=== PATIENT | female | born 1990 | race Caucasian/White ===

== ENCOUNTER 2020-05-05 20:03 | Emergency (ER) | payer OTHER, SELFPAY ==
[2020-05-05 20:04] VITALS: BP 128/83; PULSE 73; RESP 18; TEMP 36.7; O2SAT 100
[2020-05-05 20:15] VITALS: BP 132/90; PULSE 93; RESP 15; O2SAT 96
--- NOTE | 2020-05-05 20:16 | ED.LOWEXIN ---
HPI - Extremity Injury (Lower) General Chief Complaint: Extremity Injury, Lower Stated Complaint: right calf pain, from express care Time Seen by Provider: 05/05/20 20:04 History of Present Illness HPI Narrative: Right calf pain for the past few days. Continous with intermittent paroxysms. Worse at night and when at rest. She has a h/o intermittent bilateral calf pain, but feels that this is different. Related Data Allergies Allergy/AdvReac Type Severity Reaction Status Date / Time No Known Allergies Allergy Unverified 02/04/19 09:09 Review of Systems Review of Systems: All systems reviewed & are unremarkable except as noted in HPI and below [facility] Social History Social History (Updated 05/06/20 @ 04:23 by Erik Bai MD) Smoking status: Never smoker Exam Const: General: healthy appearing, no acute distress and alert Orientation/consciousness: patient oriented x3 HENMT: Head: normal to inspection Neck: Neck: normal visual inspection and no lymphadenopathy Chest: Chest palpation & inspection: no tenderness Resp: Effort & Inspection: normal respiratory effort Auscultation: clear to auscultation bilaterally, no rales, no rhonchi and no wheezes Cardio: Jugular venous distension: no JVD Rate: regular rate Rhythm: regular rhythm Heart sounds: no murmurs GI: Inspection: non-distended GI Palp: Yes Soft to palpation and No Tenderness to palpation present (GI) Skin: General skin exam: normal color Neuro: General: patient oriented x3 and moves all extremities Speech: normal speech Extrem: General: no edema Other: No calf tenderness Psych: Appearance: well kempt Affect: normal affect Course Vital Signs Vital signs: Vital Signs Temperature 36.7 C 05/05/20 20:04 Pulse Rate 73 05/05/20 20:04 Respiratory Rate 18 05/05/20 20:04 Blood Pressure 128/83 05/05/20 20:04 Pulse Oximetry 100 05/05/20 20:04 Temperature 36.7 C 05/05/20 20:04 Pulse Rate 73 05/05/20 23:15 Respiratory Rate 16 05/05/20 23:15 Blood Pressure 106/87 05/05/20 23:15 Pulse Oximetry 98 05/05/20 23:15 Procedures Other Procedure Procedure 1: Other Procedure: Bedside Ultrasound I personally perform bedside ultrasound of the RLE Popliteal and femoral veins fully compressible. No DVT MDM - Extremity Injury (Lower) MDM Narrative Medical decision making narrative: Pain is not typical for DVT. Exam normal. D-dimer negative. No DVT on US. Lab Data Attestation: I reviewed the patient's lab results. Result diagrams: 05/05/20 20:37 05/05/20 20:37 Labs: Lab Results 05/05/20 05/05/20 05/05/20 Range/Units 20:37 20:37 20:37 WBC 8.4 (4.5-10.0) K/mm3 RBC 4.27 (4.2-5.4) M/mm3 Hgb 12.9 (12.0-15.0) g/dL Hct 39.2 (37.0-47.0) % MCV 91.8 (80-100) fl MCH 30.2 (26-34) pg MCHC 32.9 (32-36) g/dl RDW 13.0 (11.5-14.5) % Plt Count 398 H (150-375) k/mm3 MPV 10.1 (7.4-10.4) fl Immature Gran % (Auto) 0.2 (0-0.5) % Neut % (Auto) 48.0 (45.5-73.1) % Lymph % (Auto) 38.7 (18.3-44.2) % [place] % (Auto) 8.7 H (2.6-8.5) % Eos % (Auto) 3.9 (0-4.4) % Baso % (Auto) 0.5 (0.2-1.2) % Lymph # (Auto) 3.26 H (0.9-3.2) K/mm3 [place] # (Auto) 0.7 H (0.1-0.6) K/mm3 Eos # (Auto) 0.3 (0-0.3) K/mm3 Baso # (Auto) 0.0 (0.0-0.1) K/mm3 Abs Immat Gran (auto) 0.02 (0.00-0.031) K/mm3 Absolute Neuts (auto) 4.1 (1.3-6.7) K/mm3 Absolute Nucleated RBC 0.0 (0.0-0.012) K/mm3 Nucleated RBC % 0.0 (0.0-0.2) % D-Dimer 0.36 (<0.48) ug/mL Sodium 138 (137-145) mmol/L Potassium 4.5 (3.4-5.0) mmol/L Chloride 103 (98-107) mmol/L Carbon Dioxide 29 (22-30) mmol/L BUN 15 (7-17) mg/dL Creatinine 0.90 (0.7-1.0) mg/dL Estim Creat Clear Calc 71 ml/min Estimated GFR > 60 (59 - ) Glucose 95 (65-105) mg/dL Calcium 9.4 (8.4-10.2) mg/dL Magnesium 2.0 (1.6-2.
--- NOTE | 2020-05-05 20:19 | PC.NURSE ---
MARGARITA Nuñez at bedside for assessment.
[2020-05-05] MEDS: MAGNESIUM SULF 2 GM/WATER 50ML 2 GM/50 ML BAG IVPB (20:38)
[2020-05-05] MEDS: SODIUM CHLORIDE 0.9% IV 1,000 ML 999 ML IV CONT (20:38)
[2020-05-05 20:45] LABS: Basophils Percent Auto 0.5 % (0.2-1.2); Eosinophils Absolute Auto 0.3 K/mm3 (0-0.3); Eosinophils Percent Auto 3.9 % (0-4.4); Hematocrit 39.2 % (37.0-47.0); Hemoglobin 12.9 g/dL (12.0-15.0); Immature Granulocyte Absolute 0.02 K/mm3 (0.00-0.031); Immature Granulocyte Percent A 0.2 % (0-0.5); Lymphocytes Absolute Auto 3.26 K/mm3 (0.9-3.2); Lymphocytes Percent Auto 38.7 % (18.3-44.2); Mean Corpuscular HGB Conc 32.9 g/dl (32-36); Mean Corpuscular Hemoglobin 30.2 pg (26-34); Mean Corpuscular Volume 91.8 fl (80-100); Mean Platelet Volume 10.1 fl (7.4-10.4); Monocytes Absolute Auto 0.7 K/mm3 (0.1-0.6); Monocytes Percent Auto 8.7 % (2.6-8.5); Neutrophils Absolute Auto 4.1 K/mm3 (1.3-6.7); Platelet Count Result 398 k/mm3 (150-375); Red Blood Count 4.27 M/mm3 (4.2-5.4); White Blood Count 8.4 K/mm3 (4.5-10.0)
[2020-05-05 20:56] LABS: Blood Urea Nitrogen 15 mg/dL (7-17); Calcium 9.4 mg/dL (8.4-10.2); Carbon Dioxide 29 mmol/L (22-30); Chloride 103 mmol/L (98-107); Estimated CRCL calculation 71 ml/min; Estimated Glomerular Filt Rate > 60; Glucose 95 mg/dL (65-105); Potassium 4.5 mmol/L (3.4-5.0); Sodium 138 mmol/L (137-145)
[2020-05-05 20:58] LABS: D Dimer 0.36 ug/mL (<0.48)
[2020-05-05] MEDS: KETOROLAC 30 MG/ML VIAL (*BKC) IV PUSH (22:15)
[2020-05-05 22:17] VITALS: BP 118/76; PULSE 77; RESP 17; O2SAT 99
[2020-05-05 22:52] VITALS: BP 112/79; PULSE 72; RESP 17; O2SAT 100
--- NOTE | 2020-05-05 23:13 | PC.NURSE ---
RN report given to
[2020-05-05 23:15] VITALS: BP 106/87; PULSE 73; RESP 16; O2SAT 98
== END 2020-05-05 23:24 | disposition home or self-care (01) ==
PROVIDERS: Emergency Provider Emergency Medicine
DX: M79.661 Pain in right lower leg (principal); M79.662 Pain in left lower leg
CPT/HCPCS: 36415; 80048; 83735; 85025; 85380; 96365; 96366; 96375; 99284; J1885; J3475; J7030

== ENCOUNTER 2022-04-29 16:42 | Outpatient (RCR) | payer OTHER, SELFPAY ==
[2022-04-22 08:41] VITALS: BP 116/74; PULSE 109
--- NOTE | ~2022-04-29 | US_ITS ---
EXAMINATION: US OB limited w BPP DATE: 04/29/2022 18:42 CDT INDICATION: decelerations and office TECHNIQUE: Real-time transabdominal obstetric ultrasound. FINDINGS: No prior studies for comparison. There is a single living fetus in vertex presentation. The placenta is fundal/posterior without plac enta previa. cardiac activity and movement is noted with a heart rate of 129 beats per minute. Biophysical profile: breathin of 2 movement: 2 of 2 tone: 2 of 2 Amniotic flud pocket: 2 of 2 Total score: 8 of 8 Amniotic fluid index is normal measuring 13.3 cm. IMPRESSION: 1. Single living intrauterine in vertex presentation. 2: Total biophysical profile score of 8/8. Reviewed, dictated and finalized at location A.
[2022-04-29 18:06] VITALS: BP 116/76
--- NOTE | 2022-04-29 18:16 | PC.NURSE ---
1741- SPoke with Dr. Reeedr, orders to send for BPP and LAURIE. Call with results.
--- NOTE | 2022-04-29 18:55 | PC.NURSE ---
Called Dr. Pickard with ultrasound report. Informed of contractions seen on tracing. Pt denies feeling contractions. May D/C home.
== END 2022-05-31 14:55 | disposition home or self-care (01) ==
LOC: ANHOBOP 16:42
PROVIDERS: Visit Provider Obstetrics & Gynecology
DX: O24.419 Gestational diabetes mellitus in pregnancy, unspecified control (principal); Z3A.34 34 weeks gestation of pregnancy
CPT/HCPCS: 59025; 76815; 76819

== ENCOUNTER 2022-05-26 01:45 | Emergency (ER) | payer OTHER, SELFPAY ==
[2022-05-26 01:50] VITALS: BP 130/70; PULSE 96; RESP 16; TEMP 36.3; O2SAT 100
--- NOTE | 2022-05-26 02:18 | ED.SKABFB ---
HPI - Skin/Abscess/Foreign Bdy General Chief complaint: Skin/Abscess/Foreign Body Stated complaint: hives Time Seen by Provider: 05/26/22 02:03 History of Present Illness HPI narrative: 32-year-old female who is [address] Enamorado presents to the emergency room for evaluation of a rash to her bilateral thighs and feet. Patient states she was recently diagnosed with a pop rash, and has been taking topical steroid ointment with no relief. States earlier this evening she noticed the rash on her feet. Has been taking Benadryl every 4 hours with no relief of symptoms. Denies any shortness of breath difficulty breathing Related Data Home Medications Medication Instructions Recorded Confirmed aspirin 81 mg tablet,delayed 81 mg PO DAILY 01/23/22 01/23/22 release cholecalciferol (vitamin D3) 50 50 mcg PO DAILY 01/23/22 01/23/22 mcg (2,000 unit) capsule ferrous sulfate 27 mg iron tablet 27 mg PO DAILY 01/23/22 01/23/22 folic acid 20 mg capsule 20 mg PO DAILY 01/23/22 01/23/22 levothyroxine 75 mcg tablet 75 mcg PO DAILY 01/23/22 01/23/22 (Euthyrox) prenat.vits,trisha,[id number] 1 tablet PO DAILY 01/23/22 01/23/22 Acid Show Horse Driver (omeprazole) 1 tablet BYMOUTH 1XD 05/01/22 05/01/22 Humulin N NPH U-100 Insulin 6 units subcut DAILY 05/01/22 05/01/22 Allergies Allergy/AdvReac Type Severity Reaction Status Date / Time No Known Allergies Allergy Verified 05/26/22 02:17 Review of Systems Review of Systems: CONSTITUTIONAL: Denies fever, chills, or sweats. EYES: Denies visual changes, redness, or discharge. ENT: Denies rhinorrhea, congestion, sore throat, or otalgia. CARDIOVASCULAR: Denies chest pain, palpitations, or edema. RESPIRATORY: Denies cough or dyspnea. GASTROINTESTINAL: Denies abdominal pain, nausea, vomiting, or diarrhea. GENITOURINARY: Denies dysuria or hematuria. SKIN: Reports rash to bilateral lower extremities MUSCULOSKELETAL: Denies back pain, joint pain, or myalgia. NEUROLOGIC: Denies headache, numbness, dizziness, or weakness. PSYCHIATRIC: Denies anxiety or depression. 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 HEAD: Normocephalic, atraumatic. EYES: Conjunctivae normal, PERRLA and EOMI. CHEST: Clear to auscultation. No respiratory distress. No wheezes rales or rhonchi. No tenderness. HEART: Regular rate and rhythm. No murmur heard. Normal peripheral pulses. ABDOMEN: Soft, nontender, abdomen , active bowel sounds. BACK: No CVA tenderness; No cervical/thoracic/lumbar tenderness, step-offs, bony abnormality; FROM EXTREMITIES: Normal range of motion. No edema. No clubbing or cyanosis SKIN: Erythematous pruritic papular rash noted to bilateral medial thighs, and dorsal surfaces of bilateral feet NEURO: No focal deficits. Alert and oriented x3. MAEW. CN's II-XI intact bilaterally, normal gait PSYCH: Cooperative. Normal mood and affect. Course Vital Signs Vital signs: Vital Signs Temperature 36.3 C L 05/26/22 01:50 Pulse Rate 96 05/26/22 01:50 Respiratory Rate 16 05/26/22 01:50 Blood Pressure 130/70 05/26/22 01:50 Pulse Oximetry 100 05/26/22 01:50 Oxygen Delivery Room Air 05/26/22 01:50
[2022-05-26] MEDS: methylPREDNISolone SOD SUCC 125 MG VIAL IM (02:24)
== END 2022-05-26 02:38 | disposition home or self-care (01) ==
PROVIDERS: Emergency Provider Nurse Practitioner Family; PCP Nurse Practitioner
DX: O26.86 Pruritic urticarial papules and plaques of pregnancy (PUPPP) (principal); O99.283 Endocrine, nutritional and metabolic diseases complicating pregnancy, third trimester; E78.00 Pure hypercholesterolemia, unspecified; Z79.82 Long term (current) use of aspirin; Z79.4 Long term (current) use of insulin; Z87.891 Personal history of nicotine dependence; Z3A.39 39 weeks gestation of pregnancy
CPT/HCPCS: 96372; 99283; J2930

== ENCOUNTER 2022-05-27 16:58 | Inpatient (IN) | payer OTHER, SELFPAY ==
[2022-05-27] VITALS (15 sets, daily range): BP systolic 102–129; BP diastolic 54–97; PULSE 62–166; TEMP 37.2; O2SAT 84–100; BMI 33.5
--- NOTE | 2022-05-27 17:35 | LDADM ---
This patient, Tiffanie Lomas, was admitted to Labor/Delivery/Recovery 109 on 05/27/22 at 16:58. Plans for labor, pain management and were discussed with patient. Patient/family oriented to hospital policies and general routines including ID bracelet, bed and alarms, visiting hours, pain management, procedures, bathroom and other care routines, personal items, smoking policy, room service/diet and guest tray routines, security routines, and visiting hours. Patient/Family are encouraged to report perceived risks to care and to ask questions if they do not understand what they are told or what they should do. See OBIX for further documentation.
[2022-05-27 17:44] LABS: Basophils Percent Auto 0.3 % (0.2-1.2); Eosinophils Absolute Auto 0.3 K/mm3 (0-0.3); Eosinophils Percent Auto 2.6 % (0-4.4); Hematocrit 39.4 % (37.0-47.0); Immature Granulocyte Absolute 0.04 K/mm3 (0.00-0.031); Immature Granulocyte Percent A 0.4 % (0-0.5); Lymphocytes Absolute Auto 0.72 K/mm3 (0.9-3.2); Lymphocytes Percent Auto 7.2 % (18.3-44.2); Mean Corpuscular Hemoglobin 31.3 pg (26-34); Mean Corpuscular Volume 94.7 fl (80-100); Mean Platelet Volume 11.3 fl (7.4-10.4); Monocytes Absolute Auto 0.3 K/mm3 (0.1-0.6); Monocytes Percent Auto 3.3 % (2.6-8.5); Neutrophils Absolute Auto 8.6 K/mm3 (1.3-6.7); Neutrophils Percent Auto 86.2 % (45.5-73.1); Platelet Count Result 332 k/mm3 (150-375); Red Blood Count 4.16 M/mm3 (4.2-5.4); Red Cell Distribution Width 13.8 % (11.5-14.5)
[2022-05-27] MEDS: miSOPROStol 25 MCG TABLET VAGINAL (17:59)
--- NOTE | 2022-05-27 19:10 | WPDANESEPP ---
Anes - Eval Pre Procedure Procedure: labor epidural Date/Time: 05/27/22 19:10 Surgeon: rosie Preop Diagnosis: pain during labor Pre Op Diagnosis: Induction of Labor Patient Data Age: 32 Gender: F Height: 1.57 m Weight: 83 kg Last Vital Signs Pulse 99 05/27/22 17:16 BP 114/66 05/27/22 17:16 O2 Del Method Room Air 05/27/22 17:30 Allergies Allergy/AdvReac Type Severity Reaction Status Date / Time No Known Allergies Allergy Verified 05/26/22 02:17 Home Medications Medication Instructions Recorded Confirmed Type aspirin 81 mg tablet,delayed 81 mg PO DAILY 01/23/22 05/27/22 History release cholecalciferol (vitamin D3) 50 50 mcg PO DAILY 01/23/22 05/27/22 History mcg (2,000 unit) capsule ferrous sulfate 27 mg iron tablet 27 mg PO DAILY 01/23/22 05/27/22 History folic acid 20 mg capsule 20 mg PO DAILY 01/23/22 05/27/22 History levothyroxine 75 mcg tablet 75 mcg PO DAILY 01/23/22 05/27/22 History (Euthyrox) prenat.vits,trisha,[id number] 1 tablet PO DAILY 01/23/22 05/27/22 History Acid Patient Relations Specialist (omeprazole) 1 tablet BYMOUTH 1XD 05/01/22 05/27/22 History Humulin N NPH U-100 Insulin 6 units subcut DAILY 05/01/22 05/27/22 History prednisone 20 mg tablet 40 mg PO DAILY 5 days #10 tabs 05/26/22 05/27/22 Rx Laboratory Tests 05/27/22 05/27/22 17:32 17:32 WBC 10.0 K/mm3 K/mm3 (4.5-10.0) RBC 4.16 M/mm3 L M/mm3 (4.2-5.4) Hgb 13.0 g/dL g/dL (12.0-15.0) Hct 39.4 % % (37.0-47.0) MCV 94.7 fl fl (80-100) MCH 31.3 pg pg (26-34) MCHC 33.0 g/dl g/dl (32-36) RDW 13.8 % % (11.5-14.5) Plt Count 332 k/mm3 k/mm3 (150-375) MPV 11.3 fl H fl (7.4-10.4) Immature Gran % (Auto) 0.4 % % (0-0.5) Neut % (Auto) 86.2 % H % (45.5-73.1) Lymph % (Auto) 7.2 % L % (18.3-44.2) [place] % (Auto) 3.3 % % (2.6-8.5) Eos % (Auto) 2.6 % % (0-4.4) Baso % (Auto) 0.3 % % (0.2-1.2) Lymph # (Auto) 0.72 K/mm3 L K/mm3 (0.9-3.2) [place] # (Auto) 0.3 K/mm3 K/mm3 (0.1-0.6) Eos # (Auto) 0.3 K/mm3 K/mm3 (0-0.3) Baso # (Auto) 0.0 K/mm3 K/mm3 (0.0-0.1) Abs Immat Gran (auto) 0.04 K/mm3 H K/mm3 (0.00-0.031) Absolute Neuts (auto) 8.6 K/mm3 H K/mm3 (1.3-6.7) Absolute Nucleated RBC 0.0 K/mm3 K/mm3 (0.0-0.012) Nucleated RBC % 0.0 % % (0.0-0.2) RPR Pending Patient hx anesthesia problems: none Family hx anesthesia problems: none Results Review: All pre-operative results and documents have been reviewed as part of the pre-operative evaluation. [facility] Past Medical History Medical History (Updated 05/27/22 @ 19:12 by Ursula Gustafson CRNA) High cholesterol Surgical History Surgical History H/O laparoscopy Hx of tonsillectomy Family History Family History Mother Patient's mother is in good health Father Diabetes type 2, controlled Sibling Diabetes type 2, controlled Hypertension Social History Social History Smoking status: Never smoker Alcohol intake: former Substance use: never Additional occupation/education comments: [employer] Spiritual care concerns: No Exam Day of Procedure 05/27/22 19:10
[2022-05-27 20:01] LABS: Glucose Point of Care 123 mg/dl (65-105)
[2022-05-27] MEDS: INSULIN HUMAN NPH (*BKC) 100 UNITS/ML 6 UNITS SUB-Q (21:12)
[2022-05-27] MEDS: diphenhydrAMINE HCl INJ 50 MG/ML VIAL 25 MG IV PUSH (22:13)
[2022-05-27] MEDS: OXYTOCIN 30 UNITS/NS 500 ML 30 UNITS/500 ML BAG IV CONT (22:58)
[2022-05-27] MEDS: LACTATED RINGERS 1,000 ML 125 ML IV CONT ×2 (22:58→23:58)
[2022-05-28] VITALS (341 sets, daily range): BP systolic 81–196; BP diastolic 34–174; PULSE 41–210; RESP 13–20; TEMP 36.2–37; O2SAT 82–100
[2022-05-28 01:15] LABS: Glucose Point of Care 90 mg/dl (65-105)
[2022-05-28] MEDS: diphenhydrAMINE HCl INJ 50 MG/ML VIAL 25 MG IV PUSH ×4 (02:06→14:00)
[2022-05-28] MEDS: LACTATED RINGERS 1,000 ML 125 ML IV CONT ×3 (03:09→12:09)
[2022-05-28] MEDS: PHENYLEPHRINE 1,000 MCG/10 ML SYRINGE 100 MCG IV PUSH ×4 (04:22→08:00)
[2022-05-28] MEDS: ePHEDrine sulfate INJ 50 MG/ML AMPUL IV PUSH ×2 (04:59→08:09)
[2022-05-28 05:12] LABS: Glucose Point of Care 80 mg/dl (65-105)
[2022-05-28 06:20] LABS: Rapid Plasma Reagin Non-Reactive (NonReactive)
--- NOTE | 2022-05-28 07:08 | PM.IMHP ---
H&P: HPI History of Present Illness Date/Time: 05/28/22 07:08 Chief Complaint: induction of labor Narrative: Tiffanie is a 32yo at 39.5 IOL. complicated by GDMA2, NPH insulin at night only, well controlled. Received cytotec x1 and now on pitocin. Has epidural. 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 Spiritual care concerns: No Meds Home Medications and Allergies Home Medications Medication Instructions Recorded Confirmed Type aspirin 81 mg tablet,delayed 81 mg PO DAILY 01/23/22 05/27/22 History release cholecalciferol (vitamin D3) 50 50 mcg PO DAILY 01/23/22 05/27/22 History mcg (2,000 unit) capsule ferrous sulfate 27 mg iron tablet 27 mg PO DAILY 01/23/22 05/27/22 History folic acid 20 mg capsule 20 mg PO DAILY 01/23/22 05/27/22 History levothyroxine 75 mcg tablet 75 mcg PO DAILY 01/23/22 05/27/22 History (Euthyrox) prenat.vits,trisha,[id number] 1 tablet PO DAILY 01/23/22 05/27/22 History Acid Typist (omeprazole) 1 tablet BYMOUTH 1XD 05/01/22 05/27/22 History Humulin N NPH U-100 Insulin 6 units subcut DAILY 05/01/22 05/27/22 History prednisone 20 mg tablet 40 mg PO DAILY 5 days #10 tabs 05/26/22 05/27/22 Rx Allergy Relief(diphenhydramin) 25 mg PO Q4-6H PRN Itching 05/27/22 05/27/22 History Allergies Allergy/AdvReac Type Severity Reaction Status Date / Time No Known Allergies Allergy Verified 05/26/22 02:17 Vital Signs Vital Signs - 24 hr 05/27/22 17:16 05/27/22 19:48 05/27/22 20:55 Temperature Pulse Rate 99 88 85 Blood Pressure 114/66 121/74 115/84 Pulse Oximetry Oxygen Delivery 05/27/22 23:02 05/27/22 23:44 05/27/22 23:45 Temperature Pulse Rate 78 108 H Blood Pressure 117/70 119/97 H 123/96 H Pulse Oximetry 84 L Oxygen Delivery 05/27/22 23:46 05/27/22 23:48 05/27/22 23:50 Temperature Pulse Rate 125 H 114 H 166 H Blood Pressure 125/71 126/55 L 109/86 Pulse Oximetry 100 Oxygen Delivery 05/27/22 23:51 05/27/22 23:52 05/27/22 23:56 Temperature Pulse Rate 114 H 94 Blood Pressure 102/82 125/54 L Pulse Oximetry 100 88 L Oxygen Delivery 05/27/22 23:57 05/27/22 23:58 05/28/22 00:00 Temperature 98.3 F Pulse Rate 103 H 108 H 97 Blood Pressure 129/59 L 110/56 L 120/43 L Pulse Oximetry Oxygen Delivery 05/28/22 00:01 05/28/22 00:02 05/28/22 00:04 Temperature Pulse Rate 88 95 Blood Pressure 107/58 L 115/62 Pulse Oximetry 99 Oxygen Delivery 05/28/22 00:06 05/28/22 00:07 05/28/22 00:08 Temperature Pulse Rate 99 102 H Blood Pressure 122/63 106/43 L Pulse Oximetry 99 Oxygen Delivery 05/28/22 00:10 05/28/22 00:11 05/28/22 00:12 Temperature Pulse Rate 88 88 Blood Pressure 113/54 L 105/39 L Pulse Oximetry 99 Oxygen Delivery 05/28/22 00:14 05/28/22 00:16 05/28/22 00:18 Temperature Pulse Rate 97 89 87 Blood Pressure 112/72 111/75 110/61 Pulse Oximetry 100 Oxygen Delivery 05/28/22 00:20 05/28/22 00:21 05/28/22 00:22 Temperature Pulse Rate 89 89 Blood Pressure 113/48 L 108/60 Pulse Oximetry 100 Oxygen Delivery 05/28/22 00:25 05/28/22 00:26 05/28/22 00:28 Temperature
[2022-05-28 09:07] LABS: Glucose Point of Care 75 mg/dl (65-105)
[2022-05-28 12:57] LABS: Glucose Point of Care 78 mg/dl (65-105)
--- NOTE | 2022-05-28 17:05 | WPDHPUPDATE1 ---
History and Physical Update Update Date/Time: 05/28/22 17:05 History and Physical has been reviewed, including an updated exam of the patient. FHT now category 1, but with pitocin on was having recurrent lates, though moderate variability and accels. Unable to get contractions adequate with pitocin for much of the day. Finally adequate contractions resulted in prolonged 4 min deceleration. Pitocin was DCed and decision to proceed with CS was made. Cervix made minimal change all day. Still 4cm and very anterior. Pt consented for primary CS. Risks, benefits, and alternatives have been discussed and questions answered. Patient agrees to proceed with procedure.
[2022-05-28] MEDS: ceFAZolin 2 GM/D5W 50 ML 2 GM/50 ML BAG IVPB (17:08)
--- NOTE | 2022-05-28 18:30 | PM.OBPRVD ---
OB - Delivery Note Procedure Delivery date: 05/28/22 Procedure: Procedures Operation Date: 05/28/22 17:00 <No data on this case meets the specified criteria> Primary Section Events: Gestational Diabetes Intrapartal Events: Failed Induction of Labor and Decelerations Induction method: AROM, Per Misoprostol Protocol and Per Pitocin Protocol Delivery monitor: External FHT and Internal Uterine Route of delivery: Prior to decision for section, ACOG/SMFM labor guidelines were considered and discussed with the patient and staff. Decision made to proceed with the section.: Yes Specimen: Yes (placenta) Quantitative Blood Loss (ml): 555 Anesthesia type: Epidural Disposition: Floor Complications: none Narrative: The patient was taken to the OR and received spinal anesthesia. She was placed in dorsal supine position with left lateral tilt. SCDs and vazquez were placed. She was prepped and draped in the normal sterile fashion. A Pfannensteil skin incision was made and carried through to the underlying layer of fascia. The fascia was incised in the midline and then extended laterally using Malik scissors. The muscles were in the midline and the peritoneum was entered bluntly. The peritoneal incision was extended inferiorly and superiorly with care to avoid the bladder. The bladder blade was then inserted, the vesicouterine peritoneum was grasped, incised with Metzenbaum scissors, and a bladder flap created. The bladder blade was reinserted. A low transverse uterine incision was made with a scalpel and extended bluntly. AROM was performed and fluid was noted to be clear. The head was delivered, followed by the remainder of the baby. The baby's oropharynx was suctioned. The cord was clamped and cut and the infant was handed off. Cord blood was obtained and the placenta was then removed manually. The uterus was exteriorized. A moist lap sponge was used to curette the endometrium. The uterine incision was then closed with one layer of 0-Vicryl in a running, locking fashion. Good hemostasis was noted. The posterior cul de sac was irrigated with normal saline and cleared of all clot and debris. The uterus was returned to the abdomen. Both lateral gutters were then irrigated. The rectus muscles were inspected and found to be hemostatic. The fascia was reapproximated using 0-Vicryl in running fashion. The subcutaneous tissue was irrigated with normal saline and made hemostatic with Bovie electrocautery. The subcutaneous tissue was reapproximated with a layer of running 2-0 plain gut. The skin was then closed with absorbable johnny. Steri strips and a bandage were applied. The uterus was evacuated. The patient tolerated the procedure very well. All counts were correct. She was taken to the recovery room in good condition. [place] Baby Date of : 05/28/22 Time of : 17:30 Weeks of gestation at delivery: 39 gender: Male Weight (pounds): 7 Weight (ounces): 11 presentation: vertex Placenta delivery description: Manual Removal Cord Vessel Description: 3 Vessels, Nuchal Cord (x2) and Clamped/Cut score one minute: 2 score five minutes: 7
[2022-05-28] MEDS: OXYTOCIN 30 UNITS/NS 500 ML 30 UNITS/500 ML BAG 125 UNITS IV CONT (19:19)
[2022-05-28] MEDS: LORATADINE 10 MG TABLET PO (20:00)
[2022-05-28] MEDS: predniSONE 20 MG TABLET PO (20:42)
[2022-05-29] VITALS (7 sets, daily range): BP systolic 96–113; BP diastolic 50–70; PULSE 78–97; RESP 16–18; TEMP 36.1–36.8; O2SAT 96–100
[2022-05-29] MEDS: HYDROcodone/acetaminophen (*CRX) 5-325 MG TABLET 1 TAB PO ×4 (04:59→20:54)
[2022-05-29 06:16] LABS: Basophils Absolute Auto 0.1 K/mm3 (0.0-0.1); Basophils Percent Auto 0.3 % (0.2-1.2); Eosinophils Absolute Auto 0.5 K/mm3 (0-0.3); Eosinophils Percent Auto 3.2 % (0-4.4); Hematocrit 33.6 % (37.0-47.0); Hemoglobin 10.9 g/dL (12.0-15.0); Immature Granulocyte Absolute 0.07 K/mm3 (0.00-0.031); Immature Granulocyte Percent A 0.5 % (0-0.5); Lymphocytes Percent Auto 7.6 % (18.3-44.2); Mean Corpuscular HGB Conc 32.4 g/dl (32-36); Mean Corpuscular Hemoglobin 30.8 pg (26-34); Mean Corpuscular Volume 94.9 fl (80-100); Mean Platelet Volume 11.5 fl (7.4-10.4); Monocytes Absolute Auto 0.9 K/mm3 (0.1-0.6); Monocytes Percent Auto 6.3 % (2.6-8.5); Neutrophils Absolute Auto 11.9 K/mm3 (1.3-6.7); Neutrophils Percent Auto 82.1 % (45.5-73.1); Platelet Count Result 231 k/mm3 (150-375); Red Blood Count 3.54 M/mm3 (4.2-5.4); Red Cell Distribution Width 14.1 % (11.5-14.5); White Blood Count 14.5 K/mm3 (4.5-10.0)
--- NOTE | 2022-05-29 07:55 | PM.OBPNVD ---
OB - PN: Subj Subjective Date/time seen: 05/29/22 07:55 Patient comments: no complaints and incisional pain [place] baby status: doing well and nursing well [place] feeding status: exclusively breast feeding Narrative: POD 1 from primary CS. Doing well. Normal lochia. Eating, ambulating, vazquez still in OB - PN: Obj Data Labs CBC & Chem 7: 05/29/22 04:44 Labs: Laboratory Results - last 24 hr 05/28/22 05/28/22 05/29/22 09:01 12:51 04:44 WBC 14.5 H RBC 3.54 L Hgb 10.9 L Hct 33.6 L MCV 94.9 MCH 30.8 MCHC 32.4 RDW 14.1 Plt Count 231 MPV 11.5 H Immature Gran % (Auto) 0.5 Neut % (Auto) 82.1 H Lymph % (Auto) 7.6 L [place] % (Auto) 6.3 Eos % (Auto) 3.2 Baso % (Auto) 0.3 Lymph # (Auto) 1.10 [place] # (Auto) 0.9 H Eos # (Auto) 0.5 H Baso # (Auto) 0.1 Abs Immat Gran (auto) 0.07 H Absolute Neuts (auto) 11.9 H Absolute Nucleated RBC 0.0 Nucleated RBC % 0.0 POC Capillary Glucose 75 78 OB - PN A/P Plan day: 1 Plan: routine care Comments: Doing well. prednisone for severe PUPPS circumcision Friday, parents notified and consented Time Spent With Patient Time: Total time spent is greater than 50% in coordination of care (as documented) at patient's floor/unit and/or counseling patient: Exam Narrative: NAD abdomen soft, appropriately tender, incision bandaged Extremities nontender with 1+ edema
--- NOTE | 2022-05-29 08:00 | PC.NURSE ---
PT introductions made and plan of care discussed per post op c section, pain management, breast feeding, nipple shield, pumping, daily care activities. PT received such instruction and no barriers to learning identified at this time. PT received such instructions per one to one discussion, mom baby care guide and demonstrations this shift. PT verbalized understanding of such care.
--- NOTE | 2022-05-29 08:00 | WPDANLDNPN2 ---
Anes-Prog Note L&D-Neuraxial Date/Time: 05/29/22 08:00 Neuraxial medications: epidural PF morphine Opiod-related complaints: none Patient feedback: Patient satisfied with post-operative pain management.
--- NOTE | 2022-05-29 08:00 | WPDANLDPN2 ---
Anes-Prog Note L&D Date/Time: 05/29/22 08:00 Comfortable throughout: labor and section Neuraxial method: epidural Epidural/Spinal procedure site: clean & non-tender Neuro status: Neuro function grossly intact. Cardiovascular status: normal Respiratory status: normal Airway patency: baseline Mental status: baseline Post-Op hydration status: normal Vital Signs: Last Vital Signs Temp 97.8 F 05/28/22 20:20 Pulse 73 05/28/22 20:31 Resp 19 05/28/22 20:20 BP 100/50 L 05/28/22 20:31 Pulse Ox 100 05/28/22 20:35 O2 Del Method Room Air 05/28/22 20:20 Pain score (VAS): 10/29 I/O: Intake & Output 05/28/22 05/29/22 05/29/22 23:59 07:59 15:59 Output Total 135 Balance -135 Post-procedural complaints: none Patient feedback: Patient satisfied with anesthetic care.
[2022-05-29] MEDS: LANOLIN (LANSINOH) 7.5 GM CREAM 1 APPLIC TOPICAL (10:05)
[2022-05-29] MEDS: SIMETHICONE 80 MG TAB.CHEW PO ×3 (10:06→20:55)
[2022-05-29] MEDS: IBUPROFEN 600 MG TABLET PO ×3 (10:06→20:55)
[2022-05-29] MEDS: DOCUSATE SODIUM 100 MG CAPSULE PO ×2 (10:06→15:16)
[2022-05-29] MEDS: LEVOTHYROXINE SODIUM 75 MCG TABLET PO (10:07)
[2022-05-29] MEDS: MULTIVIT/MIN/PREN/FOL AC/IRON TABLET 1 TAB PO (10:08)
--- NOTE | 2022-05-29 13:34 | PC.NURSE ---
[id number] Primary RN previously reported blood sugar 48 mg/dl at 0745. Introductions were made, then consulted with patient to assess needs related to . Mother led the conversation with her experience feeding her infant so far and exploration discovers that mother has been using a nipple shield with each . Mother works well with her with encouragement and education. Encouraged understanding of the benefits of skin to skin (unwrapping and placing vertically on her chest), responsive feeding and how to watch for early feeding signs, frequency of feeding on demand about every 8-12 times in 24 hours (every 2-3 hours), milk production, duration of feeding, signs of adequate intake/output and how to record on the feeding sheet. Reviewed protecting her milk supply, milk production, use/care of nipple shield, and stimulating with removing the milk with pumping. Discussed her medical history and how that may effect her milk supply. Resources used to facilitate learning were used with the visual handouts/ tool/mom and baby guide. Mother voiced understanding of responsive feedings, stimulating with skin to skin, hand expressed colostrum, touch, talking to infant to encourage if it has been 2 -3 hours since the start of the last , to call if infant does not latch or there is discomfort with . Reported to the primary RN.
--- NOTE | 2022-05-29 13:40 | PC.NURSE ---
1233 -1317 Breast pump provided due to ineffective feedings and using a nipple shield. Instructions given on cleaning, care, usage, that there should be no pain, pumping schedule for milk production, collection, and storage of human milk. Mother is encouraged to record pumping schedule on the feeding sheet. Patient was assessed for correct placement, flange size, to pump for comfort and nipple stretching/stimulation for adequate milk production every 3 hours (8 times in 24 hours 1-2 times at night). Consulted with patient to assess needs related to . Reviewed working with , breast, nipples and how to protect the nipples with an optimal deep latch, good positioning, and good hand washing. Encouraged understanding the benefits of skin to skin, responding to feeding cues, frequencies of feeding 8-12 times in 24 hours (approximately 2-3 hours), duration of feedings, milk production, intake/output feeding sheet and signs of adequate intake encouraging swallowing at the breast. Reviewed positioning and alignment, supporting breast, off-centered (asymmetrical latch) and leading with the chin with big open wide gape. Attempted to latch without a nipple shield and infant was sleepy and reluctant. Reviewed use and care of the nipple shield with washing with warm, soapy water. Infant latched to the left breast in football position with mother sitting in a chair using the nipple shield. was latched with a nipple shield after demonstration of how to apply correctly. Education given to mother of how to visualize a big, open, wide gape and good rocking motions. was able to maintain latch without discomfort to mother. Nipple care reviewed with optimal latch and good positioning. Infant detached and an attempt was made to latch without a nipple shield and made no efforts. Latched again encouraging mother to wait for the big, wide, open gape for learning with the nipple shield. Mother has a plan to do a pump session after with a nipple shield. Resources used to facilitate learning were used from the visual handout/ tool/mom and baby guide. Mother voiced understanding of the education shared, calling for assistance if the does not latch or if there is discomfort with . Reported to the primary RN.
[2022-05-30] MEDS: IBUPROFEN 600 MG TABLET PO ×3 (07:19→23:09)
[2022-05-30] MEDS: HYDROcodone/acetaminophen (*CRX) 5-325 MG TABLET 1 TAB PO ×3 (07:20→23:10)
[2022-05-30] MEDS: LEVOTHYROXINE SODIUM 75 MCG TABLET PO (07:20)
--- NOTE | 2022-05-30 07:51 | PM.OBPNVD ---
OB - PN: Subj Subjective Date/time seen: 05/30/22 07:51 Patient comments: no complaints, pain well controlled, incisional pain, tolerating diet and flatus present OB - PN: Obj Data Labs CBC & Chem 7: 05/29/22 04:44 OB - PN A/P Plan day: 2 Plan: routine care Comments: POD#2 LTCS - no problems, Time Spent With Patient Time: Total time spent is greater than 50% in coordination of care (as documented) at patient's floor/unit and/or counseling patient: Exam Const: General: comfortable, no acute distress and alert Resp: Effort & Inspection: normal respiratory effort Auscultation: no crackles, no rales and no rhonchi Cardio: Rate: regular rate Heart sounds: no click, no murmurs and no rubs GI: Inspection: non-distended GI Palp: No Tenderness to palpation present (GI) Auscultation: normal bowel sounds Other: Incision - CDI Extrem: General: normal to inspection, no pedal edema and no calf tenderness
[2022-05-30 08:20] VITALS: BP 102/50; PULSE 95; RESP 16; TEMP 36.2; O2SAT 100
[2022-05-30] MEDS: MULTIVIT/MIN/PREN/FOL AC/IRON TABLET 1 TAB PO (09:36)
[2022-05-30] MEDS: LORATADINE 10 MG TABLET PO (09:36)
[2022-05-30] MEDS: predniSONE 20 MG TABLET PO (09:36)
[2022-05-30] MEDS: DOCUSATE SODIUM 100 MG CAPSULE PO ×2 (09:36→16:06)
[2022-05-30 19:30] VITALS: BP 122/75; PULSE 89; RESP 16; TEMP 36.6
[2022-05-31] MEDS: LEVOTHYROXINE SODIUM 75 MCG TABLET PO (06:44)
[2022-05-31 07:20] VITALS: BP 114/70; PULSE 93; RESP 18; TEMP 36.2; O2SAT 100
--- NOTE | 2022-05-31 07:58 | PM.OBPNVD ---
OB - PN: Subj Subjective Date/time seen: 05/31/22 07:58 Patient comments: pain well controlled and flatus present baby status: doing well feeding status: breast and bottle feeding Narrative: PUPPPS still very itchy. pumping because not latching well. OB - PN: Obj Data Labs CBC & Chem 7: 05/29/22 04:44 OB - PN A/P Plan day: 3 Plan: discharge home Comments: continue prednisone 20mg for puppps circ done today Time Spent With Patient Time: Total time spent is greater than 50% in coordination of care (as documented) at patient's floor/unit and/or counseling patient: Exam Narrative: NAD abdomen soft, appropriately tender, incision CDI Extremities nontender with 1+ edema
--- NOTE | 2022-05-31 08:07 | P.DS_ITS ---
DS: Admitting Diagnosis Discharge Date 05/31/22 Admitting Diagnosis Term IUP, GDM DS: Discharge Diagnosis Discharge Diagnosis (1) delivery delivered: Code(s): O82 - Encounter for delivery without indication Status: Acute DS: Summary Hospital Course Hospital Course: Tiffanie was admitted for IOL at 39.4weeks. Baby did not tolerate induction of labor enough to run pitocin adequately and she had an uncomplicated primary section. She had an uncomplicated post operative course and was discharged home on POD 3. Status at Discharge Functional status at discharge: independent ambulation Time Spent with Patient Time attestation: Total time spent providing and/or coordinating discharge services: Exam Narrative: NAD abdomen soft, appropriately tender, incision CDI DS: Data Data Completed and Pending Pending studies at discharge: Pending at discharge 05/28/22 18:43 Surgical [PTH] Routine Discharge Plan Discharge Attending physician on discharge: Leidy Pickard Discharging Clinician: Leidy Pickard Anticipated Discharge Date/Time: 05/31/22 14:00 Patient Disposition: Home, Self-Care Activity: may shower, may drive after 2 weeks and pelvic rest Diet: regular Patient Instructions: Antibiotic Form Stand Alone Forms: General Discharge Information Follow-up/Referrals: Leidy Pickard MD [Physician] - 1 Week Discharge Medications: New hydrocodone-acetaminophen 5-325 mg Tablet 1 tablet PO Q4-5H PRN (Reason: Moderate Pain (4-6)) Qty: 30 0RF docusate sodium 100 mg Capsule 100 mg PO BID Qty: 60 0RF ibuprofen 600 mg Tablet 600 mg PO Q6H PRN (Reason: Cramping) Qty: 60 0RF prednisone 20 mg Tablet 20 mg PO DAILY Qty: 30 0RF Continued cholecalciferol (vitamin D3) 50 mcg (2,000 unit) capsule 50 mcg PO DAILY ferrous sulfate 27 mg iron tablet 27 mg PO DAILY prenat.vits,trisha,psp-odii-cokvq Tablet 1 tablet PO DAILY levothyroxine [Euthyrox] 75 mcg tablet 75 mcg PO DAILY Acid Cross Country Coach (omeprazole) 1 tablet BYMOUTH 1XD Discontinued folic acid 20 mg capsule 20 mg PO DAILY aspirin 81 mg tablet,delayed release (DR/EC) 81 mg PO DAILY Humulin N NPH U-100 Insulin 6 units subcut DAILY Rx Instructions: Takes at HS Allergy Relief(diphenhydramin) 25 mg PO Q4-6H PRN (Reason: Itching) prednisone 20 mg tablet 40 mg PO DAILY 5 Days Qty: 10 0RF Date of admission: 05/27/22 16:58 Primary Care Provider: Torres,Rina Paez Admitting Provider: Leidy Pickard Attending physician on admission: Leidy Pickard Condition: Stable
[2022-05-31] MEDS: predniSONE 20 MG TABLET PO (10:09)
[2022-05-31] MEDS: MULTIVIT/MIN/PREN/FOL AC/IRON TABLET 1 TAB PO (10:09)
[2022-05-31] MEDS: LORATADINE 10 MG TABLET PO (10:10)
[2022-05-31] MEDS: DOCUSATE SODIUM 100 MG CAPSULE PO (10:10)
[2022-05-31] MEDS: HYDROcodone/acetaminophen (*CRX) 5-325 MG TABLET 1 TAB PO (10:10)
[2022-05-31] MEDS: IBUPROFEN 600 MG TABLET PO (10:10)
[2022-06-03 11:22] VITALS: BP 119/73; PULSE 82; RESP 20; TEMP 36.7; O2SAT 100
== END 2022-05-31 12:55 | disposition home or self-care (01) | DRG 788 ==
LOC: ANHLDR 05-28 12:55 → ANHOB2 05-28 22:08
PROVIDERS: Admitting Provider Obstetrics & Gynecology; PCP Nurse Practitioner; Visit Provider Obstetrics & Gynecology
PROC: 10D00Z1 Extraction of Products of Conception, Low, Open Approach (ICD-10-PCS; CPT 59514; principal; 2022-05-28 17:00)
DX: O24.424 Gestational diabetes mellitus in childbirth, insulin controlled (principal); O76 Abnormality in fetal heart rate and rhythm complicating labor and delivery; O69.81X0 Labor and delivery complicated by cord around neck, without compression, not applicable or unspecified; O62.0 Primary inadequate contractions; O26.86 Pruritic urticarial papules and plaques of pregnancy (PUPPP); E78.5 Hyperlipidemia, unspecified; Z3A.39 39 weeks gestation of pregnancy; Z37.0 Single live birth
CPT/HCPCS: 36415; 82948; 85025; 86592; 86850; 86900; 86901; 88307; 96372; 99283; A9270; J0131; J0456; J0690; J1200; J1815; J1885; J2175; J2274; J2370; J2405; J2590; J2795; J2930; J7120; J7512

== ENCOUNTER 2023-12-08 18:08 | Emergency (ER) | payer BC, SELFPAY ==
--- NOTE | ~2023-12-08 | US_ITS ---
EXAMINATION: US right upper quadrant DATE: 12/08/2023 19:39 INDICATION: pain TECHNIQUE: Multiple grayscale and Doppler ultrasound images of the right upper quadrant were obtained . COMPARISON: None available. FINDINGS: The visualized portions of the pancreas are normal. The liver is mildly enlarged, with norm al echogenicity and echotexture. No surface nodularity. Normal hepatopetal flow in the main portal ve in. Mild gallbladder wall thickening to 3 mm. No pericholecystic fluid. No stones or sludge. The comm on bile duct measures 5 mm. There was no sonographic Yoder sign. IMPRESSION: Mild hepatomegaly. Mild nonspecific gallbladder wall thickening. No stones or sludge identified. Negative sonographic Mu rphy sign. Reviewed, dictated and finalized at location K. NESS RELATIONSHIP MANAGER IMPRESSION: Mild hepatomegaly. Mild nonspecific gallbladder wall thickening. No stones or sludge identified. N egative sonographic Yoder sign.
[2023-12-08 18:18] VITALS: BP 128/75; PULSE 100; RESP 20; TEMP 36.4; O2SAT 100
--- NOTE | 2023-12-08 19:03 | ED.GENADULT ---
HPI - General Adult General Chief complaint: Abdominal Pain <Rachel Marin APRN - Last Filed: 12/08/23 19:06> Stated complaint: abd pain <Rachel Marin APRN - Last Filed: 12/08/23 19:06> Time Seen by Provider: 12/08/23 19:04 <Rachel Marin APRN - Last Filed: 12/08/23 19:06> Focused HPI: Tiffanie Lomas is a 33 y/o female who presents with reports of having upper abdominal pain that comes and goes and when it comes it feels severe /stabbing /twisting. She reports of feeling nauseated when the pain comes on. She reports the pain lasts for about 5 minutes when it comes on. Last BM today - loose Denies any fever/chills GENERAL: Well-appearing, well-nourished, and in no acute distress. HEAD: Normocephalic, atraumatic. CHEST: Clear to auscultation. ?No respiratory distress. HEART: Regular rate and rhythm.? NEURO: ?Alert and oriented x3. Patient screened in triage and initial orders placed.? ?Additional care and disposition to be based upon?diagnostic testing and treatment. <Rachel Marin PUBLIC HEALTH PROFESSOR - Last Filed: 12/08/23 19:06> History of Present Illness HPI narrative: 33-year-old female presenting to the emergency department for evaluation of epigastric burning. Patient states that the symptoms have been persistent today. Patient does describe some epigastric cramping as well. Patient reports symptoms do improve with drinking water. <Willam Blair MD - Last Filed: 12/09/23 07:10> Related Data Home medications: Home Medications Medication Instructions Recorded Confirmed cholecalciferol (vitamin D3) 50 50 mcg PO DAILY 01/23/22 05/27/22 mcg (2,000 unit) capsule ferrous sulfate 27 mg iron tablet 27 mg PO DAILY 01/23/22 05/27/22 levothyroxine 75 mcg tablet 75 mcg PO DAILY 01/23/22 05/27/22 (Euthyrox) prenat.vits,trisha,gsg-xzxs-pvunu 1 tablet PO DAILY 01/23/22 05/27/22 Acid Assistant Hall Director (omeprazole) 1 tablet BYMOUTH 1XD 05/01/22 05/27/22 <Rachel Marin - Last Filed: 12/08/23 19:06> Allergies/adverse reactions: Allergies Allergy/AdvReac Type Severity Reaction Status Date / Time No Known Allergies Allergy Verified 05/26/22 02:17 <Rachel Vences February - Last Filed: 12/08/23 19:06> Review of Systems Review of Systems: All systems reviewed & are unremarkable except as noted in HPI and below <Willam Blair MD - Last Filed: 12/09/23 07:10> PMFSH Past Medical History Medical History: Medical History High cholesterol <Rachel Vences February - Last Filed: 12/08/23 19:06> Surgical History Surgical History: Surgical History H/O laparoscopy Hx of tonsillectomy <Rachel Vences February - Last Filed: 12/08/23 19:06> Family History Family History: Family History Mother Patient's mother is in good health Father Diabetes type 2, controlled Sibling Diabetes type 2, controlled Hypertension <Rachel Vences February - Last Filed: 12/08/23 19:06> Social History Social History: Social History Smoking status: Never smoker Alcohol intake: former Substance use: never Living arrangements: with family Occupation/Education: occupation 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 HEAD: normocephalic, atraumatic. EYES: PERRLA/EOMI, conjunctivae clear. NOSE: Normal no drainage NECK: Supple. No adenopathy, no masses. RESPIRATORY: Airway patent, respirations nonlabored. Clear to auscultation bilaterally, no rales, rhonchi, wheezing. CARDIOVASCULAR: Regular rate and rhythm without murmurs rubs or gallops. ABDOMINAL: epigastric tenderness to palpation MUSCULOSKELET
[2023-12-08] MEDS: KETOROLAC 30 MG/ML VIAL (*BKC) IV PUSH (22:07)
[2023-12-08] MEDS: ONDANSETRON INJ 4 MG/2 ML VIAL IV PUSH (22:07)
[2023-12-08] MEDS: FAMOTIDINE 20 MG/2 ML VIAL IV PUSH (22:08)
[2023-12-08 22:27] LABS: Basophils Percent Auto 0.2 % (0.2-1.2); Eosinophils Absolute Auto 0.1 K/mm3 (0-0.3); Eosinophils Percent Auto 0.9 % (0-4.4); Hematocrit 43.7 % (37.0-47.0); Hemoglobin 14.2 g/dL (12.0-15.0); Immature Granulocyte Absolute 0.04 K/mm3 (0.00-0.031); Immature Granulocyte Percent A 0.3 % (0-0.5); Lymphocytes Absolute Auto 1.21 K/mm3 (0.9-3.2); Lymphocytes Percent Auto 8.8 % (18.3-44.2); Mean Corpuscular HGB Conc 32.5 g/dl (32-36); Mean Corpuscular Hemoglobin 30.2 pg (26-34); Monocytes Absolute Auto 0.7 K/mm3 (0.1-0.6); Monocytes Percent Auto 4.8 % (2.6-8.5); Neutrophils Absolute Auto 11.7 K/mm3 (1.3-6.7); Platelet Count Result 294 k/mm3 (150-375); Red Cell Distribution Width 13.2 % (11.5-14.5); White Blood Count 13.8 K/mm3 (4.5-10.0)
[2023-12-08 22:46] LABS: Alanine Aminotransferase 19 U/L (6-35); Albumin Level 4.6 g/dL (3.5-5.1); Alkaline Phosphatase 54 U/L (38-126); Anion Gap 8 mmol/L (8-16); Aspartate Amino Transferase 25 U/L (14-36); Bilirubin,Total 1.1 mg/dL (0.2-1.3); Blood Urea Nitrogen 13 mg/dL (7-17); Calcium 9.9 mg/dL (8.4-10.2); Carbon Dioxide 29 mmol/L (22-30); Chloride 100 mmol/L (98-107); Estimated CRCL calculation 104 ml/min; Estimated Glomerular Filt Rate > 60; Glucose 107 mg/dL (65-110); Lipase 81 U/L (23-300); Potassium 3.8 mmol/L (3.4-5.0); Sodium 137 mmol/L (137-145)
[2023-12-08 22:57] LABS: Appearance Urine Clear (Clear); Bilirubin Urine Negative (Negative); Blood Urine Negative (Negative); Color Urine Yellow (Yellow); Glucose Urine UA Negative (Negative); Ketones Urine Trace mg/dL (Negative); Leukocyte Esterase Ur Negative LEU/UL (Negative); Nitrate Urine Negative (Negative); Protein Urine Negative (Negative); Specific Grav Ur 1.023 (1.001-1.035); pH Urine 7.5 (5.0-9.0)
[2023-12-08 23:07] LABS: Add Urine Microscopic? NO
[2023-12-09] MEDS: BELLADONNA ALK/PHENOB ELIX 10 ML, MAG HYDROX/ALUMINUM HYD/SIMETH 30 ML, LIDOCAINE HCL 2... PO (00:12)
[2023-12-09 01:38] VITALS: BP 117/64; PULSE 74; RESP 14; TEMP 36.7; O2SAT 99
== END 2023-12-09 01:39 | disposition home or self-care (01) ==
PROVIDERS: Nurse Practitioner Family; Emergency Provider Emergency Medicine; PCP Nurse Practitioner
DX: K22.4 Dyskinesia of esophagus (principal); K21.9 Gastro-esophageal reflux disease without esophagitis; R10.13 Epigastric pain; E78.00 Pure hypercholesterolemia, unspecified; R16.0 Hepatomegaly, not elsewhere classified
CPT/HCPCS: 36415; 76705; 80053; 81003; 81025; 83605; 83690; 85025; 96374; 96375; 99284; A9270; J1885; J2405

== ENCOUNTER 2023-12-22 16:03 | Outpatient (CLI) | payer BC, SELFPAY ==
[2023-12-22 17:11] LABS: Hematocrit 42.6 % (37.0-47.0); Hemoglobin 13.4 g/dL (12.0-15.0); Mean Corpuscular HGB Conc 31.5 g/dl (32-36); Mean Corpuscular Hemoglobin 30.1 pg (26-34); Mean Corpuscular Volume 95.7 fl (80-100); Mean Platelet Volume 10.3 fl (7.4-10.4); Platelet Count Result 392 k/mm3 (150-375); Red Blood Count 4.45 M/mm3 (4.2-5.4); Red Cell Distribution Width 13.3 % (11.5-14.5); White Blood Count 11.8 K/mm3 (4.5-10.0)
[2023-12-22 17:21] LABS: Alanine Aminotransferase 16 U/L (6-35); Albumin Level 4.5 g/dL (3.5-5.1); Alkaline Phosphatase 57 U/L (38-126); Anion Gap 8 mmol/L (8-16); Aspartate Amino Transferase 23 U/L (14-36); Bilirubin,Total 0.6 mg/dL (0.2-1.3); Blood Urea Nitrogen 13 mg/dL (7-17); Calcium 9.1 mg/dL (8.4-10.2); Carbon Dioxide 27 mmol/L (22-30); Chloride 104 mmol/L (98-107); Estimated Glomerular Filt Rate > 60; Glucose 96 mg/dL (65-110); Lipase 133 U/L (23-300); Potassium 3.5 mmol/L (3.4-5.0); Sodium 139 mmol/L (137-145)
[2023-12-22 17:39] LABS: Erythrocyte Sedimentation Rate 19 mm/hr (0-20)
== END 2023-12-22 16:04 | disposition home or self-care (01) ==
LOC: ANHLAB 16:04
PROVIDERS: PCP Nurse Practitioner; Visit Provider Nurse Practitioner
DX: D72.829 Elevated white blood cell count, unspecified (principal); R10.13 Epigastric pain; K82.8 Other specified diseases of gallbladder
CPT/HCPCS: 36415; 80053; 83690; 85027; 85652; 86140

== ENCOUNTER 2024-01-06 07:42 | Outpatient (CLI) | payer BC, SELFPAY ==
--- NOTE | ~2024-01-06 | US_ITS ---
Limited Abdominal Sonogram: Real-time sonographic imaging of the right upper quadrant was performed. Clinical History: Epigastric pain Findings: The liver appears normal with no evidence of mass lesion or bile duct dilatation. Main por atif vein demonstrates normal direction of flow. The gallbladder is well distended, and appears normal with no evidence of gallstone or wall thickening. The common bile duct measures 2 mm. The visualize d pancreas, aorta, and IVC are unremarkable. Impression: No significant abnormality seen. Reviewed, dictated and finalized at location . Impression: No significant abnormality seen.
--- NOTE | ~2024-01-06 | NM_ITS ---
EXAMINATION: NM hepatobiliary wo pharm DATE: 01/06/2024 10:48 INDICATION: Epigastric pain and right back pain. COMPARISON: None. TECHNIQUE: 5.2 mCi Tc-99m mebrofenin (Choletec) was administered intravenously. Scintigraphic images of the abdomen were obtained for one hour. At the 1 hour time point, the patient drank 8 oz Ensure, and imaging was continued for 60 minutes. Gallbladder ejection fraction was calculated by the technol ogist. FINDINGS: There is normal clearance of radiotracer from the blood pool. There is homogeneous tracer u ptake by the liver. Activity progresses to the bowel and gallbladder. The gallbladder ejection fract ion (GBEF) is 69%. Note that with this technique, normal GBEF >= 33%. IMPRESSION: 1. Normal hepatobiliary scan Reviewed, dictated and finalized at location A.
== END 2024-01-06 07:43 | disposition home or self-care (01) ==
PROVIDERS: PCP Nurse Practitioner; Visit Provider Nurse Practitioner
DX: K82.8 Other specified diseases of gallbladder (principal); D72.829 Elevated white blood cell count, unspecified
CPT/HCPCS: 76705; 78226; A9537

== ENCOUNTER 2024-01-20 11:07 | Outpatient (CLI) | payer BC, SELFPAY ==
[2024-01-20 11:43] LABS: Hematocrit 41.7 % (37.0-47.0); Hemoglobin 13.3 g/dL (12.0-15.0); Mean Corpuscular HGB Conc 31.9 g/dl (32-36); Mean Corpuscular Hemoglobin 30.3 pg (26-34); Mean Platelet Volume 9.6 fl (7.4-10.4); Platelet Count Result 378 k/mm3 (150-375); Red Blood Count 4.39 M/mm3 (4.2-5.4); Red Cell Distribution Width 13.9 % (11.5-14.5); White Blood Count 12.3 K/mm3 (4.5-10.0)
== END 2024-01-20 11:08 | disposition home or self-care (01) ==
LOC: ANHLAB 11:08
PROVIDERS: PCP Nurse Practitioner; Visit Provider Nurse Practitioner
DX: K92.1 Melena (principal); R19.7 Diarrhea, unspecified
CPT/HCPCS: 36415; 85027

== ENCOUNTER 2024-01-22 06:35 | Outpatient (CLI) | payer BC, SELFPAY ==
[2024-01-29 17:43] LABS: Calprotectin, Stool 17 mcg/g
== END 2024-01-22 06:36 | disposition home or self-care (01) ==
LOC: ANHLAB 06:37
PROVIDERS: PCP Nurse Practitioner; Visit Provider Nurse Practitioner
DX: R19.7 Diarrhea, unspecified (principal); K92.1 Melena
CPT/HCPCS: 83993; 87045; 87269; 87427; 87449

== ENCOUNTER 2024-06-25 11:19 | Outpatient (CLI) | payer BC, SELFPAY ==
[2024-06-26 17:02] LABS: Progesterone 14.6 ng/mL
== END 2024-06-25 11:20 | disposition home or self-care (01) ==
PROVIDERS: PCP Nurse Practitioner; Visit Provider Obstetrics & Gynecology
DX: Z32.01 Encounter for pregnancy test, result positive (principal)
CPT/HCPCS: 36415; 84144; 84702

== ENCOUNTER 2024-06-27 08:33 | Outpatient (RCR) | payer BC, SELFPAY | END 2024-09-25 23:59 | disposition home or self-care (01) | LOC: ANHOBOP 08:33 | PROVIDERS: Advanced Practice Midwife; PCP Nurse Practitioner; Visit Provider Obstetrics & Gynecology | DX: Z32.00 Encounter for pregnancy test, result unknown (principal) | CPT/HCPCS: 36415; 84702 ==

== ENCOUNTER 2024-11-05 12:44 | Outpatient (CLI) | payer BC, SELFPAY ==
[2024-11-05 13:12] VITALS: BP 121/59; PULSE 99
[2024-11-05 13:16] VITALS: BP 118/66; PULSE 100
[2024-11-05 13:31] VITALS: BP 120/70; PULSE 98
[2024-11-05 13:50] LABS: OBXCEM ROM Plus Negative (Negative)
[2024-11-05 13:56] VITALS: BP 120/70; PULSE 87
--- OUTSIDE RECORDS SUMMARY | 2024-11-11 06:51 | XMS_ITS | Encounter Summary ---
Author Organization [facility] Address [address] [place] [address] Care Team Providers Care Marriage Counselor Minister Name Role Phone Simon Turner MD Primary Care Provider [phone] Encounter Details Date Type Department Care Team (Late st Contact Info) Description 09/28/2021 Lab Requisition [facility] [address] [place] [address] Debbie Huang MD Social History Tobacco Use Types Packs/Day Years Used Date Smoking Tobacco: Every Day Smokeless Tobacco: Never Sex and Gender Information Value Date Recorded Sex Assigned at Not on file Gender Identity Not on file Sexual Orientation Not on file documented as of this encounter Plan of Treatment Not on file documented as of this encounter Procedures Procedure Name Priority Date/Time Associated Diagnosis Comments HCG BETA BLOOD QUANTITATIVE STAT 09/28/2021 11:42 AM NECK SKEWER documented in this encounter Results * HCG BETA BLOOD QUANTITATIVE (09/28/2021 11:42 AM NECK SKEWER) Pathologist [facility] hCG Quantitative 3,781.48 mIU/mL 09/28/20 4:49 PM NECK SKEWER [facility] Blood BLOOD SPECIMEN / Unknown Venipuncture / Unknown 09/28/2021 11:42 AM NECK SKEWER 09/28/2021 3:40 PM NECK SKEWER Narrative [facility] - 09/28/2021 4:49 PM NECK SKEWER ? hCG Reference Range, mIU/mL: ? Males ? 0-2.0 ? Non Females ? 0-6.0 ? Perimenopausal Females ages 41-55* ?0-7.7 ? Postmenopausal Females age >55* ? 0-14 ? Females, Weeks after Last Menstrual Period ?0.2-1 week ? 5-50 ?1 - 2 weeks ?50-500 ?2 - 3 weeks ?100-5000 ?3 - 4 weeks ?500-10,000 ?4 - 5 weeks ?1000-50,000 ?5 - 6 weeks ?10,000-100,000 ?6 - 8 weeks ?15,000-200,000 ?2 - 3 months ? 10,000-100,000 ?Trophoblastic Disease ?>100,000 *In higher than expected hCG in females > age 40, a serum FSH >20 IU/L makes unlikely. Debbie Huang MD LAB - CHEMISTRY [facility] [address] [place] [address] documented in this encounter Visit Diagnoses Not on filedocumented in this encounter Care Teams Marriage Counselor Minister Relationship Specialty Start Date End Date Simon Turner MD [address] [place] [id number] PCP - General 05/30/22 documented as of this encounter
--- OUTSIDE RECORDS SUMMARY | 2024-11-11 06:51 | XMS_ITS | Encounter Summary ---
Author Organization [facility] Address [address] [place] [address] Care Team Providers Care Global Consumer Sector Vice President Name Role Phone Simon Tunrer MD Primary Care Provider [phone] Encounter Details Date Type Department Care Team (Late st Contact Info) Description 10/02/2018 Lab Requisition [facility] [address] [place] [address] Rajat Burch MD [address] [place] [address] Social History Tobacco Use Types Packs/Day Years [...] Diagnosis Comments HCG BETA BLOOD QUANTITATIVE STAT 10/02/2018 7:36 AM AGER TENDER documented in this encounter Results * HCG BETA BLOOD QUANTITATIVE (10/02/2018 7:36 AM AGER TENDER) hCG Quantitative 50 mIU/mL 10/02/20 18 10:20 AM AGER TENDER [facility] Blood BLOOD SPECIMEN / Unknown Venipuncture / Unknown 10/02/2018 7:36 AM AGER TENDER 10/02/2018 9:58 AM AGER TENDER Narrative [facility] - 10/02/2018 10:20 AM AGER TENDER ? hCG Reference Range, mIU/mL: ? Males [...] a serum FSH >20 IU/L makes unlikely. Rajat Burch MD LAB - CHEMISTRY [facility] [address] [place] [address] documented in this encounter Visit Diagnoses Not on filedocumented in this encounter Care Teams Global Consumer Sector Vice President Relationship Specialty Start Date End Date Simon Turner MD [address] [place] [address] PCP - General 05/30/22 documented as of this encounter
--- OUTSIDE RECORDS SUMMARY | 2024-11-11 06:51 | XMS_ITS | Encounter Summary ---
Author Organization [facility] Address [address] [facility] [place] [address] Care Team Providers Care Mechatronics Technician Name Role Phone Simon Turner MD Primary Care Provider [phone] Encounter Details Date Type Department Care Team (Late st Contact Info) Description 09/19/2021 Lab Requisition [facility] [address] [place] [address] Debbie Huang MD Social History Tobacco Use [...] Diagnosis Comments HCG BETA BLOOD QUANTITATIVE STAT 09/19/2021 9:36 AM WIRELESS DEVELOPMENT MANAGER documented in this encounter Results * HCG BETA BLOOD QUANTITATIVE (09/19/2021 9:36 AM WIRELESS DEVELOPMENT MANAGER) hCG Quantitative 71.07 mIU/mL 09/19/20 10:46 AM WIRELESS DEVELOPMENT MANAGER [facility] Blood BLOOD SPECIMEN / Unknown Venipuncture / Unknown 09/19/2021 9:36 AM WIRELESS DEVELOPMENT MANAGER 09/19/2021 9:43 AM WIRELESS DEVELOPMENT MANAGER Narrative [facility] - 09/19/2021 10:46 AM WIRELESS DEVELOPMENT MANAGER ? hCG Reference Range, mIU/mL: ? Males [...] Huang MD LAB - CHEMISTRY [facility] [address] [place] [address] documented in this encounter Visit Diagnoses Not on filedocumented in this encounter Care Teams Mechatronics Technician Relationship Specialty Start Date End Date Simon Turner MD [address] [place] [id number] PCP - General 05/30/22 documented as of this encounter
--- OUTSIDE RECORDS SUMMARY | 2024-11-11 06:51 | XMS_ITS | Referral Summary ---
Author Organization [facility] Address [address] [place] [address] Care Team Providers Care Fuse Maker Name Role Phone Simon Turner MD Primary Care Provider [phone] Source Comments [facility],non-owned Affiliates and Associated Physician Practices is amultiple site organization consisting of ambulatory clinics and hospital sitesin [place], [place], [place] and [place]. This disclosure is being madepursuant to the Care Everywhere program and may not contain all information available regarding this patient. Last updated 18.[facility] Allergies No known active allergies Medications * Be aware that medications may not be up to date on this document. Alwaysverify current medications with the patient. Medication Sig Dispensed Refills Start Date End Date Status benzonatate (TESSALON) 200 MG capsuleIndications:Acut e nasopharyngitis (common cold) Take 1 capsule by mouth 3 times daily as needed for Cough 30 capsule 10/30/2017 Active Social History Tobacco Use Types Packs/Day Years Used Date Smoking Tobacco: Every Day Smokeless Tobacco: Never Sex and Gender Information Value Date Recorded Sex Assigned at Not on file Gender Identity Not on file Sexual Orientation Not on file Last Filed Vital Signs Vital Sign Reading Time Taken Comments Blood Pressure 98/76 10/30/2017 2:32 PM PIT CRANE OPERATOR Pulse 85 10/30/2017 2:32 PM PIT CRANE OPERATOR Temperature 36.5 ??C (97.7 ??F) 10/30/2017 2:32 PM CS T Respiratory Rate 16 10/30/2017 2:32 PM PIT CRANE OPERATOR Oxygen Saturation 99% 10/30/2017 2:32 PM PIT CRANE OPERATOR Inhaled Oxygen Concentration - - Weight 59 kg (130 lb) 10/30/2017 2:32 PM PIT CRANE OPERATOR Height 157.5 cm (5' 2 ) 10/30/2017 2:32 PM PIT CRANE OPERATOR Body Mass Index 23.78 10/30/2017 2:32 PM PIT CRANE OPERATOR Plan of Treatment Not on file Care Teams Fuse Maker Relationship Specialty Start Date End Date Simon Turner MD [address] [place] [id number] PCP - General 05/30/22
--- OUTSIDE RECORDS SUMMARY | 2024-11-11 06:51 | XMS_ITS | Clinical Summary ---
Author Organization [facility] Address [address] [place] [address] Care Team Providers Care Cable Strander Name Role Phone Simon Turner MD Primary Care Provider [phone] Source Comments [facility],non-owned Affiliates and Associated Physician Practices is amultiple site organization consisting of ambulatory clinics and hospital sitesin [place], [place], [place] and [place]. This disclosure is being madepursuant to the Care Everywhere program and may not contain all informatio navailable regarding this patient. Last updated 18.[facility] Allergies No known active allergies Medications * [...] Comments Blood Pressure 98/76 10/30/2017 2:32 PM SCALE CLERK Pulse 85 10/30/2017 2:32 PM SCALE CLERK Temperature 36.5 ??C (97.7 ??F) 10/30/2017 2:32 PM CS T Respiratory Rate 16 10/30/2017 2:32 PM SCALE CLERK Oxygen Saturation 99% 10/30/2017 2:32 PM SCALE CLERK Inhaled Oxygen Concentration - - Weight 59 kg (130 lb) 10/30/2017 2:32 PM SCALE CLERK Height 157.5 cm (5' 2 ) 10/30/2017 2:32 PM SCALE CLERK Body Mass Index 23.78 10/30/2017 2:32 PM SCALE CLERK Plan of Treatment Health Maintenance Due Date Last Done Comments PAP SMEAR 1989 HIV SCREENING 2004 HEPATITIS C SCREENING 03/02/2007 DTAP/TDAP/TD VACCINES (1 - Tdap) 2008 HEPATITIS B VACCINE (1 of 3 - 19+ 3-dose series) 2008 PNEUMOCOCCAL VACCINE (1 of 2 - PCV) 2008 COVID-19 VACCINE (1 - 2023-2 5 season) 2024 INFLUENZA VACCINE (#1) 2024 07/31/2022 DEPRESSION SCREENING 10/20/2024 ZOSTER VACCINE (1 of 2) 2039 HIB VACCINE Aged Out No longer eligi ble based on patient's age to complete this topic HPV VACCINE Aged Out No longer eligi ble based on patient's age to complete this topic MENINGOCOCCAL (Group B) VACCINE Aged Out No longer eligible based on patient's age to complete this topic MENINGOCOCCAL VACCINE Aged Out No beata adolph eligible based on patient's age to complete this topic Care Teams Cable Strander Relationship Specialty Start Date End Date Simon Turner MD [address] [place] [id number] PCP - General 05/30/22
--- OUTSIDE RECORDS SUMMARY | 2024-11-11 06:51 | XMS_ITS | Patient Health Summary ---
Author Organization [facility] [employer] Address [address] [place] [address] Care Team Providers Care Intake Worker Name Role Phone Simon Turner MD Primary Care Provider [phone] Note from [facility],non-owned Affiliates and Associated Physician Practices is amultiple site organization consisting of ambulatory clinics and hospital sitesin [place], [place], [place] and [place]. This disclosure is being madepursuant to the Care Everywhere program and may not contain all information available regarding this patient. Last updated 18.[facility] Allergies No known active allergies Medications * Be aware that medications may not be up to date on this document. Alwaysverify current medications with the patient. * benzonatate (TESSALON) 200 MG capsule(Started 10/30/2017) Take 1 capsule by mouth 3 times daily as needed for Cough Social History Tobacco Use Types Packs/Day Years Used Date Smoking Tobacco: Every Day Smokeless Tobacco: Never Sex and Gender Information Value Date Recorded Sex Assigned at Not on file Gender Identity Not on file Sexual Orientation Not on file Last Filed Vital Signs Vital Sign Reading Time Taken Comments Blood Pressure 98/76 10/30/2017 2:32 PM MANAGER EQUITY Pulse 85 10/30/2017 2:32 PM MANAGER EQUITY Temperature 36.5 ??C (97.7 ??F) 10/30/2017 2:32 PM CS T Respiratory Rate 16 10/30/2017 2:32 PM MANAGER EQUITY Oxygen Saturation 99% 10/30/2017 2:32 PM MANAGER EQUITY Inhaled Oxygen Concentration - - Weight 59 kg (130 lb) 10/30/2017 2:32 PM MANAGER EQUITY Height 157.5 cm (5' 2 ) 10/30/2017 2:32 PM MANAGER EQUITY Body Mass Index 23.78 10/30/2017 2:32 PM MANAGER EQUITY Procedures * HCG BETA BLOOD QUANTITATIVE(Performed 09/28/2021) * HCG BETA BLOOD QUANTITATIVE(Performed 09/21/2021) * HCG BETA BLOOD QUANTITATIVE(Performed 09/19/2021) * HCG BETA BLOOD QUANTITATIVE(Performed 10/02/2018) Results * HCG BETA BLOOD QUANTITATIVE (09/28/2021 11:42 AM MANAGER EQUITY) Only the most recent of4 resultswithin the time period is included. [facility] hCG Quantitative 3,781.48 mIU/mL 09/28/20 4:49 PM MANAGER EQUITY [facility] Blood BLOOD SPECIMEN / Unknown Venipuncture / Unknown 09/28/2021 11:42 AM MANAGER EQUITY 09/28/2021 3:40 PM MANAGER EQUITY Narrative [facility] - 09/28/2021 4:49 PM MANAGER EQUITY ? hCG Reference Range, mIU/mL: ? Males [...] Huang MD LAB - CHEMISTRY OLIVA TURNER Performing Organization Address City/State/[facility] Co de Phone Number [facility] [address] [place] [address] Care Teams Intake Worker Relationship Specialty Start Date End Date Simon Turner MD [address] [place] [id number] PCP - General 05/30/22
--- OUTSIDE RECORDS SUMMARY | 2024-11-11 06:51 | XMS_ITS | Encounter Summary ---
Author Organization [facility] Address [address] [place] [address] Care Team Providers Care Employee Benefits Coordinator Name Role Phone Simon Turner MD Primary Care Provider [phone] Encounter Details Date Type Department Care Team (Late st Contact Info) Description 09/21/2021 Lab Requisition [facility] [address] [place] [address] Debbie Huang MD Social History Tobacco Use [...] Diagnosis Comments HCG BETA BLOOD QUANTITATIVE STAT 09/21/2021 2:58 PM SQL BI DEVELOPER documented in this encounter Results * HCG BETA BLOOD QUANTITATIVE (09/21/2021 2:58 PM SQL BI DEVELOPER) hCG Quantitative 217.87 mIU/mL 09/21/20 4:12 PM SQL BI DEVELOPER [facility] Blood BLOOD SPECIMEN / Unknown Venipuncture / Unknown 09/21/2021 2:58 PM SQL BI DEVELOPER 09/21/2021 3:36 PM SQL BI DEVELOPER Narrative [facility] - 09/21/2021 4:12 PM SQL BI DEVELOPER ? hCG Reference Range, mIU/mL: ? Males [...] Huang MD LAB - CHEMISTRY OLIVA TURNER [facility] [address] [place] [address] documented in this encounter Visit Diagnoses Not on filedocumented in this encounter Care Teams Employee Benefits Coordinator Relationship Specialty Start Date End Date Simon Turner MD [address] [place] [id number] PCP - General 05/30/22 documented as of this encounter
--- OUTSIDE RECORDS SUMMARY | 2024-11-11 06:51 | XMS_ITS | Clinical Summary ---
Author Organization [facility] Address [address] [place] [address]. [place], [place] [id number] [place] [address] Care Team Providers Care Desktop Operator Name Role Phone Rina aMcdonald NP Primary Care Provider [phone] Allergies No known active allergies Medications omeprazole (PRILOSEC) 20 MG capsule Take 1 capsule (20 mg total) by mouth daily. 12/09/2023 Active Active Problems Problem Noted Date Diagnosed Date In vitro fertilization 08/08/2022 Gestational diabetes mellitus ([facility] [address] [facility]) 08/08/20 22 Hypothyroidism 08/08/2022 Recurrent loss 08/08/2022 Headache 07/30/2022 Pruritic urticarial papules and plaques of ([facility] [address] [facility]) 06/07/2022 Immunizations Name Administration Dates Next Due Influenza (Generic) 07/25/2021 Influenza Adult (Generic) 07/25/2022,,07/23/2019, 017,08/20/2016 PFIZER COVID-19 (ORIGINAL FORMULATION, PURPLE CAP) mRNA, LNP-S, PF, 30 MCG/0.3 ML DOSE 02/09/2021,01/12/2021 Tdap (Generic) 03/15/2022 Family History Medical History Relation Comments No Known Problems Father No Known Problems Mother Relation Status Comments Father Alive Mother Alive Social History Tobacco Use Types Packs/Day Years Used Date Smoking Tobacco: Former Cigarettes 0.3 5 Passive Smoke Exposure: Never Smokeless Tobacco: Never Tobacco Cessation:Counseling Given: No Comments:The provider can provide you with more information about quitting. Alcohol Use Standard Drinks/Week Comments Yes 3 (1 standard drink = 0.6 oz pur e alcohol) PHQ-2 Answer Date Recorded Patient Health Questionnaire-2 Score 0 12/15/2023 Comments No Sex and Gender Information Value Date Recorded Sex Assigned at Not on file Legal Sex Female 3:48 PM CDT Gender Identity Not on file Sexual Orientation Not on file Last Filed Vital Signs Vital Sign Reading Time Taken Comments Blood Pressure 102/64 12/15/2023 10:50 AM GENERATOR REBUILDER Pulse 92 12/15/2023 10:50 AM GENERATOR REBUILDER Temperature 36.7 ??C (98.1 ??F) 12/15/2023 10:[address] Respiratory Rate 16 12/15/2023 10:50 AM GENERATOR REBUILDER Oxygen Saturation 98% 12/15/2023 10:50 AM GENERATOR REBUILDER Inhaled Oxygen Concentration - - Weight 71.2 kg (157 lb) 12/15/2023 10:50 AM GENERATOR REBUILDER Height 157.5 cm (5' 2 ) 08/08/2022 11:44 AM CDT Body Mass Index 28.72 08/08/2022 11:44 AM CDT Plan of Treatment Health Maintenance Due Date Last Done Comments Hepatitis B Vaccines (1 of 3 - 19+ 3-dose series) 2008 Cervical Cancer Screening Pap with HPV Testing (Age 30 to 64) Every 5 Years 2019 Annual Physical 07/02/2022 07/02/2021 COVID-19 Vaccine ( season) 2024 02/09/2021, 01/12/2021 Influenza Adult (#1) 2024 07/25/2022, 07/25/2021, 08/09/2020, Additional history exists PHQ-2 (Physician [place]) 12/15/2024 12/15/2023 Cervical Cancer Screening Pap Smear (Age 30 to 64) Every 3 Years 05/07/2026 05/07/2023 Cervical Cancer Screening with HPV 05/07/2026 DTaP, Tdap and Td Vaccines (2 - Td or Tdap) 03/15/2032 03/15/2022 Hepatitis C Completed 12/24/2022, 07/17/2021 HPV Vaccines Aged Out No longer eligi ble based on patient's age to complete this topic Meningococcal B Vaccine Aged Out No l onger eligible based on patient's age to complete this topic Meningococcal Vaccine Aged Out No beata adolph eligible based on patient's age to complete this topic Pneumococcal Vaccine: Pediatrics (0 to 5 Years) and At-Risk Patients (6 to 64 Years) Aged Out No longer eligible based on patient's age to complete this topic RSV Immunizations Under 20 Months Aged Out No longer eligible based on patient's age to complete this topic Procedures Procedure Name Priority Date/Time Associated Diagnosis Comments HEPATITIS C ANTIBODY Routine 12/24/2022 7:21 AM GENERATOR REBUILDER Need for hepatitis C screening test from Last 3 Months or Most Recently Relevant to Health Maintenance Results * HEPATITIS C ANTIBODY (12/24/2022 7:21 AM GENERATOR REBUILDER) HEPATITIS C AB NON-REACTI VE NON-REACT NEVAEH 12/24/2022 6:13 PM GENERATOR REBUILDER [facility] Comment: ANTIBODIES TO HCV NOT DETECTED. DOES NOT EXCLUDE THE POSSIBILITY OF EXPOSURE TO HCV. 12/24/2022 7:21 AM GENERATOR REBUILDER us Rina Macdonald NP LABORATORY Final Res ult [facility] [address] [place] [address], [id number] from Last 3 Months or Most Recently Relevant to Health Maintenance Insurance [facility] Care Teams Desktop Operator Relationship Specialty Start Date End Date Rina Macdonald NP [address] [place] [address] PCP - General NURSE PRACTITIONER 06/26/21
--- OUTSIDE RECORDS SUMMARY | 2024-11-11 06:51 | XMS_ITS | Encounter Summary ---
Author Organization [facility] Address [address] [place] [address]. [place] [address] [place] [address] Care Team Providers Care Usability Engineer Name Role Phone Rina Macdonald NP Primary Care Provider [phone] Encounter Details Date Type Department Care Team (Late st Contact Info) Description 12/24/2022 Blume Distillation Message Enc [facility] Family [facility] - [place] [address] [facility] [address] [place] [address] [id number] Rina Macdonald, EXECUTIVE HOUSEKEEPER [address] [place] [address] Question regarding CBC W/DIFF AUTOMATED Social History Tobacco Use Types Packs/Day Years Used Date Smoking Tobacco: Former Cigarettes 0.3 5 Passive Smoke Exposure: Never Smokeless Tobacco: Never Comments:The provider can pr ovide you with more information about quitting. Alcohol Use Standard Drinks/Week Comments Yes 3 (1 standard drink = 0.6 oz pur e alcohol) PHQ-2 Answer Date Recorded Patient Health Questionnaire-2 Score 0 12/11/2022 Comments No Sex and Gender Information Value Date Recorded Sex Assigned at Not on file Legal Sex Female 3:48 PM CDT Gender Identity Not on file Sexual Orientation Not on file COVID-19 Exposure Response Date Recorded In the last 10 days, have yo u been in contact with someone who was confirmed or suspected to have Coronavirus/COVID-19? No / Unsure 12/24/2022 7:01 AM CARRIER PACKER documented as of this encounter Plan of Treatment Not on file documented as of this encounter Visit Diagnoses Not on filedocumented in this encounter Additional Health Concerns Assessment Noted Time PHQ-9 Depression Total Score: 0 07/02/20 21 2:04 PM CDT documented as of this encounter Care Teams Usability Engineer Relationship Specialty Start Date End Date Rina Macdonald NP [address] [place] [address] PCP - General NURSE PRACTITIONER 06/26/21 documented as of this encounter
--- OUTSIDE RECORDS SUMMARY | 2024-11-11 06:51 | XMS_ITS | Data Portability ---
Author Organization [facility] [place] Address [address] [place] [address] [place] [address] Care Team Providers Care Colorist Dyer Name Role Phone JERSONIsauro DAVID Primary Care Provider [phone] Assessment No assessment recorded. Plan of Treatment Reminders Order Date Submit Date Provider Last Modified By Organization Details Last Modified Time Details Appointments OB ROUTINE 2024 09:30A Heidi OLMOS MD Not available Not available Not available Lab None recorded. Referral None recorded. Procedures None recorded. Surgeries None recorded. Imaging US, obstetric , 2nd or 3rd trimester 2023 024 [email or web address] [place], [address], [address], [place], [address], 10/14/2024 20:39:17 US, obstetric , follow-up 2024 025 [email or web address] [place] [facility] [address], [place], [address], 11/09/2024 20:36:37 Medication Orders None recorded. Patient TargetsNo targets recorded. Patient InstructionsNo instructions recorded. Reason for Referral None Reported. Results Created Date Observation Date Name Description Value Unit Range Abnormal Flag Note LastModifiedBy Organization Detail LastModifiedTime 08/16/2008/16/2024 CULTU RE: URINE result report SEE RESULT S BELOW Test: Cultu re: Urine Speci men Sourc e: Urine - Clean Catch Speci men Type: Urine Speci men Date: 08/16 1714 Resul t Date: 08/18 0609 Resul t Statu s: Final resul t Abnor mal: Rocio sneed Lab: [facility] [address] [facility] [address] Tel: CULTU RE ----- ----- ----- --- No growt h in 1 day (dete ction level of 10,00 0 colon ies / ml.) Not Available [facility] (Lab) [address] [facility], [place], [address], 08/18/2024 07:14:21 10/14/20 24 10/14/2024 GTT - GESTA FARSHAD L SCREE N, ACOG OB glucose, 1 hour screen 151 mg/dL 70-135 high Not Available [facility] (Lab) [address] [place], [address], 10/15/2024 03:53:47 11/01/19 25 11/01/2024 GTT - GESTA FARSHAD L, 3 HOUR, ACOG glucose, fasting acog 73 mg/dL 70-94 Not Available [facility] (Lab) [address] [place], [address], 11/02/2024 05:17:34 11/01/19 25 11/01/2024 GTT - GESTA FARSHAD L, 3 HOUR, ACOG glucose, 1 hour acog 124 mg/dL 70-179 Not Available [facility] (Lab) [address] [place], [address], 11/02/2024 05:17:34 11/01/19 25 11/01/2024 GTT - GESTA FARSHAD L, 3 HOUR, ACOG glucose, 2 hour acog 101 mg/dL 70-154 Not Available [facility] (Lab) [address] [place], [address], 11/02/2024 05:17:34 11/01/19 25 11/01/2024 GTT - GESTA FARSHAD L, 3 HOUR, ACOG glucose, 3 hour acog 105 mg/dL 70-139 Not Available [facility] (Lab) [address], [place], [address], 11/02/2024 05:17:34 08/16/20 24 08/16/2024 US, obste tric, nucha l trans lucen cy No observ ation record ed. [facility] [address], [place], [address], 08/16/2024 19:16:30 08/16/20 24 08/16/2024 US, obste tric, follo w-up No observ ation record ed. [email or web address] [address], [place], [address], 08/16/2024 16:30:33 10/14/20 24 10/14/2024 US, obste tric, 2nd or 3rd trime ster No observ ation record ed. [facility] [address], [place], [address], 10/14/2024 18:05:19 10/14/20 24 10/14/2024 US, obste tric, 2nd or 3rd trime ster No observ ation record ed. [address], [place], [address], 10/15/2024 17:30:44 11/09/19 25 11/09/2024 US, obste tric, follo w-up No observ ation record ed. [facility] [address], [place], [address], 11/09/2024 17:42:21 11/09/19 25 11/09/2024 US, obste tric, follo w-up No observ ation record ed. [email or web address] [address], [place], [address], 11/10/2024 09:26:20 Result Notes None recorded. Problems Name Problem SNOMED Code Status Onset Date Resolution Date Notes Provider Name and Address Organization Details Recorded Time Pregnanc y test negative [id number] Completed 201811/15/2021 Encounte r for pregnanc y test, result negative ;Recorde d Elsewher e: No Locat ion: Shawn beasley [facility] S ource: [employer] Worker christopher: N Estebanti ce ID: [id number] Velasquez lable Time: 01:00:00 PM Marium [facility] 2 17:40:15 Screenin g for malignan t neoplasm of cervix Completed 201211/15/2021 Screenin g for malignan t neoplasm s of the cervix;R ecorded Elsewher e: No Locat ion: Zhou gale [facility] N Estebanti ce ID: [id number] Velasquez lable Time: 10:30:00 AM Marium [facility] 2 17:40:12 Female infertil ity associat ed with anovulat ion [id number] Completed 201511/15/2021 Infertil ity, female, associat ed with anovulat ion;Jerry rded Elsewher e: No Locat ion: Shawn beasley [facility]: N Estebanti ce ID: [id number] Velasquez lable Time: 03:15:00 PM Mar[address]mone [place] [facility] 2 17:40:37 Bleeding [id number] Completed 201811/15/2021 Abnormal uterine and vaginal bleeding , unspecif ied;Jerry rded Elsewher e: No Locat ion: [facility] S ource: [employer] Work[employer] christopher: N Estebanti ce ID: [id number] Velasquez lable Time: 02:45:00 PM Marium [facility] 2 17:40:39 Endometr iosis of pelvic peritone um [id number] Completed 201411/15/2021 Endometr iosis of pelvic peritone um;Recor ded Elsewher e: No Locat ion: Shawn beasley [facility] S ource: E[facility] christopher: N Practi ce ID: [id number] Velasquez lable Time: 03:00:00 PM Marium thornton [facility] 2 17:40:43 Postoper ative follow-u p visit Completed 201411/15/2021 Follow-u p examinat ion, followin g unspecif ied surgery; Recorded Elsewher e: No [facility] christopher: N Practi ce ID: [id number] Velasquez lable Time: 03:00:00 PM Marium [place] [facility] 2 17:40:20 Finding of regulari ty of menstrua l cycle Completed 201411/15/2021 Irregula r menstrua tion, unspecif ied;Jerry rded Elsewher e: No Locat ion: [facility] S ource: [facility] christopher: N Estebanti ce ID: [id number] Velasquez lable Time: 08:30:00 AM Marium [place] [facility] 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 2 17:40:05 Imaging result equivoca l [id number] Completed 201811/15/2021 Dx imaging inconclu sive due to excess body fat of patient; Recorded Elsewher e: No Locat ion: [facility] S ource: [facility] christopher: N Practi ce ID: [id number] Velasquez lable Time: 05:00:00 PM Marium [place] [facility] 2 17:40:28 Irregula r periods [id number] Completed 201411/15/2021 Irregula r menstrua l cycle;Re corded Elsewher e: No Locat ion: [facility] S ource: [employer] christopher: N Estebanti ce ID: [id number] Velasquez lable Time: 03:30:00 PM Marium [facility] 2 17:40:22 Dysmenor marianela [id number] Completed 201311/15/2021 Dysmenor marianela;Rec orded Elsewher e: No Locat ion: [facility] S ource: [facility] Work[employer] christopher: N Estebanti ce ID: [id number] Velasquez lable Time: 02:00:00 PM [address]one [place] [facility] 2 17:40:45 Speciali zed medical examinat ion Completed 201211/15/2021 Gynecolo gical Examinat ion;Jerry rded Elsewher e: No Locat ion: [facility] S ource: [facility] Work[employer] christopher: N Estebanti ce ID: [id number] Velasquez lable Time: 10:30:00 AM Marium [place] [facility] 2 17:40:03 Pre-surg jo ann evaluati on Completed 201411/15/2021 Other specifie d pre-oper ative examinat ion;Jerry rded Elsewher e: No Locat ion: [facility] S ource: [facility] [employer] christopher: N Estebanti ce ID: [id number] Velasquez lable Time: 03:00:00 PM Marium [place] [facility] 2 17:40:[address] Concept Completed 201711/15/2021 Encntr for general adult medical exam w/o abnormal findings ;Recorde d Elsewher e: No Locat ion: [facility] S ource: [facility] [employer] christopher: N Estebanti ce ID: [id number] Velasquez lable Time: 09:30:00 AM 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 2 17:40:30 Female infertil ity of tubal origin 61498793 Completed 201411/15/2021 Infertil ity, female, of tubal origin;P ractice ID: [id number] [facility] 2 17:40:35 Pregnanc y 62400818 Completed 202107/01/2022 Denise Infante [facility], [facility] 4 15:19:45 In vitro fertiliz ation Completed No MFM needed. echo WASHU 02/15 WNL. antenata l testing at 36wks Arianna Nannette ricketts [facility] 2 12:06:05 Recurren t miscarri age 471809864 Completed 7 S[address] [facility] 2 12:06:05 Bleeding hemorrho ids 35678840 Completed referral to General surgery Arianna ricketts [facility] 2 12:06:05 Hypothyr oidism 11972321 Completed 75mcg. 02/15 TSH wnl. repeat 36w Arianna Nannette ricketts [facility] 2 12:06:04 Tachycar maksim 5096225 Completed 24 hour holter monitor and cardio consult pt cancelle d due to improvin g s/s Arianna ricketts [facility], [facility] 2 12:06:05 IVF - in-vitro fertiliz ation pregnanc y [id number] 2101 Active 2021 Leidy Pickard MD [address], [place], [address], [facility] 2 17:30:52 IVF - in-vitro fertiliz ation pregnanc y 1819398264 2101 Completed 2021 Leidy Pickard MD [address], [place], [address], [facility] 2 17:27:15 Gestatio nal diabetes mellitus 81912515 Completed diet teach 03/11, NPH 8u HS on 05/06 Arianna Brunson l null, [facility] 2 12:06:05 Gestatio nal diabetes mellitus 74611802 Active diet teach 03/11, NPH 8u HS on 05/06 Arianna Brunson l null, [facility] 2 12:06:05 Hypothyr oidism 09274673 Active 75mcg. 02/15 TSH wnl. repeat 36w Arianna Brunson l null, [facility] 2 12:06:04 Recurren t miscarri age 746619023 Active all first trimeste r MIKE OLMOS MD [address], [place], [address], [facility] 4 11:14:10 In vitro fertiliz ation Active No MFM needed. echo WASHU 02/15 WNL. antenata l testing at 36wks [facility] 2 12:06:05 Pruritic urticari al papules and plaques of pregnanc y 99986799 Completed 2021 Arianna thornton, [facility] 2 12:06:05 Pruritic urticari al papules and plaques of pregnanc y 63700700 Active 2021 Arianna Nannette ricketts [facility], [facility] 2 12:06:05 Pregnanc y 21769744 Active 2023 Denise Infante [facility], [facility] 4 15:19:45 Deliveri es by [id number] Active To Repeat MIKE OLMOS MD [address], [place], [address], [facility] 4 11:14:01 Recurren t miscarri age 442338969 Active all first trimeste r MIKE OLMOS MD [address], [place], [address], [facility] 4 11:14:10 Past pregnanc y history of gestatio nal diabetes mellitus 781173779 Active MIKE OLMOS MD [address], [place], [address], [facility] 4 11:17:38 Problem Notes None recorded. Procedures Surgical History Date Name Laterality Status Provider Name and Address Organization Details Recorded Time 3 Date of Last Pap Smear completed Denise Infante [facility] 07/30/2024 12:21:52 Laparoscopy completed Marium Ellington [facility] 11/15/2021 17:39:42 Imaging Results Imaging Date Name Status LastModified by Organization Details LastModified Time 08/16/2024 US, obstetric, nuchal translucency completed camille Carbajal [address], [place], [address], 08/16/2024 19:16:30 08/16/2024 US, obstetric, follow-up completed [email or web address] [address], [place], [address], 08/16/2024 16:30:33 10/14/2024 US, obstetric, 2nd or 3rd trimester completed [facility] [address], [place], [address], 10/14/2024 18:05:19 10/14/2024 US, obstetric, 2nd or 3rd trimester completed [email or web address] [facility], [place], [address], 10/15/2024 17:30:44 11/09/2024 US, obstetric, follow-up completed [facility] [address], [place], [address], 11/09/2024 17:42:21 11/09/2024 US, obstetric, follow-up completed [email or web address] [address] [facility], [place], [address], 11/10/2024 09:26:20 Procedure Notes None recorded. Medical Equipment None Reported. Allergies No known drug allergies Medications Name Sig Start Date Stop Date Status Note LastModified by Organization Details LastModified Time fed-ex standard overnight THURS-FR I OV PT HOME NO SIG 12/10 completed Not Available Not Available Not Available relion insulin syringe/u -100/0.3m l/ 31g x 5/16 31g x 5/16 0.3 ml misc 06/07 completed Not Available Not Available Not Available aspirin 81 mg capsule 12/10 completed Not Available Not Available Not Available prednison e 10 mg tablet Take 1 tablet every day by oral route as directed for 14 days. 05/07 completed Not Available Not Available Not Available doxycycli ne hyclate 100 mg capsule 05/07 completed Not Available Not Available Not Available clindamyc in HCl 300 mg capsule 12/10 completed Not Available Not Available Not Available azithromy eamon 250 mg tablet 12/10 completed Not Available Not Available Not Available ofloxacin 0.3 % eye drops INSTILL 2 DROPS INTO RIGHT EYE 4 TIMES DAILY FOR 7 DAYS 05/07 completed Not Available Not Available Not Available clomiphen e citrate 50 mg tablet take 1 Tablet by oral route every day for 5 days days 5-9 of cycle 09/27 completed Prescrib kvng Moore e: No Locat ion: Shawn beasley [facility] Heidi odify By: bill grijalva DateTime : 09/23/20 16 01:31:48 PM Not Available Not Available Not Available hydrocodo ne 5 mg-acetam inophen 325 mg tablet TAKE 1 TABLET BY MOUTH EVERY 4 TO 5 HOURS NEEDED FOR MODERATE PAIN (4-6) 05/07 completed Not Available Not Available Not Available sucralfat e 1 gram tablet TAKE 1 TABLET BY MOUTH 4 TIMES DAILY BEFORE MEAL(S) AND AT BEDTIME 07/30 completed Not Available Not Available Not Available prednison e 20 mg tablet TAKE 2 TABLETS BY MOUTH ONCE DAILY FOR 3 DAYS THEN 1 ONCE DAILY FOR 3 DAYS 07/30 completed Not Available Not Available Not Available Pregnyl 10,000 unit intramusc ular solution INJECT 10,000IU INTRAMUS CULARLY FOR 1 DOSE DIRECTED 12/10 completed Not Available Not Available Not Available clobetaso l 0.05 % topical cream APPLY CREAM TOPICALL Y TO AFFECTED AREA TWICE DAILY FOR FOUR WEEKS. STOP FOR 2 WEEKS BEFORE RESTARTI NG. DO NOT APPLY TO FACE 07/30 completed Not Available Not Available Not Available metronida zole 500 mg tablet TAKE 1 TABLET BY MOUTH EVERY 8 HOURS FOR 10 DAYS 07/30 completed Not Available Not Available Not Available acetamino phen 300 mg-codein e 30 mg tablet 12/10 completed Not Available Not Available Not Available omeprazol e 40 mg capsule,d elayed release TAKE 1 CAPSULE BY MOUTH ONCE DAILY 07/30 completed Not Available Not Available Not Available triamcino lone acetonide 0.1 % topical cream APPLY TWICE DAILY TO RASH NEEDED. AVOID FACE, GROIN, AND ARMPITS 05/07 completed Not Available Not Available Not Available levothyro xine 25 mcg tablet TAKE 1 TABLET BY MOUTH ONCE DAILY DIRECTED , REPEAT LAB IN 4-6 WEEKS, NEED APPOINTM ENT FOR ADDITION AL REFILLS 07/30 completed Not Available Not Available Not Available levothyro xine 75 mcg tablet TAKE 1 TABLET BY MOUTH ONCE DAILY DIRECTED 05/07 completed Not Available Not Available Not Available progester one 50 mg/mL intramusc ular oil 12/10 completed Not Available Not Available Not Available amoxicill in 875 mg tablet TAKE 1 TABLET BY MOUTH TWICE DAILY FOR 7 DAYS 09/14 completed Not Available Not Available Not Available dexametha sone 1 mg tablet 12/10 completed Not Available Not Available Not Available benzonata te 100 mg capsule TAKE 1 CAPSULE BY MOUTH THREE TIMES DAILY NEEDED FOR COUGH 07/30 completed Not Available Not Available Not Available oseltamiv ir 75 mg capsule TAKE 1 CAPSULE BY MOUTH TWICE DAILY FOR 5 DAYS 05/07 completed Not Available Not Available Not Available misoprost ol 200 mcg tablet 12/10 completed Not Available Not Available Not Available Humulin N NPH U-100 Insulin (isophane susp) 100 unit/mL subcutane ous INJECT 6 UNITS SUBCUTAN EOUSLY AT HOUR OF SLEEP 06/07 completed Not Available Not Available Not Available docusate sodium 100 mg capsule TAKE 1 CAPSULE BY MOUTH TWICE DAILY 06/07 completed Not Available Not Available Not Available omeprazol e 20 mg capsule,d elayed release TAKE 1 CAPSULE BY MOUTH ONCE DAILY 07/30 completed Not Available Not Available Not Available estradiol 2 mg tablet 12/10 completed Not Available Not Available Not Available ibuprofen 600 mg tablet TAKE 1 TABLET BY MOUTH EVERY 6 HOURS NEEDED FOR CRAMPING 05/07 completed Not Available Not Available Not Available letrozole 2.5 mg tablet 12/10 completed Not Available Not Available Not Available fluticaso ne propionat e 50 mcg/actua tion nasal spray,nella pension USE 2 SPRAY(S) IN EACH NOSTRIL ONCE DAILY 05/07 completed Not Available Not Available Not Available BD Luer-Alejo Syringe 3 mL 22 x 1 1/2 USE DIRECTED [H.C.G. MEDICATI ON] 12/10 completed Not Available Not Available Not Available leuprolid e 1 mg/0.2 mL subcutane ous kit 12/10 completed Not Available Not Available Not Available Loestrin Fe 1.5/30 (28-Day) 1.5 mg-30 mcg (21)/75 mg (7) tablet take 1 tablet by oral route every day 12/10 completed Prescrib ed Elsewher e: No Locat ion: Shawn beasley [facility] odify By: [email or web address] Encounte r DateTime : 07/05/20 02:45:00 PM Not Available Not Available Not Available progester one micronize d 100 mg capsule 12/10 completed Not Available Not Available Not Available amoxicill in 875 mg-potass ium clavulana te 125 mg tablet TAKE 1 TABLET BY MOUTH TWICE DAILY FOR 7 DAYS 07/30 completed Not Available Not Available Not Available Asprin Ec Low Dose 81 mg tablet,de layed release 06/07 completed Not Available Not Available Not Available Sprintec (28) 0.25 mg-35 mcg tablet TAKE 1 TABLET BY MOUTH ONCE A DAY DIRECTED , TAKE ACTIVE PILLS ONLY 07/30 completed Not Available Not Available Not Available Vitamin D3 25 mcg (1,000 unit) tablet 12/10 completed Prescrib ed Elsewher e: Yes Loca tion: Shawn beasley [facility] odify By: [email or web address] E ncounter DateTime : 04/27/20 09:30:00 AM Not Available Not Available Not Available Ovidrel 250 mcg/0.5 mL subcutane ous syringe 12/10 completed Not Available Not Available Not Available Alcohol Prep Pads USE DIRECTED 12/10 completed Not Available Not Available Not Available BD Regular Bevel [place] 25 gauge x 1 1/2 USE DIRECTED [H.C.G. MEDICATI ON] 12/10 completed Not Available Not Available Not Available Menopur 75 unit subcutane ous solution 12/10 completed Not Available Not Available Not Available Follistim AQ 900 unit/1.08 mL subcutane ous cartridge 12/10 completed Not Available Not Available Not Available Calcium-V itamin D 12/10 completed Not Available Not Available Not Available Progester one (Vaginal) 12/10 completed Not Available Not Available Not Available Vitamin D 06/07 completed Not Available Not Available Not Available Unisom (doxylami ne) active Not Available Not Available Not Available active Not Available Not Avai lable Not Available alendrona te 70 mg-cholec alciferol (vitamin D3) 5,600 unit tablet 12/10 completed Not Available Not Available Not Available Endometri n 100 mg vaginal insert 12/10 completed Not Available Not Available Not Available Calcium-F olic Acid-Maegan min D 12/10 completed Not Available Not Available Not Available Probiotic 06/07 completed Not Available Not Available Not Available OneTouch Verio test strips USE 1 STRIP TO CHECK GLUCOSE 4 TIMES DAILY FASTIN AND 1 HOUR AFTER BREAKFAS T, LUNCH AND DINNER 06/07 completed Not Available Not Available Not Available Classic 12/10 completed Not Available Not Available Not Available Adult Probiotic 12/10 completed Not Available Not Available Not Available Enskyce 0.15 mg-0.03 mg tablet 12/10 completed Not Available Not Available Not Available Procto-Me d HC 2.5 % topical cream perineal applicato r 06/07 completed Not Available Not Available Not Available Orlin-Seq uels (iron-vit c) 06/07 completed Not Available Not Available Not Available BD Veo Insulin Syringe Ultra-Fin e 0.3 mL 31 gauge x 15/64 USE DIRECTED WITH INSULIN 06/07 completed Not Available Not Available Not Available Adult Multivita min with Iron 12/10 completed Not Available Not Available Not Available OneTouch Delica Plus Lancet 33 gauge USE 1 TO CHECK GLUCOSE 4 TIMES DAILY FASTING AND 1 HOUR AFTER BREAKFAS T, LUNCH, AND DINNER 06/07 completed Not Available Not Available Not Available ID NOW COVID-19 Test Kit TEST DIRECTED TODAY 03/04 completed Not Available Not Available Not Available OneTouch Verio Reflect Meter USE TO TEST FOUR TIMES DAILY FASTING AND 1 HOUR AFTER BREAKFAS T, LUNCH, AND DINNER 06/07 completed Not Available Not Available Not Available Vitals Date Recorded Body height Body mass index (BMI) Body weight Systolic blood pressure Diastolic blood pressure Provider Name and Address Organization Details Last Updated DateTime 09/14/2024 157.48 cm 29.6 kg/m2 35137.96 394 g 113 mm[Hg] 76 mm[Hg] Kayla Singletary [place] - [facility] 4 10:49:08 Date Recorded Body height Body mass index (BMI) Body weight Systolic blood pressure Diastolic blood pressure Provider Name and Address Organization Details Last Updated DateTime 10/15/2024 157.48 cm 30.4 kg/m2 72748.33 342 g 112 mm[Hg] 73 mm[Hg] Kayla Gemini [facility] 4 14:02:39 Date Recorded Body height Body mass index (BMI) Body weight Systolic blood pressure Diastolic blood pressure Provider Name and Address Organization Details Last Updated DateTime 11/09/2024 157.48 cm 30.9 kg/m2 01746.11 053 g 101 mm[Hg] 69 mm[Hg] Kayla [facility] 5 12:19:59 Social History Question Answer Notes LastModified by Organizat ion Details LastModified Time Tobacco Smoking Status Never Smoker Denise thornton [facility] 05/07/2023 17:43:06 Do You Have An Advance Directive? No Information not available 11/15/2021 What Is Your Level Of Alcohol Consumption? None Information not available 11/15/2021 Are You Blind Or Do You Have Difficulty Seeing? No Information not available 11/15/2021 What Is Your Level Of Caffeine Consumption? Occasional Information not available 11/15/2021 How Much Tobacco Do You Chew? None Information not available 11/15/2021 In The 14 Days Before Symptom Onset, Have You Had Close Contact With A Laboratory-confir med COVID-19 While That Case Was Ill? No Information not available 11/15/2021 In The 14 Days Before Symptom Onset, Have You Had Close Contact With A Person Who Is Under Investigation For COVID-19 While That Person Was Ill? No Information not available 11/15/2021 Have You Been To An Area Known To Be High Risk For COVID-19? No Information not available 11/15/2021 Are You Deaf Or Do You Have Serious Difficulty Hearing? No Information not available 11/15/2021 What Type Of Diet Are You Following? REGULAR Information not available 11/15/2021 What Is The Highest Grade Or Level Of School You Have Completed Or The Highest Degree You Have Received? 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 Yes Information not available 11/15/2021 Do You Use Protection During Sex? No Information not available 11/15/2021 Do You Use Your Seat Belt Or Car Seat Routinely? Yes Information not available 11/15/2021 Do You Have Smoke And Carbon Monoxide Detectors In Your Home? Yes Information not available 11/15/2021 How Much Tobacco Do You Smoke? No Information not available 11/15/2021 Do You Feel Stressed (tense, Restless, Nervous, Or Anxious, Or Unable To Sleep At Night)? [id number] Information not available 11/15/2021 Do You Use Any Illicit Or Recreational Drugs? No Information not available 11/15/2021 Do You Use Sunscreen Routinely? No Information not available 11/15/2021 Have You Used IV Drugs? No Information not available 11/15/2021 Sex: Unknown Functional Status Question Answer Note LastModified by Organizat ion Details LastModified Time Are you able to walk? YESWOREST Information not available 11/15/2021 What is your exercise level? Occasional Information not available 11/15/2021 Mental Status None recorded. Family History Relationship Description Onset Age of this Age Resolved Age Notes LastModified by Organization Details LastModified Time Father Diabetes mellitus Not available 2021 17:47:49 Medical History Condition Response Endometriosis Y Thyroid Problems Y Gynecological History Statement/Question Response Abnormal Pap N Date of LMP 05/16/2024 N Was last menstrual period normal Y STIs/STDs N HPV Vaccine N Duration of Flow (days) 6 Current Control Method Age at First Child 32 Are cycles usually normal Y Frequency of Cycle (Q days) 44 Sexually Active? Y Menses Monthly Y Age of first menstrual cycle 8 Date of Last Pap Smear 05/07/2023 Sexual Problems? N LMP Definite N Obstetrics History GPAL:G 9 P 1 0 7 1 Type Value Full Term 1 Spontaneous 7 Living 1 Total 9 Past Encounters Encounter ID Performer Location Encounter Start Date Encounter Closed Date Diagnosis/Indication Diagnosis SNOMED-CT Code Diagnosis ICD10 Code Diagnosis Note [id number] [facility] [address],[place] [address] 11/15/2021 16:44:49 11/15/2021 17:58:30 screening 764223925 Z36.82 [id number] Florentin Enamorado MD [facility] [address],[place] [address] 11/15/2021 16:45:36 11/16/2021 09:30:30 Routine care 844913993 Z34.01 screening 2437 57140 Z36.89 [id number] [facility] [address],[place] [address] 12/10/2021 15:44:29 12/10/2021 16:32:12 [id number] Florentin Enamorado MD [facility] [address],[place] [address] 12/10/2021 15:45:00 12/11/2021 14:12:03 Routine care 847393448 Z34.01 screening 2437 55097 Z36.89 [id number] Florentin Enamorado MD [facility] [address],[place] [address] 01/07/2022 16:40:50 01/08/2022 13:36:15 Routine care 371933699 Z34.01 [id number] [facility] [address] [place] [address] 01/07/2022 16:41:09 01/07/2022 17:51:02 screening for malformation 995511882 Z36.3 [id number] Florentin Enamorado MD [facility] [address],[place] [address] 02/15/2022 09:29:17 02/15/2022 10:15:50 Routine care 889172155 Z34.01 [id number] Leidy Pickard MD [facility] [address],[place] [address] 03/04/2022 15:24:21 03/04/2022 18:04:08 Routine care 187504290 Z34.82 IVF - in-v itro fertilization 6049920493 2102 O09.819 Tachycardia 4833609 R00. 0 [id number] [facility] [address],[place] [address] 03/11/2022 13:56:02 03/11/2022 15:19:25 Gestational diabetes mellitus class A1 90064653 O24.410 [id number] Leidy Pickard MD [facility] [address],[place] [address] 03/20/2022 16:05:59 03/20/2022 18:28:40 Gestational diabetes mellitus 62148811 O24.410 IVF - in-v itro fertilization 8196163671 2102 O09.819 Hypothyroidism 34539649 E03.9 [id number] Leidy Pickard MD [facility] [address],[place] [address] 04/01/2022 16:34:05 04/01/2022 17:27:17 Gestational diabetes mellitus 77182158 O24.410 Hypothyroidism 79084144 E03.9 IVF - in-v itro fertilization 5411507008 2102 O09.819 [id number] Florentin Enamorado MD [facility] [address],[place] [address] 04/04/2022 15:52:05 04/05/2022 14:26:57 Gestational diabetes mellitus class A1 25256898 O24.410 [id number] Chantel Jose [facility] [address],[place] [address] 04/04/2022 15:52:22 04/04/2022 17:05:24 Gestational diabetes mellitus class A1 28905560 O24.410 O99.283 O09.813 Z3A.32 [id number] Leidy Pickard MD [facility] [address],[place] [address] 04/08/2022 16:58:44 04/09/2022 15:47:40 Gestational diabetes mellitus 71647790 O24.410 [id number] Leidy Pickard MD [facility] [address],[place] [address] 1 04/08/2022 16:59:04 04/09/2022 15:47:19 Gestational diabetes mellitus 41601591 O24.410 IVF - in-v itro fertilization 6873317162 2101 O09.819 [id number] Ruel Balbuena [facility] [address],[place] [address] 04/11/2022 16:18:02 04/11/2022 17:27:59 Gestational diabetes mellitus class A1 10482665 O24.410 [id number] Tammy Ingram [facility] [address],[place] [address] 04/15/2022 16:14:48 04/15/2022 17:53:26 Gestational diabetes mellitus class A1 35923560 O24.410 [id number] Leidy Pickard MD [facility] [address],[place] [address] 04/15/2022 16:16:49 04/16/2022 15:19:31 Gestational diabetes mellitus 37041108 O24.410 Hypothyroidism 39731134 E03.9 IVF - in-v itro fertilization 5729788341 2101 O09.819 [id number] [facility] [address],[place] [address] 04/18/2022 16:14:12 04/18/2022 17:01:14 Gestational diabetes mellitus class A1 70750905 O24.410 [id number] [facility] [address],[place] [address] 04/25/2022 16:19:53 04/25/2022 17:21:28 Gestational diabetes mellitus class A1 49828522 O24.410 [id number] Florentin Enamorado MD [facility] [address],[place] [address] 04/25/2022 16:20:53 04/25/2022 17:52:39 Routine care 118667400 Z34.01 [id number] [facility] [address],[place] [address] 04/29/2022 16:21:01 04/29/2022 17:18:38 Gestational diabetes mellitus class A1 59044375 O24.410 [id number] Leidy Pickard MD [facility] [address],[place] [address] 1 04/29/2022 16:21:40 04/30/2022 15:19:24 Gestational diabetes mellitus 73681135 O24.410 IVF - in-v itro fertilization 9106007371 2102 O09.819 Hypothyroidism 04992977 E03.9 [id number] [facility] [address],[place] [address] 05/02/2022 16:18:37 05/02/2022 17:29:08 Gestational diabetes mellitus class A1 29491099 O24.410 [id number] [facility] [address],[place] [address] 05/02/2022 16:21:30 05/02/2022 17:54:58 Gestational diabetes mellitus class A1 98537227 O24.410 O09.813 Z3A.36 [id number] [facility] [address],[place] [address] 05/06/2022 16:22:32 05/06/2022 17:15:45 Gestational diabetes mellitus class A1 31401163 O24.410 O09.813 Z3A.36 [id number] Leidy Pickard MD [facility] [address],[place] [address] 05/06/2022 16:51:26 05/06/2022 17:56:47 Gestational diabetes mellitus class A2 90938474 O24.414 Hypothyroidism 49905103 E03.9 In vitro fertilization 98821720 Z31.83 [id number] Tammy Ingram [facility] [address],[place] [address] 1 05/09/2022 16:23:24 05/09/2022 17:27:21 Gestational diabetes mellitus class A1 72026925 O24.410 [id number] Florentin Enamorado MD [facility] [address],[place] [address] 05/13/2022 16:48:59 05/13/2022 18:08:52 Routine care 561944090 Z34.01 [id number] [facility] [address],[place] [address] 1 05/16/2022 16:20:12 05/16/2022 17:09:09 Gestational diabetes mellitus class A1 94279770 O24.410 [id number] [facility] [address],[place] [address] 05/20/2022 16:22:34 05/20/2022 17:13:37 Gestational diabetes mellitus class A1 90026704 O24.410 O09.813 Z3A.36 [id number] Leidy Pickard MD [facility] [address],[place] [address] 05/20/2022 16:23:15 05/21/2022 14:44:44 Gestational diabetes mellitus 02784867 O24.410 In vitro fertilization 29116446 Z31.83 [id number] [facility] [address],[place] [address] 05/23/2022 16:23:59 05/23/2022 17:21:40 Gestational diabetes mellitus class A1 01854590 O24.410 [id number] MD Solomon Lawrence [address],[place] [address] 06/07/2022 14:52:01 06/07/2022 15:53:38 Postoperative visit 943078239 Z09 Pruritic u rticarial papules and plaques of 49637125 O26.86 [id number] Leidy Pickard MD [facility] [address],[place] [address] 06/26/2022 10:22:08 07/03/2022 15:17:55 care 404752916 Z39.2 Gestationa l diabetes mellitus 26068272 O24.410 Pruritic u rticarial papules and plaques of 38643798 O26.86 [id number] [facility] [address] [address] 05/07/2023 17:33:56 05/07/2023 17:56:26 Gynecologic examination 74753307 Z01.419 Take Calcium with Vitamin D 1200mg daily if not receiving in daily diet. It is strongly advised to have an annual flu shot and up can obtain at most pharmacies . If you have not had a TDap shot in the last 10 years you should obtain one as well. Discussed with patient & provided with informatio n regarding Gardisil vaccine to prevent the 4 strains for HPV that cause cervical cancer if under age 26. Encourage safe sexual practices, to use condoms and limit partners if not already in a monogamous relationsh ip. Do monthly self breast exams. Have mammogram yearly or every other year depending on family history. BRCA testing is now available for patients with strong genetic history of female cancer. If interested contact the office. Engage in daily exercise of low impact aerobic exercise 45-60 minutes 4-5 times weekly. Avoid tobacco and illicit drugs as well as using moderation with alcohol intake less than 1-2 8 oz beverages daily. This lifestyle behavior pattern will lead to less health conditions and longer life span. If BMI greater than 25 weight watchers or dietary consult advised. Patient received above instructio ns, and questions have been answered. If you have any questions please call or respond to this email. Patient was made aware of the patient portal and may obtain a paper copy of today's plan if desired. Pap/hpv sent STD Screen declined Genetic Screen discussed Colon Screen na Dexa Screen na Routine Labs PCP [id number] [facility] [address] [address] 07/08/2024 12:39:11 07/08/2024 13:06:28 Uterine size for dates discrepancy 725905006 O26.841 Z3A.01 [id number] [facility] [address],[place] [address] 07/20/2024 13:47:13 07/20/2024 14:41:51 [id number] Florentin Enamorado MD [facility] [address],[place] [address] 07/30/2024 11:59:37 07/30/2024 12:57:56 Amenorrhea 07750921 N91.2 this patient is a 34-year-ol d female who presents for amenorrhea . She is a positive test. Ultrasound revealed a 1st trimester gestation. Patient has no complaints . We talked about early care. Talked about genetic screening. We talked about her ultrasound results. We talked about the 12 week ultrasound that has genetic screening components . She was given recommenda tions on exercise, diet, over-the-c ounter medication s. We reviewed her obstetric history. We reviewed her medical history. We reviewed her social history. She will begin routine care at her next visit. History of gestationa l diabetes, delivery for distress, [id number] [facility] [address],[place] [address] 08/16/2024 14:30:29 08/16/2024 15:04:26 screening 547732023 Z36.82 Z3A.12 [id number] Florentin Enamorado MD [facility] [address],[place] [address] 08/16/2024 14:30:43 08/16/2024 16:07:29 Routine care 324191195 Z34.01 [id number] MIKE OLMOS MD [facility] [address],[place] [address] 09/14/2024 10:43:16 09/14/2024 11:29:27 Uterine scar from previous surgery affecting 43917639 O34.29 - desires repeat c section Past pregn regan history of gestational diabetes mellitus 382007552 Z86.32 - early 1 hour at 20 weeks Gestation period, 16 weeks 06550587 Z3A.16 [id number] [facility] [address],[place] [address] 10/14/2024 16:44:29 10/15/2024 02:16:24 screening for malformation 943571590 Z36.3 Z3A.20 [id number] MIKE OLMOS MD [facility] [address],[place] [address] 10/15/2024 13:48:46 10/15/2024 14:26:37 Impaired glucose tolerance in 473750651 O99.810 Uterine sc ar from previous surgery affecting 81453681 O34.29 - desires repeat c section Gestation period, 21 weeks 04353389 Z3A.21 [id number] [facility] [address],[place] [address] 11/09/2024 11:35:07 11/09/2024 12:24:12 screening 191085648 Z36.2 Z3A.24 [id number] MIKE OLMOS MD [facility] [address],[place] [address] 11/09/2024 11:35:25 11/09/2024 12:37:27 Uterine scar from previous surgery affecting 40124705 O34.29 - desires repeat c section Past pregn regan history of gestational diabetes mellitus 573871920 Z86.32 - failed early 1 hour at 20 weeks, passed 3h GTT at 22 weeks- repeat at 28 weeks Gestation period, 24 weeks 704473125 Z3A.24 Health Concerns Section Related Observation LastModified by Organization Detai ls LastModified Time None Recorded Concern Status LastModified by Organization Details LastModified Time None Recorded Advance Directives Directive N: Payers Encounter Date Sequence Insurance Name Policy Number Policy [place] Covered Member ID [place] Member ID Guarantor Name 09/14/2024 1 [place] [id number] Tiffanie Lomas [id number] 24 Tiffanie Lomas 10/14/2024 1 [place] [id number] Tiffanie Lomas [id number] 24 Tiffanie Lomas 10/15/2024 1 [place] [id number] Tiffanie Lomas [id number] 24 Tiffanie Lomas 11/09/2024 2 [place] [id number] Tiffanie Lomas [id number] 24 Tiffanie Lomas 11/09/2024 1 [place] [id number] Tiffanie Lomas [id number] 24 Tiffanie Lomas 11/09/2024 1 [place] [id number] Tfifanie Lomas [id number] 24 Tiffanie Lomas OBGyn Episode Ob Episode Information Episode Created Date Number of Fetuses Patient Bloodtype Patient rh Status Prepregnancy Weight lbs Domestic Partner Domestic Partner Phone Father Name Toll Ticket Clerk Status 11/15/19 22 1 A Positive CLOSED Fetus Data First Name Last Name Admitted to NICU Weight (g) Sex Living Outcome Pediatric Complications Fetus ID Race Codes Race Delivery Type Everet t 3486.98 85 M true Full Term [id number] Primary Problems Problem Notes dates provided by Lonny aleman 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 02/15 TSH wnl. repeat 36w In vitro fertilization 1505777 5 No MFM needed. echo WASHU 02/15 WNL. 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 1 7 SAb Tachycardia 6374457 24 hour holter monitor and cardio consult pt cancelled due to improving s/s Bleeding hemorrhoids 88527935 referral to General surgery Gestational diabetes mellitus 48057889 diet teach 03/11 , NPH 8u HS on 05/06 Pruritic urticarial papules and plaques of 06/07/2022 83551579 Kashif Calculation Initial Kashif Date Initial Exam Date Initial Exam Provider Initial Ultrasound Date Last Menstrual Period Date Ultra Sound Weeks Gestation 05/30/2022 11/15/2021 10/10/2021 6 Eighteen To Twenty Week Kashif Update Ultra Sound Date Fundal Height At Umbil Quickening Date Ultra Sound Latest Weeks Gestation Final Kashif Confirmed By Final Kashif Confirmed Date Final Kashif Date Ultra Sound Latest Days Gestation 0 [email or web address] 11/15/2021 05/30/20 22 0 Pre-dana Flowsheet Flowsheet Date 11/15/2021 Lam Score Blood Edema Fundus Height Fundus Units Glucose Ketones Leukocytes Nitrite Labor Signs Protein Cervic Dilation Cervic Effacement Cervic Station 12 Type Weight in lbs Pre/Post Dialysis Refused Weight 153.279583507235 BP Diastolic BP Location Tested BP Systolic BP Type 82 R arm 127 sitting Fetus Heart Rate Present A 152 Fetus Movement Comments This patient is a 29-year-ol d 8 para 0 070 at 12 weeks gestation who presents for initial care. Patient has recurrent loss. She had multiple embryo transfers that failed after recurrent spontaneous Ab. All losses were in the 1st trimester. She is unremarkable medical and surgical history. This is an embryo transfer . She has no complaints today. She is vaccinated. She is going to get a booster. She is got the flu vaccine. We talked about care in great detail. She will have a courtesy ultrasound at 16 weeks. Flowsheet Date 12/10/2021 Lam Score Blood Edema Fundus Height Fundus Units Glucose Ketones Leukocytes Nitrite Labor Signs Protein Cervic Dilation Cervic Effacement Cervic Station Type Weight in lbs Pre/Post Dialysis Refused BP Diastolic BP Location Tested BP Systolic BP Type Fetus Heart Rate Present Fetus Movement Comments Flowsheet Date 12/10/2021 Lam Score Blood Edema Fundus Height Fundus Units Glucose Ketones Leukocytes Nitrite Labor Signs Protein Cervic Dilation Cervic Effacement Cervic Station 15 Type Weight in lbs Pre/Post Dialysis Refused Weight 157.845062854867 BP Diastolic BP Location Tested BP Systolic BP Type 82 R arm 126 sitting Fetus Heart Rate Present A 145 Fetus Movement A No Comments Ultrasound today, it appears normal. , patient had some different concerns, back pain, she was given recommendations. Flowsheet Date 01/07/2022 Lam Score Blood Edema Fundus Height Fundus Units Glucose Ketones Leukocytes Nitrite Labor Signs Protein Cervic Dilation Cervic Effacement Cervic Station 19 Type Weight in lbs Pre/Post Dialysis Refused Weight 160.494831304373 BP Diastolic BP Location Tested BP Systolic BP Type 83 L arm 123 sitting Fetus Heart Rate Present A 143 Fetus Movement Comments patient reports some bright red vaginal bleeding per rectum. She also had some vaginal spotting of brown blood. We talked about internal hemorrhoids. She has a longstanding history of hemorrhoid issues. We will refer to general surgery for evaluation and management ideas. Flowsheet Date 01/07/2022 Lam Score Blood Edema Fundus Height Fundus Units Glucose Ketones Leukocytes Nitrite Labor Signs Protein Cervic Dilation Cervic Effacement Cervic Station Type Weight in lbs Pre/Post Dialysis Refused BP Diastolic BP Location Tested BP Systolic BP Type Fetus Heart Rate Present Fetus Movement Comments Flowsheet Date 02/15/2022 Lam Score Blood Edema Fundus Height Fundus Units Glucose Ketones Leukocytes Nitrite Labor Signs Protein Cervic Dilation Cervic Effacement Cervic Station 25 Type Weight in lbs Pre/Post Dialysis Refused Weight 165.475556856287 BP Diastolic BP Location Tested BP Systolic BP Type 82 R arm 117 sitting Fetus Heart Rate Present A 145 Fetus Movement Comments Patient was informed of epis odes of tachycardia on her smart watch. She is asymptomatic. We agreed to Holter monitor and cardiology consult. Flowsheet Date 03/04/2022 Lam Score Blood Edema Fundus Height Fundus Units Glucose Ketones Leukocytes Nitrite Labor Signs Protein Cervic Dilation Cervic Effacement Cervic Station neg none 30 3+ trace Type Weight in lbs Pre/Post Dialysis Refused Weight 174.98598019495 BP Diastolic BP Location Tested BP Systolic BP Type 78 123 Fetus Heart Rate Present A 145 Fetus Movement A Yes Comments Doing well. Saw surgeon, hem orrhoids much better with cream and milk of mag. Cancelled her cardiology appt because sx resolved and would have cost $900 after insurance. Precautions given. GCT today- 3+ sugar in urine, will likely need 3 hr. Will do tdap, discussed. Flowsheet Date 03/11/2022 Lam Score Blood Edema Fundus Height Fundus Units Glucose Ketones Leukocytes Nitrite Labor Signs Protein Cervic Dilation Cervic Effacement Cervic Station Type Weight in lbs Pre/Post Dialysis Refused BP Diastolic BP Location Tested BP Systolic BP Type Fetus Heart Rate Present Fetus Movement Comments Flowsheet Date 03/20/2022 Lam Score Blood Edema Fundus Height Fundus Units Glucose Ketones Leukocytes Nitrite Labor Signs Protein Cervic Dilation Cervic Effacement Cervic Station neg trace 32 none trace Type Weight in lbs Pre/Post Dialysis Refused Weight 175.346091192634 BP Diastolic BP Location Tested BP Systolic BP Type 76 119 Fetus Heart Rate Present A 150 Fetus Movement A Yes Comments Doing ok. Working hard at di et with GDM. Fastings perfect except one. 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 Eating a lot of honey nut cheerios (breakfast and dinner) and PBJ and mostly getting away with it. Discussed need for protein with meals. Will continue to monitor. Did Tdap. Has weekly testing scheduled. Flowsheet Date 04/01/2022 Lam Score Blood Edema Fundus Height Fundus Units Glucose Ketones Leukocytes Nitrite Labor Signs Protein Cervic Dilation Cervic Effacement Cervic Station neg trace 33 none trace Type Weight in lbs Pre/Post Dialysis Refused Weight 174.80289998648 BP Diastolic BP Location Tested BP Systolic BP Type 75 116 Fetus Heart Rate Present A 140 Fetus Movement A Yes Comments Doing great. Constipation, d iscussed OTCs. IN two weeks of sugars, only 2 fasting and 3 pp elevated. still eating cereal a lot. Ante testing to start next week. Growth US later this week. Repeat TSH 36w. Flowsheet Date 04/04/2022 Lam Score Blood Edema Fundus Height Fundus Units Glucose Ketones Leukocytes Nitrite Labor Signs Protein Cervic Dilation Cervic Effacement Cervic Station Type Weight in lbs Pre/Post Dialysis Refused BP Diastolic BP Location Tested BP Systolic BP Type Fetus Heart Rate Present Fetus Movement Comments Flowsheet Date 04/04/2022 Lam Score Blood Edema Fundus Height Fundus Units Glucose Ketones Leukocytes Nitrite Labor Signs Protein Cervic Dilation Cervic Effacement Cervic Station Type Weight in lbs Pre/Post Dialysis Refused BP Diastolic BP Location Tested BP Systolic BP Type Fetus Heart Rate Present Fetus Movement Comments Flowsheet Date 04/08/2022 Lam Score Blood Edema Fundus Height Fundus Units Glucose Ketones Leukocytes Nitrite Labor Signs Protein Cervic Dilation Cervic Effacement Cervic Station Type Weight in lbs Pre/Post Dialysis Refused BP Diastolic BP Location Tested BP Systolic BP Type Fetus Heart Rate Present Fetus Movement Comments Flowsheet Date 04/08/2022 Lam Score Blood Edema Fundus Height Fundus Units Glucose Ketones Leukocytes Nitrite Labor Signs Protein Cervic Dilation Cervic Effacement Cervic Station neg none trace Type Weight in lbs Pre/Post Dialysis Refused Weight 175.869922837378 BP Diastolic BP Location Tested BP Systolic BP Type 76 111 Fetus Heart Rate Present A 135 Fetus Movement A Yes Comments Doing well, sugars good. NST reactive. Flowsheet Date 04/11/2022 Lam Score Blood Edema Fundus Height Fundus Units Glucose Ketones Leukocytes Nitrite Labor Signs Protein Cervic Dilation Cervic Effacement Cervic Station Type Weight in lbs Pre/Post Dialysis Refused BP Diastolic BP Location Tested BP Systolic BP Type 78 122 Fetus Heart Rate Present Fetus Movement Comments Flowsheet Date 04/15/2022 Lam Score Blood Edema Fundus Height Fundus Units Glucose Ketones Leukocytes Nitrite Labor Signs Protein Cervic Dilation Cervic Effacement Cervic Station Type Weight in lbs Pre/Post Dialysis Refused Weight 179.636297853767 BP Diastolic BP Location Tested BP Systolic BP Type 78 123 Fetus Heart Rate Present Fetus Movement Comments Flowsheet Date 04/15/2022 Lam Score Blood Edema Fundus Height Fundus Units Glucose Ketones Leukocytes Nitrite Labor Signs Protein Cervic Dilation Cervic Effacement Cervic Station neg trace 34 none trace Type Weight in lbs Pre/Post Dialysis Refused Weight 179.117567352074 BP Diastolic BP Location Tested BP Systolic BP Type 78 123 Fetus Heart Rate Present A 130 Fetus Movement A Yes Comments Doing well. Half of fastings high, most of rest low 90s. 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 NST reacctive. Repeat TSH at 36w. Flowsheet Date 04/18/2022 Lam Score Blood Edema Fundus Height Fundus Units Glucose Ketones Leukocytes Nitrite Labor Signs Protein Cervic Dilation Cervic Effacement Cervic Station Type Weight in lbs Pre/Post Dialysis Refused BP Diastolic BP Location Tested BP Systolic BP Type Fetus Heart Rate Present Fetus Movement Comments Flowsheet Date 04/25/2022 Lam Score Blood Edema Fundus Height Fundus Units Glucose Ketones Leukocytes Nitrite Labor Signs Protein Cervic Dilation Cervic Effacement Cervic Station Type Weight in lbs Pre/Post Dialysis Refused BP Diastolic BP Location Tested BP Systolic BP Type Fetus Heart Rate Present Fetus Movement Comments Flowsheet Date 04/25/2022 Lam Score Blood Edema Fundus Height Fundus Units Glucose Ketones Leukocytes Nitrite Labor Signs Protein Cervic Dilation Cervic Effacement Cervic Station Type Weight in lbs Pre/Post Dialysis Refused Weight 185.617477269657 BP Diastolic BP Location Tested BP Systolic BP Type 76 R arm 119 sitting Fetus Heart Rate Present Fetus Movement Comments good glucose control, reacti ve NST, no cardiac symptoms, hemorrhoids are much improved, constipation is much improved with milk of magnesium Flowsheet Date 04/29/2022 Lam Score Blood Edema Fundus Height Fundus Units Glucose Ketones Leukocytes Nitrite Labor Signs Protein Cervic Dilation Cervic Effacement Cervic Station Type Weight in lbs Pre/Post Dialysis Refused BP Diastolic BP Location Tested BP Systolic BP Type Fetus Heart Rate Present Fetus Movement Comments Flowsheet Date 04/29/2022 Lam Score Blood Edema Fundus Height Fundus Units Glucose Ketones Leukocytes Nitrite Labor Signs Protein Cervic Dilation Cervic Effacement Cervic Station neg trace 36 trace trace Type Weight in lbs Pre/Post Dialysis Refused Weight 184.831829388379 BP Diastolic BP Location Tested BP Systolic BP Type 78 123 Fetus Heart Rate Present A 130 Fetus Movement A Yes Comments Doing well. Baby moving a to n. NST reactive with huge accels but then two spontaneous decels, one 2min long. Reactive again after. Sugars good- 1 fasting elevated. Repeat TSH next week. GBS next week. To L and D for extended monitoring and BPP. Flowsheet Date 05/02/2022 Lam Score Blood Edema Fundus Height Fundus Units Glucose Ketones Leukocytes Nitrite Labor Signs Protein Cervic Dilation Cervic Effacement Cervic Station Type Weight in lbs Pre/Post Dialysis Refused BP Diastolic BP Location Tested BP Systolic BP Type Fetus Heart Rate Present Fetus Movement Comments Flowsheet Date 05/02/2022 Lam Score Blood Edema Fundus Height Fundus Units Glucose Ketones Leukocytes Nitrite Labor Signs Protein Cervic Dilation Cervic Effacement Cervic Station Type Weight in lbs Pre/Post Dialysis Refused BP Diastolic BP Location Tested BP Systolic BP Type Fetus Heart Rate Present Fetus Movement Comments Flowsheet Date 05/06/2022 Lam Score Blood Edema Fundus Height Fundus Units Glucose Ketones Leukocytes Nitrite Labor Signs Protein Cervic Dilation Cervic Effacement Cervic Station Type Weight in lbs Pre/Post Dialysis Refused BP Diastolic BP Location Tested BP Systolic BP Type Fetus Heart Rate Present Fetus Movement Comments Flowsheet Date 05/06/2022 Lam Score Blood Edema Fundus Height Fundus Units Glucose Ketones Leukocytes Nitrite Labor Signs Protein Cervic Dilation Cervic Effacement Cervic Station neg trace 39 none trace 1cm 40% -3 Type Weight in lbs Pre/Post Dialysis Refused Weight 183.286734526044 BP Diastolic BP Location Tested BP Systolic BP Type 78 117 Fetus Heart Rate Present A 145 Fetus Movement A Yes Comments Doing well. NST reactive. Gr owth last week 71%, LAURIE 24. About half fastings elevated, increase NPH to 8 at night. GBS today. TSH today. FU weekly. Flowsheet Date 05/09/2022 Lam Score Blood Edema Fundus Height Fundus Units Glucose Ketones Leukocytes Nitrite Labor Signs Protein Cervic Dilation Cervic Effacement Cervic Station Type Weight in lbs Pre/Post Dialysis Refused BP Diastolic BP Location Tested BP Systolic BP Type Fetus Heart Rate Present Fetus Movement Comments Flowsheet Date 05/13/2022 Lam Score Blood Edema Fundus Height Fundus Units Glucose Ketones Leukocytes Nitrite Labor Signs Protein Cervic Dilation Cervic Effacement Cervic Station Type Weight in lbs Pre/Post Dialysis Refused BP Diastolic BP Location Tested BP Systolic BP Type Fetus Heart Rate Present Fetus Movement Comments Flowsheet Date 05/13/2022 Lam Score Blood Edema Fundus Height Fundus Units Glucose Ketones Leukocytes Nitrite Labor Signs Protein Cervic Dilation Cervic Effacement Cervic Station 36 Type Weight in lbs Pre/Post Dialysis Refused Weight 182.638086290014 BP Diastolic BP Location Tested BP Systolic BP Type 80 R arm 118 sitting Fetus Heart Rate Present A 145 Fetus Movement Comments no complaints, reasonable co ntrol of her blood sugars, reassuring testing Flowsheet Date 05/16/2022 Lam Score Blood Edema Fundus Height Fundus Units Glucose Ketones Leukocytes Nitrite Labor Signs Protein Cervic Dilation Cervic Effacement Cervic Station Type Weight in lbs Pre/Post Dialysis Refused BP Diastolic BP Location Tested BP Systolic BP Type Fetus Heart Rate Present Fetus Movement Comments Flowsheet Date 05/20/2022 Lam Score Blood Edema Fundus Height Fundus Units Glucose Ketones Leukocytes Nitrite Labor Signs Protein Cervic Dilation Cervic Effacement Cervic Station Type Weight in lbs Pre/Post Dialysis Refused BP Diastolic BP Location Tested BP Systolic BP Type Fetus Heart Rate Present Fetus Movement Comments Flowsheet Date 05/20/2022 Lam Score Blood Edema Fundus Height Fundus Units Glucose Ketones Leukocytes Nitrite Labor Signs Protein Cervic Dilation Cervic Effacement Cervic Station neg trace 38 none trace 1cm 50% -2 Type Weight in lbs Pre/Post Dialysis Refused Weight 183.222593092474 BP Diastolic BP Location Tested BP Systolic BP Type 76 114 Fetus Heart Rate Present A 140 Fetus Movement A Yes Comments Doing well. BS perfect. NST reactive. GBS neg. Cervix 1.5/50, discussed option of induction next week, pt would like. Will schedule. Discussed IOL process. Flowsheet Date 05/23/2022 Lam Score Blood Edema Fundus Height Fundus Units Glucose Ketones Leukocytes Nitrite Labor Signs Protein Cervic Dilation Cervic Effacement Cervic Station Type Weight in lbs Pre/Post Dialysis Refused BP Diastolic BP Location Tested BP Systolic BP Type Fetus Heart Rate Present Fetus Movement Comments Flowsheet Date 06/07/2022 Lam Score Blood Edema Fundus Height Fundus Units Glucose Ketones Leukocytes Nitrite Labor Signs Protein Cervic Dilation Cervic Effacement Cervic Station Type Weight in lbs Pre/Post Dialysis Refused Weight 154.744931840237 BP Diastolic BP Location Tested BP Systolic BP Type 75 114 Fetus Heart Rate Present Fetus Movement Comments Flowsheet Date 06/26/2022 Lam Score Blood Edema Fundus Height Fundus Units Glucose Ketones Leukocytes Nitrite Labor Signs Protein Cervic Dilation Cervic Effacement Cervic Station Type Weight in lbs Pre/Post Dialysis Refused Weight 157.333631219490 BP Diastolic BP Location Tested BP Systolic BP Type 82 126 Fetus Heart Rate Present Fetus Movement Comments Menstrual History Last Menstrual Date Menses Monthly On Bcp Conception Prior Menses Frequency Hcg Plus Date Menarche Onset Age Genetic Screening And Infection History Question Response Note Mental Retardation/Autism false Patient's Age Will Be 35 Years Or Older At Estim ated Date of Delivery false Thalassemia (Bruneian, Finnish, Mediterranean, Or Background): MCV < 80 false Neural Tube Defect (Meningomyelocele, Spina Bifi da, Or Anencephaly) false Congenital Heart Defect false Down Syndrome false Alpesh-Sachs (eg, Yarsanism, Cajun, Slovenian-Greenlandic) f alse Oma Disease false Sickle Cell Disease Or Trait () false Hemophilia Or Other Blood Disorders false Muscular Dystrophy false Cystic Fibrosis false Isaias's Chorea false Intellectual Disability/Autism false If Yes, Was Person Tested For Fragile X? false Other Inherited Genetic Or Chromosomal Disorder false Maternal Metabolic Disorder (eg, Type 1 Diabetes , PKU) false Patient Or Baby's Father Had A Child With Defects Not Listed Above false Recurrent Loss, Or A Stillbirth false Medications (including Suppl ements, Vitamins, Herbs, OTC Drugs), Illicit/Recreational Drugs, Alcohol false If Yes, Agent(s) And Strength/Dosage false Any Other Genetic History false Live With Someone With TB Or Exposed To TB false Patient Or Partner Has History Of Genital Herpes false Rash Or Viral Illness Since Last Menstrual Perio d false History Of STD, Gonorrhea, Chlamydia, HPV, Syphi lis false Other Infection History false History of HIV false History of Hepatitis false Prior GBS-infected child false Hemoglobinopathy Or Carrier false Other Structural Defect false Recent Travel History Outside of Country false Delivery Information Delivery Date Delivery Type Labor Anesthesia Weeks Gestation Incision Type Labor Labor Length Hrs Delivered By Post Complications Tubal Sterilization Discharge Date Comments 2 Induce d Regional-Sp inal 39.5 Low Transvers e false Leidy Pickard MD Failed induction / decelerat ions, GDM & IVF Discharge Information Feeding Method Contraceptive Method Maternal HG B and HCT Levels Breast Ob Episode Information Episode Created Date Number of Fetuses Patient Bloodtype Patient rh Status Prepregnancy Weight lbs Domestic Partner Domestic Partner Phone Father Name Toll Ticket Clerk Status 08/16/20 24 1 A Positive 161 Raymundo OPEN Fetus Data First Name Last Name Admitted to NICU Weight (g) Sex Living Outcome Pediatric Complications Fetus ID Race Codes Race Delivery Type [id number] Problems Problem Notes growth/presentation us at 32 wks Problem Name Start Date End Date Resolution Snomed Code Not e Deliveries by 04 To Repeat Recurrent miscarriage [id number] 1 all first trimester Past history of gestational diabetes mellitus [id number] Kashif Calculation Initial Kashif Date Initial Exam Date Initial Exam Provider Initial Ultrasound Date Last Menstrual Period Date Ultra Sound Weeks Gestation 08/16/2024 07/20/2024 05/16/2024 8 Eighteen To Twenty Week Kashif Update Ultra Sound Date Fundal Height At Umbil Quickening Date Ultra Sound Latest Weeks Gestation Final Kashif Confirmed By Final Kashif Confirmed Date Final Kashif Date Ultra Sound Latest Days Gestation 0 [email or web address] 08/16/2024 02/26/20 25 0 Pre- Flowsheet Flowsheet Date 08/16/2024 Lam Score Blood Edema Fundus Height Fundus Units Glucose Ketones Leukocytes Nitrite Labor Signs Protein Cervic Dilation Cervic Effacement Cervic Station Type Weight in lbs Pre/Post Dialysis Refused Weight 161.782418623467 BP Diastolic BP Location Tested BP Systolic BP Type 78 L arm 110 sitting Fetus Heart Rate Present Fetus Movement A No Comments this patient is a 34-year-ol d multiparous female at 12 weeks' gestation who presents for initial care. She has a history of term vaginal births. Her medical, surgical, obstetric history is unremarkable. She is vaccinated. She was given precautions recommendations for . We talked about vaccines in . Talked about care in detail. She is having genetic testing. She had a normal 12 week ultrasound. To begin routine care. Flowsheet Date 09/14/2024 Lam Score Blood Edema Fundus Height Fundus Units Glucose Ketones Leukocytes Nitrite Labor Signs Protein Cervic Dilation Cervic Effacement Cervic Station neg none none trace Type Weight in lbs Pre/Post Dialysis Refused 162.809704778414 BP Diastolic BP Location Tested BP Systolic BP Type 76 L arm 113 sitting Fetus Heart Rate Present A 145 Fetus Movement A No Comments Patient c/o of really bad he adaches. Discussed tylenol, caffeine, B2. No cramping or bleeding. Hx of GDM, will do early 1h GCT next visit. Discussed anatomy US for next visit as well. Hx of c section, desires repeat. RTC 4 weeks. Flowsheet Date 10/14/2024 Lam Score Blood Edema Fundus Height Fundus Units Glucose Ketones Leukocytes Nitrite Labor Signs Protein Cervic Dilation Cervic Effacement Cervic Station Type Weight in lbs Pre/Post Dialysis Refused BP Diastolic BP Location Tested BP Systolic BP Type Fetus Heart Rate Present Fetus Movement Comments Flowsheet Date 10/15/2024 Lam Score Blood Edema Fundus Height Fundus Units Glucose Ketones Leukocytes Nitrite Labor Signs Protein Cervic Dilation Cervic Effacement Cervic Station neg none Type Weight in lbs Pre/Post Dialysis Refused 166.154451704834 BP Diastolic BP Location Tested BP Systolic BP Type 73 L arm 112 sitting Fetus Heart Rate Present A Present Fetus Movement A Yes Comments Good movement. No cram ping or bleeding. Failed 1h GCT, will schedule 3h GTT k[place]. Anatomy incomplete, need RVOT. EFW 45%. Normal fluid and movement. Will repeat in 4 weeks. RTC 4 weeks. Flowsheet Date 11/09/2024 Lam Score Blood Edema Fundus Height Fundus Units Glucose Ketones Leukocytes Nitrite Labor Signs Protein Cervic Dilation Cervic Effacement Cervic Station Type Weight in lbs Pre/Post Dialysis Refused BP Diastolic BP Location Tested BP Systolic BP Type Fetus Heart Rate Present Fetus Movement Comments Flowsheet Date 11/09/2024 Lam Score Blood Edema Fundus Height Fundus Units Glucose Ketones Leukocytes Nitrite Labor Signs Protein Cervic Dilation Cervic Effacement Cervic Station neg none Type Weight in lbs Pre/Post Dialysis Refused 169.752270111626 BP Diastolic BP Location Tested BP Systolic BP Type 69 L arm 101 sitting Fetus Heart Rate Present A 149 Fetus Movement A Yes Comments Doing well, good movem ent. Had extra fluid after waking on Friday, had eval at hospital which was normal. No cramping or bleeding. Passed 3h GTT, will repeat at 28 weeks. Anatomy complete and normal, EFW 27%. Repeat at 32 weeks for breech presentation. RTC 4 weeks. Menstrual History Last Menstrual Date Menses Monthly On Bcp Conception Prior Menses Frequency Hcg Plus Date Menarche Onset Age 0705/16/2024 true Delivery Information Delivery Date Delivery Type Labor Anesthesia Weeks Gestation Incision Type Labor Labor Length Hrs Delivered By Post Complications Tubal Sterilization Discharge Date Comments Discharge Information Feeding Method Contraceptive Method Maternal HG B and HCT Levels
--- OUTSIDE RECORDS SUMMARY | 2024-11-11 06:52 | XMS_ITS | Referral Summary ---
Author Organization [facility] Address [address] [place] [address] Care Team Providers Care Carbon Brusher Assembler Name Role Phone Rina Macdonald MD Primary Care Provider [phone] Encounters Date Type Department Care Team Description 08/29/2024 2:00 PM RETURNER Office Visit [facility] at [address] [address] Donna Coreas, ASHISH Acute non-recurrent frontal sinusitis (Primary Dx) from Last 3 Months Allergies No known active allergies Medications PNV with [id number] 27 mg iron- 1 mg tablet Take 1 tablet by mouth daily Active Lacto.acidophilu s-Bif.animalis 32 billion cell capsule Take by mouth Active Active Problems Problem Noted Date Diagnosed Date Tachycardia 08/29/2024 Overview (08/29/2024): 24 hour holter monitor and cardio consult pt cancelled due to improving s/s Bleeding hemorrhoids 08/29/2024 Overview (08/29/2024): referral to General surgery Gestational diabetes mellitus 08/08/2022 Overview (08/29/2024): diet teach 03/11, NPH 8u HS on 05/06 Hypothyroidism 08/08/2022 Overview (08/29/2024): 75mcg. 02/15 TSH wnl. repeat 36w Recurrent loss 08/08/2022 Overview (08/29/2024): all fisrt trimester Headache 07/30/2022 Pruritic urticarial papules and plaques of pregn regan 06/07/2022 resulting from in-vitro fertilization 03/04/2022 Equivocal imaging test findings 07/01/2019 Overview (08/29/2024): Dx imaging inconclusive due to excess body fat of patient;Recorded Elsewhere: No Location: [facility] Source: EHR Chronic: N Practice ID: [id number] Billable Time: 05:00:00 PM Female infertility associated with anovulation 1 12/08/2015 Overview (08/29/2024): Infertility, female, associated with anovulation;Recorded Elsewhere: No Location: [facility] Source: EHR Chronic: N Practice ID: [id number] Billable Time: 03:15:00 PM Endometriosis of pelvic peritoneum 05/03/2015 Overview (08/29/2024): Endometriosis of pelvic peritoneum;Recorded Elsewhere: No Location: [facility] Source: EHR Chronic: N Practice ID: [id number] Billable Time: 03:00:00 PM Female infertility of tubal origin 04/26/2015 Overview (08/29/2024): Infertility, female, of tubal origin;Practice ID: [id number] Female pelvic peritoneal adhesions 04/26/2015 Overview (08/29/2024): Pelvic peritoneal adhesions, female (postoperative) (postinfection);Practice ID: [id number] Irregular periods 04/10/2015 Overview (08/29/2024): Irregular menstrual cycle;Recorded Elsewhere: No Location: [facility] Source: EHR Chronic: N Practice ID: [id number] Billable Time: 03:30:00 PM Comments Yes Social History Tobacco Use Types Packs/Day Years Used Date Smoking Tobacco: Never Smokeless Tobacco: Never Comments Yes Sex and Gender Information Value Date Recorded Sex Assigned at Not on file Legal Sex Female 10:06 AM CDT Gender Identity Not on file Sexual Orientation Not on file Last Filed Vital Signs Vital Sign Reading Time Taken Comments Blood Pressure 119/72 08/29/2024 2:06 PM RETURNER Pulse 112 08/29/2024 2:06 PM RETURNER Temperature 36.4 ??C (97.6 ??F) 08/29/2024 2:06 PM CS T Respiratory Rate 18 08/29/2024 2:06 PM RETURNER Oxygen Saturation 98% 08/29/2024 2:06 PM RETURNER Inhaled Oxygen Concentration - - Weight 72.6 kg (160 lb) 08/29/2024 2:06 PM RETURNER Height 157.5 cm (5' 2 ) 08/29/2024 2:06 PM RETURNER Body Mass Index 29.26 08/29/2024 2:06 PM RETURNER Plan of Treatment Not on file Insurance [facility] PL[facility] Care Teams Carbon Brusher Assembler Relationship Specialty Start Date End Date Rina Macdonald MD PCP - General Nurse Practitioner 02/18/22
--- OUTSIDE RECORDS SUMMARY | 2024-11-11 06:52 | XMS_ITS | Clinical Summary ---
Author Organization [facility] Address [address] [place] [address] Care Team Providers Care Pen Tender Name Role Phone Rina Macdonald MD Primary Care Provider [phone] Allergies No known active allergies Medications PNV with [id number]-[id number] 27 mg iron- 1 mg tablet Take [...] body fat of patient;Recorded Elsewhere: No Location: [facility] Source: EHR Chronic: N Practice ID: [id number] Billable Time: 05:00:00 PM Female infertility associated with anovulation 1 12/08/2015 Overview (08/29/2024): Infertility, female, associated with anovulation;Recorded Elsewhere: No Location: [facility] Source: EHR Chronic: N Practice ID: [id number] Billable Time: 03:15:00 PM Endometriosis of pelvic peritoneum 05/03/2015 Overview (08/29/2024): Endometriosis of pelvic peritoneum;Recorded Elsewhere: No Location: [facility] Source: EHR Chronic: N Practice ID: [id number] Billable Time: 03:00:00 PM Female infertility of tubal origin 04/26/2015 Overview (08/29/2024): Infertility, female, of tubal origin;Practice ID: [id number] Female pelvic peritoneal adhesions 04/26/2015 Overview (08/29/2024): Pelvic peritoneal adhesions, female (postoperative) (postinfection);Practice ID: [id number] Irregular periods 04/10/2015 Overview (08/29/2024): Irregular menstrual cycle;Recorded Elsewhere: No Location: [facility] Source: EHR Chronic: N Practice ID: [id number] Billable Time: 03:30:00 PM Comments Yes Encounters Date Type Department Care Team Description 08/29/2024 2:00 PM CLIENT TECHNOLOGIES SPECIALIST Office Visit [facility] at [address] [address] Donna Coreas NP Acute non-recurrent frontal sinusitis (Primary Dx) from Last 3 Months Medical History Medical History Date Comments Tachycardia Gestational diabetes Bleeding hemorrhoids Hypothyroidism Endometriosis Social History Tobacco Use Types Packs/Day Years Used Date Smoking Tobacco: Never Smokeless Tobacco: Never Comments Yes Sex and Gender Information Value Date Recorded Sex Assigned at Not on file Legal Sex Female 10:06 AM CDT Gender Identity Not on file Sexual Orientation Not on file Obstetrics History Para Term AB IAB SAB Ectopic Multiple Livin g Live Births 1 Date Outcome GA Total Labor Labor/2nd/3rd Weight Sex Type Anes PTL Valencia A1 A5 Name Clin Current Last Filed Vital Signs Vital Sign Reading Time Taken Comments Blood Pressure 119/72 08/29/2024 2:06 PM CLIENT TECHNOLOGIES SPECIALIST Pulse 112 08/29/2024 2:06 PM CLIENT TECHNOLOGIES SPECIALIST Temperature 36.4 ??C (97.6 ??F) 08/29/2024 2:06 PM CS T Respiratory Rate 18 08/29/2024 2:06 PM CLIENT TECHNOLOGIES SPECIALIST Oxygen Saturation 98% 08/29/2024 2:06 PM CLIENT TECHNOLOGIES SPECIALIST Inhaled Oxygen Concentration - - Weight 72.6 kg (160 lb) 08/29/2024 2:06 PM CLIENT TECHNOLOGIES SPECIALIST Height 157.5 cm (5' 2 ) 08/29/2024 2:06 PM CLIENT TECHNOLOGIES SPECIALIST Body Mass Index 29.26 08/29/2024 2:06 PM CLIENT TECHNOLOGIES SPECIALIST Plan of Treatment Health Maintenance Due Date Last Done Comments Cervical Cancer Screening 1989 Depression Screening 1989 Hepatitis C Screening 1989 Varicella Vaccines (1 of 2 - 13+ 2-dose series) 2002 Hepatitis B Screening 2007 Regular Well Visit/Exam 18-64 2007 Covid-19 Vaccine ( season) 2024 02/09/2021, 01/12/2021 Influenza Vaccine (#1) 2024 2, 07/25/2021, 08/09/2020, Additional history exists DTaP/Tdap/Td Vaccine (2 - Td or Tdap) 03/15/2032 03/15/2022 HPV Vaccines Aged Out No longer eligi ble based on patient's age to complete this topic Pneumococcal vaccine <65 Aged Out No longer eligible based on patient's age to complete this topic Insurance [facility] PLUS [facility] Care Teams Pen Tender Relationship Specialty Start Date End Date Rina Macdonald MD PCP - General Nurse Practitioner 02/18/22
== END 2024-11-05 13:55 | disposition home or self-care (01) ==
LOC: ANHOBOP 12:49 → ANHOBPP 12:52
PROVIDERS: PCP Nurse Practitioner; Visit Provider Obstetrics & Gynecology
DX: O42.90 Premature rupture of membranes, unspecified as to length of time between rupture and onset of labor, unspecified weeks of gestation (principal); Z3A.00 Weeks of gestation of pregnancy not specified
CPT/HCPCS: 59025; 84112; 99199

== ENCOUNTER 2024-11-21 12:36 | Observation (INO) | payer BC, SELFPAY ==
[2024-11-21] VITALS (10 sets, daily range): BP systolic 94–103; BP diastolic 52–60; PULSE 96–113; TEMP 36.9–37.8
--- OUTSIDE RECORDS SUMMARY | 2024-11-21 10:55 | XMS_ITS | Clinical Summary ---
Author Organization [facility] [employer] Address [address] [place] [place] [address] Care Team Providers Care Medical Planner Name Role Phone Simon Turner MD Primary Care Provider [phone] Source Comments [facility],non-owned Affiliates and Associated Physician Practices is amultiple site organization consisting of ambulatory clinics and hospital sitesin [place], [place], [place] and [place]. This disclosure is being madepursuant to the Care Everywhere program and may not contain all informatio navailable regarding this patient. Last updated 18.[facility] Allergies No known active allergies Medications * [...] Comments Blood Pressure 98/76 10/30/2017 2:32 PM TIMBER MANAGEMENT SPECIALIST Pulse 85 10/30/2017 2:32 PM TIMBER MANAGEMENT SPECIALIST Temperature 36.5 ??C (97.7 ??F) 10/30/2017 2:32 PM CS T Respiratory Rate 16 10/30/2017 2:32 PM TIMBER MANAGEMENT SPECIALIST Oxygen Saturation 99% 10/30/2017 2:32 PM TIMBER MANAGEMENT SPECIALIST Inhaled Oxygen Concentration - - Weight 59 kg (130 lb) 10/30/2017 2:32 PM TIMBER MANAGEMENT SPECIALIST Height 157.5 cm (5' 2 ) 10/30/2017 2:32 PM TIMBER MANAGEMENT SPECIALIST Body Mass Index 23.78 10/30/2017 2:32 PM TIMBER MANAGEMENT SPECIALIST Plan of Treatment Health Maintenance Due [...] age to complete this topic Care Teams Medical Planner Relationship Specialty Start Date End Date Simon Turner MD [address] [place] [id number] PCP - General 05/30/22
--- OUTSIDE RECORDS SUMMARY | 2024-11-21 10:55 | XMS_ITS | Clinical Summary ---
Author Organization [facility] Address [address] [place] [address] Care Team Providers Care Automotive Accessory Installer Name Role Phone Rina Macdonald MD Primary Care Provider [phone] Allergies No known active allergies Medications PNV with [id number]-[id number] 27 mg iron- 1 mg tablet Take [...] fat of patient;Recorded Elsewhere: No Location: [facility] Source: EHR Chronic: N Practice ID: [id number] Billable Time: 05:00:00 PM Female infertility associated with anovulation 1 12/08/2015 Overview (08/29/2024): Infertility, female, associated with anovulation;Recorded Elsewhere: No Location: [facility] Source: EHR Chronic: N Practice ID: [id number] Billable Time: 03:15:00 PM Endometriosis of pelvic peritoneum 05/03/2015 Overview (08/29/2024): Endometriosis of pelvic peritoneum;Recorded Elsewhere: No Location: [facility] Source: EHR Chronic: N Practice ID: [id number] Billable Time: 03:00:00 PM Female infertility of tubal origin 04/26/2015 Overview (08/29/2024): Infertility, female, of tubal origin;Practice ID: [id number] Female pelvic peritoneal adhesions 04/26/2015 Overview (08/29/2024): Pelvic peritoneal adhesions, female (postoperative) (postinfection);Practice ID: [id number] Irregular periods 04/10/2015 Overview (08/29/2024): Irregular menstrual cycle;Recorded Elsewhere: No Location: [facility] Source: EHR Chronic: N Practice ID: [id number] Billable Time: 03:30:00 PM Comments Yes Encounters Date Type Department Care Team Description 08/29/2024 2:00 PM ROVING SIZER Office Visit [facility] Con[facility]ient Care at [address] [address] Donna Coreas NP Acute non-recurrent [...] Comments Blood Pressure 119/72 08/29/2024 2:06 PM ROVING SIZER Pulse 112 08/29/2024 2:06 PM ROVING SIZER Temperature 36.4 ??C (97.6 ??F) 08/29/2024 2:06 PM CS T Respiratory Rate 18 08/29/2024 2:06 PM ROVING SIZER Oxygen Saturation 98% 08/29/2024 2:06 PM ROVING SIZER Inhaled Oxygen Concentration - - Weight 72.6 kg (160 lb) 08/29/2024 2:06 PM ROVING SIZER Height 157.5 cm (5' 2 ) 08/29/2024 2:06 PM ROVING SIZER Body Mass Index 29.26 08/29/2024 2:06 PM ROVING SIZER Plan of Treatment Health Maintenance Due Date [...] patient's age to complete this topic Insurance [facility] Care Teams Automotive Accessory Installer Relationship Specialty Start Date End Date Rina Macdonald MD PCP - General Nurse Practitioner 02/18/22
--- OUTSIDE RECORDS SUMMARY | 2024-11-21 10:55 | XMS_ITS | Referral Summary ---
Author Organization [facility] Address [address] [place] [address] Care Team Providers Care Hotel Operations Manager Name Role Phone Rina Macdonald MD Primary Care Provider [phone] Encounters Date Type Department Care Team Description 08/29/2024 2:[address] Office Visit [facility] at [address] [address] Donna Coreas, ASHISH Acute non-recurrent frontal sinusitis (Primary Dx) from Last 3 Months Allergies No known active allergies Medications PNV with [id number]-[id number]-[place] 27 mg iron- 1 mg tablet Take [...] body fat of patient;Recorded Elsewhere: No Location: [facility] Source: EHR Chronic: N Practice ID: [id number] Billable Time: 05:00:00 PM Female infertility associated with anovulation 1 12/08/2015 Overview (08/29/2024): Infertility, female, associated with anovulation;Recorded Elsewhere: No Location: [facility] Source: EHR Chronic: N Practice ID: [id number] Billable Time: 03:15:00 PM Endometriosis of pelvic peritoneum 05/03/2015 Overview (08/29/2024): Endometriosis of pelvic peritoneum;Recorded Elsewhere: No Location: [facility] Source: EHR Chronic: N Practice ID: [id number] Billable Time: 03:00:00 PM Female infertility of tubal origin 04/26/2015 Overview (08/29/2024): Infertility, female, of tubal origin;Practice ID: 0001 Female pelvic peritoneal adhesions 04/26/2015 Overview (08/29/2024): Pelvic peritoneal adhesions, female (postoperative) (postinfection);Practice ID: [id number] Irregular periods 04/10/2015 Overview (08/29/2024): Irregular menstrual cycle;Recorded Elsewhere: No Location: [facility] Source: EHR Chronic: N Practice ID: [...] Comments Blood Pressure 119/72 08/29/2024 2:[address] Pulse 112 08/29/2024 2:[address] Temperature 36.4 ??C (97.6 ??F) 08/29/2024 2:06 PM CS T Respiratory Rate 18 08/29/2024 2:[address] Oxygen Saturation 98% 08/29/2024 2:[address] Inhaled Oxygen Concentration - - Weight 72.6 kg (160 lb) 08/29/2024 2:[address] Height 157.5 cm (5' 2 ) 08/29/2024 2:[address] Body Mass Index 29.26 08/29/2024 2:[address] Plan of Treatment Not on file Insurance [facility] CHOICE PLUS [facility] H[facility]/PPO Address: [facility] [address] [place] [address] [facility] CHOICE PLUS [facility] H[facility]/PPO Address: [address] [address] [place] [address] [facility] Care Teams Hotel Operations Manager Relationship Specialty Start Date End Date Rina Macdonald MD PCP - General Nurse Practitioner 02/18/22
--- OUTSIDE RECORDS SUMMARY | 2024-11-21 10:56 | XMS_ITS | Referral Summary ---
Author Organization [facility] Address [address] [facility] [place] [address] Care Team Providers Care Machine Joiner Cementer Name Role Phone Simon Turner MD Primary Care Provider [phone] Source Comments [facility],non-owned Affiliates and Associated Physician Practices is amultiple site organization consisting of ambulatory clinics and hospital sitesin [place], [place], [place] and [place]. This disclosure is being madepursuant to the Care Everywhere program and may not contain all information available regarding this patient. Last updated 18.[facility] Allergies No known active allergies Medications * [...] Comments Blood Pressure 98/76 10/30/2017 2:32 PM SUPERVISOR PLATE PASTING Pulse 85 10/30/2017 2:32 PM SUPERVISOR PLATE PASTING Temperature 36.5 ??C (97.7 ??F) 10/30/2017 2:32 PM CS T Respiratory Rate 16 10/30/2017 2:32 PM SUPERVISOR PLATE PASTING Oxygen Saturation 99% 10/30/2017 2:32 PM SUPERVISOR PLATE PASTING Inhaled Oxygen Concentration - - Weight 59 kg (130 lb) 10/30/2017 2:32 PM SUPERVISOR PLATE PASTING Height 157.5 cm (5' 2 ) 10/30/2017 2:32 PM SUPERVISOR PLATE PASTING Body Mass Index 23.78 10/30/2017 2:32 PM SUPERVISOR PLATE PASTING Plan of Treatment Not on file Care Teams Machine Joiner Cementer Relationship Specialty Start Date End Date Simon Turner MD [address] [place] [address] PCP - General 05/30/22
--- OUTSIDE RECORDS SUMMARY | 2024-11-21 10:56 | XMS_ITS | Encounter Summary ---
Author Organization [facility] Address [address] [place] [address]. [place] [address] [place] [address] Care Team Providers Care Valving Machine Operator Name Role Phone Rina Macdonald NP Primary Care Provider [phone] Encounter Details Date Type Department Care Team (Late st Contact Info) Description 12/24/2022 THE E[employer]TY JOINT Message Enc [facility] Family Medicine - [place] [address] [facility] [address] [place] [phone] Rina Macdonald, GAMBLING DEALER [address] [place] [address] Question regarding CBC W/DIFF AUTOMATED Social History [...] Coronavirus/COVID-19? No / Unsure 12/24/2022 7:01 AM IRON ASSORTER documented as of this encounter Plan of Treatment Not on file documented as of this encounter Visit Diagnoses Not on filedocumented in this encounter Additional Health Concerns Assessment Noted Time PHQ-9 Depression Total Score: 0 07/02/20 21 2:04 PM CDT documented as of this encounter Care Teams Valving Machine Operator Relationship Specialty Start Date End Date Rina Macdonald NP [address] [place] [address] PCP - General NURSE PRACTITIONER 06/26/21 documented as of this encounter
--- OUTSIDE RECORDS SUMMARY | 2024-11-21 10:56 | XMS_ITS | Patient Health Summary ---
Author Organization [facility] Address [address] [facility] [place] [address] Care Team Providers Care Classification And Treatment Director Name Role Phone Simon Turner MD Primary Care Provider [phone] Note from [facility],non-owned Affiliates and Associated Physician Practices is amultiple site organization consisting of ambulatory clinics and hospital sitesin [place], [place], [place] and [place]. This disclosure is being madepursuant to the Care Everywhere program and may not contain all information available regarding this patient. Last updated 18.[facility] Allergies No known active allergies Medications * [...] Comments Blood Pressure 98/76 10/30/2017 2:32 PM VETERINARY SURGERY TECHNOLOGIST Pulse 85 10/30/2017 2:32 PM VETERINARY SURGERY TECHNOLOGIST Temperature 36.5 ??C (97.7 ??F) 10/30/2017 2:32 PM CS T Respiratory Rate 16 10/30/2017 2:32 PM VETERINARY SURGERY TECHNOLOGIST Oxygen Saturation 99% 10/30/2017 2:32 PM VETERINARY SURGERY TECHNOLOGIST Inhaled Oxygen Concentration - - Weight 59 kg (130 lb) 10/30/2017 2:32 PM VETERINARY SURGERY TECHNOLOGIST Height 157.5 cm (5' 2 ) 10/30/2017 2:32 PM VETERINARY SURGERY TECHNOLOGIST Body Mass Index 23.78 10/30/2017 2:32 PM VETERINARY SURGERY TECHNOLOGIST Procedures * HCG BETA BLOOD QUANTITATIVE(Performed 09/28/2021) * HCG BETA BLOOD QUANTITATIVE(Performed 09/21/2021) * HCG BETA BLOOD QUANTITATIVE(Performed 09/19/2021) * HCG BETA BLOOD QUANTITATIVE(Performed 10/02/2018) Results * HCG BETA BLOOD QUANTITATIVE (09/28/2021 11:42 AM VETERINARY SURGERY TECHNOLOGIST) Only the most recent of4 resultswithin the time period is included. [facility] hCG Quantitative 3,781.48 mIU/mL 09/28/20 4:49 PM VETERINARY SURGERY TECHNOLOGIST [facility] Blood BLOOD SPECIMEN / Unknown Venipuncture / Unknown 09/28/2021 11:42 AM VETERINARY SURGERY TECHNOLOGIST 09/28/2021 3:40 PM VETERINARY SURGERY TECHNOLOGIST Narrative [facility] - 09/28/2021 4:49 PM VETERINARY SURGERY TECHNOLOGIST ? hCG Reference Range, mIU/mL: ? Males [...] - CHEMISTRY OLIVA TURNER Performing Organization Address City/State/[facility] Co de Phone Number [facility] [address] [place] [address] Care Teams Classification And Treatment Director Relationship Specialty Start Date End Date Simon Turner MD [address] [place] [address] PCP - General 05/30/22
--- OUTSIDE RECORDS SUMMARY | 2024-11-21 10:56 | XMS_ITS | Encounter Summary ---
Author Organization [facility] Address [address] [facility] [place] [address] Care Team Providers Care Account Support Analyst Name Role Phone Simon Turner MD Primary Care Provider Encounter Details Date Type Department Care Team (Late st Contact Info) Description 09/21/2021 Lab Requisition [facility] [address] [place] [address] Debbie Huang MD Social History Tobacco Use [...] BETA BLOOD QUANTITATIVE STAT 09/21/2021 2:58 PM ACID TREATER documented in this encounter Results * HCG BETA BLOOD QUANTITATIVE (09/21/2021 2:58 PM ACID TREATER) hCG Quantitative 217.87 mIU/mL 09/21/20 4:12 PM ACID TREATER [facility] Blood BLOOD SPECIMEN / Unknown Venipuncture / Unknown 09/21/2021 2:58 PM ACID TREATER 09/21/2021 3:36 PM ACID TREATER Narrative [facility] - 09/21/2021 4:12 PM ACID TREATER ? hCG Reference Range, mIU/mL: ? Males [...] Huang MD LAB - CHEMISTRY OLIVA TURNER [facility] [address] [place] [address] documented in this encounter Visit Diagnoses Not on filedocumented in this encounter Care Teams Account Support Analyst Relationship Specialty Start Date End Date Simon Turner MD [address] [place] [address] PCP - General 05/30/22 documented as of this encounter
--- OUTSIDE RECORDS SUMMARY | 2024-11-21 10:56 | XMS_ITS | Encounter Summary ---
Author Organization [facility] Address [address] [facility] [place] [address] Care Team Providers Care Senior Systems Architect Name Role Phone Simon Turner MD Primary Care Provider [phone] Encounter Details Date Type Department Care Team (Late st Contact Info) Description 09/19/2021 Lab Requisition [facility] [address] [place] [address] Debbie Huang MD Social History Tobacco Use [...] BETA BLOOD QUANTITATIVE STAT 09/19/2021 9:36 AM STAFF ELECTRICAL ENGINEER documented in this encounter Results * HCG BETA BLOOD QUANTITATIVE (09/19/2021 9:36 AM STAFF ELECTRICAL ENGINEER) hCG Quantitative 71.07 mIU/mL 09/19/20 10:46 AM STAFF ELECTRICAL ENGINEER [facility] Blood BLOOD SPECIMEN / Unknown Venipuncture / Unknown 09/19/2021 9:36 AM STAFF ELECTRICAL ENGINEER 09/19/2021 9:43 AM STAFF ELECTRICAL ENGINEER Narrative [facility] - 09/19/2021 10:46 AM STAFF ELECTRICAL ENGINEER ? hCG Reference Range, mIU/mL: ? Males [...] Huang MD LAB - CHEMISTRY OLIVA TURNER [facility] [address] [place] [address] documented in this encounter Visit Diagnoses Not on filedocumented in this encounter Care Teams Senior Systems Architect Relationship Specialty Start Date End Date Simon Turner MD [address] [place] [address] PCP - General 05/30/22 documented as of this encounter
--- OUTSIDE RECORDS SUMMARY | 2024-11-21 10:56 | XMS_ITS | Clinical Summary ---
Author Organization [facility] Address [address] [place] [address]. [place], [place] [address] [place] [address] Care Team Providers Care Surgical Assistant Certified Name Role Phone Rina Macdonald NP Primary Care Provider [phone] Allergies No known active allergies Medications omeprazole (PRILOSEC) 20 MG capsule Take 1 capsule (20 mg total) by mouth daily. 12/09/2023 Active Active Problems Problem Noted Date Diagnosed Date In vitro fertilization 08/08/2022 Gestational diabetes mellitus ([facility]) 08/08/20 22 Hypothyroidism 08/08/2022 Recurrent loss 08/08/2022 Headache 07/30/2022 Pruritic urticarial papules and plaques of ([facility]) 06/07/2022 Immunizations Name Administration Dates Next Due [...] Comments Blood Pressure 102/64 12/15/2023 10:50 AM MILIEU MANAGER Pulse 92 12/15/2023 10:50 AM MILIEU MANAGER Temperature 36.7 ??C (98.1 ??F) 12/15/2023 10:[address] Respiratory Rate 16 12/15/2023 10:50 AM MILIEU MANAGER Oxygen Saturation 98% 12/15/2023 10:50 AM MILIEU MANAGER Inhaled Oxygen Concentration - - Weight 71.2 kg (157 lb) 12/15/2023 10:50 AM MILIEU MANAGER Height 157.5 cm (5' 2 ) 08/08/2022 [...] 07/25/2021, 08/09/2020, Additional history exists PHQ-2 (Physician Thrall) 10/20/2024 12/15/2023 PHQ-2 (Physician Thrall) 12/15/2024 12/15/2023 Cervical Cancer Screening Pap Smear [...] HEPATITIS C ANTIBODY Routine 12/24/2022 7:21 AM MILIEU MANAGER Need for hepatitis C screening test from Last 3 Months or Most Recently Relevant to Health Maintenance Results * HEPATITIS C ANTIBODY (12/24/2022 7:21 AM MILIEU MANAGER) HEPATITIS C AB NON-REACTI VE NON-REACT NEVAEH 12/24/2022 6:[address] [facility] Comment: ANTIBODIES TO HCV NOT DETECTED. DOES NOT EXCLUDE THE POSSIBILITY OF EXPOSURE TO HCV. 12/24/2022 7:21 AM MILIEU MANAGER us Rina Macdonald MANAGER CARDIOLOGY LABORATORY Final Res ult [facility] [address] [place] [address], [phone] from Last 3 Months or Most Recently Relevant to Health Maintenance Insurance [facility] Care Teams Surgical Assistant Certified Relationship Specialty Start Date End Date Rina Macdonald NP [address] [place] [address] PCP - General NURSE PRACTITIONER 06/26/21
--- OUTSIDE RECORDS SUMMARY | 2024-11-21 10:56 | XMS_ITS | Data Portability ---
Author Organization [facility] [place] Address [address] [place] [address] [place] [address] Care Team Providers Care Bottom Cager Name Role Phone JERSONIsauro DAVID Primary Care Provider [phone] Assessment No assessment recorded. Plan of Treatment Reminders Order Date Submit Date Provider Last Modified By Organization Details Last Modified Time Details Appointments OB ROUTINE 2024 09:30A Heidi OLMOS MD Not available Not available Not available Lab None recorded. Referral None recorded. Procedures None recorded. Surgeries None recorded. Imaging US, obstetric , 2nd or 3rd trimester 2023 024 [email or web address] [place], [address], [place], [address], 10/14/2024 20:39:17 US, obstetric , follow-up 2024 025 [email or web address] [place] [facility] [address], [place], [address], 11/09/2024 20:36:37 Medication Orders None recorded. Patient [...] Rocio sneed Lab: [facility] [address] [facility] [address] Tel: CULTU RE ----- ----- ----- --- No growt h in 1 day (dete ction level of 10,00 0 colon ies / ml.) Not Available [facility] (Lab) [address] [facility], [place], [address], 08/18/2024 07:14:21 10/14/20 24 10/14/2024 GTT - GESTA FARSHAD L SCREE N, ACOG OB glucose, 1 hour screen 151 mg/dL 70-135 high Not Available [facility] (Lab) [address] [place], [address], 10/15/2024 03:53:47 11/01/19 25 11/01/2024 GTT - GESTA FARSHAD L, 3 HOUR, ACOG glucose, fasting acog 73 mg/dL 70-94 Not Available [facility] (Lab) [address] [place], [address], 11/02/2024 05:17:34 11/01/19 25 11/01/2024 GTT - GESTA FARSHAD L, 3 HOUR, ACOG glucose, 1 hour acog 124 mg/dL 70-179 Not Available [facility] (Lab) [address] [place], [address], 11/02/2024 05:17:34 11/01/19 25 11/01/2024 GTT - GESTA FARSHAD L, 3 HOUR, ACOG glucose, 2 hour acog 101 mg/dL 70-154 Not Available [facility] (Lab) [address] [place], [address], 11/02/2024 05:17:34 11/01/19 25 11/01/2024 GTT - GESTA FARSHAD L, 3 HOUR, ACOG glucose, 3 hour acog 105 mg/dL 70-139 Not Available [facility] (Lab) [address], [place], [address], 11/02/2024 05:17:34 08/16/20 24 08/16/2024 US, obste tric, nucha l trans lucen cy No observ ation record ed. [facility] [address], [place], [address], 08/16/2024 19:16:30 08/16/20 24 08/16/2024 US, obste tric, follo w-up No observ ation record ed. [email or web address] [address], [place], [address], 08/16/2024 16:30:33 10/14/20 24 10/14/2024 US, obste tric, 2nd or 3rd trime ster No observ ation record ed. [facility] [address], [place], [address], 10/14/2024 18:05:19 10/14/20 24 10/14/2024 US, obste tric, 2nd or 3rd trime ster No observ ation record ed. [email or web address] [address], [place], [address], 10/15/2024 17:30:44 11/09/19 25 11/09/2024 US, obste tric, follo w-up No observ ation record ed. [facility] [address], [place], [address], 11/09/2024 17:42:21 11/09/19 25 11/09/2024 US, obste tric, follo w-up No observ ation record ed. [email or web address] [address], [place], [address], 11/10/2024 09:26:20 Result Notes None recorded. Problems Name Problem SNOMED Code Status Onset Date Resolution Date Notes Provider Name and Address Organization Details Recorded Time Pregnanc y test negative 024568931 Completed 201811/15/2021 Encounte r for pregnanc y test, result negative ;Recorde d Elsewher e: No Locat ion: Shawn beasley [facility] S ource: EHR Manager Stone christopher: N Estebanti ce ID: 0001 Velasquez lable Time: 01:00:00 PM Marium [facility] 2 17:40:15 Screenin g for malignan t neoplasm of cervix Completed 201211/15/2021 Screenin g for malignan t neoplasm s of the cervix;R ecorded Elsewher e: No Locat ion: Zhou gale [facility] N Estebanti ce ID: 0001 Velasquez lable Time: 10:30:00 AM Marium [facility] 2 17:40:12 Female infertil ity associat ed with anovulat ion [id number] Completed 201511/15/2021 Infertil ity, female, associat ed with anovulat ion;Jerry rded Elsewher e: No Locat ion: Shawn beasley [facility]: N Estebanti ce ID: 0001 Velasquez lable Time: 03:15:00 PM Mariummone [facility] 2 17:40:37 Bleeding [id number] Completed 201811/15/2021 Abnormal uterine and vaginal bleeding , unspecif ied;Jerry rded Elsewher e: No Locat ion: [facility] S ource: EHR Manager Stone christopher: N Estebanti ce ID: 0001 Velasquez lable Time: 02:45:00 PM Marium [facility] 2 17:40:39 Endometr iosis of pelvic peritone um [id number] Completed 201411/15/2021 Endometr iosis of pelvic peritone um;Recor ded Elsewher e: No Locat ion: Shawn beasley [facility] S ource: EHR [facility] christopher: N Practi ce ID: 0001 Velasquez lable Time: 03:00:00 PM Marium thornton [facility] 2 17:40:43 Postoper ative follow-u p visit Completed 201411/15/2021 Follow-u p examinat ion, followin g unspecif ied surgery; Recorded Elsewher e: No [facility]at [facility]: [facility] christopher: N Practi ce ID: 0001 Velasquez lable Time: 03:00:00 PM Marium [facility] 2 17:40:20 Finding of regulari ty of menstrua l cycle Completed 201411/15/2021 Irregula r menstrua tion, unspecif ied;Jerry rded Elsewher e: No Locat ion: [facility] S ource: [facility] christopher: N Estebanti ce ID: 0001 Velasquez lable Time: 08:30:00 AM Marium [facility] 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 2 17:40:05 Imaging result equivoca l [id number] Completed 201811/15/2021 Dx imaging inconclu sive due to excess body fat of patient; Recorded Elsewher e: No Locat ion: [facility] S ource: [facility] christopher: N Practi ce ID: 0001 Velasquez lable Time: 05:00:00 PM Marium [facility] 2 17:40:28 Irregula r periods 46974713 Completed 201411/15/2021 Irregula r menstrua l cycle;Re corded Elsewher e: No Locat ion: [facility] S ource: EHR Manager Stone christopher: N Estebanti ce ID: 0001 Velasquez lable Time: 03:30:00 PM Marium [facility] 2 17:40:22 Dysmenor marianela [id number] Completed 201311/15/2021 Dysmenor marianela;Rec orded Elsewher e: No Locat ion: [facility] S ource: EHR Manager Stone christopher: N Estebanti ce ID: 0001 Velasquez lable Time: 02:00:00 PM Mariummone [facility] 2 17:40:45 Speciali zed medical examinat ion Completed 201211/15/2021 Gynecolo gical Examinat ion;Jerry rded Elsewher e: No Locat ion: [facility] S ource: EHR Manager Stone christopher: N Estebanti ce ID: 0001 Velasquez lable Time: 10:30:00 AM Marium [facility] 2 17:40:03 Pre-surg jo ann evaluati on Completed 201411/15/2021 Other specifie d pre-oper ative examinat ion;Jerry rded Elsewher e: No Locat ion: [facility] S ource: EHR Manager Stone christopher: N Estebanti ce ID: 0001 Velasquez lable Time: 03:00:00 PM Marium [facility] [address] 17:40:[address] Concept Completed 201711/15/2021 Encntr for general adult medical exam w/o abnormal findings ;Recorde d Elsewher e: No Locat ion: [facility] S ource: EHR Manager Stone christopher: N Estebanti ce ID: 0001 Velasquez lable Time: 09:30:00 AM [facility] 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 2 17:40:30 Female infertil ity of tubal origin 62069279 Completed 201411/15/2021 Infertil ity, female, of tubal origin;P ractice ID: 0001 Marium [facility] 2 17:40:35 Pregnanc y 00558388 Completed 202107/01/2022 Denise Infante [facility], [facility] 4 15:19:45 In vitro fertiliz ation Completed No MFM needed. echo WASHU 02/15 WNL. antenata l testing at 36wks Arianna Nannette [facility] 2 12:06:05 Recurren t miscarri age 365399792 Completed 7 SAb Arianna ricketts [facility] 2 12:06:05 Bleeding hemorrho ids 88651582 Completed referral to General surgery Arianna ricketts [facility] 2 12:06:05 Hypothyr oidism 97519026 Completed 75mcg. 02/15 TSH wnl. repeat 36w Arianna Nannette r[facility]etts [facility] 2 12:06:04 Tachycar maksim 3591528 Completed 24 hour holter monitor and cardio consult pt cancelle d due to improvin g s/s Arianna ricketts [facility], [facility] 2 12:06:05 IVF - in-vitro fertiliz ation pregnanc y 7044348013 2101 Active 2021 Leidy Pickard MD [address], [place], [address], [facility] 2 17:30:52 IVF - in-vitro fertiliz ation pregnanc y 3604882355 2101 Completed 2021 Leidy [place]ard MD [address], [place], [address], [facility] 2 17:27:15 Gestatio nal diabetes mellitus 99182758 Completed diet teach 03/11, NPH 8u HS on 05/06 Arianna Brunson l null, [facility] 2 12:06:05 Gestatio nal diabetes mellitus 21674199 Active diet teach 03/11, NPH 8u HS on 05/06 Arianna Brunson l null, [facility] 2 12:06:05 Hypothyr oidism 39069178 Active 75mcg. 02/15 TSH wnl. repeat 36w Arianna Brunson l null, [facility] 2 12:06:04 Recurren t miscarri age 033886082 Active all first trimeste r MIKE OLMOS MD [address], [place], [address], [facility] 4 11:14:10 In vitro fertiliz ation Active No MFM needed. echo WASHU 02/15 WNL. antenata l testing at 36wks [facility] 2 12:06:05 Pruritic urticari al papules and plaques of pregnanc y 39953919 Completed 2021 Arianna thornton, [facility] 2 12:06:05 Pruritic urticari al papules and plaques of pregnanc y 09213051 Active 2021 Arianna Nannette [facility], [facility] 2 12:06:05 Pregnanc y 32905756 Active 2023 Denise Infante [facility], [facility] 4 15:19:45 Deliveri es by [id number] Active To Repeat MIKE OLMOS MD [address], [place], [address], [facility] 4 11:14:01 Recurren t miscarri age 896887496 Active all first trimeste r MIKE OLMOS MD [address], [place], [address], [facility] 4 11:14:10 Past pregnanc y history of gestatio nal diabetes mellitus 026822382 Active MIKE OLMOS MD [address], [place], [address], [facility] 4 11:17:38 Problem Notes None recorded. Procedures Surgical History Date Name Laterality Status Provider Name and Address Organization Details Recorded Time 3 Date of Last Pap Smear completed Denise Infante [facility] 07/30/2024 12:21:52 Laparoscopy completed Marium Ellington [facility] 11/15/2021 17:39:42 Imaging Results Imaging Date Name Status LastModified by Organization Details LastModified Time 08/16/2024 US, obstetric, nuchal translucency completed camille Carbajal [address], [place], [address], 08/16/2024 19:16:30 08/16/2024 US, obstetric, follow-up completed [email or web address] [address], [place], [address], 08/16/2024 16:30:33 10/14/2024 US, obstetric, 2nd or 3rd trimester completed [facility] [address], [place], [address], 10/14/2024 18:05:19 10/14/2024 US, obstetric, 2nd or 3rd trimester completed [email or web address] [address] [facility], [place], [address], 10/15/2024 17:30:44 11/09/2024 US, obstetric, follow-up completed [facility] [address], [place], [address], 11/09/2024 17:42:21 11/09/2024 US, obstetric, follow-up completed [email or web address] [address] [facility], [place], [address], 11/10/2024 09:26:20 Procedure Notes None recorded. Medical [...] Moore e: No Locat ion: Shawn beasley [facility] Heidi odify By: bill grijalva DateTime : [...] Elsewher e: No Locat ion: Shawn beasley [facility] odify By: [email or web address] Encounte r DateTime : [...] Elsewher e: Yes Loca tion: Shawn beasley [facility] odify By: [email or web address] E ncounter DateTime : 04/27/20 09:30:00 AM Not Available Not Available Not Available Ovidrel 250 mcg/0.5 mL subcutane ous syringe 12/10 completed Not Available Not Available Not Available Alcohol Prep Pads USE DIRECTED 12/10 completed Not Available Not Available Not Available BD Regular Bevel [place] 25 gauge x 1 1/2 USE DIRECTED [...] Updated DateTime 09/14/2024 157.48 cm 29.6 kg/m2 17568.96 394 g 113 mm[Hg] 76 mm[Hg] Kayla Singletary [place] - [facility] 4 10:49:08 Date Recorded Body height Body mass index (BMI) Body weight Systolic blood pressure Diastolic blood pressure Provider Name and Address Organization Details Last Updated DateTime 10/15/2024 157.48 cm 30.4 kg/m2 26832.33 342 g 112 mm[Hg] 73 mm[Hg] Kayla Gemini [facility] 4 14:02:39 Date Recorded Body height Body mass index (BMI) Body weight Systolic blood pressure Diastolic blood pressure Provider Name and Address Organization Details Last Updated DateTime 11/09/2024 157.48 cm 30.9 kg/m2 16852.11 053 g 101 mm[Hg] 69 mm[Hg] Kayla [facility] 5 12:19:59 Social History Question Answer Notes LastModified by Organizat ion Details LastModified Time Tobacco Smoking Status Never Smoker Denise thornton [facility] 05/07/2023 17:43:06 Do You Have An [...] Or The Highest Degree You Have Received? 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 [id number] Information not available 11/15/2021 Do You Use [...] SNOMED-CT Code Diagnosis ICD10 Code Diagnosis Note [id number] [facility] [address],[place] [address] 11/15/2021 16:44:49 11/15/2021 17:58:30 screening 087378373 Z36.82 [id number] Florentin Enamorado MD [place] [address],[place] [address] 11/15/2021 16:45:36 11/16/2021 09:30:30 Routine care 668198466 Z34.01 screening 2437 56932 Z36.89 [id number] [facility] [address],[place] [address] 12/10/2021 15:44:29 12/10/2021 16:32:12 [id number] Florentin Enamorado MD [place] [address],[place] [address] 12/10/2021 15:45:00 12/11/2021 14:12:03 Routine care 775048600 Z34.01 screening 2437 29140 Z36.89 [id number] Florentin Enamorado MD [place] [address],[place] [address] 01/07/2022 16:40:50 01/08/2022 13:36:15 Routine care 278569942 Z34.01 80018 [facility] [address] [place] [address] 01/07/2022 16:41:09 01/07/2022 17:51:02 screening for malformation 120937326 Z36.3 [id number] Florentin Enamorado MD [place] [address],[place] [address] 02/15/2022 09:29:17 02/15/2022 10:15:50 Routine care 245360119 Z34.01 [id number] Leidy [place] MD [place] [address],[place] [address] 03/04/2022 15:24:21 03/04/2022 18:04:08 Routine care 538586187 Z34.82 IVF - in-v itro fertilization 7410351873 2102 O09.819 Tachycardia 8304022 R00. 0 [id number] [facility] [address] [address] 03/11/2022 13:56:02 03/11/2022 15:19:25 Gestational diabetes mellitus class A1 80643229 O24.410 [id number] Leidy [place] MD [place] [address],[place] [address] 03/20/2022 16:05:59 03/20/2022 18:28:40 Gestational diabetes mellitus 80052293 O24.410 IVF - in-v itro fertilization 7274864728 2102 O09.819 Hypothyroidism 35141804 E03.9 [id number] Leidy [place]ard MD [place] [address],[place] [address] 04/01/2022 16:34:05 04/01/2022 17:27:17 Gestational diabetes mellitus 80843004 O24.410 Hypothyroidism 78834773 E03.9 IVF - in-v itro fertilization 9646913370 2102 O09.819 [id number] Florentin Enamorado MD [place] [address],[place] [address] 04/04/2022 15:52:05 04/05/2022 14:26:57 Gestational diabetes mellitus class A1 70206432 O24.410 [id number] Chantel Jose [place] [address],[place] [address] 04/04/2022 15:52:22 04/04/2022 17:05:24 Gestational diabetes mellitus class A1 58928700 O24.410 O99.283 O09.813 Z3A.32 [id number] Leidy [place]ard MD [place] [address],[place] [address] 04/08/2022 16:58:44 04/09/2022 15:47:40 Gestational diabetes mellitus 06984718 O24.410 [id number] Leidy [place]ard MD [place] [address],[place] [address] 04/08/2022 16:59:04 04/09/2022 15:47:19 Gestational diabetes mellitus 15756599 O24.410 IVF - in-v itro fertilization 7799426748 2101 O09.819 [id number] Ruel Balbuena [place] [address],[place] [address] 04/11/2022 16:18:02 04/11/2022 17:27:59 Gestational diabetes mellitus class A1 04484518 O24.410 [id number] Tammy Ingram [place] [address],[place] [address] 04/15/2022 16:14:48 04/15/2022 17:53:26 Gestational diabetes mellitus class A1 81255860 O24.410 [id number] Leidy [place] MD [place] [address],[place] [address] 04/15/2022 16:16:49 04/16/2022 15:19:31 Gestational diabetes mellitus 29209746 O24.410 Hypothyroidism 85177555 E03.9 IVF - in-v itro fertilization 0928822010 2101 O09.819 [id number] [facility] [address],[place] [address] 04/18/2022 16:14:12 04/18/2022 17:01:14 Gestational diabetes mellitus class A1 54601340 O24.410 [id number] [facility] [address],[place] [address] 04/25/2022 16:19:53 04/25/2022 17:21:28 Gestational diabetes mellitus class A1 83057503 O24.410 [id number] Florentin Enamorado MD [place] [address],[place] [address] 04/25/2022 16:20:53 04/25/2022 17:52:39 Routine care 814937646 Z34.01 [id number] [facility] [address],[place] [address] 04/29/2022 16:21:01 04/29/2022 17:18:38 Gestational diabetes mellitus class A1 21481120 O24.410 [id number] Leidy [place]ard MD [place] [address],[place] [address] 04/29/2022 16:21:40 04/30/2022 15:19:24 Gestational diabetes mellitus 90042702 O24.410 IVF - in-v itro fertilization 2438775509 2102 O09.819 Hypothyroidism 59150405 E03.9 [id number] [facility] [address],[place] [address] 05/02/2022 16:18:37 05/02/2022 17:29:08 Gestational diabetes mellitus class A1 12398114 O24.410 [id number] Chantel [facility] [address],[place] [address] 05/02/2022 16:21:30 05/02/2022 17:54:58 Gestational diabetes mellitus class A1 20058033 O24.410 O09.813 Z3A.36 [id number] [facility] [address],[place] [address] 05/06/2022 16:22:32 05/06/2022 17:15:45 Gestational diabetes mellitus class A1 29771449 O24.410 O09.813 Z3A.36 [id number] Leidy [place]ard MD [place] [address],[place] [address] 05/06/2022 16:51:26 05/06/2022 17:56:47 Gestational diabetes mellitus class A2 58945361 O24.414 Hypothyroidism 79774785 E03.9 In vitro fertilization 63571606 Z31.83 409222 Tammy Ingram [place] [address],[place] [address] 05/09/2022 16:23:24 05/09/2022 17:27:21 Gestational diabetes mellitus class A1 48858868 O24.410 [id number] Florentin Enamorado MD [place] [address],[place] [address] 05/13/2022 16:48:59 05/13/2022 18:08:52 Routine care 760363217 Z34.01 [id number] [facility] [address],[place] [address] 05/16/2022 16:20:12 05/16/2022 17:09:09 Gestational diabetes mellitus class A1 49834381 O24.410 [id number] [facility] [address],[place] [address] 05/20/2022 16:22:34 05/20/2022 17:13:37 Gestational diabetes mellitus class A1 38649537 O24.410 O09.813 Z3A.36 [id number] Leidy [place]ard MD [place] [address],[place] [address] 05/20/2022 16:23:15 05/21/2022 14:44:44 Gestational diabetes mellitus 92839908 O24.410 In vitro fertilization 40513547 Z31.83 [id number] [facility] [address],[place] [address] 05/23/2022 16:23:59 05/23/2022 17:21:40 Gestational diabetes mellitus class A1 08530660 O24.410 [id number] MD Solomon Lawrence [address],[place] [address] 06/07/2022 14:52:01 06/07/2022 15:53:38 Postoperative visit 774707840 Z09 Pruritic u rticarial papules and plaques of 07396663 O26.86 [id number] Leidy Pickard MD [place] [address],[place] [address] 06/26/2022 10:22:08 07/03/2022 15:17:55 care 570860955 Z39.2 Gestationa l diabetes mellitus 10989003 O24.410 Pruritic u rticarial papules and plaques of 04237342 O26.86 [id number] Machelle Kenney [facility] [address] [address] 05/07/2023 17:33:56 05/07/2023 17:56:26 Gynecologic examination 30758361 Z01.419 Take Calcium with Vitamin D 1200mg [...] na Dexa Screen na Routine Labs PCP [id number] [facility] [address] [address] 07/08/2024 12:39:11 07/08/2024 13:06:28 Uterine size for dates discrepancy 078040247 O26.841 Z3A.01 [id number] [facility] [address] [address] 07/20/2024 13:47:13 07/20/2024 14:41:51 [id number] Florentin Enamorado MD [place] [address],[place] [address] 07/30/2024 11:59:37 07/30/2024 12:57:56 Amenorrhea 38999673 N91.2 this patient is a 34-year-ol d [...] of gestationa l diabetes, delivery for distress, [id number] [facility] [address],[place] [address] 08/16/2024 14:30:29 08/16/2024 15:04:26 screening 177911827 Z36.82 Z3A.12 [id number] Florentin Enamorado MD [place] [address],[place] [address] 08/16/2024 14:30:43 08/16/2024 16:07:29 Routine care 698244759 Z34.01 [id number] MIKE OLMOS MD [place] [address],[place] [address] 09/14/2024 10:43:16 09/14/2024 11:29:27 Uterine scar from previous surgery affecting 93786761 O34.29 - desires repeat c section Past pregn regan history of gestational diabetes mellitus 453502529 Z86.32 - early 1 hour at 20 weeks Gestation period, 16 weeks [id number] Z3A.16 [id number] [facility] [address],[place] [address] 10/14/2024 16:44:29 10/15/2024 02:16:24 screening for malformation [id number] Z36.3 Z3A.20 [id number] MIKE OLMOS MD [place] [address],[place] [address] 10/15/2024 13:48:46 10/15/2024 14:26:37 Impaired glucose tolerance in [id number] O99.810 Uterine sc ar from previous surgery affecting [id number] O34.29 - desires repeat c section Gestation period, 21 weeks [id number] Z3A.21 [id number] Jessica [facility] [address],[place] [address] 11/09/2024 11:35:07 11/09/2024 12:24:12 screening 720031524 Z36.2 Z3A.24 [id number] MIKE OLMOS MD [place] [address],[place] [address] 11/09/2024 11:35:25 11/09/2024 12:37:27 Uterine scar from previous surgery affecting 39345495 O34.29 - desires repeat c section Past pregn regan history of gestational diabetes mellitus 030658234 Z86.32 - failed early 1 hour at 20 weeks, passed 3h GTT at 22 weeks- repeat at 28 weeks Gestation period, 24 weeks 232790458 Z3A.24 Health Concerns Section Related Observation LastModified by Organization Detai ls LastModified Time None Recorded Concern Status LastModified by Organization Details LastModified Time None Recorded Advance Directives Directive N: Payers Encounter Date Sequence Insurance Name Policy Number Policy Cal[place]oun Covered Member ID Cal[place]oun Member ID Guarantor Name 09/14/2024 1 [place] [id number] Tiffanie Lomas [id number] Tiffanie Lomas 10/14/2024 1 [place] [id number] Tiffanie Lomas [id number] Tiffanie Lomas 10/15/2024 1 [place] [id number] Tiffanie Lomas [id number] Tiffanie Lomas 11/09/2024 2 [place] [id number] Tiffanie Lomas [id number] Tiffanie Lomas 11/09/2024 1 [place] [id number] Tiffanie Lomas [id number] Tiffanie Lomas 11/09/2024 1 [place] [id number] Tiffanie Lomas [id number] Tiffanie Lomas OBGyn Episode Ob Episode Information Episode Created Date Number of Fetuses Patient Bloodtype Patient rh Status Prepregnancy Weight lbs Domestic Partner Domestic Partner Phone Father Name Pediatric Associate Status 11/15/19 22 1 A Positive CLOSED Fetus Data First Name Last Name Admitted to NICU Weight (g) Sex Living Outcome Pediatric Complications Fetus ID Race Codes Race Delivery Type Everet t 3486.98 85 M true Full Term 18152 Primary Problems Problem Notes dates provided by Lonny aleman 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 02/15 TSH wnl. repeat 36w In vitro fertilization 2237265 5 No MFM needed. echo WASHU 02/15 WNL. testing at 36wks Recurrent miscarriage 82886828 1 7 SAb Tachycardia 0803736 24 hour holter monitor and cardio consult pt cancelled due to improving s/s Bleeding hemorrhoids 60378049 referral to General surgery Gestational diabetes mellitus 43526523 diet teach 03/11 , NPH 8u HS on 05/06 Pruritic urticarial papules and plaques of 06/07/2022 83758393 Kashif Calculation Initial Kashif Date Initial Exam [...] Weight in lbs Pre/Post Dialysis Refused Weight 153.335652269949 BP Diastolic BP Location Tested BP Systolic [...] Weight in lbs Pre/Post Dialysis Refused Weight 157.354937724508 BP Diastolic BP Location Tested BP Systolic [...] Weight in lbs Pre/Post Dialysis Refused Weight 160.629828951768 BP Diastolic BP Location Tested BP Systolic [...] Weight in lbs Pre/Post Dialysis Refused Weight 165.450418439516 BP Diastolic BP Location Tested BP Systolic [...] Weight in lbs Pre/Post Dialysis Refused Weight 174.42967464458 BP Diastolic BP Location Tested BP Systolic [...] Weight in lbs Pre/Post Dialysis Refused Weight 175.987527182247 BP Diastolic BP Location Tested BP Systolic [...] Weight in lbs Pre/Post Dialysis Refused Weight 174.88289651773 BP Diastolic BP Location Tested BP Systolic [...] Weight in lbs Pre/Post Dialysis Refused Weight 175.423151880145 BP Diastolic BP Location Tested BP Systolic [...] Weight in lbs Pre/Post Dialysis Refused Weight 179.613787754424 BP Diastolic BP Location Tested BP Systolic BP Type 78 123 Fetus Heart Rate Present Fetus Movement Comments Flowsheet Date 04/15/2022 Lam Score Blood Edema Fundus Height Fundus Units Glucose Ketones Leukocytes Nitrite Labor Signs Protein Cervic Dilation Cervic Effacement Cervic Station neg trace 34 none trace Type Weight in lbs Pre/Post Dialysis Refused Weight 179.676739542839 BP Diastolic BP Location Tested BP Systolic [...] Weight in lbs Pre/Post Dialysis Refused Weight 185.207306252715 BP Diastolic BP Location Tested BP Systolic [...] Weight in lbs Pre/Post Dialysis Refused Weight 184.992440284944 BP Diastolic BP Location Tested BP Systolic [...] Weight in lbs Pre/Post Dialysis Refused Weight 183.574791785857 BP Diastolic BP Location Tested BP Systolic [...] Weight in lbs Pre/Post Dialysis Refused Weight 182.488153550790 BP Diastolic BP Location Tested BP Systolic [...] Weight in lbs Pre/Post Dialysis Refused Weight 183.677982738621 BP Diastolic BP Location Tested BP Systolic [...] Weight in lbs Pre/Post Dialysis Refused Weight 154.345052273213 BP Diastolic BP Location Tested BP Systolic BP Type 75 114 Fetus Heart Rate Present Fetus Movement Comments Flowsheet Date 06/26/2022 Lam Score Blood Edema Fundus Height Fundus Units Glucose Ketones Leukocytes Nitrite Labor Signs Protein Cervic Dilation Cervic Effacement Cervic Station Type Weight in lbs Pre/Post Dialysis Refused Weight 157.498751045581 BP Diastolic BP Location Tested BP Systolic [...] Estim ated Date of Delivery false Thalassemia (Turkmen, Nauruan, Mediterranean, Or Background): MCV < 80 false Neural Tube Defect (Meningomyelocele, Spina Bifi da, Or Anencephaly) false Congenital Heart Defect false Down Syndrome false Alpesh-Sachs (eg, Caodaism, Cajun, Vietnamese-Zimbabwean) f alse Oma Disease false Sickle Cell [...] Domestic Partner Domestic Partner Phone Father Name Pediatric Associate Status 08/16/20 24 1 A Positive 161 Raymundo OPEN Fetus Data First Name Last Name Admitted to NICU Weight (g) Sex Living Outcome Pediatric Complications Fetus ID Race Codes Race Delivery Type [id number] Problems Problem Notes growth/presentation us at 32 wks Problem Name Start Date End Date Resolution Snomed Code Not e Deliveries by 04 To Repeat Recurrent miscarriage 72083723 1 all first trimester Past history of gestational diabetes mellitus 446887360 Kashif Calculation Initial Kashif Date Initial Exam [...] Weight in lbs Pre/Post Dialysis Refused Weight 161.581818672965 BP Diastolic BP Location Tested BP Systolic [...] Type Weight in lbs Pre/Post Dialysis Refused 162.204475268968 BP Diastolic BP Location Tested BP Systolic [...] Type Weight in lbs Pre/Post Dialysis Refused 166.698122188229 BP Diastolic BP Location Tested BP Systolic [...] Type Weight in lbs Pre/Post Dialysis Refused 169.685395992652 BP Diastolic BP Location Tested BP Systolic [...]
--- OUTSIDE RECORDS SUMMARY | 2024-11-21 10:56 | XMS_ITS | Encounter Summary ---
Author Organization [facility] Address [address] [facility] [place] [address] Care Team Providers Care Unit Reactor Operator Name Role Phone Simon Turner MD Primary Care Provider [phone] Encounter Details Date Type Department Care Team (Late st Contact Info) Description 09/28/2021 Lab Requisition [facility] [address] [place] [address] Debbie Huang MD Social History Tobacco Use [...] BETA BLOOD QUANTITATIVE STAT 09/28/2021 11:42 AM OUTSIDE B2B SALES documented in this encounter Results * HCG BETA BLOOD QUANTITATIVE (09/28/2021 11:42 AM OUTSIDE B2B SALES) [facility] hCG Quantitative 3,781.48 mIU/mL 09/28/20 4:49 PM OUTSIDE B2B SALES [facility] Blood BLOOD SPECIMEN / Unknown Venipuncture / Unknown 09/28/2021 11:42 AM OUTSIDE B2B SALES 09/28/2021 3:40 PM OUTSIDE B2B SALES Narrative [facility] - 09/28/2021 4:49 PM OUTSIDE B2B SALES ? hCG Reference Range, mIU/mL: ? Males [...] Huang MD LAB - CHEMISTRY OLIVA [place] [facility] [address] [place] [address] documented in this encounter Visit Diagnoses Not on filedocumented in this encounter Care Teams Unit Reactor Operator Relationship Specialty Start Date End Date Simon Turner MD [address] [place] [address] PCP - General 05/30/22 documented as of this encounter
--- OUTSIDE RECORDS SUMMARY | 2024-11-21 10:56 | XMS_ITS | Encounter Summary ---
Author Organization [facility] Address [address] [facility] [place] [address] Care Team Providers Care Carpenter Inspector Name Role Phone Simon Turner MD Primary Care Provider [phone] Encounter Details Date Type Department Care Team (Late st Contact Info) Description 10/02/2018 Lab Requisition [facility] [address] [place] [address] Rajat Burch MD [address] [address] [place] [address] Social History Tobacco Use Types Packs/Day Years [...] BETA BLOOD QUANTITATIVE STAT 10/02/2018 7:36 AM COMMISSIONER OF CONCILIATION documented in this encounter Results * HCG BETA BLOOD QUANTITATIVE (10/02/2018 7:36 AM COMMISSIONER OF CONCILIATION) hCG Quantitative 50 mIU/mL 10/02/20 18 10:20 AM COMMISSIONER OF CONCILIATION [facility] Blood BLOOD SPECIMEN / Unknown Venipuncture / Unknown 10/02/2018 7:36 AM COMMISSIONER OF CONCILIATION 10/02/2018 9:58 AM COMMISSIONER OF CONCILIATION Narrative [facility] - 10/02/2018 10:20 AM COMMISSIONER OF CONCILIATION ? hCG Reference Range, mIU/mL: ? Males [...] Burch MD LAB - CHEMISTRY OLIVA [place] [facility] [address] [place] [address] documented in this encounter Visit Diagnoses Not on filedocumented in this encounter Care Teams Carpenter Inspector Relationship Specialty Start Date End Date Simon Turner MD [address] [place] [address] PCP - General 05/30/22 documented as of this encounter
--- NOTE | 2024-11-21 10:58 | OBADM ---
This patient, Tiffanie Lomas, admitted to the OB room OB Post 115 for observation. Patient/family oriented to hospital policies and general routines including ID bracelet, bed and alarms, visiting hours, pain management, procedures, bathroom and other care routines, personal items, smoking policy, room service/diet, and visiting hours. Patient/Family are encouraged to report perceived risks to care and to ask questions if they do not understand what they are told or what they should do.
--- NOTE | 2024-11-21 11:15 | PC.NURSE ---
pt reports feeling sick since friday. States she has had body aches and cramps off and on since then. Pt states her fever was 102 last night.
[2024-11-21] MEDS: LACTATED RINGERS 1,000 ML 999 ML IV CONT (11:37)
[2024-11-21 11:44] LABS: Add Urine Microscopic? YES; Appearance Urine Cloudy (Clear); Bacteria Urine 2+ /hpf; Bilirubin Urine Negative (Negative); Blood Urine Negative (Negative); Color Urine Yellow (Yellow); Glucose Urine UA Negative (Negative); Ketones Urine 4+ mg/dL (Negative); Leukocyte Esterase Ur Trace LEU/UL (Negative); Nitrate Urine Negative (Negative); Non Pathogenic Casts 0-2; Protein Urine Trace mg/dL (Negative); RBC Urine 0-2 /hpf (0-2); Specific Grav Ur 1.018 (1.001-1.035); Squamous Epithelial Cell Urine Many /hpf (Few); pH Urine 6.5 (5.0-9.0)
[2024-11-21 12:14] LABS: Influenza A QL RT-PCR Positive (Negative); Influenza B QL RT-PCR Negative (Negative); RSV RNA, RT-PCR Negative (Negative); SARS-CoV-2 RNA PCR Negative (Negative)
[2024-11-21] MEDS: DEXTROSE 5%/LACTATED RINGERS 1,000 ML 250 ML IV CONT (12:56)
[2024-11-21] MEDS: FLUTICASONE PROPIONATE 0.05% NA SPR 16 GM BTL (*BKC) 1 SPRAY NASAL (13:27)
[2024-11-21] MEDS: ACETAMINOPHEN 500 MG TABLET 1000 MG PO (15:27)
[2024-11-21] MEDS: ONDANSETRON HCL ODT 4 MG TABLET PO (15:27)
--- OUTSIDE RECORDS SUMMARY | 2024-11-22 08:05 | XMS_ITS | Encounter Summary ---
Author Organization [facility] Address [address] [facility] [place] [address] Care Team Providers Care Human Resources Executive Assistant Name Role Phone Simon Turner MD Primary Care Provider [phone] Encounter Details Date Type Department Care Team (Late st Contact Info) Description 09/21/2021 Lab Requisition [facility] [address] [place] [address] Debbie Huang MD Social History Tobacco Use [...] BETA BLOOD QUANTITATIVE STAT 09/21/2021 2:58 PM CORRECTIVE THERAPIST documented in this encounter Results * HCG BETA BLOOD QUANTITATIVE (09/21/2021 2:58 PM CORRECTIVE THERAPIST) hCG Quantitative 217.87 mIU/mL 09/21/20 4:12 PM CORRECTIVE THERAPIST [facility] Blood BLOOD SPECIMEN / Unknown Venipuncture / Unknown 09/21/2021 2:58 PM CORRECTIVE THERAPIST 09/21/2021 3:36 PM CORRECTIVE THERAPIST Narrative [facility] - 09/21/2021 4:12 PM CORRECTIVE THERAPIST ? hCG Reference Range, mIU/mL: ? Males [...] Huang MD LAB - CHEMISTRY OLIVA [place] [facility] [address] [place] [address] documented in this encounter Visit Diagnoses Not on filedocumented in this encounter Care Teams Human Resources Executive Assistant Relationship Specialty Start Date End Date Simno Turner MD [address] [place] [address] PCP - General 05/30/22 documented as of this encounter
--- OUTSIDE RECORDS SUMMARY | 2024-11-22 08:05 | XMS_ITS | Clinical Summary ---
Author Organization [facility] Address [address] [place] [address] Care Team Providers Care Senior Peoplesoft Developer Name Role Phone Rina Macdonald MD Primary Care Provider [phone] Allergies No known active allergies Medications PNV with derbwhi-wwqc-NZ 27 mg iron- 1 mg tablet Take [...] body fat of patient;Recorded Elsewhere: No Location: [facility] Source: EHR Chronic: N Practice ID: [id number] Billable Time: 05:00:00 PM Female infertility associated with anovulation 1 12/08/2015 Overview (08/29/2024): Infertility, female, associated with anovulation;Recorded Elsewhere: No Location: [facility] Source: EHR Chronic: N Practice ID: [id number] Billable Time: 03:15:00 PM Endometriosis of pelvic peritoneum 05/03/2015 Overview (08/29/2024): Endometriosis of pelvic peritoneum;Recorded Elsewhere: No Location: [facility] Source: EHR Chronic: N Practice ID: [id number] Billable Time: 03:00:00 PM Female infertility of tubal origin 04/26/2015 Overview (08/29/2024): Infertility, female, of tubal origin;Practice ID: 0001 Female pelvic peritoneal adhesions 04/26/2015 Overview (08/29/2024): Pelvic peritoneal adhesions, female (postoperative) (postinfection);Practice ID: 0001 Irregular periods 04/10/2015 Overview (08/29/2024): Irregular menstrual cycle;Recorded Elsewhere: No Location: [facility] Source: EHR Chronic: N Practice ID: [id number] Billable Time: 03:30:00 PM Comments Yes Encounters Date Type Department Care Team Description 08/29/2024 2:00 PM DISPATCH SPECIALIST Office Visit [facility] at [address] [address] Donna Coreas NP Acute non-recurrent [...] Comments Blood Pressure 119/72 08/29/2024 2:06 PM DISPATCH SPECIALIST Pulse 112 08/29/2024 2:06 PM DISPATCH SPECIALIST Temperature 36.4 ??C (97.6 ??F) 08/29/2024 2:06 PM CS T Respiratory Rate 18 08/29/2024 2:06 PM DISPATCH SPECIALIST Oxygen Saturation 98% 08/29/2024 2:06 PM DISPATCH SPECIALIST Inhaled Oxygen Concentration - - Weight 72.6 kg (160 lb) 08/29/2024 2:06 PM DISPATCH SPECIALIST Height 157.5 cm (5' 2 ) 08/29/2024 2:06 PM DISPATCH SPECIALIST Body Mass Index 29.26 08/29/2024 2:06 PM DISPATCH SPECIALIST Plan of Treatment Health Maintenance Due [...] patient's age to complete this topic Insurance [facility] CHOICE PLUS [facility] CHOICE PLUS [facility] Care Teams Senior Peoplesoft Developer Relationship Specialty Start Date End Date Rina Macdonald MD PCP - General Nurse Practitioner 02/18/22
--- OUTSIDE RECORDS SUMMARY | 2024-11-22 08:05 | XMS_ITS | Referral Summary ---
Author Organization [facility] Address [address] [place] [address] Care Team Providers Care Quality Control Name Role Phone Rina Macdonald MD Primary Care Provider [phone] Encounters Date Type Department Care Team Description 08/29/2024 2:00 PM LAND LEASES AND RENTALS MANAGER Office Visit [facility] at [address] [address] Donna Coreas, ASHISH Acute non-recurrent frontal sinusitis (Primary Dx) from Last 3 Months Allergies No known active allergies Medications PNV with atmtknn-xjji-VP 27 mg iron- 1 mg tablet Take [...] body fat of patient;Recorded Elsewhere: No Location: [facility] Source: EHR Chronic: N Practice ID: [id number] Billable Time: 05:00:00 PM Female infertility associated with anovulation 1 12/08/2015 Overview (08/29/2024): Infertility, female, associated with anovulation;Recorded Elsewhere: No Location: [facility] Source: EHR Chronic: N Practice ID: [id number] Billable Time: 03:15:00 PM Endometriosis of pelvic peritoneum 05/03/2015 Overview (08/29/2024): Endometriosis of pelvic peritoneum;Recorded Elsewhere: No Location: [facility] Source: EHR Chronic: N Practice ID: [id number] Billable Time: 03:00:00 PM Female infertility of tubal origin 04/26/2015 Overview (08/29/2024): Infertility, female, of tubal origin;Practice ID: 0001 Female pelvic peritoneal adhesions 04/26/2015 Overview (08/29/2024): Pelvic peritoneal adhesions, female (postoperative) (postinfection);Practice ID: 0001 Irregular periods 04/10/2015 Overview (08/29/2024): Irregular menstrual cycle;Recorded Elsewhere: No Location: [facility] Source: EHR Chronic: N Practice ID: [...] Comments Blood Pressure 119/72 08/29/2024 2:06 PM LAND LEASES AND RENTALS MANAGER Pulse 112 08/29/2024 2:06 PM LAND LEASES AND RENTALS MANAGER Temperature 36.4 ??C (97.6 ??F) 08/29/2024 2:06 PM CS T Respiratory Rate 18 08/29/2024 2:06 PM LAND LEASES AND RENTALS MANAGER Oxygen Saturation 98% 08/29/2024 2:06 PM LAND LEASES AND RENTALS MANAGER Inhaled Oxygen Concentration - - Weight 72.6 kg (160 lb) 08/29/2024 2:06 PM LAND LEASES AND RENTALS MANAGER Height 157.5 cm (5' 2 ) 08/29/2024 2:06 PM LAND LEASES AND RENTALS MANAGER Body Mass Index 29.26 08/29/2024 2:06 PM LAND LEASES AND RENTALS MANAGER Plan of Treatment Not on file Insurance [facility] CHOICE PLUS [facility] CHOICE PLUS [facility] Care Teams Quality Control Relationship Specialty Start Date End Date Rina Macdonald MD PCP - General Nurse Practitioner 02/18/22
--- OUTSIDE RECORDS SUMMARY | 2024-11-22 08:05 | XMS_ITS | Encounter Summary ---
Author Organization [facility] Address [address] [facility] [place] [address] Care Team Providers Care Investment Banking Analyst Name Role Phone Simon Turner MD Primary Care Provider Encounter Details Date Type Department Care Team (Late st Contact Info) Description 10/02/2018 Lab Requisition [facility] [address] [place] [address] Rajat Burch MD [address] [facility] [address] [place] [address] Social History Tobacco Use Types Packs/Day Years [...] BETA BLOOD QUANTITATIVE STAT 10/02/2018 7:36 AM DEHORNER documented in this encounter Results * HCG BETA BLOOD QUANTITATIVE (10/02/2018 7:36 AM DEHORNER) hCG Quantitative 50 mIU/mL 10/02/20 18 10:20 AM DEHORNER [facility] Blood BLOOD SPECIMEN / Unknown Venipuncture / Unknown 10/02/2018 7:36 AM DEHORNER 10/02/2018 9:58 AM DEHORNER Narrative [facility] - 10/02/2018 10:20 AM DEHORNER ? hCG Reference Range, mIU/mL: ? Males [...] Burch MD LAB - CHEMISTRY OLIVA [place] [facility] [address] [place] [address] documented in this encounter Visit Diagnoses Not on filedocumented in this encounter Care Teams Investment Banking Analyst Relationship Specialty Start Date End Date Simon Turner MD [address] [place] [address] PCP - General 05/30/22 documented as of this encounter
--- OUTSIDE RECORDS SUMMARY | 2024-11-22 08:05 | XMS_ITS | Encounter Summary ---
Author Organization [facility] Address [address] [facility] [place] [address] Care Team Providers Care Electronic Systems Technician Name Role Phone Simon Turner MD Primary Care Provider [phone] Encounter Details Date Type Department Care Team (Late st Contact Info) Description 09/28/2021 Lab Requisition [facility] [address] [place] [address] Debbie Huang MD Social History Tobacco Use [...] BETA BLOOD QUANTITATIVE STAT 09/28/2021 11:42 AM FIELD SERVICE POULTRY TECHNICIAN documented in this encounter Results * HCG BETA BLOOD QUANTITATIVE (09/28/2021 11:42 AM FIELD SERVICE POULTRY TECHNICIAN) [facility] hCG Quantitative 3,781.48 mIU/mL 09/28/20 4:49 PM FIELD SERVICE POULTRY TECHNICIAN [facility] Blood BLOOD SPECIMEN / Unknown Venipuncture / Unknown 09/28/2021 11:42 AM FIELD SERVICE POULTRY TECHNICIAN 09/28/2021 3:40 PM FIELD SERVICE POULTRY TECHNICIAN Narrative [facility] - 09/28/2021 4:49 PM FIELD SERVICE POULTRY TECHNICIAN ? hCG Reference Range, mIU/mL: ? Males [...] Huang MD LAB - CHEMISTRY OLIVA [place] [facility] [address] [place] [address] documented in this encounter Visit Diagnoses Not on filedocumented in this encounter Care Teams Electronic Systems Technician Relationship Specialty Start Date End Date Simon Turner MD [address] [place] [address] PCP - General 05/30/22 documented as of this encounter
--- OUTSIDE RECORDS SUMMARY | 2024-11-22 08:05 | XMS_ITS | Referral Summary ---
Author Organization [facility] Address [address] [facility] [place] [address] Care Team Providers Care Awning Installer Name Role Phone Simon Turner MD Primary Care Provider [phone] Source Comments [employer] [facility],non-owned Affiliates and Associated Physician Practices is amultiple site organization consisting of ambulatory clinics and hospital sitesin [place], [place], [place] and [place]. This disclosure is being madepursuant to the Care Everywhere program and may not contain all information available regarding this patient. Last updated 18.[facility] Allergies No known active allergies Medications * [...] Comments Blood Pressure 98/76 10/30/2017 2:32 PM TEST ANALYST Pulse 85 10/30/2017 2:32 PM TEST ANALYST Temperature 36.5 ??C (97.7 ??F) 10/30/2017 2:32 PM CS T Respiratory Rate 16 10/30/2017 2:32 PM TEST ANALYST Oxygen Saturation 99% 10/30/2017 2:32 PM TEST ANALYST Inhaled Oxygen Concentration - - Weight 59 kg (130 lb) 10/30/2017 2:32 PM TEST ANALYST Height 157.5 cm (5' 2 ) 10/30/2017 2:32 PM TEST ANALYST Body Mass Index 23.78 10/30/2017 2:32 PM TEST ANALYST Plan of Treatment Not on file Care Teams Awning Installer Relationship Specialty Start Date End Date Simon Turner MD [address] [place] [address] PCP - General 05/30/22
--- OUTSIDE RECORDS SUMMARY | 2024-11-22 08:05 | XMS_ITS | Patient Health Summary ---
Author Organization [facility] Address [address] [place] [address] Care Team Providers Care Dry Wall Installer Name Role Phone Simon Turner MD Primary Care Provider [phone] Note from [facility],non-owned Affiliates and Associated Physician Practices is amultiple site organization consisting of ambulatory clinics and hospital sitesin [place], [place], [place] and [place]. This disclosure is being madepursuant to the Care Everywhere program and may not contain all information available regarding this patient. Last updated 18.[facility] Allergies No known active allergies Medications * [...] Comments Blood Pressure 98/76 10/30/2017 2:32 PM GRAIN ELEVATOR MAN Pulse 85 10/30/2017 2:32 PM GRAIN ELEVATOR MAN Temperature 36.5 ??C (97.7 ??F) 10/30/2017 2:32 PM CS T Respiratory Rate 16 10/30/2017 2:32 PM GRAIN ELEVATOR MAN Oxygen Saturation 99% 10/30/2017 2:32 PM GRAIN ELEVATOR MAN Inhaled Oxygen Concentration - - Weight 59 kg (130 lb) 10/30/2017 2:32 PM GRAIN ELEVATOR MAN Height 157.5 cm (5' 2 ) 10/30/2017 2:32 PM GRAIN ELEVATOR MAN Body Mass Index 23.78 10/30/2017 2:32 PM GRAIN ELEVATOR MAN Procedures * HCG BETA BLOOD QUANTITATIVE(Performed 09/28/2021) * HCG BETA BLOOD QUANTITATIVE(Performed 09/21/2021) * HCG BETA BLOOD QUANTITATIVE(Performed 09/19/2021) * HCG BETA BLOOD QUANTITATIVE(Performed 10/02/2018) Results * HCG BETA BLOOD QUANTITATIVE (09/28/2021 11:42 AM GRAIN ELEVATOR MAN) Only the most recent of4 resultswithin the time period is included. [facility] hCG Quantitative 3,781.48 mIU/mL 09/28/20 4:49 PM GRAIN ELEVATOR MAN [facility] Blood BLOOD SPECIMEN / Unknown Venipuncture / Unknown 09/28/2021 11:42 AM GRAIN ELEVATOR MAN 09/28/2021 3:40 PM GRAIN ELEVATOR MAN Narrative [facility] - 09/28/2021 4:49 PM GRAIN ELEVATOR MAN ? hCG Reference Range, mIU/mL: ? Males [...] - CHEMISTRY OLIVA [place] Performing Organization Address City/State/[facility] Co de Phone Number [facility] [address] [place] [address] Care Teams Dry Wall Installer Relationship Specialty Start Date End Date Simon Turner MD [address] [place] [address] PCP - General 05/30/22
--- OUTSIDE RECORDS SUMMARY | 2024-11-22 08:05 | XMS_ITS | Encounter Summary ---
Author Organization [facility] Address [address] [facility] [place] [address] Care Team Providers Care Pin Worker Name Role Phone Simon Turner MD Primary Care Provider [phone] Encounter Details Date Type Department Care Team (Late st Contact Info) Description 09/19/2021 Lab Requisition [facility] [address] [place] [address] Debbie Huang MD Social History Tobacco Use [...] BETA BLOOD QUANTITATIVE STAT 09/19/2021 9:36 AM STRUCTURAL STEEL FITTER documented in this encounter Results * HCG BETA BLOOD QUANTITATIVE (09/19/2021 9:36 AM STRUCTURAL STEEL FITTER) hCG Quantitative 71.07 mIU/mL 09/19/20 10:46 AM STRUCTURAL STEEL FITTER [facility] Blood BLOOD SPECIMEN / Unknown Venipuncture / Unknown 09/19/2021 9:36 AM STRUCTURAL STEEL FITTER 09/19/2021 9:43 AM STRUCTURAL STEEL FITTER Narrative [facility] - 09/19/2021 10:46 AM STRUCTURAL STEEL FITTER ? hCG Reference Range, mIU/mL: ? Males [...] Huang MD LAB - CHEMISTRY OLIVA TURNER [facility] [address] [place] [address] documented in this encounter Visit Diagnoses Not on filedocumented in this encounter Care Teams Pin Worker Relationship Specialty Start Date End Date Simon Turner MD [address] [place] [id number] PCP - General 05/30/22 documented as of this encounter
--- OUTSIDE RECORDS SUMMARY | 2024-11-22 08:05 | XMS_ITS | Encounter Summary ---
Author Organization [facility] Address [address] [place] [address]. [place] [address] [place] [address] Care Team Providers Care Waitstaff Captain Name Role Phone Rina Macdonald NP Primary Care Provider [phone] Encounter Details Date Type Department Care Team (Late st Contact Info) Description 12/24/2022 [place] Message Enc [facility] Family Medicine - [place] [address] [facility] [address] [place] [id number] Rina Macdonald, CARGO BRACER [address] [place] [address] Question regarding CBC W/DIFF AUTOMATED Social History [...] Coronavirus/COVID-19? No / Unsure 12/24/2022 7:01 AM CRYSTAL MOUNTER documented as of this encounter Plan of Treatment Not on file documented as of this encounter Visit Diagnoses Not on filedocumented in this encounter Additional Health Concerns Assessment Noted Time PHQ-9 Depression Total Score: 0 07/02/20 21 2:04 PM CDT documented as of this encounter Care Teams Waitstaff Captain Relationship Specialty Start Date End Date Rina Macdonald NP [address] [place] [address] PCP - General NURSE PRACTITIONER 06/26/21 documented as of this encounter
--- OUTSIDE RECORDS SUMMARY | 2024-11-22 08:05 | XMS_ITS | Clinical Summary ---
Author Organization [facility] [employer] Address [address] [facility] [place] [address] Care Team Providers Care Hims Clerk Name Role Phone Simon Turner MD Primary Care Provider [phone] Source Comments [facility],non-owned Affiliates and Associated Physician Practices is amultiple site organization consisting of ambulatory clinics and hospital sitesin [place], [place], [place] and [place]. This disclosure is being madepursuant to the Care Everywhere program and may not contain all informatio navailable regarding this patient. Last updated 18.[employer] Allergies No known active allergies Medications * [...] Comments Blood Pressure 98/76 10/30/2017 2:32 PM AIRWORTHINESS SAFETY INSPECTOR Pulse 85 10/30/2017 2:32 PM AIRWORTHINESS SAFETY INSPECTOR Temperature 36.5 ??C (97.7 ??F) 10/30/2017 2:32 PM CS T Respiratory Rate 16 10/30/2017 2:32 PM AIRWORTHINESS SAFETY INSPECTOR Oxygen Saturation 99% 10/30/2017 2:32 PM AIRWORTHINESS SAFETY INSPECTOR Inhaled Oxygen Concentration - - Weight 59 kg (130 lb) 10/30/2017 2:32 PM AIRWORTHINESS SAFETY INSPECTOR Height 157.5 cm (5' 2 ) 10/30/2017 2:32 PM AIRWORTHINESS SAFETY INSPECTOR Body Mass Index 23.78 10/30/2017 2:32 PM AIRWORTHINESS SAFETY INSPECTOR Plan of Treatment Health Maintenance Due Date [...] age to complete this topic Care Teams Hims Clerk Relationship Specialty Start Date End Date Simon Turner MD [address] [place] [id number] PCP - General 05/30/22
--- OUTSIDE RECORDS SUMMARY | 2024-11-22 08:06 | XMS_ITS | Clinical Summary ---
Author Organization [facility] Address [address] [place] [address]. [place], [place] [address] [place] [address] Care Team Providers Care Sales Support Manager Name Role Phone Rina Macdonald NP Primary Care Provider [phone] Allergies No known active allergies Medications omeprazole (PRILOSEC) 20 MG capsule Take 1 capsule (20 mg total) by mouth daily. 12/09/2023 Active Active Problems Problem Noted Date Diagnosed Date In vitro fertilization 08/08/2022 Gestational diabetes mellitus ([facility]) 08/08/20 22 Hypothyroidism 08/08/2022 Recurrent loss 08/08/2022 Headache 07/30/2022 Pruritic urticarial papules and plaques of ([facility]) 06/07/2022 Immunizations Name Administration Dates Next Due [...] Comments Blood Pressure 102/64 12/15/2023 10:50 AM COMPUTER PROGRAMMING PROFESSOR Pulse 92 12/15/2023 10:50 AM COMPUTER PROGRAMMING PROFESSOR Temperature 36.7 ??C (98.1 ??F) 12/15/2023 10:[address] Respiratory Rate 16 12/15/2023 10:50 AM COMPUTER PROGRAMMING PROFESSOR Oxygen Saturation 98% 12/15/2023 10:50 AM COMPUTER PROGRAMMING PROFESSOR Inhaled Oxygen Concentration - - Weight 71.2 kg (157 lb) 12/15/2023 10:50 AM COMPUTER PROGRAMMING PROFESSOR Height 157.5 cm (5' 2 ) 08/08/2022 [...] 07/25/2021, 08/09/2020, Additional history exists PHQ-2 (Physician [place]) 10/20/2024 12/15/2023 PHQ-2 (Physician [place]) 12/15/2024 12/15/2023 Cervical Cancer Screening Pap Smear [...] HEPATITIS C ANTIBODY Routine 12/24/2022 7:21 AM COMPUTER PROGRAMMING PROFESSOR Need for hepatitis C screening test from Last 3 Months or Most Recently Relevant to Health Maintenance Results * HEPATITIS C ANTIBODY (12/24/2022 7:21 AM COMPUTER PROGRAMMING PROFESSOR) HEPATITIS C AB NON-REACTI VE NON-REACT NEVAEH 12/24/2022 6:13 PM COMPUTER PROGRAMMING PROFESSOR [facility] Comment: ANTIBODIES TO HCV NOT DETECTED. DOES NOT EXCLUDE THE POSSIBILITY OF EXPOSURE TO HCV. 12/24/2022 7:21 AM COMPUTER PROGRAMMING PROFESSOR us Rina Macdonald NUCLEAR MEDICINE SPECIALIST LABORATORY Final Res ult [facility] [address] [place] [address], [id number] from Last 3 Months or Most Recently Relevant to Health Maintenance Insurance [facility] Care Teams Sales Support Manager Relationship Specialty Start Date End Date Rina Macdonald NP [address] [place] [address] PCP - General NURSE PRACTITIONER 06/26/21
--- NOTE | 2024-12-26 21:13 | P.PNOB_ITS ---
OB - Triage/Final Diagnosis Visit Information Comments/Additional reasons for admission: I have assessed the risk for this patient, Tiffanie Lomas, and determined that she would benefit from observation care. Evaluation Laboratory results: Laboratory Tests 11/21/24 11:24 Urine Color Yellow Urine Appearance Cloudy H Urine pH 6.5 Ur Specific [place] 1.018 Urine Protein Trace Urine Glucose (UA) Negative Urine Ketones 4+ H Ur Blood (Man) Negative Urine Nitrate Negative Urine Bilirubin Negative Urine Urobilinogen 1.0 Ur Leukocyte Esterase Trace H Urine RBC 0-2 Urine WBC 6-10 H Ur Squamous Epith Cells Many H Urine Bacteria 2+ H Urine Casts 0-2 Influenza A (RT-PCR) Positive A Influenza B (RT-PCR) Negative RSV (RT-PCR) Negative SARS-CoV-2 RNA (RT-PCR) Negative Final Diagnosis (1) False labor: Code(s): O47.9 - False labor, unspecified Status: Acute
== END 2024-11-21 17:03 | disposition home or self-care (01) ==
PROVIDERS: Admitting Provider Obstetrics & Gynecology; PCP Nurse Practitioner; Visit Provider Obstetrics & Gynecology
DX: O47.02 False labor before 37 completed weeks of gestation, second trimester (principal); Z3A.26 26 weeks gestation of pregnancy
CPT/HCPCS: 59025; 81001; 87637; A9270; G0378; G0379; J7120; J7121

== ENCOUNTER 2025-01-27 20:45 | Observation (INO) | payer BC, SELFPAY ==
[2025-01-27] VITALS (35 sets, daily range): BP systolic 99–104; BP diastolic 61–69; PULSE 93–121; TEMP 36.6; O2SAT 94–100; BMI 32.2
--- NOTE | ~2025-01-27 | US_ITS ---
LIMITED OBSTETRIC ULTRASOUND/BIOPHYSICAL PROFILE Ordering provider: Florentin Enamorado MD History: . DFM . Comparison: None. FINDINGS: PRESENTATION: Vertex. Longitudinal lie PLACENTAL LOCATION: Anterior No previa. HEART RATE: 138 bpm (normal is between 110 to 160 bpm). AMNIOTIC FLUID INDEX: Largest vertical pocket is 5.2 cm. SCORE: breathing movements: 2 movements: 2 tone: 2 Amniotic fluid volume: 2 Total: 8 IMPRESSION: Normal biophysical profile. Reviewed, dictated and finalized at location A. IMPRESSION: Normal biophysical profile.
--- OUTSIDE RECORDS SUMMARY | 2025-01-27 20:50 | XMS_ITS | Clinical Summary ---
Author Organization [facility] Address [address] [place] [address] Care Team Providers Care Title Closer Name Role Phone Rina Macdonald MD Primary Care Provider [phone] Allergies No known active allergies Medications PNV with [id number] 27 mg iron- 1 mg tablet Take [...] fat of patient;Recorded Elsewhere: No Location: [facility] Source: EHR Chronic: N Practice ID: [id number] Billable Time: 05:00:00 PM Female infertility associated with anovulation 1 12/08/2015 Overview (08/29/2024): Infertility, female, associated with anovulation;Recorded Elsewhere: No Location: [facility] Source: EHR Chronic: N Practice ID: [id number] Billable Time: 03:15:00 PM Endometriosis of pelvic peritoneum 05/03/2015 Overview (08/29/2024): Endometriosis of pelvic peritoneum;Recorded Elsewhere: No Location: [facility] Source: EHR Chronic: N Practice ID: [id number] Billable Time: 03:00:00 PM Female infertility of tubal origin 04/26/2015 Overview (08/29/2024): Infertility, female, of tubal origin;Practice ID: [id number] Female pelvic peritoneal adhesions 04/26/2015 Overview (08/29/2024): Pelvic peritoneal adhesions, female (postoperative) (postinfection);Practice ID: [id number] Irregular periods 04/10/2015 Overview (08/29/2024): Irregular menstrual cycle;Recorded Elsewhere: No Location: [facility] Source: EHR Chronic: N Practice ID: [id number] Billable Time: 03:30:00 PM Comments Yes Encounters Date Type Department Care Team Description 01/24/2025 7:00 PM CDT Office Visit [facility] Care at [address] [address] Flor Botello NP Nausea (Primary Dx); Nausea and vomiting, unspecified vomiting type; Acute viral syndrome from Last 3 Months Medical History Medical [...] Sign Reading Time Taken Comments Blood Pressure 108/60 01/24/2025 7:01 PM CDT Pulse 122 01/24/2025 7:01 PM CDT Temperature 37.1 C (98.8 F) 01/24/2025 7:01 PM CDT Respiratory Rate 24 01/24/2025 7:01 PM CDT Oxygen Saturation 98% 01/24/2025 7:01 PM CDT Inhaled Oxygen Concentration - - Weight 80.7 kg (178 lb) 01/24/2025 7:01 PM CDT Height 157.5 cm (5' 2 ) 08/29/2024 2:06 PM SCIENCE AND OPERATIONS OFFICER Body Mass Index 32.56 08/29/2024 2:06 PM SCIENCE AND OPERATIONS OFFICER Plan of Treatment Health Maintenance Due Date Last Done Comments Cervical Cancer Screening 1989 Depression Screening 1989 Hepatitis C Screening 1989 Varicella Vaccines (1 of 2 - 13+ 2-dose series) 2002 Hepatitis B Screening 2007 Regular Well Visit/Exam 18-64 2007 Covid-19 Vaccine ( season) 2024 02/09/2021, 01/12/2021 Influenza Vaccine (Season Ended) 2025 07/25/2022, 07/25/2021, 08/09/2020, Additional history exists DTaP/Tdap/Td Vaccine (2 - Td or Tdap) 03/15/2032 03/15/2022 HPV Vaccines Aged Out No longer eligi ble based on patient's age to complete this topic Pneumococcal vaccine <65 Aged Out No longer eligible based on patient's age to complete this topic Procedures Procedure Name Priority Date/Time Associated Diagnosis Comments POC INFLUENZA A/B, COVID-19 ANTIGEN Routine 01/24/2025 7:17 PM CDT Nausea and vomiting, unspecified vomiting type from Last 3 Months Results * POC Influenza A/B, COVID-19 antigen (01/24/2025 7:17 PM CDT) Influenza A Ag, POC Negative Negative [facility] Influenza B Ag, POC Negative Negative [facility] COVID-19 Ag POC Presumptive Negative Presumptive Negative, Invalid [facility] Swab 01/24/2025 7:17 PM CDT Flor Botello NP POINT OF CARE TEST ORDERABLES Final Result Performing Organization Address City/State/[facility] Co de Phone Number [facility] [place] [address], [facility] from Last 3 Months Insurance [facility] PL[facility] Care Teams Title Closer Relationship Specialty Start Date End Date Rina Macdonald MD PCP - General Nurse Practitioner 02/18/22
--- OUTSIDE RECORDS SUMMARY | 2025-01-27 20:50 | XMS_ITS | Encounter Summary ---
Author Organization [facility] Address [address] [place] [address] Care Team Providers Care Client Application Support Specialist Name Role Phone Simon Turner MD Primary Care Provider Encounter Details Date Type Department Care Team (Late st Contact Info) Description 09/21/2021 Lab Requisition [facility] [address] [place] [address] Debbie Huang MD Social History Tobacco Use [...] BETA BLOOD QUANTITATIVE STAT 09/21/2021 2:58 PM SHOWPLACE MANAGER documented in this encounter Results * HCG BETA BLOOD QUANTITATIVE (09/21/2021 2:58 PM SHOWPLACE MANAGER) hCG Quantitative 217.87 mIU/mL 09/21/20 4:12 PM SHOWPLACE MANAGER [facility] Blood BLOOD SPECIMEN / Unknown Venipuncture / Unknown 09/21/2021 2:58 PM SHOWPLACE MANAGER 09/21/2021 3:36 PM SHOWPLACE MANAGER Narrative [facility] - 09/21/2021 4:12 PM SHOWPLACE MANAGER hCG Reference Range, mIU/mL: Males 0-2.0 Non Females 0-6.0 Perimenopausal Females ages 41-55* 0-7.7 Postmenopausal Females age >55* 0-14 Females, Weeks after Last Menstrual Period 0.2-1 week 5-50 1 - 2 weeks 50-500 2 - 3 weeks 100-5000 3 - 4 weeks 500-10,000 4 - 5 weeks 1000-50,000 5 - 6 weeks 10,000-100,000 6 - 8 weeks 15,000-200,000 2 - 3 months 10,000-100,000 Trophoblastic Disease >100,000 *In higher than expected hCG in females > age 40, a serum FSH >20 IU/L makes unlikely. Debbie Huang MD LAB - CHEMISTRY OLIVA TURNER [facility] Organization Address City/State/ZIP Co de Phone Number [facility] [address] [place], [place] [id number] documented in this encounter Visit Diagnoses Not on filedocumented in this encounter Care Teams Client Application Support Specialist Relationship Specialty Start Date End Date Simon Turner MD [address] [place] [address] PCP - General 05/30/22 documented as of this encounter
--- OUTSIDE RECORDS SUMMARY | 2025-01-27 20:50 | XMS_ITS | Clinical Summary ---
Author Organization [facility] [employer] Address [address] [facility] [place] [address] Care Team Providers Care Government Affairs Specialist Name Role Phone Simon Turner MD Primary Care Provider [phone] Source Comments [facility],non-owned Affiliates and Associated Physician Practices is amultiple site organization consisting of ambulatory clinics and hospital sitesin [place], [place], [place] and [place]. This disclosure is being madepursuant to the Care Everywhere program and may not contain all informatio navailable regarding this patient. Last updated 18.[employer] Allergies No known active allergies Medications * [...] Comments Blood Pressure 98/76 10/30/2017 2:32 PM AUDIO EXPERIENCE EXPERT Pulse 85 10/30/2017 2:32 PM AUDIO EXPERIENCE EXPERT Temperature 36.5 C (97.7 F) 10/30/2017 2:32 PM AUDIO EXPERIENCE EXPERT Respiratory Rate 16 10/30/2017 2:32 PM AUDIO EXPERIENCE EXPERT Oxygen Saturation 99% 10/30/2017 2:32 PM AUDIO EXPERIENCE EXPERT Inhaled Oxygen Concentration - - Weight 59 kg (130 lb) 10/30/2017 2:32 PM AUDIO EXPERIENCE EXPERT Height 157.5 cm (5' 2 ) 10/30/2017 2:32 PM AUDIO EXPERIENCE EXPERT Body Mass Index 23.78 10/30/2017 2:32 PM AUDIO EXPERIENCE EXPERT Plan of Treatment Health Maintenance Due Date Last Done Comments PAP SMEAR 1989 HIV SCREENING 2004 HEPATITIS C SCREENING 03/02/2007 DTAP/TDAP/TD VACCINES (1 - Tdap) 2008 HEPATITIS B VACCINE (1 of 3 - 19+ 3-dose series) 2008 COVID-19 VACCINE (1 - 2023-2 5 season) 2024 DEPRESSION SCREENING 10/20/2024 INFLUENZA VACCINE (Season Ended) 2025 07/31/20 22 ZOSTER VACCINE (1 of 2) 2039 HIB VACCINE Aged Out No longer eligi ble based on patient's age to complete this topic HPV VACCINE Aged Out No longer eligi ble based on patient's age to complete this topic MENINGOCOCCAL (Group B) VACC INE SHARED DECISION-MAKING Aged Out No longer eligibl e based on patient's age to complete this topic MENINGOCOCCAL GROUPS A/C/Y/W VACCINE Aged Out No longer eligible b ased on patient's age to complete this topic PNEUMOCOCCAL VACCINE Aged Out No long er eligible based on patient's age to complete this topic Care Teams Government Affairs Specialist Relationship Specialty Start Date End Date Simon Turner MD [address] [place] [id number] PCP - General 05/30/22
--- OUTSIDE RECORDS SUMMARY | 2025-01-27 20:50 | XMS_ITS | Encounter Summary ---
Author Organization [facility] Address [address] [place] [address] Care Team Providers Care Assistant Field Hockey Coach Name Role Phone Simon Turner MD Primary Care Provider [phone] Encounter Details Date Type Department Care Team (Late st Contact Info) Description 09/28/2021 Lab Requisition [facility] [address] [place] [address] Debbie Huang MD Social History Tobacco Use [...] BETA BLOOD QUANTITATIVE STAT 09/28/2021 11:42 AM HOT DIE PICKER documented in this encounter Results * HCG BETA BLOOD QUANTITATIVE (09/28/2021 11:42 AM HOT DIE PICKER) hCG Quantitative 3,781.48 mIU/mL 09/28/20 4:49 PM HOT DIE PICKER [facility] Blood BLOOD SPECIMEN / Unknown Venipuncture / Unknown 09/28/2021 11:42 AM HOT DIE PICKER 09/28/2021 3:40 PM HOT DIE PICKER Narrative [facility] - 09/28/2021 4:49 PM HOT DIE PICKER hCG Reference Range, mIU/mL: Males 0-2.0 Non [...] Huang MD LAB - CHEMISTRY OLIVA TURNER [facility] Organization Address City/State/ZIP Co de Phone Number [facility] [address] [place] [address] documented in this encounter Visit Diagnoses Not on filedocumented in this encounter Care Teams Assistant Field Hockey Coach Relationship Specialty Start Date End Date Simon Turner MD [address] [place] [address] PCP - General 05/30/22 documented as of this encounter
--- OUTSIDE RECORDS SUMMARY | 2025-01-27 20:50 | XMS_ITS | Encounter Summary ---
Author Organization [facility] Healthcare Address [address] [place] [address] Care Team Providers Care Greige Goods Inspector Name Role Phone Rina Macdonald MD Primary Care Provider [phone] Reason for Visit * Reason Comments Nausea Nausea, headache, vo miting, decreased appetite and drinking, slight runny nose and fever on and off x 5 days Encounter Details Date Type Department Care Team (Late st Contact Info) Description 01/24/2025 7:00 PM CDT Office Visit [facility] Convenient Care at [address] [phone] Flor Botello, WOOD GRAINER [address] [place], [place] [id number] Nausea (Primary Dx); Nausea and vomiting, unspecified vomiting type; Acute viral syndrome Social History Tobacco Use Types Packs/Day Years Used Date Smoking Tobacco: Never Smokeless Tobacco: Never Comments Yes Sex and Gender Information Value Date Recorded Sex Assigned at Not on file Legal Sex Female 10:06 AM CDT Gender Identity Not on file Sexual Orientation Not on file documented as of this encounter Last Filed Vital Signs Vital Sign Reading Time Taken Comments Blood Pressure 108/60 01/24/2025 7:01 PM CDT Pulse 122 01/24/2025 7:01 PM CDT Temperature 37.1 C (98.8 F) 01/24/2025 7:01 PM CDT Respiratory Rate 24 01/24/2025 7:01 PM CDT Oxygen Saturation 98% 01/24/2025 7:01 PM CDT Inhaled Oxygen Concentration - - Weight 80.7 kg (178 lb) 01/24/2025 7:01 PM CDT Height - - Body Mass Index 32.56 08/29/2024 2:06 PM PBX WIRE CHIEF documented in this encounter Patient Instructions * Patient Instructions* Flor Botello NP - 01/24/2025 7:00 PM CDT (Only take OTC medications that your OB-TABLE RUNNER says is safe to take while ) You have been diagnosed with a viral infection. -Viral infections do not improve with antibiotics. When antibiotics aren???t needed, they won???t help you and the side effects of these medications can potentially hurt them. -Viral symptoms can linger from 7-14 days -The color of discharge does not always reflect the need for an antibiotic, even during a viral illness it is normal for drainage to change from yellow to green at times. -Please refer to the CDC Get Smart (cdc.gov/getsmart) campaign for more details. There are many OTC medications and supportive care measures you can try to treat your symptoms until your symptoms resolve. -Tylenol for aches, pains. Take per package directions -Antihistamines like Claritin or Benadryl as needed for drainage. Take per package directions. -Delsym as needed for coughing. Follow package directions -Frequent cough drops and lozenges -Increase fluids, especially decaffeinated ones -Sleep with head of bed raised to promote drainage -Avoid spreading the virus by remaining at home and away from others until you are fever-free (temperature below 100) for 24 hours. Good handwashing and covering your mouth when coughing are also important. If you are not improving or worsening in the next 5-7 days you must RETURN to the clinic, go to your PCP, or Urgent Care/ER to be SEEN and reevaluated. No further prescriptions or refills will be given by phone without another evaluation. If you develop a high fever 103+, neck stiffness, trouble breathing, chest pain, or other life threatening symptoms GO TO THE ER IMMEDIATELY. * Attachments The following attachments cannot be sent through Care Everywhere. * Viral Syndrome (Funeral Service Practitioner/Embalmer) (Jordanian) documented in this encounter Progress Notes * Flor Botello NP - 01/24/2025 7:00 PM CDT Images from the original note were not included. Subjective/Objective Patient ID: Tiffanie Lomas is a 34 y.o. female. This patient has verbally consented to recording this visit in order to utilize AI technology in generating this note. Chief Complaint Nausea (Nausea, headache, vomiting, decreased appetite and drinking, slight runny nose and fever onand off x 5 days ) History of Present Illness Tiffanie Lomas is a 34 year old female who presents with headache, nausea, decreased appetite, vomiting, runny nose, and slight fever. She has been experiencing these symptoms for the past five days, with the highest recorded fever being 101??F. Vomiting occurred until yesterday, and she has not vomited today, though her appetite remains poor. She is making efforts to stay hydrated. She is currently 36 weeks , with a due date of February 21. She has not informed her drug inspector about the fevers, headaches, and vomiting, initially attributing them to a migraine or the flu. She denies contractions but mentions a 'crampy belly' without feeling like they are contractions. She has experienced dizziness a couple of times upon standing but does not consider it significant.No vision changes, lightheadedness, or dizziness beyond these instances. Review of Systems All other systems reviewed and are negative. Physical Exam CHEST: Lungs clear to auscultation bilaterally. Physical Exam Vitals reviewed. Constitutional: General: She is not in acute distress. Appearance: Normal appearance. She is not ill-appearing. HENT: Head: Normocephalic. Right Ear: Tympanic membrane, ear canal and external ear normal. No middle ear effusion. Tympanic membrane is not erythematous or bulging. Left Ear: Tympanic membrane, ear canal and external ear normal. No middle ear effusion. Tympanic membrane is not erythematous or bulging. Nose: Congestion present. No rhinorrhea. Mouth/Throat: Lips: [place]. Mouth: Mucous membranes are moist. Pharynx: Uvula midline. No pharyngeal swelling, oropharyngeal exudate or posterior oropharyngeal erythema. Comments: No tonsils Cardiovascular: Rate and Rhythm: Regular rhythm. Tachycardia present. Pulmonary: Effort: Pulmonary effort is normal. No respiratory distress. Breath sounds: Normal breath sounds. No decreased breath sounds or wheezing. Lymphadenopathy: Cervical: No cervical adenopathy. Skin: General: Skin is warm. Neurological: Mental Status: She is oriented to person, place, and time. Psychiatric: Behavior: Behavior is cooperative. Vitals: 01/24/25 1901 BP: 108/60 Pulse: 122 Resp: 24 Temp: 37.1 ??C (98.8 ??F) SpO2: 98% Weight: 80.7 kg (178 lb) No results found. Past Medical History: Diagnosis Date ??? Bleeding hemorrhoids ??? Endometriosis ??? Gestational diabetes ??? Hypothyroidism ??? Tachycardia Current Outpatient Medications: ??? Lacto.acidophilus-Bif.animalis 32 billion cell capsule, Take by mouth, Disp: , Rfl: ??? PNV with aouxpbp-xljw-IF 27 mg iron- 1 mg tablet, Take 1 tablet by mouth daily, Disp: , Rfl: No Known Allergies Social History Tobacco Use ??? Smoking status: Never ??? Smokeless tobacco: Never Substance and Sexual Activity ??? Drug use: None ??? Sexual activity: None Alcohol Use: Not on file History reviewed. No pertinent surgical history. Assessment/Plan 1. Nausea and vomiting, unspecified vomiting type - POC Influenza A/B, COVID-19 antigen 2. Nausea (Primary) 3. Acute viral syndrome Results No results found for this or any previous visit (from the past 4 hours). Assessment & Plan Viral Upper Respiratory Infection Symptoms consistent with viral upper respiratory infection. At 36 weeks gestation, symptom management requires caution. No COVID-19 or influenza exposure. Hydration maintained, no contractions, but abdominal cramping noted. - Advise rest and hydration. - Monitor symptoms, seek medical attention if symptoms worsen or contractions start. - Discuss symptoms with drug inspector immediately by sending them a message or calling the after hours line - ER if symptoms worsen Education (Only take OTC medications that your OB-TABLE RUNNER says is safe to take while ) You have been diagnosed with a viral infection. -Viral infections do not improve with antibiotics. When antibiotics aren???t needed, they won???t help you and the side effects of these medications can potentially hurt them. -Viral symptoms can linger from 7-14 days -The color of discharge does not always reflect the need for an antibiotic, even during a viral illness it is normal for drainage to change from yellow to green at times. -Please refer to the CDC Get Smart (cdc.gov/getsmart) campaign for more details. There are many OTC medications and supportive care measures you can try to treat your symptoms until your symptoms resolve. -Tylenol for aches, pains. Take per package directions -Antihistamines like Claritin or Benadryl as needed for drainage. Take per package directions. -Delsym as needed for coughing. Follow package directions -Frequent cough drops and lozenges -Increase fluids, especially decaffeinated ones -Sleep with head of bed raised to promote drainage -Avoid spreading the virus by remaining at home and away from others until you are fever-free (temperature below 100) for 24 hours. Good handwashing and covering your mouth when coughing are also important. If you are not improving or worsening in the next 5-7 days you must RETURN to the clinic, go to your PCP, or Urgent Care/ER to be SEEN and reevaluated. No further prescriptions or refills will be given by phone without another evaluation. If you develop a high fever 103+, neck stiffness, trouble breathing, chest pain, or other life threatening symptoms GO TO THE ER IMMEDIATELY. Disposition Treatment plan including expectations, follow up, and return precautions discussed with patient/parent, verbalizes understanding. Medication dosage, use, and potential adverse reactions discussed with patient/parent. Advised to follow up with PCP if symptoms do not resolve as expected or sooner if condition worsens. Signs/symptoms warranting ER evaluation reviewed. Patient and/or guardian was given an opportunity to ask questions, questions answered. Flor Botello NP This office note has been partially dictated using [employer] software, and as a result portions of the record may have been created with this software. Occasional wrong-word or 'xjvwm-[id number]-[id number]' substitutions may have occurred due to the inherent limitations of voice recognition software. Read the chartcarefully and recognize, using context, where substitutions have occurred. documented in this encounter Plan of Treatment Not on file documented as of this encounter Procedures Procedure Name Priority Date/Time Associated Diagnosis Comments POC INFLUENZA A/B, COVID-19 ANTIGEN Routine 01/24/2025 7:17 PM CDT Nausea and vomiting, unspecified vomiting type documented in this encounter Results * POC Influenza A/B, COVID-19 antigen (01/24/2025 7:17 PM CDT) Influenza A Ag, POC Negative Negative [facility] Influenza B Ag, POC Negative Negative [facility] COVID-19 Ag POC Presumptive Negative Presumptive Negative, Invalid [facility] Swab 01/24/2025 7:17 PM CDT Flor Botello WOOD GRAINER POINT OF CARE TEST ORDERABLES Final Result Performing Organization Address City/State/[facility] Co de Phone Number [facility] [address] [place] [address] documented in this encounter Visit Diagnoses Diagnosis Nausea- Primary Nausea alone Nausea and vomiting, unspecified vomiting type Acute viral syndrome documented in this encounter Additional Health Concerns Infection Onset Date Last Indicated Resolved Time COVID: Suspected 01/24/2025 01/24/2025 01/24/2025 7:19 PM CDT documented as of this encounter Care Teams Greige Goods Inspector Relationship Specialty Start Date End Date Rina Macdonald MD PCP - General Nurse Practitioner 02/18/22 documented as of this encounter
--- OUTSIDE RECORDS SUMMARY | 2025-01-27 20:50 | XMS_ITS | Referral Summary ---
Author Organization [facility] Address [address] [place] [address] Care Team Providers Care Spray Gun Repairer Helper Name Role Phone Rina Macdonald MD Primary Care Provider [phone] Encounters Date Type Department Care Team Description 01/24/2025 7:00 PM CDT Office Visit [facility] Medical Group Convenient Care at [address] [phone] Flor Botello NP Nausea (Primary Dx); Nausea and vomiting, unspecified vomiting type; Acute viral syndrome from Last 3 Months Allergies No known active allergies Medications PNV with wglzfty-gtvq-WD 27 mg iron- 1 mg tablet Take [...] body fat of patient;Recorded Elsewhere: No Location: [facility] Source: EHR Chronic: N Practice ID: [id number] Billable Time: 05:00:00 PM Female infertility associated with anovulation 1 12/08/2015 Overview (08/29/2024): Infertility, female, associated with anovulation;Recorded Elsewhere: No Location: [facility] Source: EHR Chronic: N Practice ID: [id number] Billable Time: 03:15:00 PM Endometriosis of pelvic peritoneum 05/03/2015 Overview (08/29/2024): Endometriosis of pelvic peritoneum;Recorded Elsewhere: No Location: [facility] Source: EHR Chronic: N Practice ID: [id number] Billable Time: 03:00:00 PM Female infertility of tubal origin 04/26/2015 Overview (08/29/2024): Infertility, female, of tubal origin;Practice ID: [id number] Female pelvic peritoneal adhesions 04/26/2015 Overview (08/29/2024): Pelvic peritoneal adhesions, female (postoperative) (postinfection);Practice ID: [id number] Irregular periods 04/10/2015 Overview (08/29/2024): Irregular menstrual cycle;Recorded Elsewhere: No Location: [facility] Source: EHR Chronic: N Practice ID: [id number] [...] cm (5' 2 ) 08/29/2024 2:06 PM FOAM FABRICATOR Body Mass Index 32.56 08/29/2024 2:06 PM FOAM FABRICATOR Plan of Treatment Not on file Procedures Procedure Name Priority Date/Time Associated Diagnosis Comments POC INFLUENZA A/B, COVID-19 ANTIGEN Routine 01/24/2025 7:17 PM CDT Nausea and vomiting, unspecified vomiting type from Last 3 Months Results * POC Influenza A/B, COVID-19 antigen (01/24/2025 7:17 PM CDT) Influenza A Ag, POC Negative Negative [facility] Influenza B Ag, POC Negative Negative [facility] COVID-19 Ag POC Presumptive Negative Presumptive Negative, Invalid [facility] Swab 01/24/2025 7:17 PM CDT Flor Botello NP POINT OF CARE TEST ORDERABLES Final Result [facility] [place] [address], [facility] from Last 3 Months Insurance [facility] [place] Care Teams Spray Gun Repairer Helper Relationship Specialty Start Date End Date Rina Macdonald MD PCP - General Nurse Practitioner 02/18/22
--- OUTSIDE RECORDS SUMMARY | 2025-01-27 20:51 | XMS_ITS | Clinical Summary ---
Author Organization [facility] Address [facility] [place] [address] Care Team Providers Care Graphite Disk Assembler Name Role Phone Rina Macdonald NP Primary Care Provider [phone] Allergies No known active allergies Medications omeprazole (PRILOSEC) 20 MG capsule Take 1 capsule (20 mg total) by mouth daily. 12/09/2023 Active Active Problems Problem Noted Date Diagnosed Date In vitro fertilization 08/08/2022 Gestational diabetes mellitus ([facility]) 08/08/20 Hypothyroidism 08/08/2022 Recurrent loss 08/08/2022 Headache 07/30/2022 Pruritic urticarial papules and plaques of ([facility]) 06/07/2022 Immunizations Name Administration Dates Next Due [...] Comments Blood Pressure 102/64 12/15/2023 10:50 AM FITNESS SPECIALIST Pulse 92 12/15/2023 10:50 AM FITNESS SPECIALIST Temperature 36.7 C (98.1 F) 12/15/2023 10:50 AM FITNESS SPECIALIST Respiratory Rate 16 12/15/2023 10:50 AM FITNESS SPECIALIST Oxygen Saturation 98% 12/15/2023 10:50 AM FITNESS SPECIALIST Inhaled Oxygen Concentration - - Weight 71.2 kg (157 lb) 12/15/2023 10:50 AM FITNESS SPECIALIST Height 157.5 cm (5' 2 ) 08/08/2022 11:44 AM CDT Body Mass Index 28.72 08/08/2022 11:44 AM CDT Plan of Treatment Health Maintenance Due Date Last Done Comments Hepatitis B Vaccines (1 of 3 - 19+ 3-dose series) 2008 Cervical Cancer Screening Pa p with HPV Testing (Age 30 to 64) Every 5 Years 2019 Annual Physical 07/02/2022 07/02/2021 COVID-19 Vaccine ( - 2023-2 5 season) 2024 02/09/2021, 01/12/2021 PHQ-2 (Physician [place]) 10/20/2024 12/15/2023 Cervical Cancer Screening Pa p Smear (Age 30 to 64) Every 3 Years 05/07/2026 05/07/2023 Cervical Cancer Screening wi th HPV 05/07/2026 DTaP, Tdap and Td Vaccines ( 2 - Td or Tdap) 03/15/2032 03/15/2022 Hepatitis [...] 64 Years) Aged Out No longer eligible b ased on patient's age to complete this topic RSV Immunizations Under 20 Months Aged Out No longer eligible b ased on patient's age to complete this topic Procedures Procedure Name Priority Date/Time Associated Diagnosis Comments HEPATITIS C ANTIBODY Routine 12/24/2022 7:21 AM FITNESS SPECIALIST Need for hepatitis C screening test from Last 3 Months or Most Recently Relevant to Health Maintenance Results * HEPATITIS C ANTIBODY (12/24/2022 7:21 AM FITNESS SPECIALIST) HEPATITIS C AB NON-REACTI VE NON-REACT NEVAEH 12/24/2022 6:13 PM FITNESS SPECIALIST [facility] Comment: ANTIBODIES TO HCV NOT DETECTED. DOES NOT EXCLUDE THE POSSIBILITY OF EXPOSURE TO HCV. 12/24/2022 7:21 AM FITNESS SPECIALIST Rina Macdonald NP LABORATORY Final Res ult [facility] [address] [place] [phone], [id number] from Last 3 Months or Most Recently Relevant to Health Maintenance Insurance [facility] Care Teams Graphite Disk Assembler Relationship Specialty Start Date End Date Rina Macdonald NP [address] [place] [address] PCP - General NURSE PRACTITIONER 06/26/21
--- OUTSIDE RECORDS SUMMARY | 2025-01-27 20:51 | XMS_ITS | Encounter Summary ---
Author Organization [facility] Address [address] [facility] [place] [address] Care Team Providers Care Healthcare Liaison Name Role Phone Simon Turner MD Primary Care Provider [phone] Encounter Details Date Type Department Care Team (Late st Contact Info) Description 10/02/2018 Lab Requisition [facility] [address] [place] [address] Rajat Burch MD [address] [facility] [address] [place] [address] Social History Tobacco Use Types Packs/Day Years [...] BETA BLOOD QUANTITATIVE STAT 10/02/2018 7:36 AM ENGLISH PROFESSOR documented in this encounter Results * HCG BETA BLOOD QUANTITATIVE (10/02/2018 7:36 AM ENGLISH PROFESSOR) hCG Quantitative 50 mIU/mL 10/02/20 10:20 AM ENGLISH PROFESSOR [facility] Blood BLOOD SPECIMEN / Unknown Venipuncture / Unknown 10/02/2018 7:36 AM ENGLISH PROFESSOR 10/02/2018 9:58 AM ENGLISH PROFESSOR Narrative [facility] - 10/02/2018 10:20 AM ENGLISH PROFESSOR hCG Reference Range, mIU/mL: Males 0-2.0 Non [...] Burch MD LAB - CHEMISTRY OLIVA TURNER [facility] Organization Address City/State/ZIP Co de Phone Number [facility] [address] [place] [address] documented in this encounter Visit Diagnoses Not on filedocumented in this encounter Care Teams Healthcare Liaison Relationship Specialty Start Date End Date Simon Turner MD [address] [place] [id number] PCP - General 05/30/22 documented as of this encounter
--- OUTSIDE RECORDS SUMMARY | 2025-01-27 20:51 | XMS_ITS | Encounter Summary ---
Author Organization [facility] Address [address] [facility] [place] [address] Care Team Providers Care Jv Baseball Coach Name Role Phone Simon Turner MD Primary Care Provider [phone] Encounter Details Date Type Department Care Team (Late st Contact Info) Description 09/19/2021 Lab Requisition [facility] [address] [place] [address] Debbie Huang MD Social History Tobacco Use [...] BETA BLOOD QUANTITATIVE STAT 09/19/2021 9:36 AM COMPUTER SALESPERSON RETAIL documented in this encounter Results * HCG BETA BLOOD QUANTITATIVE (09/19/2021 9:36 AM COMPUTER SALESPERSON RETAIL) hCG Quantitative 71.07 mIU/mL 09/19/20 10:46 AM COMPUTER SALESPERSON RETAIL [facility] Blood BLOOD SPECIMEN / Unknown Venipuncture / Unknown 09/19/2021 9:36 AM COMPUTER SALESPERSON RETAIL 09/19/2021 9:43 AM COMPUTER SALESPERSON RETAIL Narrative [facility] - 09/19/2021 10:46 AM COMPUTER SALESPERSON RETAIL hCG Reference Range, mIU/mL: Males 0-2.0 Non [...] Huang MD LAB - CHEMISTRY OLIVA TURNER [facility] Organization Address City/State/ZIP Co de Phone Number [facility] [address] [place], [place] [id number] documented in this encounter Visit Diagnoses Not on filedocumented in this encounter Care Teams Jv Baseball Coach Relationship Specialty Start Date End Date Simon Turner MD [address] [place] [address] PCP - General 05/30/22 documented as of this encounter
--- OUTSIDE RECORDS SUMMARY | 2025-01-27 20:51 | XMS_ITS | Data Portability ---
Author Organization [facility] [place] Address [address] [place] [place] [address] Care Team Providers Care Manager Retail Sales Name Role Phone DAVID DALE Primary Care Provider Assessment No assessment recorded. Plan of Treatment Reminders Order Date Submit Date Provider Last Modified By Organization Details Last Modified Time Details Appointments OB ROUTINE 2024 01:00P Heidi ENAMORADO MD Not available Not available Not available OB ROUTINE 2024 09:30A Heidi Barragan CNM Not available Not available Not available OB ROUTINE 2024 10:00A Heidi Barragan CNM Not available Not available Not available SURG CSection 2024 07:30A Heidi ENAMORADO MD Not available Not available Not available Lab None recorded. Referral None recorded. Procedures None recorded. Surgeries None recorded. Imaging US, obstetric , follow-up 2024 025 [email or web address] [place] [facility] [address], [place], [address], 01/04/2025 21:37:16 Medication Orders None recorded. Patient TargetsNo targets recorded. Patient InstructionsNo instructions recorded. Reason for Referral None Reported. Results Created Date Observation Date Name Description Value Unit Range Abnormal Flag Note LastModifiedBy Organization Detail LastModifiedTime 12/07/19 25 12/07/2024 HEMOG LOBIN (HGB) HGB 11.9 g/dL (based on docume nted legal sex) 11.6-[address] [facility] (Lab) [address], [place], [address], 12/08/2024 12:42:12 12/07/19 25 12/07/2024 HEMAT OCRIT (HCT) HCT 37.0 % (based on docume nted legal sex) 34.0-[address] [facility] (Lab) [address], [place], [address], 12/08/2024 12:42:13 12/07/19 25 12/07/2024 GTT - GESTA FARSHAD L SCREE N, ACOG OB glucose, 1 hour screen 131 mg/dL 70-[address] [facility] (Lab) [address], [place], [address], 12/08/2024 12:42:14 12/07/19 25 12/07/2024 HIV 1/2 ANTIG EN/AN TIBOD Y, REFLE X CONFI RMATI ON HIV antigen/anti body Nonrea ctive nonrea ctive HIV-1 antig en and HIV-1 /HIV- 2 antib odies were not detec nova. No labor atory evide nce of HIV infec tion. Not Available [facility] (Lab) [address], [place], [address], 12/08/2024 12:42:14 12/07/19 25 12/07/2024 RPR SCREE N, REFLE X TITER /CONF IRMAT ION RPR screen Nonrea ctive nonrea ctive Not Available [facility] (Lab) [address], [place], [address], 12/08/2024 12:42:15 01/12/20 25 01/11/2025 RETIC ULOCY TE COUNT reticulocyte count percent 2.04 % 0.50-[address] [facility] (Lab) [address], [place], [address], 01/12/2025 09:47:25 01/12/20 25 01/11/2025 RETIC ULOCY TE COUNT reticulocyte count absolute 78.50 10'3/ uL no define d refere nce range Refer ence range s for nonbi nary/ inter sex or unspe cifie d gende r patie nts have not been estab lishe d. Eugenia e [facility] for range s estab lishe d for cisge nder patie nts and evalu ate in the clini trisha keith xt of the indiv idual patie nt: https ://lala grady book. nm.or g/gen derx Not Available [facility] (Lab) [address], [place], [address], 01/12/2025 09:47:25 01/12/2001/11/2025 TSH, REFLE X FREE T4 TSH 1.80 uIU/m L 0.30-[address] [facility] (Lab) [address], [place], [address], 01/12/2025 09:47:26 01/12/20 25 01/11/2025 LEO TIN / IRON / TRANS LEO N / TIBC iron 136 ug/dL 40-[address] [facility] (Lab) [address], [place], [address], 01/12/2025 09:47:26 01/12/20 25 01/11/2025 LEO TIN / IRON / TRANS LEO N / TIBC transferrin 421 mg/dL 200-[address] [facility] (Lab) [address] [place], [address], 01/12/2025 09:47:26 01/12/20 25 01/11/2025 LEO TIN / IRON / TRANS LEO N / TIBC ferritin 15.1 NG/mL 8.0-[address] [facility] (Lab) [address], [place], [address], 01/12/2025 09:47:26 01/12/20 25 01/11/2025 LEO TIN / IRON / TRANS LEO N / TIBC TIBC 589 ug/dL 250-[address] [facility] (Lab) [address] [place], [address], 01/12/2025 09:47:26 01/12/20 25 01/11/2025 LEO TIN / IRON / TRANS LEO N / TIBC iron saturation 23 % 20-55 Not Available [facility] (Lab) [address], [place], [address], 01/12/2025 09:47:26 01/12/20 25 01/11/2025 VITAM IN B12 / FOLAT E PANEL vitamin B12 170 pg/mL 180-91 4 low Claudia l Range : 180-9 14 pg/mL . Indet ermin ate Range : 145-1 80 pg/mL . Defic ient Range : <=145 pg/mL . Not Available [facility] (Lab) [address], [place], [address], 01/12/2025 09:47:27 01/12/20 25 01/11/2025 VITAM IN B12 / FOLAT E PANEL folate, serum >20.0 NG/mL 6.0-20 .[address] [facility] (Lab) [address] [place], [address], 01/12/2025 09:47:27 01/26/20 25 01/25/2025 CMP(C OMPRE HENSI VE METAB OLIC PANEL ) sodium 134 mmol/ L 133-[address] [facility] (Lab) [address] [place], [address], 01/26/2025 04:59:47 01/26/20 25 01/25/2025 CMP(C OMPRE HENSI VE METAB OLIC PANEL ) potassium 4.3 mmol/ L 3.5-5. [address] [facility] (Lab) [address] [place], [address], 01/26/2025 04:59:47 01/26/20 25 01/25/2025 CMP(C OMPRE HENSI VE METAB OLIC PANEL ) chloride 98 mmol/ L 98-[address] [facility] (Lab) [address], [place], [address], 01/26/2025 04:59:47 01/26/20 25 01/25/2025 CMP(C OMPRE HENSI VE METAB OLIC PANEL ) carbon dioxide 27 mmol/ L 21-[address] [facility] (Lab) [address], [place], [address], 01/26/2025 04:59:47 01/26/20 25 01/25/2025 CMP(C OMPRE HENSI VE METAB OLIC PANEL ) anion gap 9 mmol/ L 4-[address] [facility] (Lab) [address], [place], [address], 01/26/2025 04:59:47 01/26/20 25 01/25/2025 CMP(C OMPRE HENSI VE METAB OLIC PANEL ) blood urea nitrogen 10 mg/dL 7-[address] [facility] (Lab) [address], [place], [address], 01/26/2025 04:59:47 01/26/20 25 01/25/2025 CMP(C OMPRE HENSI VE METAB OLIC PANEL ) creatinine 0.61 mg/dL 0.60-[address] [facility] (Lab) [address], [place], [address], 01/26/2025 04:59:47 01/26/20 25 01/25/2025 CMP(C OMPRE HENSI VE METAB OLIC PANEL ) egfrcr (CKD-epi 2020) >90 mL/mi n/1.7 3_m2 >=[address] [facility] (Lab) [address], [place], [address], 01/26/2025 04:59:47 01/26/20 25 01/25/2025 CMP(C OMPRE HENSI VE METAB OLIC PANEL ) calcium 8.8 mg/dL 8.3-[address] [facility] (Lab) [address], [place], [address], 01/26/2025 04:59:47 01/26/20 25 01/25/2025 CMP(C OMPRE HENSI VE METAB OLIC PANEL ) glucose 73 mg/dL 70-[address] [facility] (Lab) [address], [place], [address], 01/26/2025 04:59:47 01/26/20 25 01/25/2025 CMP(C OMPRE HENSI VE METAB OLIC PANEL ) protein, total 6.6 g/dL 6.4-8. [address] [facility] (Lab) [address], [place], [address], 01/26/2025 04:59:47 01/26/20 25 01/25/2025 CMP(C OMPRE HENSI VE METAB OLIC PANEL ) albumin 3.3 g/dL 3.5-5. [address] [facility] (Lab) [address], [place], [address], 01/26/2025 04:59:47 01/26/20 25 01/25/2025 CMP(C OMPRE HENSI VE METAB OLIC PANEL ) ALT 26 units /L 9-[address] [facility] (Lab) [address] [place], [address], 01/26/2025 04:59:47 01/26/20 25 01/25/2025 CMP(C OMPRE HENSI VE METAB OLIC PANEL ) alkaline phosphatase 116 units /L 34-[address] [facility] (Lab) [address] [place], [address], 01/26/2025 04:59:47 01/26/20 25 01/25/2025 CMP(C OMPRE HENSI VE METAB OLIC PANEL ) AST 33 units /L 13-[address] [facility] (Lab) [address] [place], [address], 01/26/2025 04:59:47 01/26/2001/25/2025 CMP(C OMPRE HENSI VE METAB OLIC PANEL ) bilirubin, total 1.0 mg/dL 0.2-1. [address] [facility] (Lab) [address], [place], [address], 01/26/2025 04:59:47 01/26/2001/25/2025 CBC W/DIF F WBC 6.7 10'3/ uL 3.5-[address] [facility] (Lab) [address], [place], [address], 01/26/2025 04:59:47 01/26/20 25 01/25/2025 CBC W/DIF F RBC 3.85 10'6/ uL (based on docume nted legal sex) 3.80-[address] [facility] (Lab) [address], [place], [address], 01/26/2025 04:59:47 01/26/20 25 01/25/2025 CBC W/DIF F HGB 11.8 g/dL (based on docume nted legal sex) 11.6-[address] [facility] (Lab) [address], [place], [address], 01/26/2025 04:59:47 01/26/2001/25/2025 CBC W/DIF F HCT 35.3 % (based on docume nted legal sex) 34.0-[address] [facility] (Lab) [address], [place], [address], 01/26/2025 04:59:47 01/26/2001/25/2025 CBC W/DIF F MCV 91.7 fL 80.0-[address] [facility] (Lab) [address], [place], [address], 01/26/2025 04:59:47 01/26/20 25 01/25/2025 CBC W/DIF F MCH 30.6 pg 27.0-[address] [facility] (Lab) [address], [place], [address], 01/26/2025 04:59:47 01/26/20 25 01/25/2025 CBC W/DIF F MCHC 33.4 g/dL 32.0-[address] [facility] (Lab) [address], [place], [address], 01/26/2025 04:59:47 01/26/20 25 01/25/2025 CBC W/DIF F RDW 15.8 % 11.0-1 5[address] [facility] (Lab) [address], [place], [address], 01/26/2025 04:59:47 01/26/20 25 01/25/2025 CBC W/DIF F plt 173 10'3/ uL 150-[address] [facility] (Lab) [address], [place], [address], 01/26/2025 04:59:47 01/26/20 25 01/25/2025 CBC W/DIF F MPV 11.7 fL 8.8-[address] [facility] (Lab) [address], [place], [address], 01/26/2025 04:59:47 01/26/20 25 01/25/2025 CBC W/DIF F neutrophils 56.2 % 34.0-[address] [facility] (Lab) [address], [place], [address], 01/26/2025 04:59:47 01/26/20 25 01/25/2025 CBC W/DIF F lymphocytes 33.0 % 15.0-[address] [facility] (Lab) [address] [place], [address], 01/26/2025 04:59:47 01/26/20 25 01/25/2025 CBC W/DIF F monocytes 8.4 % 1.0-[address] [facility] (Lab) [address], [place], [address], 01/26/2025 04:59:47 01/26/20 25 01/25/2025 CBC W/DIF F eosinophils 1.5 % 0.0-8. [address] [facility] (Lab) [address], [place], [address], 01/26/2025 04:59:47 01/26/20 25 01/25/2025 CBC W/DIF F basophils 0.6 % 0.0-2. [address] [facility] (Lab) [address], [place], [address], 01/26/2025 04:59:47 01/26/20 25 01/25/2025 CBC W/DIF F immature granulocytes 0.3 % no define d refere nce range Immat ure Granu locyt es (IG) repre sents autom ated enume ratio n of Metam yeloc ytes, Myelo cytes and Promy elocy scott when IG is < 5%. Blast s are not inclu ded in IG and repor nova separ ately if prese nt. Not Available [facility] (Lab) [address] [place], [address], 01/26/2025 04:59:47 01/26/20 25 01/25/2025 CBC W/DIF F absolute neutrophils 3.8 10'3/ uL 1.5-8. [address] [facility] (Lab) [address], [place], [address], 01/26/2025 04:59:47 01/26/20 25 01/25/2025 CBC W/DIF F absolute lymphocytes 2.2 10'3/ uL 1.0-4. [address] [facility] (Lab) [address], [place], [address], 01/26/2025 04:59:47 01/26/20 25 01/25/2025 CBC W/DIF F absolute monocytes 0.6 10'3/ uL 0.2-1. [address] [facility] (Lab) [address] [place], [address], 01/26/2025 04:59:47 01/26/20 25 01/25/2025 CBC W/DIF F absolute eosinophils 0.1 10'3/ uL 0.0-0. [address] [facility] (Lab) [address], [place], [address], 01/26/2025 04:59:47 01/26/20 25 01/25/2025 CBC W/DIF F absolute basophils 0.0 10'3/ uL 0.0-0. [address] [facility] (Lab) [address], [place], [address], 01/26/2025 04:59:47 01/26/20 25 01/25/2025 CBC W/DIF F absolute immature granulocytes 0.0 10'3/ uL 0.00-0 .10 025 3:09 AM: P indic ates parti al resul ts on a panel have been relea sed. Addit ional resul ts will follo w. Refer ence range s for nonbi nary/ inter sex or unspe cifie d gende r patie nts have not been estab lishe d. Pleas e refer to the eduaro wing table for range s estab lishe d for cisge nder patie nts and evalu ate in the clini trisha keith xt of the indiv idual patie nt: https ://lala grady book. nm.or g/gen derx 025 3:55 AM: This resul t has been final verif ied. No addit ional or sim ed resul ts are expec nova. Not Available [facility] (Lab) [address], [place], [address], 01/26/2025 04:59:47 01/26/20 25 01/25/2025 BLOOD SMEAR EXAM, RBC MORPH OLOGY RBC morphology Review ed Not Available [facility] (Lab) [address], [place], [address], 01/26/2025 04:59:47 01/26/20 25 01/25/2025 BLOOD SMEAR EXAM, RBC MORPH OLOGY platelet morphology Review ed Not Available [facility] (Lab) [address], [place], [address], 01/26/2025 04:59:47 11/09/19 25 11/09/2024 US, obste tric, follo w-up No observ ation record ed. [email or web address] [address], [place], [address], 11/09/2024 17:42:21 11/09/19 25 11/09/2024 US, obste tric, follo w-up No observ ation record ed. [email or web address], [place], [address], 11/10/2024 09:26:20 01/05/20 25 01/04/2025 US, obste tric, follo w-up No observ ation record ed. [email or web address] [place] [address], [place], [address], 01/04/2025 13:09:06 01/05/20 25 01/04/2025 US, obste tric, follo w-up No observ ation record ed. [email or web address] [address], [place], [address], 01/04/2025 18:47:10 Result Notes None recorded. Problems Name Problem SNOMED Code Status Onset Date Resolution Date Notes Provider Name and Address Organization Details Recorded Time Pregnanc y test negative 492960409 Completed 201811/15/2021 Encounte r for pregnanc y test, result negative ;Recorde d Elsewher e: No Locat ion: [facility] S ource: EHR Combination Welder Apprentice christopher: N Estebanti ce ID: [id number] Velasquez lable Time: 01:00:00 PM Mariummone [place] [facility] 2 17:40:15 Screenin g for malignan t neoplasm of cervix Completed 201211/15/2021 Screenin g for malignan t neoplasm s of the cervix;R ecorded Elsewher e: No Locat ion: [facility] N Estebanti ce ID: [id number] Velasquez lable Time: 10:30:00 AM Marium [facility] 2 17:40:12 Female infertil ity associat ed with anovulat ion [id number] Completed 201511/15/2021 Infertil ity, female, associat ed with anovulat ion;Jerry rded Elsewher e: No Locat ion: [facility]: N Estebanti ce ID: [id number] Velasquez lable Time: 03:15:00 PM Marium [facility] 2 17:40:37 Bleeding [id number] Completed 201811/15/2021 Abnormal uterine and vaginal bleeding , unspecif ied;Jerry rded Elsewher e: No Locat ion: [facility] S ource: EHR Combination Welder Apprentice christopher: N Estebanti ce ID: [id number] Velasquez lable Time: 02:45:00 PM Marium [facility] 2 17:40:39 Endometr iosis of pelvic peritone um [id number] Completed 201411/15/2021 Endometr iosis of pelvic peritone um;Recor ded Elsewher e: No Locat ion: [facility]: [facility]: N Estebanti ce ID: [id number] Velasquez lable Time: 03:00:00 PM [facility] 2 17:40:43 Postoper ative follow-u p visit Completed 201411/15/2021 Follow-u p examinat ion, followin g unspecif ied surgery; Recorded Elsewher e: No Locat ion: Zhou gale [facility] S ource: EHR Combination Welder Apprentice christopher: N Practi ce ID: [id number] Velasquez lable Time: 03:00:00 PM Marium [place] [facility] 2 17:40:20 Finding of regulari ty of menstrua l cycle Completed 201411/15/2021 Irregula r menstrua tion, unspecif ied;Jerry rded Elsewher e: No Locat ion: [facility] S ource: EHR Combination Welder Apprentice christopher: N Practi ce ID: [id number] Velasquez lable Time: 08:30:00 AM Marium [place] [facility] 2 17:40:[address] Concept Completed 201711/15/2021 Encntr for registered nurse float pool exam (general ) (routine ) w/o abn findings ;Recorde d Elsewher e: No Locat ion: [facility] S ource: EHR Combination Welder Apprentice christopher: N Practi ce ID: [id number] Velasquez lable Time: 09:30:00 AM Marium [place] [facility] 2 17:40:05 Imaging result equivoca l [id number] Completed 201811/15/2021 Dx imaging inconclu sive due to excess body fat of patient; Recorded Elsewher e: No Locat ion: [facility] S ource: EHR Combination Welder Apprentice christopher: N Practi ce ID: [id number] Velasquez lable Time: 05:00:00 PM Marium [place] [facility] 2 17:40:28 Irregula r periods [id number] Completed 201411/15/2021 Irregula r menstrua l cycle;Re corded Elsewher e: No Locat ion: Shawn beasley [facility] S ource: EHR Combination Welder Apprentice christopher: N Practi ce ID: [id number] Velasquez lable Time: 03:30:00 PM Marium [place] [facility] 2 17:40:22 Dysmenor marianela [id number] Completed 201311/15/2021 Dysmenor marianela;Rec orded Elsewher e: No Locat ion: [facility] S ource: EHR Combination Welder Apprentice christopher: N Practi ce ID: [id number] Velasquez lable Time: 02:00:00 PM Marium [facility] 2 17:40:45 Speciali zed medical examinat ion Completed 201211/15/2021 Gynecolo gical Examinat ion;Jerry rded Elsewher e: No [facility] S ource: EHR Combination Welder Apprentice christopher: N Practi ce ID: [id number] Velasquez lable Time: 10:30:00 AM Mariummone [place] [facility] 2 17:40:03 Pre-surg jo ann evaluati on Completed 201411/15/2021 Other specifie d pre-oper ative examinat ion;Jerry rded Elsewher e: No Locat ion: [facility] S ource: EHR Combination Welder Apprentice christopher: N Estebanti ce ID: [id number] Velasquez lable Time: 03:00:00 PM Marium [place] [facility] 2 17:40:[address] Concept Completed 201711/15/2021 Encntr for general adult medical exam w/o abnormal findings ;Recorde d Elsewher e: No Locat ion: [facility] S ource: EHR Combination Welder Apprentice christopher: N Practi ce ID: [id number] Velasquez lable Time: 09:30:00 AM Marium [facility] 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 2 17:40:30 Female infertil ity of tubal origin [id number] Completed 201411/15/2021 Infertil ity, female, of tubal origin;P ractice ID: [id number] Marium [place] [facility], [facility] 2 17:40:35 Pregnanc y [id number] Completed 202107/01/2022 Denise Naresh [facility], [facility] 4 15:19:45 In vitro fertiliz ation Completed No MFM needed. echo WASHU 02/15 WNL. antenata l testing at 36wks Arianna Marleybipinsaschavidaldevon ricketts [facility] 2 12:06:05 Recurren t miscarri age [id number] Completed 7 SAb Ariannaernesto ricketts [facility] 2 12:06:05 Bleeding hemorrho ids [id number] Completed referral to General surgery Arianna Marleybipinsaschavidaldevon ricketts [facility] 2 12:06:05 Hypothyr oidism [id number] Completed 75mcg. 02/15 TSH wnl. repeat 36w Arianna Ramirezvidaldevon ircketts [facility] 2 12:06:04 Tachycar maksim [id number] Completed 24 hour holter monitor and cardio consult pt cancelle d due to pilar bui s/s Arianna Belemsaschafarrukh ricketts [facility], [facility] 2 12:06:05 IVF - in-vitro fertiliz ation pregnanc y [id number] 2101 Completed 2021 Leidy Pickard MD [address], [place], [address], [facility] 2 17:27:15 Gestatio nal diabetes mellitus [id number] Completed diet teach 03/11, NPH 8u HS on 05/06 Arianna ricketts null, [facility] 2 12:06:05 Hypothyr oidism [id number] Active 75mcg. 02/15 TSH wnl. repeat 36w Arianna ricketts null, [facility] 2 12:06:04 Recurren t miscarri age 938987447 Active all first seth OLMOS MD [address], [place], [address], [facility] 4 11:14:10 Pruritic urticari al papules and plaques of pregnanc y [id number] Completed 2021 Arianna ricketts null, [facility] 2 12:06:05 Pregnanc y 87329941 Active 2023 Denise Infante null, [facility] 4 15:19:45 Deliveri es by [id number] Active To Repeat MIKE OLMOS MD [address], [place], [address], [facility] 4 11:14:01 Recurren t miscarri age 093284470 Active all first seth OLMOS MD [address], [place], [address], [facility] 4 11:14:10 Past pregnanc y history of gestatio nal diabetes mellitus 309094437 Active 2024 Tammy Ingram null, [facility] 5 13:51:03 Past pregnanc y history of gestatio nal diabetes mellitus 226258844 Active 2024 Tammy Ingram [facility], [facility] 13:51:03 Problem Notes None recorded. Procedures Surgical History Date Name Laterality Status Provider Name and Address Organization Details Recorded Time 05/07/20 23 Date of Last Pap Smear completed Denise Infante [facility] 07/30/2024 12:21:52 05/28/20 22 section completed Tammy Ingram [facility] 01/06/2025 13:27:22 10/20/19 22 in vitro fertilization completed Tammyjusten Ingram [facility] 01/06/2025 13:47:53 04/19/20 15 Laparoscopy completed Tammy Ingram [facility] 01/06/2025 13:25:45 01/19/20 08 Tonsillectomy completed Tammyjusten Ingram [facility] 01/06/2025 13:26:10 Imaging Results Imaging Date Name Status LastModified by Organiz ation Details LastModified Time 11/09/2024 US, obstetric, follow-up completed camille Carbajal [address], [place], [id number], 11/09/2024 17:42:21 11/09/2024 US, obstetric, follow-up completed [email or web address] [address], [place], [address], 11/10/2024 09:26:20 01/04/2025 US, obstetric, follow-up completed fernanda [place] [address], [place], [address], 01/04/2025 13:09:06 01/04/2025 US, obstetric, follow-up completed [address], [place], [address], 01/04/2025 18:47:10 Procedure Notes None recorded. Medical Equipment None Reported. Allergies No known drug allergies Medications Name Sig Start Date Stop Date Status Note LastModified by Organization Details LastModified Time fed-ex standard overnight THURS-FR I OV PT HOME NO SIG 12/10 completed Not Available Not Available Not Available relion insulin syringe/u -100/0.3m l/ 31g x 03/04 31g x 16 0.3 ml misc 06/07 completed Not Available [...] Prescrib kvng Moore e: No Locat ion: [facility] odify By: bill [email or web address] DateTime : 09/23/20 01:31:48 PM Not Available Not Available Not [...] completed Not Available Not Available Not Available ondansetr on 4 mg disintegr ating tablet DISSOLVE 1 TABLET IN MOUTH EVERY 6 HOURS NEEDED FOR NAUSEA AND VOMITING active Not Available Not Available No t Available fluticaso ne propionat e 50 mcg/actua tion nasal spray,nella pension USE 2 SPRAY(S) IN EACH NOSTRIL ONCE DAILY 05/07 completed Not Available Not Available Not Available BD Luer-Alejo Syringe 3 mL 22 x 1 2 USE DIRECTED [H.C.G. MEDICATI ON] 12/10 completed Not Available Not Available Not Available leuprolid e 1 mg/0.2 mL subcutane ous kit 12/10 completed Not Available Not Available Not Available Loestrin Fe 1.5/30 (28-Day) 1.5 mg-30 mcg (21)/75 mg (7) tablet take 1 tablet by oral route every day 12/10 [facility] odify By: [email or web address] Encounte r DateTime [...] Not Available Not Available Sprintec (28) 0.25 mg-0.035 mg tablet TAKE 1 TABLET BY MOUTH ONCE A DAY DIRECTED , TAKE ACTIVE PILLS ONLY 07/30 completed Not Available Not Available Not Available Vitamin D3 25 mcg (1,000 unit) tablet 12/10 completed Prescrib ed Elsew e: Yes Loca tion: Shawn beasley [facility] Heidi johns By: jeanette grijalva DateTime : 04/27/20 18 09:30:00 AM Not Available Not Available Not Available Ovidrel 250 mcg/0.5 mL subcutane ous syringe 12/10 completed Not Available Not Available Not Available Alcohol Prep Pads USE DIRECTED 12/10 completed Not Available Not Available Not Available BD Regular Bevel [place] 25 gauge x 1 10/21 USE DIRECTED [H.C.G. MEDICATI ON] 12/10 completed [...] and Address Organization Details Last Updated DateTime 12/07/2024 157.48 cm 31.5 kg/m2 41299.88 764 g 119 mm[Hg] 77 mm[Hg] Denise Infante [facility] 5 10:32:32 Date Recorded Body height Body mass index (BMI) Body weight Systolic blood pressure Diastolic blood pressure Provider Name and Address Organization Details Last Updated DateTime 12/21/2024 157.48 cm 32 kg/m2 51660.66 g 104 mm[Hg] 66 mm[Hg] [facility] 09:31:30 Date Recorded Body height Body mass index (BMI) Body weight Systolic blood pressure Diastolic blood pressure Provider Name and Address Organization Details Last Updated DateTime 01/04/2025 157.48 cm 32.4 kg/m2 02035.85 g 115 mm[Hg] 79 mm[Hg] Kayla [facility] 5 10:12:28 Date Recorded Body weight Body mass index (BMI) Body height Systolic blood pressure Diastolic blood pressure Provider Name and Address Organization Details Last Updated DateTime 01/18/2025 18839.62 66 g 32.9 kg/m2 157.48 cm 115 mm[Hg] 79 mm[Hg] GERMAINE Ram [facility] 10:22:49 Social History Question Answer Notes LastModified by Organizat ion Details LastModified Time Tobacco Smoking Status Never Smoker Denise Naresh thornton, [facility] 05/07/2023 17:43:06 Do You Have An [...] No Information not available 11/15/2021 Are You Currently Employed? Yes [email or web address] Information not available 01/04/2025 Are You Deaf Or Do You Have Serious Difficulty Hearing? No Information not available 11/15/2021 What Type Of Diet Are You Following? REGULAR Information not available 11/15/2021 What Is The Highest Grade Or Level Of School You Have Completed Or The Highest Degree You Have Received? 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 Yes Information not available 11/15/2021 Do You Use Protection During Sex? No Information not available 11/15/2021 Do You Use Your Seat Belt Or Car Seat Routinely? Yes Information not available 11/15/2021 Are You Sexually Active? Yes [email or web address] Information not available 01/04/2025 Do You Have Smoke And Carbon Monoxide Detectors In Your Home? Yes Information not available 11/15/2021 How Much Tobacco Do You Smoke? No Information not available 11/15/2021 Do You Feel Stressed (tense, Restless, Nervous, Or Anxious, Or Unable To Sleep At Night)? [id number] Information not available 11/15/2021 Do You Use Any Illicit Or Recreational Drugs? No Information not available 11/15/2021 Do You Use Sunscreen Routinely? No Information not available 11/15/2021 Have You Used IV Drugs? No Information not available 11/15/2021 Sex: Unknown Functional Status Question Answer Note LastModified by Organizat ion Details LastModified Time Do you have difficulty walking or climbing stairs? No [email or web address] Information not available 12/21/2024 Are you able to walk? [email or web address] Information not available 11/15/2021 Are you able to care for yourself? Yes [email or web address] Information not available 12/21/2024 Do you have difficulty dressing or bathing? No [email or web address] Information not available 12/21/2024 What is your exercise level? Occasional Information not available 11/15/2021 Mental Status None recorded. Family History Relationship Description Onset Age of this Age Resolved Age Notes LastModified by Organization Details LastModified Time Father Diabetes mellitus Not available 2021 17:47:49 Medical History Condition Response Allergies (Food, seasonal, environmental ) N Other Y Breast Cancer N Drug/Latex Allergies/Reactions N Blood Transfusion N Dermatologic Disorders N Lung Disease N Defects or Inherited Disease N Breast Problem N Gestational Diabetes Y Hematologic disorders N Anesthesia Complications N History of STI N Deep Vein Thrombosis N Polycystic ovary syndrome N Anxiety Disorder N Autoimmune disease N Arthritis N Infertility Y Polyps N Acid Reflux (GERD) Y History of abnormal pap N Cancer N Stroke N Varicosities N Neurologic/Epilepsy N Endometriosis Y High Cholesterol N Headaches N Fibromyalgia N Kidney Disease N Heart Problems N Kidney or Bladder Problems N Thyroid Problems Y GI Problems Y Eating Disorder N Anemia N Art (IVF or FET) Y Psychiatric Illness N Ovarian Cancer N Diabetes Y Pulmonary (TB, Asthma) N Hepatitis/Liver Disease N No Past Medical History N Eczema N Urinary Tract Infection N Abuse/Domestic Violence N Asthma N Trauma/Violence N Depression/ depression N Heart Disease N Pre-Eclampsia N Hypertension N Osteoporosis N Thrombophilias N Gynecological History Statement/Question Response Abnormal Pap N Flow Moderate Date of LMP 05/16/2024 N Was last [...] SNOMED-CT Code Diagnosis ICD10 Code Diagnosis Note [id number] [facility] [address] [address] 11/15/2021 16:44:49 11/15/2021 17:58:30 screening 637358185 Z36.82 [id number] Florentin Enamorado MD [place] [address],[place] [address] 11/15/2021 16:45:36 11/16/2021 09:30:30 Routine care 956796097 Z34.01 screening 2437 21427 Z36.89 [id number] [facility] [address],[place] [address] 12/10/2021 15:44:29 12/10/2021 16:32:12 [id number] Florentin Enamorado MD [place] [address],[facility] [place] [address] 12/10/2021 15:45:00 12/11/2021 14:12:03 Routine care 857635673 Z34.01 screening 2437 34961 Z36.89 [id number] Florentin Enamorado MD [place] [address],[place] [address] 01/07/2022 16:40:50 01/08/2022 13:36:15 Routine care 426619335 Z34.01 [id number] Chantel Jose [place] [address],[place] [address] 01/07/2022 16:41:09 01/07/2022 17:51:02 screening for malformation 833001064 Z36.3 [id number] Florentin Enamorado MD [place] [address],[place] [address] 02/15/2022 09:29:17 02/15/2022 10:15:50 Routine care 571637559 Z34.01 [id number] Leidy Pickard MD [place] [address],[place] [address] 03/04/2022 15:24:21 03/04/2022 18:04:08 Routine care 725383146 Z34.82 IVF - in-v itro fertilization 2493695088 2 O09.819 Tachycardia 5338866 R00. 0 [id number] Ruel Balbuena [place] [address],[place] [address] 03/11/2022 13:56:02 03/11/2022 15:19:25 Gestational diabetes mellitus class A1 82229238 O24.410 [id number] Leidy Pickard MD [place] [address],[place] [address] 03/20/2022 16:05:59 03/20/2022 18:28:40 Gestational diabetes mellitus 69841654 O24.410 IVF - in-v itro fertilization 8051049323 2101 O09.819 Hypothyroidism 34907386 E03.9 [id number] Leidy Pickard MD [place] [address],[place] [address] 04/01/2022 16:34:05 04/01/2022 17:27:17 Gestational diabetes mellitus 49693227 O24.410 Hypothyroidism 43370297 E03.9 IVF - in-v itro fertilization 0500691106 2102 O09.819 [id number] Florentin Enamorado MD [place] [address],[place] [address] 04/04/2022 15:52:05 04/05/2022 14:26:57 Gestational diabetes mellitus class A1 76540267 O24.410 [id number] Chantelportillo Jose [place] [address],[place] [address] 04/04/2022 15:52:22 04/04/2022 17:05:24 Gestational diabetes mellitus class A1 73355717 O24.410 O99.283 O09.813 Z3A.32 [id number] Leidy Pickard MD [place] [address],[place] [address] 04/08/2022 16:58:44 04/09/2022 15:47:40 Gestational diabetes mellitus 56291467 O24.410 [id number] Leidy Pickard MD [place] [address],[place] [address] 04/08/2022 16:59:04 04/09/2022 15:47:19 Gestational diabetes mellitus 86975827 O24.410 IVF - in-v itro fertilization 6379657135 2 O09.819 [id number] Ruel Balbuena [place] [address],[place] [address] 04/11/2022 16:18:02 04/11/2022 17:27:59 Gestational diabetes mellitus class A1 50405981 O24.410 [id number] Tammy Ingram [place] [address],[place] [address] 04/15/2022 16:14:48 04/15/2022 17:53:26 Gestational diabetes mellitus class A1 94535816 O24.410 [id number] Leidy Pickard MD [place] [address],[place] [address] 04/15/2022 16:16:49 04/16/2022 15:19:31 Gestational diabetes mellitus 97411737 O24.410 Hypothyroidism 13185761 E03.9 IVF - in-v itro fertilization 6816018213 2102 O09.819 [id number] [facility] [address],[place] [address] 04/18/2022 16:14:12 04/18/2022 17:01:14 Gestational diabetes mellitus class A1 62446123 O24.410 [id number] [facility] [address],[place] [address] 04/25/2022 16:19:53 04/25/2022 17:21:28 Gestational diabetes mellitus class A1 53221254 O24.410 [id number] Florentin Enamorado MD [place] [address],[place] [address] 04/25/2022 16:20:53 04/25/2022 17:52:39 Routine care 593355456 Z34.01 [id number] [facility] [address],[place] [address] 04/29/2022 16:21:01 04/29/2022 17:18:38 Gestational diabetes mellitus class A1 80343995 O24.410 [id number] Leidy Pickard MD [place] [address],[place] [address] 04/29/2022 16:21:40 04/30/2022 15:19:24 Gestational diabetes mellitus 05498970 O24.410 IVF - in-v itro fertilization 9544037746 2 O09.819 Hypothyroidism 81514101 E03.9 [id number] [facility] [address],[place] [address] 05/02/2022 16:18:37 05/02/2022 17:29:08 Gestational diabetes mellitus class A1 57804531 O24.410 [id number] Chantel Jose [place] [address],[place] [address] 05/02/2022 16:21:30 05/02/2022 17:54:58 Gestational diabetes mellitus class A1 94988426 O24.410 O09.813 Z3A.36 [id number] [facility] [address],[place] [address] 05/06/2022 16:22:32 05/06/2022 17:15:45 Gestational diabetes mellitus class A1 66607460 O24.410 O09.813 Z3A.36 [id number] Leidy Pickard MD [place] [address],[place] [address] 05/06/2022 16:51:26 05/06/2022 17:56:47 Gestational diabetes mellitus class A2 59085631 O24.414 Hypothyroidism 75673365 E03.9 In vitro fertilization 32587706 Z31.83 [id number] Tammy Ingram [place] [address],[place] [address] 05/09/2022 16:23:24 05/09/2022 17:27:21 Gestational diabetes mellitus class A1 09386354 O24.410 [id number] Florentin Enamorado MD [place] [address],[place] [address] 05/13/2022 16:48:59 05/13/2022 18:08:52 Routine care 547434172 Z34.01 [id number] [facility] [address],[place] [address] 05/16/2022 16:20:12 05/16/2022 17:09:09 Gestational diabetes mellitus class A1 33309299 O24.410 [id number] [facility] [address],[place] [address] 05/20/2022 16:22:34 05/20/2022 17:13:37 Gestational diabetes mellitus class A1 42107754 O24.410 O09.813 Z3A.36 [id number] Leidy Pickard MD [place] [address],[place] [address] 05/20/2022 16:23:15 05/21/2022 14:44:44 Gestational diabetes mellitus 51502589 O24.410 In vitro fertilization 69325294 Z31.83 [id number] [facility] [address],[place] [address] 05/23/2022 16:23:59 05/23/2022 17:21:40 Gestational diabetes mellitus class A1 18853772 O24.410 [id number] Leidy Pickard MD [place] [address],[place] [address] 06/07/2022 14:52:01 06/07/2022 15:53:38 Postoperative visit 289000471 Z09 Pruritic u rticarial papules and plaques of 48671958 O26.86 [id number] Leidy Pickard MD [place] [address],[place] [address] 06/26/2022 10:22:08 07/03/2022 15:17:55 care 332444974 Z39.2 Gestationa l diabetes mellitus 65026566 O24.410 Pruritic u rticarial papules and plaques of 45372694 O26.86 [id number] [facility]achelle Ken[facility] [address],[place] [address] 05/07/2023 17:33:56 05/07/2023 17:56:26 Gynecologic examination 43372752 Z01.419 Take Calcium with Vitamin D 1200mg [...] na Dexa Screen na Routine Labs PCP [id number] [facility] [address],[place] [address] 07/08/2024 12:39:11 07/08/2024 13:06:28 Uterine size for dates discrepancy 295734828 O26.841 Z3A.01 [id number] [facility] [address],[place] [address] 07/20/2024 13:47:13 07/20/2024 14:41:51 [id number] Florentin Enamorado MD [place] [address],[place] [address] 07/30/2024 11:59:37 07/30/2024 12:57:56 Amenorrhea 38465090 N91.2 this patient is a 34-year-ol d [...] of gestationa l diabetes, delivery for distress, [id number] [facility] [address],[place] [address] 08/16/2024 14:30:29 08/16/2024 15:04:26 screening 563449238 Z36.82 Z3A.12 [id number] Florentin Enamorado MD [place] [address],[place] [address] 08/16/2024 14:30:43 08/16/2024 16:07:29 Routine care 806852853 Z34.01 [id number] MIKE OLMOS MD [place] [address],[place] [address] 09/14/2024 10:43:16 09/14/2024 11:29:27 Uterine scar from previous surgery affecting 93961282 O34.29 - desires repeat c section Past pregn regan history of gestational diabetes mellitus 651122219 Z86.32 - early 1 hour at 20 weeks Gestation period, 16 weeks 85776242 Z3A.16 [id number] [facility] [address],[place] [address] 10/14/2024 16:44:29 10/15/2024 02:16:24 screening for malformation 625352123 Z36.3 Z3A.20 [id number] MIKE OLMOS MD [place] [address],[place] [address] 10/15/2024 13:48:46 10/15/2024 14:26:37 Impaired glucose tolerance in 995706805 O99.810 Uterine sc ar from previous surgery affecting 87107396 O34.29 - desires repeat c section Gestation period, 21 weeks 24987140 Z3A.21 [id number] [facility] [address],[place] [address] 11/09/2024 11:35:07 11/09/2024 12:24:12 screening 695999400 Z36.2 Z3A.24 [id number] MIKE OLMOS MD [place] [address],[place] [address] 11/09/2024 11:35:25 11/09/2024 12:37:27 Uterine scar from previous surgery affecting 92289485 O34.29 - desires repeat c section Past pregn regan history of gestational diabetes mellitus 619361569 Z86.32 - failed early 1 hour at 20 weeks, passed 3h GTT at 22 weeks- repeat at 28 weeks Gestation period, 24 weeks 113451627 Z3A.24 [id number] MIKE OLMOS MD [place] [address],[place] [address] 12/07/2024 10:23:39 12/07/2024 10:57:44 Uterine scar from previous surgery affecting 56904914 O34.29 - desires repeat c section Past pregn regan history of gestational diabetes mellitus 404114046 Z86.32 - failed early 1 hour at 20 weeks, passed 3h GTT at 22 weeks- repeat at 28 weeks Gestation period, 28 weeks 38439837 Z3A.28 - 1h GCT today- continue PNV- discussed tdap [id number] MIKE OLMOS MD [place] [address],[place] [address] 12/21/2024 09:20:46 12/21/2024 09:52:14 Uterine scar from previous surgery affecting 17211003 O34.29 - desires repeat c section Gestation period, 30 weeks 48197737 Z3A.30 - continue PNV [id number] Chantel Jose [place] [address],[place] [address] 01/04/2025 09:35:03 01/04/2025 10:20:42 Malpresentation of fetus 23371946 O32.9XX0 Z03.74 Z3A.32 [id number] MIKE OLMOS MD [place] [address],[place] [address] 01/04/2025 09:36:05 01/04/2025 10:57:25 Uterine scar from previous surgery affecting 25967197 O34.29 - desires repeat c section Hypothyroidism 07111199 E03.9 - repeat TSH at 36 weeks IVF - in-v itro fertilization 2098946789 2102 O09.819 - will start weekly testing at 36 weeks [id number] MIKE OLMOS MD [place] [address],[place] [address] 01/18/2025 10:17:14 01/18/2025 10:38:44 Routine care 982444539 Z34.83 Health Concerns Section Related Observation LastModified by Organization Detai ls LastModified Time None Recorded Concern Status LastModified by Organization Details LastModified Time None Recorded Advance Directives Directive N: Payers Encounter Date Sequence Insurance Name Policy Number Policy [place] Covered Member ID [place] Member ID Guarantor Name 12/07/2024 1 [place] [id number] Tiffanie Lomas [id number] 24 Tiffanie Lomas 12/21/2024 1 [place] [id number] Tiffanie Lomas [id number] Tiffanie Lomas 01/04/2025 1 [place] [id number] Tiffanie Lomas [id number] Tiffanie Lomas 01/04/2025 1 [place] [id number] Tiffanie Lomas [id number] Tiffanie Lomas 01/18/2025 1 [place] [id number] Tiffanie Lomas [id number] Tiffanie Lomas OBGyn Episode Ob Episode Information Episode Created Date Number of Fetuses Patient Bloodtype Patient rh Status Prepregnancy Weight lbs Domestic Partner Domestic Partner Phone Father Name Oracle Brm Developer Status 11/15/19 22 1 A Positive CLOSED Fetus Data First Name Last Name Admitted to NICU Weight (g) Sex Living Outcome Pediatric Complications Fetus ID Race Codes Race Delivery Type Everet t 3486.98 85 M true Full Term [id number] Primary Problems Problem Notes dates provided by Lonny aleman 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 02/15 TSH wnl. repeat 36w In vitro fertilization 6325753 5 No MFM needed. echo WASHU 02/15 WNL. 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 SAb Tachycardia 6937488 24 hour holter monitor and cardio consult pt cancelled due to improving s/s Bleeding hemorrhoids 05118492 referral to General surgery Gestational diabetes mellitus 08781886 diet teach 03/11 , NPH 8u HS on 05/06 Pruritic urticarial papules and plaques of 06/07/2022 [id number] Kashif Calculation Initial Kashif Date Initial Exam [...] Gestation 0 [email or web address] 11/15/2021 05/30/20 22 0 Pre- Flowsheet Flowsheet Date 11/15/2021 Lam Score Blood Edema Fundus Height Fundus Units Glucose Ketones Leukocytes Nitrite Labor Signs Protein Cervic Dilation Cervic Effacement Cervic Station 12 Type Weight in lbs Pre/Post Dialysis Refused Weight 153.353328078453 BP Diastolic BP Location Tested BP Systolic [...] Weight in lbs Pre/Post Dialysis Refused Weight 157.094448825154 BP Diastolic BP Location Tested BP Systolic [...] Weight in lbs Pre/Post Dialysis Refused Weight 160.721100691675 BP Diastolic BP Location Tested BP Systolic [...] Weight in lbs Pre/Post Dialysis Refused Weight 165.669835916869 BP Diastolic BP Location Tested BP Systolic [...] Weight in lbs Pre/Post Dialysis Refused Weight 174.61340277012 BP Diastolic BP Location Tested BP Systolic [...] Weight in lbs Pre/Post Dialysis Refused Weight 175.081243029269 BP Diastolic BP Location Tested BP Systolic [...] Weight in lbs Pre/Post Dialysis Refused Weight 174.30125391585 BP Diastolic BP Location Tested BP Systolic [...] Weight in lbs Pre/Post Dialysis Refused Weight 175.796384903258 BP Diastolic BP Location Tested BP Systolic [...] Weight in lbs Pre/Post Dialysis Refused Weight 179.027480958649 BP Diastolic BP Location Tested BP Systolic BP Type 78 123 Fetus Heart Rate Present Fetus Movement Comments Flowsheet Date 04/15/2022 Lam Score Blood Edema Fundus Height Fundus Units Glucose Ketones Leukocytes Nitrite Labor Signs Protein Cervic Dilation Cervic Effacement Cervic Station neg trace 34 none trace Type Weight in lbs Pre/Post Dialysis Refused Weight 179.551089799777 BP Diastolic BP Location Tested BP Systolic [...] Weight in lbs Pre/Post Dialysis Refused Weight 185.430665777765 BP Diastolic BP Location Tested BP Systolic [...] Weight in lbs Pre/Post Dialysis Refused Weight 184.135919407506 BP Diastolic BP Location Tested BP Systolic [...] Weight in lbs Pre/Post Dialysis Refused Weight 183.612714374481 BP Diastolic BP Location Tested BP Systolic [...] Present Fetus Movement Comments Flowsheet Date 05/13/2022 Lma Score Blood Edema Fundus Height Fundus Units [...] Weight in lbs Pre/Post Dialysis Refused Weight 182.223637583838 BP Diastolic BP Location Tested BP Systolic [...] Weight in lbs Pre/Post Dialysis Refused Weight 183.728510792439 BP Diastolic BP Location Tested BP Systolic [...] Weight in lbs Pre/Post Dialysis Refused Weight 154.217916952428 BP Diastolic BP Location Tested BP Systolic BP Type 75 114 Fetus Heart Rate Present Fetus Movement Comments Flowsheet Date 06/26/2022 Lam Score Blood Edema Fundus Height Fundus Units Glucose Ketones Leukocytes Nitrite Labor Signs Protein Cervic Dilation Cervic Effacement Cervic Station Type Weight in lbs Pre/Post Dialysis Refused Weight 157.592405475876 BP Diastolic BP Location Tested BP Systolic [...] Estim ated Date of Delivery false Thalassemia (Romansh, Slovenian, Mediterranean, Or Background): MCV < 80 false Neural Tube Defect (Meningomyelocele, Spina Bifi da, Or Anencephaly) false Congenital Heart Defect false Down Syndrome false Alpesh-Sachs (eg, Mandaen, Cajun, Sammarinese-[place]) f alse Oma Disease false Sickle Cell Disease Or Trait () false Hemophilia Or Other Blood Disorders false Muscular Dystrophy false Cystic Fibrosis false Cambridge's Chorea false Intellectual Disability/Autism false If Yes, [...] Domestic Partner Domestic Partner Phone Father Name Oracle Brm Developer Status 01/07/20 25 1 CLOSED Fetus Data First Name Last Name Admitted to NICU Weight (g) Sex Living Outcome Pediatric Complications Fetus ID Race Codes Race Delivery Type , Spontane ous 44582 Kashif Calculation Initial Kashif Date Initial Exam Date Initial Exam Provider Initial Ultrasound Date Last Menstrual Period Date Ultra Sound Weeks Gestation 0 Eighteen To Twenty Week Kashif Update Ultra Sound Date Fundal Height At Umbil Quickening Date Ultra Sound Latest Weeks Gestation Final Kashif Confirmed By Final Kashif Confirmed Date Final Kashif Date Ultra Sound Latest Days Gestation 0 0 Menstrual History Last Menstrual Date Menses Monthly On Bcp Conception Prior Menses Frequency Hcg Plus Date Menarche Onset Age Delivery Information Delivery Date Delivery Type Labor Anesthesia Weeks Gestation Incision Type Labor Labor Length Hrs Delivered By Post Complications Tubal Sterilization Discharge Date Comments 5 Discharge Information Feeding Method Contraceptive Method Maternal HG B and HCT Levels Ob Episode Information Episode Created Date Number of Fetuses Patient Bloodtype Patient rh Status Prepregnancy Weight lbs Domestic Partner Domestic Partner Phone Father Name Oracle Brm Developer Status 01/07/20 25 1 CLOSED Fetus Data First Name Last Name Admitted to NICU Weight (g) Sex Living Outcome Pediatric Complications Fetus ID Race Codes Race Delivery Type , Spontane ous [id number] Kashif Calculation Initial Kashif Date Initial Exam Date Initial Exam Provider Initial Ultrasound Date Last Menstrual Period Date Ultra Sound Weeks Gestation 0 Eighteen To Twenty Week Kashif Update Ultra Sound Date Fundal Height At Umbil Quickening Date Ultra Sound Latest Weeks Gestation Final Kashif Confirmed By Final Kashif Confirmed Date Final Kashif Date Ultra Sound Latest Days Gestation 0 0 Menstrual History Last Menstrual Date Menses Monthly On Bcp Conception Prior Menses Frequency Hcg Plus Date Menarche Onset Age Delivery Information Delivery Date Delivery Type Labor Anesthesia Weeks Gestation Incision Type Labor Labor Length Hrs Delivered By Post Complications Tubal Sterilization Discharge Date Comments 4 Discharge Information Feeding Method Contraceptive Method Maternal HG B and HCT Levels Ob Episode Information Episode Created Date Number of Fetuses Patient Bloodtype Patient rh Status Prepregnancy Weight lbs Domestic Partner Domestic Partner Phone Father Name Oracle Brm Developer Status 08/16/20 24 1 A Positive 161 Raymundo OPEN Fetus Data First Name Last Name Admitted to NICU Weight (g) Sex Living Outcome Pediatric Complications Fetus ID Race Codes Race Delivery Type [id number] Problems Problem Notes growth/presentation us at 32 wkshypothyroidism Problem Name Start Date End Date Resolution Snomed Code Not e Deliveries by 04 To Repeat Recurrent miscarriage [id number] 1 all first trimester Past history of gestational diabetes mellitus 01/06/2025 [id number] Kashif Calculation Initial Kashif Date Initial Exam [...] Weight in lbs Pre/Post Dialysis Refused Weight 161.756210419362 BP Diastolic BP Location Tested BP Systolic [...] Type Weight in lbs Pre/Post Dialysis Refused 162.716819282875 BP Diastolic BP Location Tested BP Systolic [...] Type Weight in lbs Pre/Post Dialysis Refused 166.963856126850 BP Diastolic BP Location Tested BP Systolic [...] Type Weight in lbs Pre/Post Dialysis Refused 169.245539161807 BP Diastolic BP Location Tested BP Systolic [...] weeks for breech presentation. RTC 4 weeks. Flowsheet Date 12/07/2024 Lam Score Blood Edema Fundus Height Fundus Units Glucose Ketones Leukocytes Nitrite Labor Signs Protein Cervic Dilation Cervic Effacement Cervic Station Type Weight in lbs Pre/Post Dialysis Refused 172.631654445729 BP Diastolic BP Location Tested BP Systolic BP Type 77 L arm 119 sitting Fetus Heart Rate Present A 140 Fetus Movement A Yes Comments Good movement. No cram ping or bleeding. No problems since last visit. 1h GCT today. Repeat US at 32 weeks. Discussed tdap vaccine. RTC 2 weeks. Flowsheet Date 12/21/2024 Lam Score Blood Edema Fundus Height Fundus Units Glucose Ketones Leukocytes Nitrite Labor Signs Protein Cervic Dilation Cervic Effacement Cervic Station neg none Type Weight in lbs Pre/Post Dialysis Refused Weight 175.220965329255 BP Diastolic BP Location Tested BP Systolic BP Type 66 L arm 104 sitting Fetus Heart Rate Present Fetus Movement A Yes Comments Baby active, no cramping or bleeding. Passed GCT, normal Hgb. Plan for repeat growth next visit. Has not received tdap yet, will schedule. Discussed RCS timing, 02/18 or after. RTC 2 weeks. Flowsheet Date 01/04/2025 Lam Score Blood Edema Fundus Height Fundus Units Glucose Ketones Leukocytes Nitrite Labor Signs Protein Cervic Dilation Cervic Effacement Cervic Station Type Weight in lbs Pre/Post Dialysis Refused BP Diastolic BP Location Tested BP Systolic BP Type Fetus Heart Rate Present Fetus Movement Comments Flowsheet Date 01/04/2025 Lam Score Blood Edema Fundus Height Fundus Units Glucose Ketones Leukocytes Nitrite Labor Signs Protein Cervic Dilation Cervic Effacement Cervic Station neg none Type Weight in lbs Pre/Post Dialysis Refused Weight 177.119584659347 BP Diastolic BP Location Tested BP Systolic BP Type 79 L arm 115 sitting Fetus Heart Rate Present A Present Fetus Movement A Yes Comments Patient c/o sharp lower pain s in the morning, states not consistent. C/w round ligament pain. No bleeding or LOF. Would like RCS 02/21. Will schedule with SB. EFW 50%, vertex, normal fluid. Discussed preadmission. RTC 2 weeks. Flowsheet Date 01/18/2025 Lam Score Blood Edema Fundus Height Fundus Units Glucose Ketones Leukocytes Nitrite Labor Signs Protein Cervic Dilation Cervic Effacement Cervic Station neg trace Type Weight in lbs Pre/Post Dialysis Refused 180.879953222884 BP Diastolic BP Location Tested BP Systolic BP Type 79 L arm 115 sitting Fetus Heart Rate Present A 135 Fetus Movement A Yes Comments Good movement. No cram ping or bleeding. Leg cramping improved with magnesium and B12. Preadmission scheduled. RTC 2 weeks. Menstrual History Last Menstrual Date Menses Monthly On Bcp Conception Prior Menses Frequency Hcg Plus Date Menarche Onset Age 0705/16/2024 true Delivery Information Delivery Date Delivery Type Labor Anesthesia Weeks Gestation Incision Type Labor Labor Length Hrs Delivered By Post Complications Tubal Sterilization Discharge Date Comments Discharge Information Feeding Method Contraceptive Method Maternal HG B and HCT Levels Ob Episode Information Episode Created Date Number of Fetuses Patient Bloodtype Patient rh Status Prepregnancy Weight lbs Domestic Partner Domestic Partner Phone Father Name Oracle Brm Developer Status 01/07/20 25 1 CLOSED Fetus Data First Name Last Name Admitted to NICU Weight (g) Sex Living Outcome Pediatric Complications Fetus ID Race Codes Race Delivery Type , Spontane ous [id number] Kashif Calculation Initial Kashif Date Initial Exam Date Initial Exam Provider Initial Ultrasound Date Last Menstrual Period Date Ultra Sound Weeks Gestation 0 Eighteen To Twenty Week Kashif Update Ultra Sound Date Fundal Height At Umbil Quickening Date Ultra Sound Latest Weeks Gestation Final Kashif Confirmed By Final Kashif Confirmed Date Final Kashif Date Ultra Sound Latest Days Gestation 0 0 Menstrual History Last Menstrual Date Menses Monthly On Bcp Conception Prior Menses Frequency Hcg Plus Date Menarche Onset Age Delivery Information Delivery Date Delivery Type Labor Anesthesia Weeks Gestation Incision Type Labor Labor Length Hrs Delivered By Post Complications Tubal Sterilization Discharge Date Comments 3 Discharge Information Feeding Method Contraceptive Method Maternal HG B and HCT Levels Ob Episode Information Episode Created Date Number of Fetuses Patient Bloodtype Patient rh Status Prepregnancy Weight lbs Domestic Partner Domestic Partner Phone Father Name Oracle Brm Developer Status 01/07/20 1 CLOSED Fetus Data First Name Last Name Admitted to NICU Weight (g) Sex Living Outcome Pediatric Complications Fetus ID Race Codes Race Delivery Type , Spontane ous [id number] Kashif Calculation Initial Kashif Date Initial Exam Date Initial Exam Provider Initial Ultrasound Date Last Menstrual Period Date Ultra Sound Weeks Gestation 0 Eighteen To Twenty Week Kashif Update Ultra Sound Date Fundal Height At Umbil Quickening Date Ultra Sound Latest Weeks Gestation Final Kashif Confirmed By Final Kashif Confirmed Date Final Kashif Date Ultra Sound Latest Days Gestation 0 0 Menstrual History Last Menstrual Date Menses Monthly On Bcp Conception Prior Menses Frequency Hcg Plus Date Menarche Onset Age Delivery Information Delivery Date Delivery Type Labor Anesthesia Weeks Gestation Incision Type Labor Labor Length Hrs Delivered By Post Complications Tubal Sterilization Discharge Date Comments 6 Discharge Information Feeding Method Contraceptive Method Maternal HG B and HCT Levels Ob Episode Information Episode Created Date Number of Fetuses Patient Bloodtype Patient rh Status Prepregnancy Weight lbs Domestic Partner Domestic Partner Phone Father Name Oracle Brm Developer Status 01/07/20 1 CLOSED Fetus Data First Name Last Name Admitted to NICU Weight (g) Sex Living Outcome Pediatric Complications Fetus ID Race Codes Race Delivery Type , Spontane ous [id number] Kashif Calculation Initial Kashif Date Initial Exam Date Initial Exam Provider Initial Ultrasound Date Last Menstrual Period Date Ultra Sound Weeks Gestation 0 Eighteen To Twenty Week Kashif Update Ultra Sound Date Fundal Height At Umbil Quickening Date Ultra Sound Latest Weeks Gestation Final Kashif Confirmed By Final Kashif Confirmed Date Final Kashif Date Ultra Sound Latest Days Gestation 0 0 Menstrual History Last Menstrual Date Menses Monthly On Bcp Conception Prior Menses Frequency Hcg Plus Date Menarche Onset Age Delivery Information Delivery Date Delivery Type Labor Anesthesia Weeks Gestation Incision Type Labor Labor Length Hrs Delivered By Post Complications Tubal Sterilization Discharge Date Comments 6 Discharge Information Feeding Method Contraceptive Method Maternal HG B and HCT Levels Ob Episode Information Episode Created Date Number of Fetuses Patient Bloodtype Patient rh Status Prepregnancy Weight lbs Domestic Partner Domestic Partner Phone Father Name Oracle Brm Developer Status 01/07/20 1 CLOSED Fetus Data First Name Last Name Admitted to NICU Weight (g) Sex Living Outcome Pediatric Complications Fetus ID Race Codes Race Delivery Type , Spontane ous 80013 Kashif Calculation Initial Kashif Date Initial Exam Date Initial Exam Provider Initial Ultrasound Date Last Menstrual Period Date Ultra Sound Weeks Gestation 0 Eighteen To Twenty Week Kashif Update Ultra Sound Date Fundal Height At Umbil Quickening Date Ultra Sound Latest Weeks Gestation Final Kashif Confirmed By Final Kashif Confirmed Date Final Kashif Date Ultra Sound Latest Days Gestation 0 0 Menstrual History Last Menstrual Date Menses Monthly On Bcp Conception Prior Menses Frequency Hcg Plus Date Menarche Onset Age Delivery Information Delivery Date Delivery Type Labor Anesthesia Weeks Gestation Incision Type Labor Labor Length Hrs Delivered By Post Complications Tubal Sterilization Discharge Date Comments 5 Discharge Information Feeding Method Contraceptive Method Maternal HG B and HCT Levels Ob Episode Information Episode Created Date Number of Fetuses Patient Bloodtype Patient rh Status Prepregnancy Weight lbs Domestic Partner Domestic Partner Phone Father Name Oracle Brm Developer Status 01/07/20 25 1 CLOSED Fetus Data First Name Last Name Admitted to NICU Weight (g) Sex Living Outcome Pediatric Complications Fetus ID Race Codes Race Delivery Type , Spontane ous 46384 Kashif Calculation Initial Kashif Date Initial Exam Date Initial Exam Provider Initial Ultrasound Date Last Menstrual Period Date Ultra Sound Weeks Gestation 0 Eighteen To Twenty Week Kashif Update Ultra Sound Date Fundal Height At Umbil Quickening Date Ultra Sound Latest Weeks Gestation Final Kashif Confirmed By Final Kashif Confirmed Date Final Kashif Date Ultra Sound Latest Days Gestation 0 0 Menstrual History Last Menstrual Date Menses Monthly On Bcp Conception Prior Menses Frequency Hcg Plus Date Menarche Onset Age Delivery Information Delivery Date Delivery Type Labor Anesthesia Weeks Gestation Incision Type Labor Labor Length Hrs Delivered By Post Complications Tubal Sterilization Discharge Date Comments 9 Discharge Information Feeding Method Contraceptive Method Maternal HG B and HCT Levels
--- OUTSIDE RECORDS SUMMARY | 2025-01-27 20:51 | XMS_ITS | Encounter Summary ---
Author Organization [facility] Address [address] [place] [address] Care Team Providers Care Wound Care Rn Name Role Phone Rina Macdonald NP Primary Care Provider [phone] Encounter Details Date Type Department Care Team (Late st Contact Info) Description 12/24/2022 [email or web address] Message Enc [facility] Family [facility] - [place] [address] [facility] [address] [place] [address] [phone] Rina Macdonald, CONCRETE SWIMMING POOL INSTALLER [address] [place] [address] Question regarding CBC W/DIFF AUTOMATED Social History [...] Coronavirus/COVID-19? No / Unsure 12/24/2022 7:01 AM BUSINESS AND MARKETING TEACHER documented as of this encounter Plan of Treatment Not on file documented as of this encounter Visit Diagnoses Not on filedocumented in this encounter Additional Health Concerns Assessment Noted Time PHQ-9 Depression Total Score: 0 07/02/20 2:04 PM CDT documented as of this encounter Care Teams Wound Care Rn Relationship Specialty Start Date End Date Rina Macdonald NP [address] [place] [address] PCP - General NURSE PRACTITIONER 06/26/21 documented as of this encounter
[2025-01-27] MEDS: LACTATED RINGERS 1,000 ML 999 ML IV CONT (21:18)
[2025-01-27] MEDS: ONDANSETRON INJ 4 MG/2 ML VIAL IV PUSH (21:19)
--- NOTE | 2025-01-27 21:24 | OBADM ---
This patient, Tiffanie Lomas, admitted to the OB room Labor/Delivery/Recovery 118 for observation. Patient/family oriented to hospital policies and general routines including ID bracelet, bed and alarms, visiting hours, pain management, procedures, bathroom and other care routines, personal items, smoking policy, room service/diet, and visiting hours. Patient/Family are encouraged to report perceived risks to care and to ask questions if they do not understand what they are told or what they should do.
--- NOTE | 2025-02-16 09:42 | PM.OBTRLD ---
OB - Triage/Final Diagnosis Visit Information Comments/Additional reasons for admission: I have assessed the risk for this patient, Tiffanie Lomas, and determined that she would benefit from observation care. Final Diagnosis (1) Decreased movement: Code(s): O36.8190 - Decreased movements, unspecified trimester, not applicable or unspecified Status: Acute
== END 2025-01-27 23:22 | disposition home or self-care (01) ==
PROVIDERS: Admitting Provider Obstetrics & Gynecology; PCP Nurse Practitioner; Visit Provider Obstetrics & Gynecology
DX: O36.8130 Decreased fetal movements, third trimester, not applicable or unspecified (principal); Z3A.35 35 weeks gestation of pregnancy
CPT/HCPCS: 76819; 96374; G0378; G0379; J2405; J7120

== ENCOUNTER 2025-02-21 11:10 | Outpatient (CLI) | payer BC, SELFPAY ==
[2025-02-21 11:34] LABS: Hematocrit 33.4 % (37.0-47.0); Hemoglobin 10.5 g/dL (12.0-15.0); Mean Corpuscular HGB Conc 31.4 g/dl (32-36); Mean Corpuscular Hemoglobin 30.3 pg (26-34); Mean Corpuscular Volume 96.3 fl (80-100); Mean Platelet Volume 10.5 fl (7.4-10.4); Platelet Count Result 228 k/mm3 (150-375); Red Blood Count 3.47 M/mm3 (4.2-5.4); Red Cell Distribution Width 17.1 % (11.5-14.5); White Blood Count 6.9 K/mm3 (4.5-10.0)
--- OUTSIDE RECORDS SUMMARY | 2025-02-21 12:04 | XMS_ITS | Encounter Summary ---
Author Organization [facility] Address [address] [place] [address] Care Team Providers Care Manual Control Auger Press Operator Name Role Phone Simon Turner MD Primary Care Provider [phone] Encounter Details Date Type Department Care Team (Late st Contact Info) Description 09/28/2021 Lab Requisition [facility] [address] [place] [address] Debbie Huang MD Social History Tobacco Use Types Packs/Day Years Used Date Smoking Tobacco: Every Day Smokeless Tobacco: Never Comments Unknown Sex and Gender Information Value Date Recorded Sex Assigned at Not on file Legal Sex Female 7:02 AM HANDER IN Gender Identity Not on file Sexual Orientation Not on file documented as of this encounter Plan of Treatment Not on file documented as of this encounter Procedures Procedure Name Priority Date/Time Associated Diagnosis Comments HCG BETA BLOOD QUANTITATIVE STAT 09/28/2021 11:42 AM HANDER IN documented in this encounter Results * HCG BETA BLOOD QUANTITATIVE (09/28/2021 11:42 AM HANDER IN) hCG Quantitative 3,781.48 mIU/mL 09/28/20 4:49 PM HANDER IN [facility] Blood BLOOD SPECIMEN / Unknown Venipuncture / Unknown 09/28/2021 11:42 AM HANDER IN 09/28/2021 3:40 PM HANDER IN Narrative [facility] - 09/28/2021 4:49 PM HANDER IN hCG Reference Range, mIU/mL: Males 0-2.0 Non [...] unlikely. Debbie Huang MD LAB - CHEMISTRY ORDERABLES Final Result [facility] [address] [place] [address] documented in this encounter Visit Diagnoses Not on filedocumented in this encounter Care Teams Manual Control Auger Press Operator Relationship Specialty Start Date End Date Simon Turner MD [address] [place] [id number] PCP - General 05/30/22 documented as of this encounter
--- OUTSIDE RECORDS SUMMARY | 2025-02-21 12:04 | XMS_ITS | Encounter Summary ---
Author Organization [facility] Address [address] [facility] [place] [address] Care Team Providers Care Paint Spray Tender Name Role Phone Simon Turner MD Primary Care Provider [phone] Encounter Details Date Type Department Care Team (Late st Contact Info) Description 10/02/2018 Lab Requisition [facility] [address] [place] [address] Rajat Burch MD [address] [facility] [address] [place] [address] Social History Tobacco Use Types Packs/Day Years Used Date Smoking Tobacco: Every Day Smokeless Tobacco: Never Comments Unknown Sex and Gender Information Value Date Recorded Sex Assigned at Not on file Legal Sex Female 7:02 AM CAUSTIC STRENGTH INSPECTOR Gender Identity Not on file Sexual Orientation Not on file documented as of this encounter Plan of Treatment Not on file documented as of this encounter Procedures Procedure Name Priority Date/Time Associated Diagnosis Comments HCG BETA BLOOD QUANTITATIVE STAT 10/02/2018 7:36 AM CAUSTIC STRENGTH INSPECTOR documented in this encounter Results * HCG BETA BLOOD QUANTITATIVE (10/02/2018 7:36 AM CAUSTIC STRENGTH INSPECTOR) hCG Quantitative 50 mIU/mL 10/02/20 10:20 AM CAUSTIC STRENGTH INSPECTOR [facility] Blood BLOOD SPECIMEN / Unknown Venipuncture / Unknown 10/02/2018 7:36 AM CAUSTIC STRENGTH INSPECTOR 10/02/2018 9:58 AM CAUSTIC STRENGTH INSPECTOR Narrative [facility] - 10/02/2018 10:20 AM CAUSTIC STRENGTH INSPECTOR hCG Reference Range, mIU/mL: Males 0-2.0 Non [...] a serum FSH >20 IU/L makes unlikely. us Rajat Burch MD LAB - CHEMISTRY ORDERABLES [facility] al Result [facility] [address] [place], [place] [id number] documented in this encounter Visit Diagnoses Not on filedocumented in this encounter Care Teams Paint Spray Tender Relationship Specialty Start Date End Date Simon Turner MD [address] [place] [id number] PCP - General 05/30/22 documented as of this encounter
--- OUTSIDE RECORDS SUMMARY | 2025-02-21 12:04 | XMS_ITS | Encounter Summary ---
Author Organization [facility] Address [address] [facility] [place] [address] Care Team Providers Care Mat Cleaning Machine Operator Name Role Phone Simon Turner MD Primary Care Provider [phone] Encounter Details Date Type Department Care Team (Late st Contact Info) Description 09/21/2021 Lab Requisition [facility] [address] [place] [address] Debbie Huang MD Social History Tobacco Use Types Packs/Day Years Used Date Smoking Tobacco: Every Day Smokeless Tobacco: Never Comments Unknown Sex and Gender Information Value Date Recorded Sex Assigned at Not on file Legal Sex Female 7:02 AM HAZARDOUS MATERIALS ANALYST Gender Identity Not on file Sexual Orientation Not on file documented as of this encounter Plan of Treatment Not on file documented as of this encounter Procedures Procedure Name Priority Date/Time Associated Diagnosis Comments HCG BETA BLOOD QUANTITATIVE STAT 09/21/2021 2:58 PM HAZARDOUS MATERIALS ANALYST documented in this encounter Results * HCG BETA BLOOD QUANTITATIVE (09/21/2021 2:58 PM HAZARDOUS MATERIALS ANALYST) hCG Quantitative 217.87 mIU/mL 09/21/20 4:12 PM HAZARDOUS MATERIALS ANALYST [facility] Blood BLOOD SPECIMEN / Unknown Venipuncture / Unknown 09/21/2021 2:58 PM HAZARDOUS MATERIALS ANALYST 09/21/2021 3:36 PM HAZARDOUS MATERIALS ANALYST Narrative [facility] - 09/21/2021 4:12 PM HAZARDOUS MATERIALS ANALYST hCG Reference Range, mIU/mL: Males 0-2.0 Non [...] MD LAB - CHEMISTRY ORDERABLES Final Result [facility] [address] [place] [address] documented in this encounter Visit Diagnoses Not on filedocumented in this encounter Care Teams Mat Cleaning Machine Operator Relationship Specialty Start Date End Date Simon Turner MD [address] [place] [address] PCP - General 05/30/22 documented as of this encounter
--- OUTSIDE RECORDS SUMMARY | 2025-02-21 12:04 | XMS_ITS | Clinical Summary ---
Author Organization [facility] Address [address] [facility] [place] [address] Care Team Providers Care Solar Photovoltaic Crew Lead Name Role Phone Simon Turner MD Primary Care Provider [phone] Source Comments [facility],non-owned Affiliates and Associated Physician Practices is amultiple site organization consisting of ambulatory clinics and hospital sitesin [place], [place], [place] and [place]. This disclosure is being madepursuant to the Care Everywhere program and may not contain all information available regarding this patient. Last updated 18[employer] Allergies No known active allergies Medications * Be aware that medications may not be up to date on this document. Alwaysverify current medications with the patient. benzonatate (TESSALON) 200 MG capsuleIndications:A cute nasopharyngitis (common cold) Take 1 capsule by mouth 3 times daily as needed for Cough 30 capsule 8 Active Social History Tobacco Use Types Packs/Day Years Used Date Smoking Tobacco: Every Day Smokeless Tobacco: Never Comments Unknown Sex and Gender Information Value Date Recorded Sex Assigned at Not on file Legal Sex Female 7:02 AM AUTO DAMAGE ADJUSTER Gender Identity Not on file Sexual Orientation Not on file Last Filed Vital Signs Vital Sign Reading Time Taken Comments Blood Pressure 98/76 10/30/2017 2:32 PM AUTO DAMAGE ADJUSTER Pulse 85 10/30/2017 2:32 PM AUTO DAMAGE ADJUSTER Temperature 36.5 C (97.7 F) 10/30/2017 2:32 PM AUTO DAMAGE ADJUSTER Respiratory Rate 16 10/30/2017 2:32 PM AUTO DAMAGE ADJUSTER Oxygen Saturation 99% 10/30/2017 2:32 PM AUTO DAMAGE ADJUSTER Inhaled Oxygen Concentration - - Weight 59 kg (130 lb) 10/30/2017 2:32 PM AUTO DAMAGE ADJUSTER Height 157.5 cm (5' 2 ) 10/30/2017 2:32 PM AUTO DAMAGE ADJUSTER Body Mass Index 23.78 10/30/2017 2:32 PM AUTO DAMAGE ADJUSTER Plan of Treatment Health Maintenance Due Date Last Done Comments HIV SCREENING 2004 HEPATITIS C SCREENING 03/02/2007 DTAP/TDAP/TD VACCINES (1 - Tdap) 2008 HEPATITIS B VACCINE (1 of 3 - 19+ 3-dose series) 2008 COVID-19 VACCINE ( - 2023-2 5 season) 2024 DEPRESSION SCREENING [...] patient's age to complete this topic Insurance [facility] Care Teams Solar Photovoltaic Crew Lead Relationship Specialty Start Date End Date Simon Turner MD [address] [place] [phone] PCP - General 05/30/22
--- OUTSIDE RECORDS SUMMARY | 2025-02-21 12:04 | XMS_ITS | Encounter Summary ---
Author Organization [facility] Address [address] [place] [id number] Care Team Providers Care Warehouse Laborer Name Role Phone Rina Macdonald NP Primary Care Provider [phone] Encounter Details Date Type Department Care Team (Late st Contact Info) Description 12/24/2022 [facility] Message Enc [facility] Family Medicine - [place] [address] [facility] [address] [place] [address] [phone] Rina Macdonald, TOY ASSEMBLER [employer] [address] [place] [address] Question regarding CBC W/DIFF AUTOMATED Social History [...] Coronavirus/COVID-19? No / Unsure 12/24/2022 7:01 AM P[employer]ER AND [employer]INTS RESTORER documented as of this encounter Plan of Treatment Not on file documented as of this encounter Visit Diagnoses Not on filedocumented in this encounter Additional Health Concerns Assessment Noted Time PHQ-9 Depression Total Score: 0 07/02/20 2:04 PM CDT documented as of this encounter Care Teams Warehouse Laborer Relationship Specialty Start Date End Date Rina Macdonald NP [address] [place] [address] PCP - General NURSE PRACTITIONER 06/26/21 documented as of this encounter
--- OUTSIDE RECORDS SUMMARY | 2025-02-21 12:04 | XMS_ITS | Encounter Summary ---
Author Organization [facility] Address [address] [facility] [place] [address] Care Team Providers Care Warehouse Worker Name Role Phone Simon Turner MD Primary Care Provider Encounter Details Date Type Department Care Team (Late st Contact Info) Description 09/19/2021 Lab Requisition [facility] [address] [place] [address] Debbie Huang MD Social History Tobacco Use Types Packs/Day Years Used Date Smoking Tobacco: Every Day Smokeless Tobacco: Never Comments Unknown Sex and Gender Information Value Date Recorded Sex Assigned at Not on file Legal Sex Female 7:02 AM PROFESSOR OF ART Gender Identity Not on file Sexual Orientation Not on file documented as of this encounter Plan of Treatment Not on file documented as of this encounter Procedures Procedure Name Priority Date/Time Associated Diagnosis Comments HCG BETA BLOOD QUANTITATIVE STAT 09/19/2021 9:36 AM PROFESSOR OF ART documented in this encounter Results * HCG BETA BLOOD QUANTITATIVE (09/19/2021 9:36 AM PROFESSOR OF ART) hCG Quantitative 71.07 mIU/mL 09/19/20 10:46 AM PROFESSOR OF ART [facility] Blood BLOOD SPECIMEN / Unknown Venipuncture / Unknown 09/19/2021 9:36 AM PROFESSOR OF ART 09/19/2021 9:43 AM PROFESSOR OF ART Narrative [facility] - 09/19/2021 10:46 AM PROFESSOR OF ART hCG Reference Range, mIU/mL: Males 0-2.0 Non [...] MD LAB - CHEMISTRY ORDERABLES Final Result [facility] [address] [place] [address] documented in this encounter Visit Diagnoses Not on filedocumented in this encounter Care Teams Warehouse Worker Relationship Specialty Start Date End Date Simon Turner MD [address] [place] [address] PCP - General 05/30/22 documented as of this encounter
--- OUTSIDE RECORDS SUMMARY | 2025-02-21 12:05 | XMS_ITS | Data Portability ---
Author Organization [facility] Address [address] [place] [address] Care Team Providers Care Acetone Button Paster Name Role Phone DAVID DALE Primary Care Provider Assessment Encounter Date Assessment Date Assessment LastModified by Organization Details LastModified Time 02/08/2025 02/08/2025 Patient is _37__weeks . Discussed plan. [email or web address] Not available 02/08/2025 11:19:01 02/15/2025 02/15/2025 Patient is __38_weeks . Discussed plan. [email or web address] Not available 02/15/2025 11:49:40 Plan of Treatment Reminders Order Date Submit Date Provider Last Modified By Organization Details Last Modified Time Details Appointments SURG CSection 2024 07:30A Heidi ENAMORADO MD Not available Not available Not available SURG POST OP 2024 05:00P Heidi ENAMORADO MD Not available Not available Not available POST 2024 01:15P Heidi ENAMORADO MD Not available Not available Not available Lab None recorded. Referral None recorded. Procedures None recorded. Surgeries None recorded. Imaging US, obstetric , follow-up 2024 025 [email or web address] [place], [address], [address], [place], [address], 01/04/2025 21:37:16 Medication Orders None recorded. Patient TargetsNo targets recorded. Patient InstructionsNo instructions recorded. Reason for Referral None Reported. Results Created Date Observation Date Name Description Value Unit Range Abnormal Flag Note LastModifiedBy Organization Detail LastModifiedTime 12/07/19 25 12/07/2024 HEMOG LOBIN (HGB) HGB 11.9 g/dL (based on docume nted legal sex) 11.6-1 5.4 Not Available [facility] (Lab) [address] [facility], [place], [address], 12/08/2024 12:42:12 12/07/19 25 12/07/2024 HEMAT OCRIT (HCT) HCT 37.0 % (based on docume nted legal sex) 34.0-4 5.0 Not Available [facility] (Lab) [address] [facility], [place], [address], 12/08/2024 12:42:13 12/07/19 25 12/07/2024 GTT - GESTA FARSHAD L ROBYN N, ACOG OB glucose, 1 hour screen 131 mg/dL 70-135 Not Available [facility] (Lab) [address] [place], [address], 12/08/2024 12:42:14 12/07/19 25 12/07/2024 HIV 1/2 ANTIG EN/AN TIBOD Y, REFLE X CONFI RMATI ON HIV antigen/anti body Nonrea ctive nonrea ctive HIV-1 antig en and HIV-1 /HIV- 2 antib odies were not detec nova. No labor atory evide nce of HIV infec tion. Not Available [facility] (Lab) [address] [facility], [place], [address], 12/08/2024 12:42:14 12/07/19 25 12/07/2024 RPR SCREE N, REFLE X TITER /CONF IRMAT ION RPR screen Nonrea ctive nonrea ctive Not Available [facility] (Lab) [address] [place], [address], 12/08/2024 12:42:15 01/12/20 25 01/11/2025 RETIC ULOCY TE COUNT reticulocyte count percent 2.04 % 0.50-2 .50 Not Available [facility] (Lab) [address], [place], [address], 01/12/2025 09:47:25 01/12/2001/11/2025 RETIC ULOCY TE COUNT reticulocyte count absolute 78.50 10'3/ uL no define d refere nce range Refer ence range s for nonbi nary/ inter sex or unspe cifie d gende r patie nts have not been estab lishe d. Pleas e refer to the follo wing table for range s estab lishe d for cisge nder patie nts and evalu ate in the clini trisha keith xt of the indiv idual patie nt: https ://lala grady book. nm.or g/gen derx Not Available [facility] (Lab) [address], [place], [address], 01/12/2025 09:47:25 01/12/2001/11/2025 TSH, REFLE X FREE T4 TSH 1.80 uIU/m L 0.30-5 .33 Not Available [facility] (Lab) [address], [place], [address], 01/12/2025 09:47:26 01/12/20 25 01/11/2025 LEO TIN / IRON / TRANS LEO N / TIBC iron 136 ug/dL 40-170 Not Available [facility] (Lab) [address], [place], [address], 01/12/2025 09:47:26 01/12/20 25 01/11/2025 LEO TIN / IRON / TRANS LEO N / TIBC transferrin 421 mg/dL 200-36 0 high Not Available [facility] (Lab) [address], [place], [address], 01/12/2025 09:47:26 01/12/20 25 01/11/2025 LEO TIN / IRON / TRANS LEO N / TIBC ferritin 15.1 NG/mL 8.0-25 2.0 Not Available [facility] (Lab) [address] [facility], [place], [address], 01/12/2025 09:47:26 01/12/20 25 01/11/2025 LEO TIN / IRON / TRANS LEO N / TIBC TIBC 589 ug/dL 250-45 0 high Not Available [facility] (Lab) [address] [facility], [place], [address], 01/12/2025 09:47:26 01/12/20 25 01/11/2025 LEO TIN / IRON / TRANS LEO N / TIBC iron saturation 23 % 20-55 Not Available [facility] (Lab) [address] [facility], [place], [address], 01/12/2025 09:47:26 01/12/20 25 01/11/2025 VITAM IN B12 / FOLAT E PANEL vitamin B12 170 pg/mL 180-91 4 low Claudia l Range : 180-9 14 pg/mL . Indet ermin ate Range : 145-1 80 pg/mL . Defic ient Range : <=145 pg/mL . Not Available [facility] (Lab) [address] [facility], [place], [address], 01/12/2025 09:47:27 01/12/2001/11/2025 VITAM IN B12 / FOLAT E PANEL folate, serum >20.0 NG/mL 6.0-20 .0 high Not Available [facility] (Lab) [address] [place], [address], 01/12/2025 09:47:27 01/26/20 25 01/25/2025 CMP(C OMPRE HENSI VE METAB OLIC PANEL ) sodium 134 mmol/ L 133-14 6 Not Available [facility] (Lab) [address] [place], [address], 01/26/2025 04:59:47 01/26/20 25 01/25/2025 CMP(C OMPRE HENSI VE METAB OLIC PANEL ) potassium 4.3 mmol/ L 3.5-5. 1 Not Available [facility] (Lab) [address] [facility], [place], [address], 01/26/2025 04:59:47 01/26/20 25 01/25/2025 CMP(C OMPRE HENSI VE METAB OLIC PANEL ) chloride 98 mmol/ L 98-107 Not Available [facility] (Lab) [address] [facility], [place], [address], 01/26/2025 04:59:47 01/26/20 25 01/25/2025 CMP(C OMPRE HENSI VE METAB OLIC PANEL ) carbon dioxide 27 mmol/ L 21-31 Not Available [facility] (Lab) [address] [facility], [place], [address], 01/26/2025 04:59:47 01/26/20 25 01/25/2025 CMP(C OMPRE HENSI VE METAB OLIC PANEL ) anion gap 9 mmol/ L 4-13 Not Available [facility] (Lab) [address] [facility], [place], [address], 01/26/2025 04:59:47 01/26/20 25 01/25/2025 CMP(C OMPRE HENSI VE METAB OLIC PANEL ) blood urea nitrogen 10 mg/dL 7-25 Not Available [facility] (Lab) [address] [facility], [place], [address], 01/26/2025 04:59:47 01/26/20 25 01/25/2025 CMP(C OMPRE HENSI VE METAB OLIC PANEL ) creatinine 0.61 mg/dL 0.60-1 .30 Not Available [facility] (Lab) [address] [facility], [place], [address], 01/26/2025 04:59:47 01/26/20 25 01/25/2025 CMP(C OMPRE HENSI VE METAB OLIC PANEL ) egfrcr (CKD-epi 2020) >90 mL/mi n/1.7 3_m2 >=60 Not Available [facility] (Lab) [address] [facility], [place], [address], 01/26/2025 04:59:47 01/26/20 25 01/25/2025 CMP(C OMPRE HENSI VE METAB OLIC PANEL ) calcium 8.8 mg/dL 8.3-10 .5 Not Available [facility] (Lab) [address] [facility], [place], [address], 01/26/2025 04:59:47 01/26/20 25 01/25/2025 CMP(C OMPRE HENSI VE METAB OLIC PANEL ) glucose 73 mg/dL 70-100 Not Available [facility] (Lab) [address] [facility], [place], [address], 01/26/2025 04:59:47 01/26/20 25 01/25/2025 CMP(C OMPRE HENSI VE METAB OLIC PANEL ) protein, total 6.6 g/dL 6.4-8. 3 Not Available [facility] (Lab) [address] [place], [address], 01/26/2025 04:59:47 01/26/20 25 01/25/2025 CMP(C OMPRE HENSI VE METAB OLIC PANEL ) albumin 3.3 g/dL 3.5-5. 0 low Not Available [facility] (Lab) [address] [place], [address], 01/26/2025 04:59:47 01/26/20 25 01/25/2025 CMP(C OMPRE HENSI VE METAB OLIC PANEL ) ALT 26 units /L 9-43 Not Available [facility] (Lab) [address] [place], [address], 01/26/2025 04:59:47 01/26/20 25 01/25/2025 CMP(C OMPRE HENSI VE METAB OLIC PANEL ) alkaline phosphatase 116 units /L 34-104 high Not Available [facility] (Lab) [address] [place], [address], 01/26/2025 04:59:47 01/26/20 25 01/25/2025 CMP(C OMPRE HENSI VE METAB OLIC PANEL ) AST 33 units /L 13-39 Not Available [facility] (Lab) [address], [place], [address], 01/26/2025 04:59:47 01/26/20 25 01/25/2025 CMP(C OMPRE HENSI VE METAB OLIC PANEL ) bilirubin, total 1.0 mg/dL 0.2-1. 2 Not Available [facility] (Lab) [address], [place], [address], 01/26/2025 04:59:47 01/26/20 25 01/25/2025 CBC W/DIF F WBC 6.7 10'3/ uL 3.5-10 .5 Not Available [facility] (Lab) [address], [place], [address], 01/26/2025 04:59:47 01/26/20 25 01/25/2025 CBC W/DIF F RBC 3.85 10'6/ uL (based on docume nted legal sex) 3.80-5 .20 Not Available [facility] (Lab) [address], [place], [address], 01/26/2025 04:59:47 01/26/20 25 01/25/2025 CBC W/DIF F HGB 11.8 g/dL (based on docume nted legal sex) 11.6-1 5.4 Not Available [facility] (Lab) [address], [place], [address], 01/26/2025 04:59:47 01/26/2001/25/2025 CBC W/DIF F HCT 35.3 % (based on docume nted legal sex) 34.0-4 5.0 Not Available [facility] (Lab) [address], [place], [address], 01/26/2025 04:59:47 04/08/20 25 01/25/2025 CBC W/DIF F MCV 91.7 fL 80.0-9 9.0 Not Available [facility] (Lab) [address], [place], [address], 01/26/2025 04:59:47 01/26/20 25 01/25/2025 CBC W/DIF F MCH 30.6 pg 27.0-3 4.0 Not Available [facility] (Lab) [address], [place], [address], 01/26/2025 04:59:47 01/26/20 25 01/25/2025 CBC W/DIF F MCHC 33.4 g/dL 32.0-3 5.5 Not Available [facility] (Lab) [address], [place], [address], 01/26/2025 04:59:47 01/26/20 25 01/25/2025 CBC W/DIF F RDW 15.8 % 11.0-1 5.0 high Not Available [facility] (Lab) [address], [place], [address], 01/26/2025 04:59:47 01/26/20 25 01/25/2025 CBC W/DIF F plt 173 10'3/ uL 150-40 0 Not Available [facility] (Lab) [address], [place], [address], 01/26/2025 04:59:47 01/26/20 25 01/25/2025 CBC W/DIF F MPV 11.7 fL 8.8-12 .1 Not Available [facility] (Lab) [address], [place], [address], 01/26/2025 04:59:47 01/26/20 25 01/25/2025 CBC W/DIF F neutrophils 56.2 % 34.0-7 3.0 Not Available [facility] (Lab) [address] [place], [address], 01/26/2025 04:59:47 01/26/20 25 01/25/2025 CBC W/DIF F lymphocytes 33.0 % 15.0-5 0.0 Not Available [facility] (Lab) [address] [facility], [place], [address], 01/26/2025 04:59:47 01/26/20 25 01/25/2025 CBC W/DIF F monocytes 8.4 % 1.0-15 .0 Not Available [facility] (Lab) [address] [facility], [place], [address], 01/26/2025 04:59:47 01/26/20 25 01/25/2025 CBC W/DIF F eosinophils 1.5 % 0.0-8. 0 Not Available [facility] (Lab) [address] [facility], [place], [address], 01/26/2025 04:59:47 01/26/20 25 01/25/2025 CBC W/DIF F basophils 0.6 % 0.0-2. 0 Not Available [facility] (Lab) [address] [facility], [place], [address], 01/26/2025 04:59:47 01/26/20 25 01/25/2025 CBC W/DIF [...] separ ately if prese nt. Not Available [facility] (Lab) [address] [place], [address], 01/26/2025 04:59:47 01/26/20 25 01/25/2025 CBC W/DIF F absolute neutrophils 3.8 10'3/ uL 1.5-8. 0 Not Available [facility] (Lab) [address] [facility], [place], [address], 01/26/2025 04:59:47 01/26/20 25 01/25/2025 CBC W/DIF F absolute lymphocytes 2.2 10'3/ uL 1.0-4. 0 Not Available [facility] (Lab) [address] [facility], [place], [address], 01/26/2025 04:59:47 01/26/20 25 01/25/2025 CBC W/DIF F absolute monocytes 0.6 10'3/ uL 0.2-1. 0 Not Available [facility] (Lab) [address] [facility], [place], [address], 01/26/2025 04:59:47 01/26/20 25 01/25/2025 CBC W/DIF F absolute eosinophils 0.1 10'3/ uL 0.0-0. 6 Not Available [facility] (Lab) [address] [facility], [place], [address], 01/26/2025 04:59:47 01/26/20 25 01/25/2025 CBC W/DIF F absolute basophils 0.0 10'3/ uL 0.0-0. 3 Not Available [facility] (Lab) [address] [facility], [place], [address], 01/26/2025 04:59:47 01/26/20 25 01/25/2025 CBC W/DIF [...] lishe d. Pleas e refer to the joan wing table for range s estab lishe d for cisge nder patie nts and evalu ate in the clini trisha keith xt of the indiv idual patie nt: https ://la miguel a book. nm.or g/gen derx 025 3:55 AM: This resul t has been final verif ied. No addit ional or sim ed resul ts are expec nova. Not Available [facility] (Lab) [address] [facility], [place], [address], 01/26/2025 04:59:47 01/26/20 25 01/25/2025 BLOOD SMEAR EXAM, RBC MORPH OLOGY RBC morphology Review ed Not Available [facility] (Lab) [address] [facility], [place], [address], 01/26/2025 04:59:47 01/26/2001/25/2025 BLOOD SMEAR EXAM, RBC MORPH OLOGY platelet morphology Review ed Not Available [facility] (Lab) [address] [facility], [place], [address], 01/26/2025 04:59:47 02/02/2002/01/2025 CULTU RE: GROUP B STREP SCREE N, REFLE X SUSCE PTIBI LITY result report SEE RESULT S BELOW Test: Cultu re: Group B Strep , Refle x Susce ptibi lity ([facility]/ [facility] ) Speci men Sourc e: Vagin a/Rec ivanna Speci men Type: Vagin al/Re ctal Speci men Date: 2024 1654 Resul t Date: 2024 0952 Resul t Statu s: Final resul t Abnor mal: No Resul ting Lab: [facility] [address] [facility] [address] Tel: CULTU RE ----- ----- ----- --- No Group B strep isola nova at 2 days (alida ctive broth enhan cemen t) Not Available [facility] (Lab) [address] [facility], [place], [address], 02/04/2025 10:56:18 02/09/20 25 02/08/2025 TSH TSH 1.80 uIU/m L 0.30-5 .33 Not Available [facility] (Lab) [address] [facility], [place], [address], 02/09/2025 05:05:08 02/09/20 25 02/08/2025 T4 FREE T4, free 0.62 NG/dL 0.60-1 .40 This assay is susce ptibl e to inter feren ce from high level s of bioti n which may false ly eleva te resul ts. Pleas e corre late with clini trisha findi ngs. Not Available [facility] (Lab) [address] [facility], [place], [address], 02/09/2025 05:05:09 01/05/20 25 01/04/2025 US, obste tric, follo w-up No observ ation record ed. [email or web address] [place] [address], [place], [address], 01/04/2025 13:09:06 01/05/20 25 01/04/2025 US, obste tric, follo w-up No observ ation record ed. [email or web address] [facility], [place], [address], 01/04/2025 18:47:10 01/29/20 25 01/27/2025 non-s tress test No observ ation record ed. [address] [facility] [address], [place], [address], 02/07/2025 10:46:58 01/29/2001/27/2025 US, obste tric, follo w-up No observ ation record ed. [address] [facility] [address], [place], [address], 02/03/2025 09:22:17 Result Notes None recorded. Problems Name Problem SNOMED Code Status Onset Date Resolution Date Notes Provider Name and Address Organization Details Recorded Time Pregnanc y test negative 215904910 Completed 201811/15/2021 Encounte r for pregnanc y test, result negative ;Recorde d Elsewher e: No [facility]: EHR Cardiopulmonary Technologist christopher: N Estebanti ce ID: [id number] Velasquez lable Time: 01:00:00 PM Marium [place] [facility] 2 17:40:15 Screenin g for malignan t neoplasm of cervix Completed 201211/15/2021 Screenin g for malignan t neoplasm s of the cervix;R ecorded Elsewher e: No Locat ion: [facility] N Estebanti ce ID: [id number] Velasquez lable Time: 10:30:00 AM Marium [place] [facility] 2 17:40:12 Female infertil ity associat ed with anovulat ion [id number] Completed 201511/15/2021 Infertil ity, female, associat ed with anovulat ion;Jerry rded Elsewher e: No Locat ion: [facility]: N Estebanti ce ID: [email or web address] Velasquez lable Time: 03:15:00 PM Mariummone [place] [facility] 2 17:40:37 Bleeding [id number] Completed 201811/15/2021 Abnormal uterine and vaginal bleeding , unspecif ied;Jerry rded Elsewher e: No Locat ion: [facility] S ource: EHR Cardiopulmonary Technologist christopher: N Estebanti ce ID: [id number] Velasquez lable Time: 02:45:00 PM Marium [place] [facility] 2 17:40:39 Endometr iosis of pelvic peritone um [id number] Completed 201411/15/2021 Endometr iosis of pelvic peritone um;Recor ded Elsewher e: No Locat ion: [facility]: N Estebanti ce ID: [id number] Velasquez lable Time: 03:00:00 PM Marium [place] [facility] 2 17:40:43 Postoper ative follow-u p visit Completed 201411/15/2021 Follow-u p examinat ion, followin g unspecif ied surgery; Recorded Elsewher e: No Locat ion: [facility] S ource: EHR Cardiopulmonary Technologist christopher: N Estebanti ce ID: [id number] Velasquez lable Time: 03:00:00 PM Marium thornton [facility] 2 17:40:20 Finding of regulari ty of menstrua l cycle Completed 201411/15/2021 Irregula r menstrua tion, unspecif ied;Jerry rded Elsewher e: No Locat ion: [facility] S ource: EHR Cardiopulmonary Technologist christopher: N Estebanti ce ID: [id number] [email or web address] lable Time: 08:30:00 AM Marium thornton [facility] 2 17:40:[address] Concept Completed 201711/15/2021 Encntr for merchandising specialist exam (general ) (routine ) w/o abn findings ;Recorde d Elsewher e: No Locat ion: [facility] S ource: EHR Cardiopulmonary Technologist christopher: N Estebanti ce ID: [id number] Velasquez lable Time: 09:30:00 AM Marium thornton [facility] 2 17:40:05 Imaging result equivoca l [id number] Completed 201811/15/2021 Dx imaging inconclu sive due to excess body fat of patient; Recorded Elsewher e: No Locat ion: [facility] S ource: EHR Cardiopulmonary Technologist christopher: N Practi ce ID: [id number] Velasquez lable Time: 05:00:00 PM Marium thornton [facility] 2 17:40:28 Irregula r periods [id number] Completed 201411/15/2021 Irregula r menstrua l cycle;Re corded Elsewher e: No Locat ion: [facility] S ource: EHR Cardiopulmonary Technologist christopher: N Estebanti ce ID: [id number] Velasquez lable Time: 03:30:00 PM Marium [place] [facility] 2 17:40:22 Dysmenor marianela [id number] Completed 201311/15/2021 Dysmenor marianela;Rec orded Elsewher e: No Locat ion: [facility] S ource: EHR Cardiopulmonary Technologist christopher: N Estebanti ce ID: [id number] Velasquez lable Time: 02:00:00 PM Mariummone [place] [facility] 2 17:40:45 Speciali zed medical examinat ion Completed 201211/15/2021 Gynecolo gical Examinat ion;Jerry rded Elsewher e: No Locat ion: [facility] S ource: EHR Cardiopulmonary Technologist christopher: N Estebanti ce ID: [id number] Velasquez lable Time: 10:30:00 AM Mariummone [place] [facility] 2 17:40:03 Pre-surg jo ann evaluati on Completed 201411/15/2021 Other specifie d pre-oper ative examinat ion;Jerry rded Elsewher e: No Locat ion: [facility] S ource: EHR Cardiopulmonary Technologist christopher: N Estebanti ce ID: [id number] Velasquez lable Time: 03:00:00 PM Marium [place] [facility] 2 17:40:[address] Concept Completed 201711/15/2021 Encntr for general adult medical exam w/o abnormal findings ;Recorde d Elsewher e: No Locat ion: [facility] S ource: EHR Cardiopulmonary Technologist christopher: N Estebanti ce ID: [id number] Velasquez lable Time: 09:30:00 AM Mariummone [place] [facility] 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 2 17:40:30 Female infertil ity of tubal origin [id number] Completed 201411/15/2021 Infertil ity, female, of tubal origin;P ractice ID: [id number] Marium [place] [facility], [facility] 2 17:40:35 Pregnanc y [id number] Completed 202107/01/2022 Denise Naresh [facility], [facility] 4 15:19:45 In vitro fertiliz ation Completed No MFM needed. echo WASHU 02/15 WNL. antenata l testing at 36wks Arianna Marleybipinsaschavidaldevon ricketts [facility] 2 12:06:05 Recurren t miscarri age [id number] Completed 7 SAb Ariannaernesto Ramirezvidaldevon ricketts [facility] 2 12:06:05 Bleeding hemorrho ids [id number] Completed referral to General surgery Arianna Ramirezvidaldevon ricketts [facility] 2 12:06:05 Hypothyr oidism [id number] Completed 75mcg. 02/15 TSH wnl. repeat 36w Arianna Ramirezvidaldevon ricketts [facility], [facility] 2 12:06:04 Tachycar maksim [id number] Completed 24 hour holter monitor and cardio consult pt cancelle d due to nelsonvin g s/s Arianna Marleybipinsaschafarrukh ricketts [facility], [facility] 2 12:06:05 IVF - in-vitro fertiliz ation pregnanc y [id number] 2101 Completed 2021 Leidy Pickard MD [address], [place], [address], [facility] 2 17:27:15 Gestatio nal diabetes mellitus [id number] Completed diet teach 03/11, NPH 8u HS on 05/06 Arianna ricketts null, [facility] 2 12:06:05 Hypothyr oidism [id number] Active 75mcg. 02/15 TSH wnl. repeat 36w Arianna ricketts null, [facility] [facility] 2 12:06:04 Recurren t miscarri age 540127023 Active all first adánestlory OLMOS MD [address], [place], [address], [facility] 4 11:14:10 Pruritic urticari al papules and plaques of pregnanc y 86036544 Completed 2021 Arianna ricketts null, [facility] 2 12:06:05 Pregnanc y 04617194 Active 2023 Denise Infante null, [facility] 4 15:19:45 Deliveri es by [id number] Active To Repeat MIKE OLMOS MD [address], [place], [address], [facility] 4 11:14:01 Recurren t miscarri age 197325395 Active all first adánestlory OLMOS MD [address], [place], [address], [facility] 4 11:14:10 Past pregnanc y history of gestatio nal diabetes mellitus 417878983 Active 2024 Tammy Ingram null, [facility] 5 13:51:03 Past pregnanc y history of gestatio nal diabetes mellitus 802342992 Active 2024 Tammy Ingram [facility], [facility] 13:51:03 Problem Notes None recorded. Procedures Surgical History Date Name Laterality Status Provider Name and Address Organization Details Recorded Time 05/07/20 23 Date of Last Pap Smear completed Denise Infante [facility] 07/30/2024 12:21:52 05/28/20 22 section completed Tammy Ingrma [facility] 01/06/2025 13:27:22 10/20/19 22 in vitro fertilization completed Tammyjusten Ingram [facility] 01/06/2025 13:47:53 04/19/20 15 Laparoscopy completed Tammyjusten Ingram [facility] 01/06/2025 13:25:45 01/19/20 08 Tonsillectomy completed Tammyjusten Ingram [facility] 01/06/2025 13:26:10 Imaging Results Imaging Date Name Status LastModified by Organiz ation Details LastModified Time 01/04/2025 US, obstetric, follow-up completed [email or web address] [place] [address], [place], [address], 01/04/2025 13:09:06 01/04/2025 US, obstetric, follow-up completed [email or web address], [facility], [place], [address], 01/04/2025 18:47:10 01/27/2025 non-stress test completed [address] [place] [address], [address], 02/07/2025 10:46:58 01/27/2025 US, obstetric, follow-up completed [address], [place], [address], 02/03/2025 09:22:17 Procedure Notes None recorded. Medical Equipment None Reported. Allergies No known drug allergies Medications Name Sig Start Date Stop Date Status Note LastModified by Organization Details LastModified Time fed-ex standard overnight THURS-FR I OV PT HOME NO SIG 12/10 completed Not Available Not Available Not Available relion insulin syringe/u -100/0.3m l/ 31g x 03/04 31g x 03/04 0.3 ml misc 06/07 completed Not Available [...] Prescrib kvng Moore e: No Locat ion: [facility] odify By: bill grijalva DateTime : 09/23/20 [...] 6 HOURS NEEDED FOR NAUSEA AND VOMITING 02/15 completed Not Available Not Available Not Available fluticaso ne propionat e 50 mcg/actua tion nasal spray,nella pension USE 2 SPRAY(S) IN EACH NOSTRIL ONCE DAILY 05/07 completed Not Available Not Available Not Available BD Luer-Alejo Syringe 3 mL 22 x 1 10/21 USE DIRECTED [H.C.G. MEDICATI ON] 12/10 completed Not Available Not Available Not Available leuprolid e 1 mg/0.2 mL subcutane ous kit 12/10 completed Not Available Not Available Not Available Loestrin Fe 1.5/30 (28-Day) 1.5 mg-30 mcg (21)/75 mg (7) tablet take 1 tablet by oral route every day 12/10 [facility] ion: [facility] odify By: [email or web address] Encounte r DateTime : [...] (1,000 unit) tablet 12/10 completed [facility] Yes Loca tion: Shawn beasley [facility] Heidi johns By: jeanette Dewayne valentine DateTime : 04/27/20 18 09:30:00 AM Not Available Not Available Not Available Ovidrel 250 mcg/0.5 mL subcutane ous syringe 12/10 completed Not Available Not Available Not Available Alcohol Prep Pads USE DIRECTED 12/10 completed Not Available Not Available Not Available BD Regular Bevel [place] 25 gauge x 1 1/2 USE DIRECTED [H.C.G. MEDICATI ON] 12/10 completed Not Available Not Available Not Available Menopur 75 unit subcutane ous solution 12/10 completed Not Available Not Available Not Available Follistim AQ 900 unit/1.08 mL subcutane ous cartridge 12/10 completed Not Available Not Available Not Available Calcium-V itamin D 12/10 completed Not Available Not Available Not Available omeprazol e active Not Available Not Available Not Available Progester one (Vaginal) 12/10 completed Not Available Not Available Not Available Vitamin D 06/07 completed Not Available Not Available Not Available Unisom (doxylami ne) 02/15 completed Not Available Not Available Not Available active [...] Ultra-Fin e 0.3 mL 31 gauge x USE DIRECTED WITH INSULIN 06/07 completed Not [...] Updated DateTime 01/04/2025 157.48 cm 32.4 kg/m2 11130.85 g 115 mm[Hg] 79 mm[Hg] Kayla Singletary [facility] 10:12:28 Date Recorded Body weight Body mass index (BMI) Body height Systolic blood pressure Diastolic blood pressure Provider Name and Address Organization Details Last Updated DateTime 01/18/2025 81410.62 66 g 32.9 kg/m2 157.48 cm 115 mm[Hg] 79 mm[Hg] GERMAINE Ram [facility] 10:22:49 Date Recorded Body weight Systolic blood pressure Diastolic blood pressure Provider Name and Address Organization Details Last Updated DateTime 02/01/2025 22395.0342 3 g 109 mm[Hg] 78 mm[Hg] Denise Infante [facility] 02/01/2025 14:23:12 Date Recorded Body height Body mass index (BMI) Body weight Systolic blood pressure Diastolic blood pressure Provider Name and Address Organization Details Last Updated DateTime 02/08/2025 157.48 cm 32.7 kg/m2 69322.03 g 114 mm[Hg] 73 mm[Hg] Tammy Ingram [facility] 11:08:53 Date Recorded Body weight Body mass index (BMI) Body height Systolic blood pressure Diastolic blood pressure Provider Name and Address Organization Details Last Updated DateTime 02/15/2025 02786.62 66 g 32.9 kg/m2 157.48 cm 122 mm[Hg] 83 mm[Hg] Tammy Ingram [facility] 11:35:18 Social History Question Answer Notes LastModified by Organizat ion Details LastModified Time Tobacco Smoking Status Never Smoker Deinse thornton, [facility] 05/07/2023 17:43:06 Do You Have An Advance Directive? No [email or web address] Information not available 02/15/2025 What Is Your Level Of Alcohol Consumption? None [email or web address] Information not available 02/15/2025 If You Are , What Was Your Level Of Alcohol Consumption Prior To ? Occasional [email or web address] Information not available 02/15/2025 Are You Blind Or Do You Have Difficulty Seeing? No [email or web address] Information not available 02/15/2025 What Is Your Level Of Caffeine Consumption? Occasional [email or web address] Information not available 02/15/2025 How Much Tobacco Do You Chew? None [email or web address] Information not available 02/15/2025 In The 14 Days Before Symptom Onset, Have You Had Close Contact With A Laboratory-confir med COVID-19 While That Case Was Ill? No [email or web address] Information not available 02/15/2025 In The 14 Days Before Symptom Onset, Have You Had Close Contact With A Person Who Is Under Investigation For COVID-19 While That Person Was Ill? No [email or web address] Information not available 02/15/2025 Have You Been To An Area Known To Be High Risk For COVID-19? No [email or web address] Information not available 02/15/2025 Are You Currently Employed? Yes [email or web address] Information not available 01/04/2025 Are You Deaf Or Do You Have Serious Difficulty Hearing? No [email or web address] Information not available 02/15/2025 What Type Of Diet Are You Following? REGULAR [email or web address] Information not available 02/15/2025 What Is The Highest Grade Or Level Of School You Have Completed Or The Highest Degree You Have Received? 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 Yes [email or web address] Information not available 02/15/2025 Do You Use Protection During Sex? No [email or web address] Information not available 02/15/2025 Do You Use Your Seat Belt Or Car Seat Routinely? Yes [email or web address] Information not available 02/15/2025 Are You Sexually Active? Yes [email or web address] Information not available 01/04/2025 Do You Have Smoke And Carbon Monoxide Detectors In Your Home? Yes [email or web address] Information not available 02/15/2025 How Much Tobacco Do You Smoke? No [email or web address] Information not available 02/15/2025 Do You Feel Stressed (tense, Restless, Nervous, Or Anxious, Or Unable To Sleep At Night)? [id number] [email or web address] Information not available 02/15/2025 Do You Use Any Illicit Or Recreational Drugs? No [email or web address] Information not available 02/15/2025 Do You Use Sunscreen Routinely? No [email or web address] Information not available 02/15/2025 Have You Used IV Drugs? No Information not available 02/15/2025 Sex: Unknown Functional Status Question Answer Note LastModified by Organizat ion Details LastModified Time Do you have difficulty walking or climbing stairs? No [email or web address] Information not available 12/21/2024 Are you able to walk? YESWOREST [email or web address] Information not available 02/15/2025 Are you able to care for yourself? Yes [email or web address] Information not available 12/21/2024 Do you have difficulty dressing or bathing? No [email or web address] Information not available 12/21/2024 What is your exercise level? Occasional [email or web address] Information not available 02/15/2025 Mental Status None recorded. Family History Relationship Description Onset Age of this Age Resolved Age Notes LastModified by Organization Details LastModified Time Father Diabetes mellitus [email or web address] Not available 2021 17:47:49 Medical History Condition [...] Statement/Question Response Abnormal Pap N Date of Last Mammogram Flow Moderate Date of LMP 05/16/2024 N Was last menstrual period normal Y STIs/STDs N HPV Vaccine N Duration of Flow (days) 6 Current Control Method Age at First Child 32 Are cycles usually normal Y Date of Last Colonoscopy Frequency of Cycle (Q days) 44 Sexually Active? Y Menses Monthly Y Date of DEXA bone scan Age of first menstrual cycle 8 Date of Last Pap Smear 05/07/2023 Sexual Problems? N LMP Definite N Obstetrics History GPAL:G 9 P 1 0 7 1 Type Value Full Term 1 Spontaneous 7 Living 1 Total 9 Past Encounters Encounter ID Performer Location Encounter Start Date Encounter Closed Date Diagnosis/Indication Diagnosis SNOMED-CT Code Diagnosis ICD10 Code Diagnosis Note [id number] Florentin Enamorado MD [place] [address] [address] 11/15/2021 16:44:49 11/15/2021 17:58:30 screening 835472860 Z36.82 [id number] MD Solomon Myles [address] [address] 11/15/2021 16:45:36 11/16/2021 09:30:30 Routine care 683420624 Z34.01 screening 2437 20453 Z36.89 [id number] MD Solomon Myles [address],[place] [address] 12/10/2021 15:44:29 12/10/2021 16:32:12 [id number] MD Solomon Myles [address],[place] [address] 12/10/2021 15:45:00 12/11/2021 14:12:03 Routine care 464899745 Z34.01 screening 2437 57923 Z36.89 [id number] MD Solomon Myles [address],[place] [address] 01/07/2022 16:40:50 01/08/2022 13:36:15 Routine care 268131259 Z34.01 [id number] MD Solomon Myles [address],[place] [address] 01/07/2022 16:41:09 01/07/2022 17:51:02 screening for malformation 046023025 Z36.3 [id number] MD Solomon Myles [address],[place] [address] 02/15/2022 09:29:17 02/15/2022 10:15:50 Routine care 258904891 Z34.01 [id number] MD Solomon Lawrence [address],[place] [address] 03/04/2022 15:24:21 03/04/2022 18:04:08 Routine care 064870103 Z34.82 IVF - in-v itro fertilization 7178926900 2102 O09.819 Tachycardia 1716220 R00. 0 [id number] MD Solomon Lawrence [address],[place] [address] 03/11/2022 13:56:02 03/11/2022 15:19:25 Gestational diabetes mellitus class A1 90707438 O24.410 [id number] Leidy Pickard MD [place] [address],[place] [address] 03/20/2022 16:05:59 03/20/2022 18:28:40 Gestational diabetes mellitus 17967650 O24.410 IVF - in-v itro fertilization 6550341199 2102 O09.819 Hypothyroidism 71929074 E03.9 [id number] Leidy Pickard MD [place] [address],[place] [address] 04/01/2022 16:34:05 04/01/2022 17:27:17 Gestational diabetes mellitus 65476104 O24.410 Hypothyroidism 12943636 E03.9 IVF - in-v itro fertilization 3133731987 2 O09.819 [id number] Florentin Enamorado MD [place] [address],[place] [address] 04/04/2022 15:52:05 04/05/2022 14:26:57 Gestational diabetes mellitus class A1 07497160 O24.410 [id number] Leidy Pickard MD [place] [address],[place] [address] 04/04/2022 15:52:22 04/04/2022 17:05:24 Gestational diabetes mellitus class A1 18545871 O24.410 O99.283 O09.813 Z3A.32 [id number] Leidy Pickard MD [place] [address],[place] [address] 04/08/2022 16:58:44 04/09/2022 15:47:40 Gestational diabetes mellitus 78216616 O24.410 [id number] Leidy Pickard MD [place] [address],[place] [address] 04/08/2022 16:59:04 04/09/2022 15:47:19 Gestational diabetes mellitus 22176531 O24.410 IVF - in-v itro fertilization 8374465075 2102 O09.819 [id number] Florentin Enamorado MD [place] [address],[place] [address] 04/11/2022 16:18:02 04/11/2022 17:27:59 Gestational diabetes mellitus class A1 52434403 O24.410 [id number] MD Solomon Lawrence [address],[place] [address] 04/15/2022 16:14:48 04/15/2022 17:53:26 Gestational diabetes mellitus class A1 45373906 O24.410 [id number] MD Solomon Lawrence [address],[place] [address] 04/15/2022 16:16:49 04/16/2022 15:19:31 Gestational diabetes mellitus 06785097 O24.410 Hypothyroidism 78572153 E03.9 IVF - in-v itro fertilization 9235811057 2102 O09.819 [id number] Florentin Enamorado MD [place] [address],[place] [address] 04/18/2022 16:14:12 04/18/2022 17:01:14 Gestational diabetes mellitus class A1 11923352 O24.410 [id number] Florentin Enamorado MD [place] [address],[place] [address] 04/25/2022 16:19:53 04/25/2022 17:21:28 Gestational diabetes mellitus class A1 86346555 O24.410 [id number] Florentin Enamorado MD [place] [address],[place] [address] 04/25/2022 16:20:53 04/25/2022 17:52:39 Routine care 528774357 Z34.01 [id number] MD Solomon Lawrence [address],[place] [address] 04/29/2022 16:21:01 04/29/2022 17:18:38 Gestational diabetes mellitus class A1 26763635 O24.410 [id number] MD Solomon Lawrence [address],[place] [address] 04/29/2022 16:21:40 04/30/2022 15:19:24 Gestational diabetes mellitus 42666122 O24.410 IVF - in-v itro fertilization 0113613014 2102 O09.819 Hypothyroidism 22916816 E03.9 [id number] Florentin Enamorado MD [place] [address],[place] [address] 05/02/2022 16:18:37 05/02/2022 17:29:08 Gestational diabetes mellitus class A1 61228491 O24.410 [id number] Leidy Pickard MD [place] [address],[place] [address] 05/02/2022 16:21:30 05/02/2022 17:54:58 Gestational diabetes mellitus class A1 86722670 O24.410 O09.813 Z3A.36 [id number] Leidy Pickard MD [place] [address],[place] [address] 05/06/2022 16:22:32 05/06/2022 17:15:45 Gestational diabetes mellitus class A1 15414625 O24.410 O09.813 Z3A.36 [id number] Leidy Pickard MD [place] [address],[place] [address] 05/06/2022 16:51:26 05/06/2022 17:56:47 Gestational diabetes mellitus class A2 52946342 O24.414 Hypothyroidism 43109252 E03.9 In vitro fertilization 07937358 Z31.83 [id number] Florentin Enamorado MD [place] [address],[place] [address] 05/09/2022 16:23:24 05/09/2022 17:27:21 Gestational diabetes mellitus class A1 45233149 O24.410 [id number] Florentin Enamorado MD [place] [address],[place] [address] 05/13/2022 16:48:59 05/13/2022 18:08:52 Routine care 810352516 Z34.01 [id number] MD Solomon Myles [address],[place] [address] 05/16/2022 16:20:12 05/16/2022 17:09:09 Gestational diabetes mellitus class A1 92342751 O24.410 [id number] Leidy Pickard MD [place] [address],[place] [address] 05/20/2022 16:22:34 05/20/2022 17:13:37 Gestational diabetes mellitus class A1 46474428 O24.410 O09.813 Z3A.36 [id number] Leidy Pickard MD [place] [address],[place] [address] 05/20/2022 16:23:15 05/21/2022 14:44:44 Gestational diabetes mellitus 28641245 O24.410 In vitro fertilization 12122730 Z31.83 [id number] Florentin Enamorado MD [place] [address],[place] [address] 05/23/2022 16:23:59 05/23/2022 17:21:40 Gestational diabetes mellitus class A1 84853860 O24.410 [id number] Leidy Pickard MD [place] [address],[place] [address] 06/07/2022 14:52:01 06/07/2022 15:53:38 Postoperative visit 921010996 Z09 Pruritic u rticarial papules and plaques of 66505574 O26.86 [id number] Leidy Pickard MD [place] [address],[place] [address] 06/26/2022 10:22:08 07/03/2022 15:17:55 care 227698298 Z39.2 Gestationa l diabetes mellitus 78785091 O24.410 Pruritic u rticarial papules and plaques of 77691683 O26.86 [id number] [facility] [address],[place] [address] 05/07/2023 17:33:56 05/07/2023 17:56:26 Gynecologic examination 09352539 Z01.419 Take Calcium with Vitamin D 1200mg [...] na Dexa Screen na Routine Labs PCP [id number] Florentin Enamorado MD [place] [address],[place] [address] 07/08/2024 12:39:11 07/08/2024 13:06:28 Uterine size for dates discrepancy 196479754 O26.841 Z3A.01 [id number] Florentin Enamorado MD [place] [address],[place] [address] 07/20/2024 13:47:13 07/20/2024 14:41:51 [id number] Florentin Enamorado MD [place] [address] [place] [address] 07/30/2024 11:59:37 07/30/2024 12:57:56 Amenorrhea 22709242 N91.2 this patient is a 34-year-ol d [...] of gestationa l diabetes, delivery for distress, [id number] Florentin Enamorado MD [place] [address],[place] [address] 08/16/2024 14:30:29 08/16/2024 15:04:26 screening 192033094 Z36.82 Z3A.12 [id number] Florentin Enamorado MD [place] [address],[place] [address] 08/16/2024 14:30:43 08/16/2024 16:07:29 Routine care 660922270 Z34.01 [id number] MIKE OLMOS MD [place] [address],[place] [address] 09/14/2024 10:43:16 09/14/2024 11:29:27 Uterine scar from previous surgery affecting 28429144 O34.29 - desires repeat c section Past pregn regan history of gestational diabetes mellitus 156067115 Z86.32 - early 1 hour at 20 weeks Gestation period, 16 weeks 41505227 Z3A.16 [id number] Florentin Enamorado MD [place] [address],[place] [address] 10/14/2024 16:44:29 10/15/2024 02:16:24 screening for malformation 571344238 Z36.3 Z3A.20 [id number] MIKE OLMOS MD [place] [address],[place] [address] 10/15/2024 13:48:46 10/15/2024 14:26:37 Impaired glucose tolerance in 152690923 O99.810 Uterine sc ar from previous surgery affecting 41196258 O34.29 - desires repeat c section Gestation period, 21 weeks 92447021 Z3A.21 [id number] Florentin Enamorado MD [place] [address],[place] [address] 11/09/2024 11:35:07 11/09/2024 12:24:12 screening 412171973 Z36.2 Z3A.24 [id number] MIKE OLMOS MD [place] [address],[place] [address] 11/09/2024 11:35:25 11/09/2024 12:37:27 Uterine scar from previous surgery affecting 55336243 O34.29 - desires repeat c section Past pregn regan history of gestational diabetes mellitus 137919908 Z86.32 - failed early 1 hour at 20 weeks, passed 3h GTT at 22 weeks- repeat at 28 weeks Gestation period, 24 weeks 799128955 Z3A.24 [id number] MIKE OLMOS MD [place] [address],[place] [address] 12/07/2024 10:23:39 12/07/2024 10:57:44 Uterine scar from previous surgery affecting 45462237 O34.29 - desires repeat c section Past pregn regan history of gestational diabetes mellitus 143939401 Z86.32 - failed early 1 hour at 20 weeks, passed 3h GTT at 22 weeks- repeat at 28 weeks Gestation period, 28 weeks 90394631 Z3A.28 - 1h GCT today- continue PNV- discussed tdap [id number] MIKE OLMOS MD [place] [address],[place] [address] 12/21/2024 09:20:46 12/21/2024 09:52:14 Uterine scar from previous surgery affecting 37807259 O34.29 - desires repeat c section Gestation period, 30 weeks 18674675 Z3A.30 - continue PNV [id number] Florentin Enamorado MD [place] [address],[place] [address] 01/04/2025 09:35:03 01/04/2025 10:20:42 Malpresentation of fetus 60901344 O32.9XX0 Z03.74 Z3A.32 [id number] MIKE OLMOS MD [place] [address],[place] [address] 01/04/2025 09:36:05 01/04/2025 10:57:25 Uterine scar from previous surgery affecting 32537634 O34.29 - desires repeat c section Hypothyroidism 66028401 E03.9 - repeat TSH at 36 weeks IVF - in-v itro fertilization 0672920054 2102 O09.819 - will start weekly testing at 36 weeks [id number] MIKE OLMOS MD [place] [address],[place] [address] 01/18/2025 10:17:14 01/18/2025 10:38:44 Routine care 392571421 Z34.83 [id number] Florentin Enamorado MD [place] [address],[place] [address] 02/01/2025 13:54:03 02/01/2025 14:53:20 Routine care 211361905 Z34.01 [id number] [facility] [address],[place] [address] 02/08/2025 10:25:59 02/08/2025 11:27:00 Gestation period, 37 weeks 98614361 Z3A.37 [id number] [facility] [address],[place] [address] 02/15/2025 10:57:23 02/15/2025 11:53:25 Gestation period, 38 weeks 76070766 Z3A.38 Health Concerns Section Related Observation LastModified by Organization Detai ls LastModified Time None Recorded Concern Status LastModified by Organization Details LastModified Time None Recorded Advance Directives Directive N: Payers Encounter Date Sequence Insurance Name Policy Number Policy [place] Covered Member ID [place] Member ID Guarantor Name 01/04/2025 1 [place] [id number] Tiffanie Lomas [id number] Tiffanie Lomas 01/18/2025 1 [place] [id number] Tiffanie Lomas [id number] Tiffanie Lomas 02/01/2025 1 [place] [id number] Tiffanie Lomas [id number] 24 Tiffanie Estrada Abebe 02/08/2025 1 [place] [id number] Tiffanie Lomas [id number] Tiffanie Lomas 02/15/2025 1 [place] [id number] Tiffanie Lomas [id number] Tiffanie Lomas OBGyn Episode Ob Episode Information Episode Created Date Number of Fetuses Patient Bloodtype Patient rh Status Prepregnancy Weight lbs Domestic Partner Domestic Partner Phone Father Name Card Checker Status 11/15/19 22 1 A Positive CLOSED Fetus Data First Name Last Name Admitted to NICU Weight (g) Sex Living Outcome Pediatric Complications Fetus ID Race Codes Race Delivery Type Everet t 3486.98 85 M true Full Term [id number] Primary Problems Problem Notes dates provided by Lonny aleman 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 02/15 TSH wnl. repeat 36w In vitro fertilization 0691550 5 No MFM needed. echo WASHU 02/15 WNL. 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 1 7 SAb Tachycardia 4108311 24 hour holter monitor and cardio consult pt cancelled due to improving s/s Bleeding hemorrhoids 15452909 referral to General surgery Gestational diabetes mellitus 01432291 diet teach 03/11 , NPH 8u HS on 05/06 Pruritic urticarial papules and plaques of 06/07/2022 78989198 Kashif Calculation Initial Kashif Date Initial Exam [...] Weight in lbs Pre/Post Dialysis Refused Weight 153.306839362299 BP Diastolic BP Location Tested BP Systolic [...] Weight in lbs Pre/Post Dialysis Refused Weight 157.409832673773 BP Diastolic BP Location Tested BP Systolic [...] Weight in lbs Pre/Post Dialysis Refused Weight 160.722011261666 BP Diastolic BP Location Tested BP Systolic [...] Weight in lbs Pre/Post Dialysis Refused Weight 165.892688490187 BP Diastolic BP Location Tested BP Systolic [...] Weight in lbs Pre/Post Dialysis Refused Weight 174.04582357702 BP Diastolic BP Location Tested BP Systolic [...] Weight in lbs Pre/Post Dialysis Refused Weight 175.791332403116 BP Diastolic BP Location Tested BP Systolic [...] Weight in lbs Pre/Post Dialysis Refused Weight 174.17952428796 BP Diastolic BP Location Tested BP Systolic [...] Weight in lbs Pre/Post Dialysis Refused Weight 175.271629861155 BP Diastolic BP Location Tested BP Systolic [...] Weight in lbs Pre/Post Dialysis Refused Weight 179.269681650043 BP Diastolic BP Location Tested BP Systolic BP Type 78 123 Fetus Heart Rate Present Fetus Movement Comments Flowsheet Date 04/15/2022 Lam Score Blood Edema Fundus Height Fundus Units Glucose Ketones Leukocytes Nitrite Labor Signs Protein Cervic Dilation Cervic Effacement Cervic Station neg trace 34 none trace Type Weight in lbs Pre/Post Dialysis Refused Weight 179.182947960486 BP Diastolic BP Location Tested BP Systolic [...] Weight in lbs Pre/Post Dialysis Refused Weight 185.004865991275 BP Diastolic BP Location Tested BP Systolic [...] Weight in lbs Pre/Post Dialysis Refused Weight 184.079365350409 BP Diastolic BP Location Tested BP Systolic [...] Weight in lbs Pre/Post Dialysis Refused Weight 183.176196414505 BP Diastolic BP Location Tested BP Systolic [...] Weight in lbs Pre/Post Dialysis Refused Weight 182.689080436828 BP Diastolic BP Location Tested BP Systolic [...] Weight in lbs Pre/Post Dialysis Refused Weight 183.377632300279 BP Diastolic BP Location Tested BP Systolic [...] Weight in lbs Pre/Post Dialysis Refused Weight 154.999127135209 BP Diastolic BP Location Tested BP Systolic BP Type 75 114 Fetus Heart Rate Present Fetus Movement Comments Flowsheet Date 06/26/2022 Lam Score Blood Edema Fundus Height Fundus Units Glucose Ketones Leukocytes Nitrite Labor Signs Protein Cervic Dilation Cervic Effacement Cervic Station Type Weight in lbs Pre/Post Dialysis Refused Weight 157.843534475439 BP Diastolic BP Location Tested BP Systolic [...] Estim ated Date of Delivery false Thalassemia (Taiwanese, Cymro, Mediterranean, Or Background): MCV < 80 false Neural Tube Defect (Meningomyelocele, Spina Bifi da, Or Anencephaly) false Congenital Heart Defect false Down Syndrome false Alpesh-Sachs (eg, Uatsdin, Cajun, Faroese-Whitman) f alse Oma Disease false Sickle Cell [...] Domestic Partner Domestic Partner Phone Father Name Card Checker Status 01/07/20 25 1 CLOSED Fetus Data First Name Last Name Admitted to NICU Weight (g) Sex Living Outcome Pediatric Complications Fetus ID Race Codes Race Delivery Type , [place] [address] Kashif Calculation Initial Kashif Date Initial Exam [...] Domestic Partner Domestic Partner Phone Father Name Card Checker Status 01/07/20 25 1 CLOSED Fetus Data First Name Last Name Admitted to NICU Weight (g) Sex Living Outcome Pediatric Complications Fetus ID Race Codes Race Delivery Type , [place] [id number] Kashif Calculation Initial Kashif Date Initial Exam [...] Domestic Partner Domestic Partner Phone Father Name Card Checker Status 08/16/20 24 1 A Positive 161 Raymundo OPEN Fetus Data First Name Last Name Admitted to NICU Weight (g) Sex Living Outcome Pediatric Complications Fetus ID Race Codes Race Delivery Type [id number] Problems Problem Notes growth/presentation us at 32 wkshypothyroidism Problem Name Start Date End Date Resolution Snomed Code Not e Deliveries by 04 To Repeat Recurrent miscarriage [id number] 1 all first trimester Past history of gestational diabetes mellitus 01/06/2025 [id number] Kashif Calculation Initial Kashif Date Initial Exam [...] Weight in lbs Pre/Post Dialysis Refused Weight 161.476003726530 BP Diastolic BP Location Tested BP Systolic [...] Type Weight in lbs Pre/Post Dialysis Refused 162.332694900314 BP Diastolic BP Location Tested BP Systolic [...] Type Weight in lbs Pre/Post Dialysis Refused 166.649797770513 BP Diastolic BP Location Tested BP Systolic [...] Type Weight in lbs Pre/Post Dialysis Refused 169.513131935186 BP Diastolic BP Location Tested BP Systolic [...] Type Weight in lbs Pre/Post Dialysis Refused 172.345267849931 BP Diastolic BP Location Tested BP Systolic [...] Weight in lbs Pre/Post Dialysis Refused Weight 175.113315813233 BP Diastolic BP Location Tested BP Systolic BP Type 66 L arm 104 sitting Fetus Heart Rate Present Fetus Movement A Yes Comments Baby active, no cramping or bleeding. Passed GCT, normal Hgb. Plan for repeat growth next visit. Has not received tdap yet, will schedule. Discussed RCS timing, 5 or after. RTC 2 weeks. Flowsheet Date [...] Weight in lbs Pre/Post Dialysis Refused Weight 177.402107304782 BP Diastolic BP Location Tested BP Systolic [...] Type Weight in lbs Pre/Post Dialysis Refused 180.043286973044 BP Diastolic BP Location Tested BP Systolic BP Type 79 L arm 115 sitting Fetus Heart Rate Present A 135 Fetus Movement A Yes Comments Good movement. No cram ping or bleeding. Leg cramping improved with magnesium and B12. Preadmission scheduled. RTC 2 weeks. Flowsheet Date 02/01/2025 Lam Score Blood Edema Fundus Height Fundus Units Glucose Ketones Leukocytes Nitrite Labor Signs Protein Cervic Dilation Cervic Effacement Cervic Station Type Weight in lbs Pre/Post Dialysis Refused 179.061836982500 BP Diastolic BP Location Tested BP Systolic BP Type 78 L arm 109 sitting Fetus Heart Rate Present A 140 Present Fetus Movement A Yes Comments no complaints, no problems, routine care, no contractions, no vaginal bleeding, no loss of fluid, no cramping Flowsheet Date 02/08/2025 Lam Score Blood Edema Fundus Height Fundus Units Glucose Ketones Leukocytes Nitrite Labor Signs Protein Cervic Dilation Cervic Effacement Cervic Station neg none 38 cm Type Weight in lbs Pre/Post Dialysis Refused Weight 179.909083103724 BP Diastolic BP Location Tested BP Systolic BP Type 73 114 Fetus Heart Rate Present A 140 Present Fetus Movement A Yes Comments +FM, check tsh today, precau tions and education c/s scheduled f/u one week Flowsheet Date 02/15/2025 Lam Score Blood Edema Fundus Height Fundus Units Glucose Ketones Leukocytes Nitrite Labor Signs Protein Cervic Dilation Cervic Effacement Cervic Station neg trace Type Weight in lbs Pre/Post Dialysis Refused 180.725708138956 BP Diastolic BP Location Tested BP Systolic BP Type 83 122 Fetus Heart Rate Present Fetus Movement A Yes Comments Patient is having some swell ing. +FM, vtx, schedule post op and pp, precautions reviewed f/u c/s as scheduled Menstrual History Last Menstrual Date Menses Monthly [...] Domestic Partner Domestic Partner Phone Father Name Card Checker Status 01/07/20 1 CLOSED Fetus Data First Name Last Name Admitted to NICU Weight (g) Sex Living Outcome Pediatric Complications Fetus ID Race Codes Race Delivery Type , [place] 91464 Kashif Calculation Initial Kashif Date Initial Exam [...] Domestic Partner Domestic Partner Phone Father Name Card Checker Status 01/07/20 1 CLOSED Fetus Data First Name Last Name Admitted to NICU Weight (g) Sex Living Outcome Pediatric Complications Fetus ID Race Codes Race Delivery Type , [place] [address]70 Kashif Calculation Initial Kashif Date Initial Exam [...] Domestic Partner Domestic Partner Phone Father Name Card Checker Status 01/07/20 1 CLOSED Fetus Data First Name Last Name Admitted to NICU Weight (g) Sex Living Outcome Pediatric Complications Fetus ID Race Codes Race Delivery Type , [place] 18388 Kashif Calculation Initial Kasihf Date Initial Exam Date Initial Exam Provider [...] Domestic Partner Domestic Partner Phone Father Name Card Checker Status 01/07/20 1 CLOSED Fetus Data First Name Last Name Admitted to NICU Weight (g) Sex Living Outcome Pediatric Complications Fetus ID Race Codes Race Delivery Type , [place] 35335 Kashif Calculation Initial Kashif Date Initial Exam [...] Domestic Partner Domestic Partner Phone Father Name Card Checker Status 01/07/20 25 1 CLOSED Fetus Data First Name Last Name Admitted to NICU Weight (g) Sex Living Outcome Pediatric Complications Fetus ID Race Codes Race Delivery Type , [place] [id number] Kashif Calculation Initial Kashif Date Initial Exam [...]
--- OUTSIDE RECORDS SUMMARY | 2025-02-21 12:05 | XMS_ITS | Clinical Summary ---
Author Organization [facility] Address [facility] [place] [address] Care Team Providers Care Commercial Print Salesman Name Role Phone Rina Macdonald NP Primary Care Provider [phone] Allergies No known active allergies Medications omeprazole (PRILOSEC) 20 MG capsule Take 1 capsule (20 mg total) by mouth daily. 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 Headache 07/30/2022 Pruritic urticarial papules and plaques of ([facility]/HCC) 06/07/2022 Encounters Date Type Department Care Team Description 01/27/2025 Scan [facility] Scanned, [facility] Ultrasound (SCAN) from Last 3 Months Immunizations Immunization Administration Dates Next Due Influenza (Generic) 07/25/2021 Influenza Adult (Generic) 07/25/2022,,07/23/2019,2016,08/20/2016 PFIZER COVID-19 (ORIGINAL FORMULATION, PURPLE CAP) mRNA, [...] Comments Blood Pressure 102/64 12/15/2023 10:50 AM DOCUMENTATION CONSULTANT Pulse 92 12/15/2023 10:50 AM DOCUMENTATION CONSULTANT Temperature 36.7 C (98.1 F) 12/15/2023 10:50 AM DOCUMENTATION CONSULTANT Respiratory Rate 16 12/15/2023 10:50 AM DOCUMENTATION CONSULTANT Oxygen Saturation 98% 12/15/2023 10:50 AM DOCUMENTATION CONSULTANT Inhaled Oxygen Concentration - - Weight 71.2 kg (157 lb) 12/15/2023 10:50 AM DOCUMENTATION CONSULTANT Height 157.5 cm (5' 2 ) 08/08/2022 11:44 AM CDT Body Mass Index 28.72 08/08/2022 11:44 AM CDT Plan of Treatment Health Maintenance Due Date Last Done Comments Hepatitis B Vaccines (1 of 3 - 19+ 3-dose series) 2008 Cervical Cancer Screening Pa p with HPV Testing (Age 30 to 64) Every 5 Years 2019 Annual Physical 07/02/2022 07/02/2021 COVID-19 Vaccine (3 - 2023-2 5 season) 2024 02/09/2021, 01/12/2021 PHQ-2 (Physician [place]) 10/20/2024 12/15/2023 Cervical Cancer Screening Pa p [...] 5 Years) and At-Risk Patients (6 to 49 Years) Aged Out No longer eligible b ased on patient's age to complete this topic RSV Immunizations Under 20 Months Aged Out No longer eligible b ased on patient's age to complete this topic Procedures Procedure Name Priority Date/Time Associated Diagnosis Comments ULTRASOUND GENERIC (SCAN ORDER) 01/27/2025 HEPATITIS C ANTIBODY Routine 12/24/2022 7:21 AM DOCUMENTATION CONSULTANT Need for hepatitis C screening test from Last 3 Months or Most Recently Relevant to Health Maintenance Results * ULTRASOUND GENERIC (SCAN ORDER) (01/27/2025) Anatomical Region Laterality Modality Other 01/27/2025 us Doc [facility] Scanned SCANNING Final Resu lt * HEPATITIS C ANTIBODY (12/24/2022 7:21 AM DOCUMENTATION CONSULTANT) HEPATITIS C AB NON-REACTI VE NON-REACT NEVAEH 12/24/2022 6:13 PM DOCUMENTATION CONSULTANT [facility] Comment: ANTIBODIES TO HCV NOT DETECTED. DOES NOT EXCLUDE THE POSSIBILITY OF EXPOSURE TO HCV. 12/24/2022 7:21 AM DOCUMENTATION CONSULTANT Rina Macdonald NP LABORATORY Final Res ult [facility] [address] [place] [address], [id number] from Last 3 Months or Most Recently Relevant to Health Maintenance Insurance [facility] Care Teams Commercial Print Salesman Relationship Specialty Start Date End Date Rina Macdonald NP [address] [place] [address] PCP - General NURSE PRACTITIONER 06/26/21
[2025-02-21 12:25] LABS: HIV 1/2 Ab P24 Ag Result Negative (Negative)
[2025-02-21 14:02] LABS: Syphilis IgG/IgM Antibody Negative (Negative)
== END 2025-02-21 11:11 | disposition home or self-care (01) ==
LOC: ANHLAB 11:12
PROVIDERS: PCP Nurse Practitioner; Visit Provider Obstetrics & Gynecology
DX: Z01.818 Encounter for other preprocedural examination (principal)
CPT/HCPCS: 36415; 85027; 86593; 86703; 86850; 86900; 86901; G0432

== ENCOUNTER 2025-02-22 05:32 | Inpatient (IN) | payer BC, SELFPAY ==
[2025-02-22] VITALS (54 sets, daily range): BP systolic 78–115; BP diastolic 45–71; PULSE 58–161; RESP 13–19; TEMP 36.2–36.9; O2SAT 97–100; BMI 33.0
--- OUTSIDE RECORDS SUMMARY | 2025-02-22 05:36 | XMS_ITS | Encounter Summary ---
Author Organization [facility] Address [address] [facility] [place] [address] Care Team Providers Care Military Administrative Technician Name Role Phone Simon Turner MD Primary Care Provider [phone] Encounter Details Date Type Department Care Team (Late st Contact Info) Description 10/02/2018 Lab Requisition [facility] [address] [place] [address] Rajat Burch MD [address] [facility] [address] [place] [address] Social History Tobacco Use Types Packs/Day Years Used Date Smoking Tobacco: Every Day Smokeless Tobacco: Never Comments Unknown Sex and Gender Information Value Date Recorded Sex Assigned at Not on file Legal Sex Female 7:02 AM SENIOR WATER RESOURCES ENGINEER Gender Identity Not on file Sexual Orientation Not on file documented as of this encounter Plan of Treatment Not on file documented as of this encounter Procedures Procedure Name Priority Date/Time Associated Diagnosis Comments HCG BETA BLOOD QUANTITATIVE STAT 10/02/2018 7:36 AM SENIOR WATER RESOURCES ENGINEER documented in this encounter Results * HCG BETA BLOOD QUANTITATIVE (10/02/2018 7:36 AM SENIOR WATER RESOURCES ENGINEER) hCG Quantitative 50 mIU/mL 10/02/20 10:20 AM SENIOR WATER RESOURCES ENGINEER [facility] Blood BLOOD SPECIMEN / Unknown Venipuncture / Unknown 10/02/2018 7:36 AM SENIOR WATER RESOURCES ENGINEER 10/02/2018 9:58 AM SENIOR WATER RESOURCES ENGINEER Narrative [facility] - 10/02/2018 10:20 AM SENIOR WATER RESOURCES ENGINEER hCG Reference Range, mIU/mL: Males 0-2.0 Non [...] Rajat Burch MD LAB - CHEMISTRY ORDERABLES [facility] al Result [facility] [address] [place], [place] [id number] documented in this encounter Visit Diagnoses Not on filedocumented in this encounter Care Teams Military Administrative Technician Relationship Specialty Start Date End Date Simon Turner MD [address] [place] [id number] PCP - General 05/30/22 documented as of this encounter
--- OUTSIDE RECORDS SUMMARY | 2025-02-22 05:36 | XMS_ITS | Clinical Summary ---
Author Organization [facility] Address [facility] [place] [address] Care Team Providers Care Tube Teller Name Role Phone Rina Macdonald NP Primary Care Provider [phone] Allergies No known active allergies Medications omeprazole (PRILOSEC) 20 MG capsule Take 1 capsule (20 mg total) by mouth daily. 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 Headache 07/30/2022 Pruritic urticarial papules and plaques of ([facility]/HCC) 06/07/2022 Encounters Date Type Department Care Team [...] Comments Blood Pressure 102/64 12/15/2023 10:50 AM HR DIRECTOR Pulse 92 12/15/2023 10:50 AM HR DIRECTOR Temperature 36.7 C (98.1 F) 12/15/2023 10:50 AM HR DIRECTOR Respiratory Rate 16 12/15/2023 10:50 AM HR DIRECTOR Oxygen Saturation 98% 12/15/2023 10:50 AM HR DIRECTOR Inhaled Oxygen Concentration - - Weight 71.2 kg (157 lb) 12/15/2023 10:50 AM HR DIRECTOR Height 157.5 cm (5' 2 ) 08/08/2022 [...] 5 season) 2024 02/09/2021, 01/12/2021 PHQ-2 (Physician [place]) 10/20/2024 12/15/2023 Cervical Cancer Screening Pa p [...] HEPATITIS C ANTIBODY Routine 12/24/2022 7:21 AM HR DIRECTOR Need for hepatitis C screening test from Last 3 Months or Most Recently Relevant to Health Maintenance Results * ULTRASOUND GENERIC (SCAN ORDER) (01/27/2025) Anatomical Region Laterality Modality Other 01/27/2025 us [facility] Scanned SCANNING Final Resu lt * HEPATITIS C ANTIBODY (12/24/2022 7:21 AM HR DIRECTOR) HEPATITIS C AB NON-REACTI VE NON-REACT NEVAEH 12/24/2022 6:13 PM HR DIRECTOR [facility] Comment: ANTIBODIES TO HCV NOT DETECTED. DOES NOT EXCLUDE THE POSSIBILITY OF EXPOSURE TO HCV. 12/24/2022 7:21 AM HR DIRECTOR Rina Macdonald NP LABORATORY Final Res ult [facility] [address] [place] [address], [id number] from Last 3 Months or Most Recently Relevant to Health Maintenance Insurance [facility] Care Teams Tube Teller Relationship Specialty Start Date End Date Rina Macdonald NP [address] [place] [address] PCP - General NURSE PRACTITIONER 06/26/21
--- OUTSIDE RECORDS SUMMARY | 2025-02-22 05:36 | XMS_ITS | Encounter Summary ---
Author Organization [facility] Address [address] [place] [address] Care Team Providers Care Communications Professor Name Role Phone Simon Turner MD Primary Care Provider [phone] Encounter Details Date Type Department Care Team (Late st Contact Info) Description 09/19/2021 Lab Requisition [facility] [address] [place] [address] Debbie Huang MD Social History Tobacco Use Types Packs/Day Years Used Date Smoking Tobacco: Every Day Smokeless Tobacco: Never Comments Unknown Sex and Gender Information Value Date Recorded Sex Assigned at Not on file Legal Sex Female 7:02 AM BODY ART TECHNICIAN Gender Identity Not on file Sexual Orientation Not on file documented as of this encounter Plan of Treatment Not on file documented as of this encounter Procedures Procedure Name Priority Date/Time Associated Diagnosis Comments HCG BETA BLOOD QUANTITATIVE STAT 09/19/2021 9:36 AM BODY ART TECHNICIAN documented in this encounter Results * HCG BETA BLOOD QUANTITATIVE (09/19/2021 9:36 AM BODY ART TECHNICIAN) hCG Quantitative 71.07 mIU/mL 09/19/20 10:46 AM BODY ART TECHNICIAN [facility] Blood BLOOD SPECIMEN / Unknown Venipuncture / Unknown 09/19/2021 9:36 AM BODY ART TECHNICIAN 09/19/2021 9:43 AM BODY ART TECHNICIAN Narrative [facility] - 09/19/2021 10:46 AM BODY ART TECHNICIAN hCG Reference Range, mIU/mL: Males 0-2.0 Non [...] MD LAB - CHEMISTRY ORDERABLES Final Result [facility] [address] [place] [address] documented in this encounter Visit Diagnoses Not on filedocumented in this encounter Care Teams Communications Professor Relationship Specialty Start Date End Date Simon Turner MD [address] [place] [address] PCP - General 05/30/22 documented as of this encounter
--- OUTSIDE RECORDS SUMMARY | 2025-02-22 05:36 | XMS_ITS | Clinical Summary ---
Author Organization [facility] Address [address] [facility] [place] [address] Care Team Providers Care Chief Controller Name Role Phone Simon Turner MD Primary Care Provider [phone] Source Comments [employer],non-owned Affiliates and Associated Physician Practices is amultiple site organization consisting of ambulatory clinics and hospital sitesin [place], [place], [place] and [place]. This disclosure is being madepursuant to the Care Everywhere program and may not contain all information available regarding this patient. Last updated 18.News360 Allergies No known active allergies Medications * [...] on file Legal Sex Female 7:02 AM DECISION SCIENCE ANALYST Gender Identity Not on file Sexual Orientation Not on file Last Filed Vital Signs Vital Sign Reading Time Taken Comments Blood Pressure 98/76 10/30/2017 2:32 PM DECISION SCIENCE ANALYST Pulse 85 10/30/2017 2:32 PM DECISION SCIENCE ANALYST Temperature 36.5 C (97.7 F) 10/30/2017 2:32 PM DECISION SCIENCE ANALYST Respiratory Rate 16 10/30/2017 2:32 PM DECISION SCIENCE ANALYST Oxygen Saturation 99% 10/30/2017 2:32 PM DECISION SCIENCE ANALYST Inhaled Oxygen Concentration - - Weight 59 kg (130 lb) 10/30/2017 2:32 PM DECISION SCIENCE ANALYST Height 157.5 cm (5' 2 ) 10/30/2017 2:32 PM DECISION SCIENCE ANALYST Body Mass Index 23.78 10/30/2017 2:32 PM DECISION SCIENCE ANALYST Plan of Treatment Health Maintenance Due Date [...] patient's age to complete this topic Insurance [facility] Care Teams Chief Controller Relationship Specialty Start Date End Date Simon Turner MD [address] [place] [phone] PCP - General 05/30/22
--- OUTSIDE RECORDS SUMMARY | 2025-02-22 05:36 | XMS_ITS | Encounter Summary ---
Author Organization [facility] Address [address] [place] [address] Care Team Providers Care Fios Line Installer Name Role Phone Rina Macdonald NP Primary Care Provider [phone] Encounter Details Date Type Department Care Team (Late st Contact Info) Description 12/24/2022 [employer] Message Enc [facility] Family [facility] - [place] [address] [facility] [address] [place] [phone] Rina Macdonald, REMOTE SENSING TECHNICIAN [address] [place] [address] Question regarding CBC W/DIFF AUTOMATED Social History [...] Coronavirus/COVID-19? No / Unsure 12/24/2022 7:01 AM DIRECTOR OF PAYROLL documented as of this encounter Plan of Treatment Not on file documented as of this encounter Visit Diagnoses Not on filedocumented in this encounter Additional Health Concerns Assessment Noted Time PHQ-9 Depression Total Score: 0 07/02/20 2:04 PM CDT documented as of this encounter Care Teams Fios Line Installer Relationship Specialty Start Date End Date Rina Macdonald NP [address] [place] [address] [place] [address] PCP - General NURSE PRACTITIONER 06/26/21 documented as of this encounter
--- OUTSIDE RECORDS SUMMARY | 2025-02-22 05:36 | XMS_ITS | Encounter Summary ---
Author Organization [facility] Address [address] [facility] [place] [address] Care Team Providers Care Hot Billet Shear Operator Name Role Phone Simon Turner MD Primary Care Provider [phone] Encounter Details Date Type Department Care Team (Late st Contact Info) Description 09/28/2021 Lab Requisition [facility] [address] [place] [address] Debbie Huang MD Social History Tobacco Use Types Packs/Day Years Used Date Smoking Tobacco: Every Day Smokeless Tobacco: Never Comments Unknown Sex and Gender Information Value Date Recorded Sex Assigned at Not on file Legal Sex Female 7:02 AM RN ADMIT Gender Identity Not on file Sexual Orientation Not on file documented as of this encounter Plan of Treatment Not on file documented as of this encounter Procedures Procedure Name Priority Date/Time Associated Diagnosis Comments HCG BETA BLOOD QUANTITATIVE STAT 09/28/2021 11:42 AM RN ADMIT documented in this encounter Results * HCG BETA BLOOD QUANTITATIVE (09/28/2021 11:42 AM RN ADMIT) hCG Quantitative 3,781.48 mIU/mL 09/28/20 4:49 PM RN ADMIT [facility] Blood BLOOD SPECIMEN / Unknown Venipuncture / Unknown 09/28/2021 11:42 AM RN ADMIT 09/28/2021 3:40 PM RN ADMIT Narrative [facility] - 09/28/2021 4:49 PM RN ADMIT hCG Reference Range, mIU/mL: Males 0-2.0 Non [...] MD LAB - CHEMISTRY ORDERABLES Final Result [facility] [address] [place] [address] documented in this encounter Visit Diagnoses Not on filedocumented in this encounter Care Teams Hot Billet Shear Operator Relationship Specialty Start Date End Date Simon Turner MD [address] [place] [id number] PCP - General 05/30/22 documented as of this encounter
--- OUTSIDE RECORDS SUMMARY | 2025-02-22 05:36 | XMS_ITS | Encounter Summary ---
Author Organization [facility] Address [address] [place] [address] Care Team Providers Care Ui Lead Developer Name Role Phone Simon Turner MD Primary Care Provider [phone] Encounter Details Date Type Department Care Team (Late st Contact Info) Description 09/21/2021 Lab Requisition [facility] [address] [place] [address] Debbie Huang MD Social History Tobacco Use Types Packs/Day Years Used Date Smoking Tobacco: Every Day Smokeless Tobacco: Never Comments Unknown Sex and Gender Information Value Date Recorded Sex Assigned at Not on file Legal Sex Female 7:02 AM EXTRAS CASTING DIRECTOR Gender Identity Not on file Sexual Orientation Not on file documented as of this encounter Plan of Treatment Not on file documented as of this encounter Procedures Procedure Name Priority Date/Time Associated Diagnosis Comments HCG BETA BLOOD QUANTITATIVE STAT 09/21/2021 2:58 PM EXTRAS CASTING DIRECTOR documented in this encounter Results * HCG BETA BLOOD QUANTITATIVE (09/21/2021 2:58 PM EXTRAS CASTING DIRECTOR) hCG Quantitative 217.87 mIU/mL 09/21/20 4:12 PM EXTRAS CASTING DIRECTOR [facility] Blood BLOOD SPECIMEN / Unknown Venipuncture / Unknown 09/21/2021 2:58 PM EXTRAS CASTING DIRECTOR 09/21/2021 3:36 PM EXTRAS CASTING DIRECTOR Narrative [facility] - 09/21/2021 4:12 PM EXTRAS CASTING DIRECTOR hCG Reference Range, mIU/mL: Males 0-2.0 Non [...] MD LAB - CHEMISTRY ORDERABLES Final Result [facility] [address] [place] [address] documented in this encounter Visit Diagnoses Not on filedocumented in this encounter Care Teams Ui Lead Developer Relationship Specialty Start Date End Date Simon Turner MD [address] [place] [address] PCP - General 05/30/22 documented as of this encounter
--- NOTE | 2025-02-22 05:51 | LDADM ---
This patient, Tiffanie Lomas, was admitted to Labor/Delivery/Recovery 120 on 02/22/25 at 05:32. Plans for labor, pain management and were discussed with patient. Patient/family oriented to hospital policies and general routines including ID bracelet, bed and alarms, visiting hours, pain management, procedures, bathroom and other care routines, personal items, smoking policy, room service/diet and guest tray routines, security routines, and visiting hours. Patient/Family are encouraged to report perceived risks to care and to ask questions if they do not understand what they are told or what they should do. See OBIX for further documentation.
[2025-02-22] MEDS: LACTATED RINGERS 1,000 ML 125 ML IV CONT ×2 (06:05→07:12)
[2025-02-22] MEDS: ACETAMINOPHEN 500 MG TABLET 1000 MG PO (06:17)
[2025-02-22] MEDS: ONDANSETRON INJ 4 MG/2 ML VIAL IV PUSH (06:18)
[2025-02-22] MEDS: FAMOTIDINE 20 MG/2 ML VIAL IV PUSH (06:18)
--- NOTE | 2025-02-22 07:30 | PM.IMHP ---
H&P: HPI History of Present Illness Date/Time: 02/22/25 07:30 Chief Complaint: Term Narrative: This patient is a 34-year-old multiparous female with a term and prior delivery. We have agreed to repeat delivery. She understands risks, benefits, and alternatives. She has completed the informed consent process and is ready to proceed. The patient understands the details of the procedure. The procedure has been explained in detail. She understands the risks. She understands that injuries may occur that result in hospitalization, more surgery, and severe illness. She understands risk of hemorrhage and infection. She denies any chest pain or shortness of breath. She denies any nausea, vomiting, fever, chills. Review of Systems Review of Systems: All systems reviewed & are unremarkable except as noted in HPI and below Constitutional: Constitutional: Denies chills, Denies fatigue, Denies fever(s) and Denies weakness Eyes: Eyes: Denies blurry vision, Denies change in vision, Denies loss of peripheral vision, Denies loss of vision, Denies other visual disturbances and Denies eye pain ENT: Denies vertigo, Denies dizziness, Denies hearing loss, Denies mouth pain, Denies nasal obstruction, Denies neck mass and Denies neck pain Cardiovascular: Cardiovascular: Denies chest pain, Denies diaphoresis, Denies syncope, Denies leg edema and Denies dyspnea Respiratory: Respiratory: Denies chest congestion, Denies cough, Denies hemoptysis, Denies dyspnea and Denies wheezing Gastrointestinal: Gastrointestinal: Denies abdominal pain, Denies constipation, Denies diarrhea, Denies nausea and Denies vomiting Genitourinary: Genitourinary: Denies hematuria, Denies change in libido, Denies nocturia, Denies genital lesions, Denies flank pain and Denies urinary urgency Musculoskeletal: Musculoskeletal: Denies abnormal gait, Denies back pain, Denies myalgias, Denies arthralgias, Denies joint swelling, Denies muscle weakness and Denies neck pain Integumentary/Breasts: Skin/Breast: Denies swelling, Denies breast pain, Denies breast mass, Denies dry skin, Denies nipple discharge, Denies unusual bruising and Denies jaundice Neurologic: Denies Neuro-related abnormal movements, Denies Abnormal speech present, Denies abnormal gait, Denies behavioral changes, Denies confusion, Denies vertigo, Denies dizziness, Denies syncope, Denies loss of vision, Denies memory loss, Denies convulsions and Denies weakness Psychiatric: Psychiatric: Denies abnormal sleep pattern, Denies behavioral changes, Denies change in libido, Denies confusion, Denies depression, Denies anhedonia and Denies memory loss Endocrine: Endocrine: Reports no additional endocrine complaints, Denies change in libido and Denies fatigue Hematologic/Lymphatic: Hematologic/Lymphatic: Reports no additional hematologic/lymphatic complaints Allergic/Immunologic: Allergic/Immunologic: Reports no additional allergic/immunologic complaints and Denies wheezing [facility] Past Medical History Medical History (Updated 02/16/25 @ 09:43 by Florentin Enamorado MD) Leukocytosis Epigastric pain Thickening of wall of gallbladder High cholesterol Surgical History Surgical History H/O laparoscopy Hx of tonsillectomy Family History Family History Mother Patient's mother is in good health Father Diabetes type 2, controlled Sibling Diabetes type 2, controlled Hypertension Social History Social History Years smoked: 7 Smoking status: Former smoker Tobacco type: cigarettes Second hand tobacco smoke exposure: No Alcohol intake: former Substance use: never Substance use type: does not use Do You Feel Safe in your Home?: Yes Lack of Transportation: No Lack of Food: Never True Current Housing: I Have Housing Concerned About Future Housing: No Difficulty Paying Gas/Electric Bills: No Difficulty Paying for Meds: No Currently Unemployed: No Education: High School Diploma/GED Difficulty w/ Childcare or Family Care: No Living arrangements: with family Occupation/Education: occupation Additional occupation/education comments: [employer] Spiritual care concerns: No Meds Home Medications and Allergies Home Medications ?Medication ?Instructions ?Recorded ?Confirmed ?Type cholecalciferol (vitamin D3) 50 50 mcg PO DAILY 01/23/22 01/31/25 History mcg (2,000 unit) capsule docusate sodium 100 mg capsule 100 mg PO BID #60 caps 05/31/22 01/31/25 Rx vit no.95-ferrous 1 tablet PO DAILY 01/31/25 01/31/25 History fumarate 28 mg-folic acid 800 mcg tablet () Allergies Allergy/AdvReac Type Severity Reaction Status Date / Time ultrasound coupling medium AdvReac Intermediate Rash Verified 02/22/25 06:11 Vital Signs Vital Signs - 24 hr 02/22/25 05:50 02/22/25 05:51 02/22/25 05:51 Temperature 98.3 F Pulse Rate Respiratory Rate 18 Blood Pressure Pulse Oximetry 98 Oxygen Delivery Room Air 02/22/25 05:51 02/22/25 05:55 02/22/25 06:00 Temperature Pulse Rate 89 Respiratory Rate Blood Pressure 111/68 Pulse Oximetry 98 98 Oxygen Delivery 02/22/25 06:01 02/22/25 06:05 02/22/25 06:10 Temperature Pulse Rate 93 Respiratory Rate Blood Pressure 112/71 Pulse Oximetry 100 100 Oxygen Delivery 02/22/25 06:15 02/22/25 06:16 02/22/25 06:20 Temperature Pulse Rate 81 Respiratory Rate Blood Pressure 108/68 Pulse Oximetry 100 100 Oxygen Delivery 02/22/25 06:25 02/22/25 06:28 Temperature 97.2 F L Pulse Rate Respiratory Rate Blood Pressure Pulse Oximetry 100 Oxygen Delivery Exam Const: General: cooperative, healthy appearing, comfortable and no acute distress Orientation/consciousness: oriented to person, oriented to place and oriented to time HENMT: Head: normal to inspection Ears: external ears normal Face/Nose/Sinus: Normal external nose present and normal facial exam Face and sinus: normal facial exam Eyes: General: appearance normal, both eyes and all related structures Neck: Neck: normal visual inspection, trachea midline and supple Resp: Auscultation: clear to auscultation bilaterally, no crackles, no rales, no rhonchi and no wheezes Cardio: Rate: regular rate Rhythm: regular rhythm Heart sounds: no click, no murmurs and no rubs GI: GI Palp: No abdominal tenderness, No Soft to palpation, No Tenderness to palpation present (GI) and No Palpable mass present Auscultation: normal bowel sounds Skin: General skin exam: normal color and no rashes or lesions noted Neuro: General: oriented to person, oriented to place and oriented to time Extrem: General: normal to inspection, no joint enlargement, no clubbing, cyanosis or edema, no pedal edema and no calf tenderness Psych: Appearance: grossly normal Mental Status: mental status grossly normal Speech and movement: Normal speech and movement present Assessment and Plan Assessment and plan (1) delivery delivered: Code(s): O82 - Encounter for delivery without indication Status: Acute Plan This patient is a 34-year-old multiparous female with a term and prior delivery. We have agreed to repeat delivery. She understands risks, benefits, and alternatives. She has completed the informed consent process and is ready to proceed.
--- NOTE | 2025-02-22 07:32 | WPDHPUPDATE1 ---
History and Physical Update Update Date/Time: 02/22/25 07:32 History and Physical has been reviewed, including an updated exam of the patient. There are NO changes in the patient's condition. Risks, benefits, and alternatives have been discussed and questions answered. Patient agrees to proceed with procedure.
--- NOTE | 2025-02-22 08:35 | W.PM.OBCSD ---
OB - Delivery Note Procedure Delivery date: 02/22/25 Pre-op diagnosis: Previous Delivery Post-op Diagnosis: Same Procedure Performed: Repeat Surgeon: Florentin Enamorado MD Anesthesia type: Spinal Description of Procedure/Findings: The patient was taken the operating room.? She was prepped and draped in dorsal supine position with a leftward tilt.? This was done after spinal anesthetic was applied.? A low-transverse skin incision was made and carried down till of the fascia with the knife.? The fascial incision was made with the knife.? The fascial incision was extended laterally with Malik scissors.? The fascia was tented upward superiorly and inferiorly the rectus muscles were dissected off bluntly.? The rectus muscles were the midline.? The preperitoneal fat and peritoneum were dissected open bluntly at the superior aspect of the rectus muscles.? The peritoneal incision was extended superior and inferior with good position of bladder.? The uterine incision was made with a scalpel down to the level of the amniotic cavity.? The amniotic cavity was entered bluntly.? The infant was delivered.? The cord was clamped and cut and the infant was handed off to waiting pediatric staff.? Cord bloods were obtained.? The placenta was removed manually.? The uterus was exteriorized.? The uterus was cleared of all clots, debris and membranes.? The uterus was closed in 0 Vicryl running lock fashion.? An imbricating over a was placed along the incision line as well.? The uterus was returned to the abdomen.? The gutters were cleared of all clots and debris.? The fascia was closed with 0 Vicryl running fashion.? The subcutaneous tissue was irrigated pinpoint bleeders were cauterized.? The skin was closed with subcuticular absorbable johnny.? The skin incision line was covered with glue.? The patient tolerated the procedure well.? She has taken recovery room in stable condition.? Sponge lap and needle counts were correct x2.? Specimen: No Estimated Blood Loss: 450 Complications: No immediate complications Condition: Stable Disposition: Floor
--- NOTE | 2025-02-22 09:30 | PC.NURSE ---
Nursery RN requested assistance with latching . Baby will latch but doesn't suck. Mom has baby skin to skin and he is awake and roots a little bit. We placed him in cross cradle and he latches to the left breast but will not suck. We tried several times and after 10 minutes of working with him, we were unable to feed. He will hold the nipple in his mouth without suckling or he cries. Mom has an everted left nipple and a flat right nipple. She is encouraged to keep him skin to skin and give him a little more time to wake up and be ready to eat. Nursery RN updated.
[2025-02-22] MEDS: OXYTOCIN 30 UNITS/NS 500 ML 30 UNITS/500 ML BAG 125 UNITS IV CONT (10:57)
[2025-02-22] MEDS: DOCUSATE SODIUM 100 MG CAPSULE PO ×2 (12:32→16:35)
[2025-02-22] MEDS: KETOROLAC 15 MG/ML VIAL (*BKC) IV PUSH ×2 (12:32→18:31)
[2025-02-22] MEDS: ACETAMINOPHEN 325 MG TABLET 650 MG PO ×2 (12:32→18:31)
[2025-02-22] MEDS: MULTIVIT/MIN/PREN/FOL AC/IRON TABLET 1 TAB PO (12:32)
[2025-02-22] MEDS: SIMETHICONE 80 MG TAB.CHEW PO ×2 (12:32→16:35)
--- NOTE | 2025-02-22 13:20 | PC.NURSE ---
Met with patient to see if baby had fed again. She states that he has been sleeping and she is waiting for him to wake up. Educated that she may need to place him skin to skin and encourage him to wake and eat if he hasn't stirred by three hours since the last feeding. Mom agrees to take these steps and knows we are available to assist if needed. RN updated.
--- NOTE | 2025-02-22 14:45 | PC.NURSE ---
Mother called out for assistance but was able to latch baby independently to the right breast. This is the side with the flat nipple and mom was shown how to make the 'bite' for baby to latch deeply. He maintains the latch well once obtained. Mom taught to keep baby awake with stimulation if necessary and to try for 15 minutes of feeding time. She is encouraged to call out for assistance if baby comes off the breast or she needs help switching to the other breast. RN updated.
[2025-02-22] MEDS: DEXTROSE 5%/0.45% SOD CHL 1,000 ML 125 ML IV CONT (15:31)
--- NOTE | 2025-02-22 17:20 | PC.NURSE ---
Patient has independently latched baby to the right breast again. A Latch Assist nipple everter was provided to patient for use if desired. Briefly discussed how to use the everter and the user guide is included in the package. Patient is encouraged to call for assistance if needed. RN updated.
[2025-02-23] MEDS: ACETAMINOPHEN 325 MG TABLET 650 MG PO ×4 (00:19→18:48)
[2025-02-23] MEDS: KETOROLAC 15 MG/ML VIAL (*BKC) IV PUSH ×2 (00:19→06:37)
[2025-02-23 04:30] VITALS: BP 97/50; PULSE 83; RESP 18; TEMP 36.5; O2SAT 100
[2025-02-23 05:19] LABS: Basophils Percent Auto 0.4 % (0.2-1.2); Eosinophils Absolute Auto 0.1 K/mm3 (0-0.3); Hematocrit 27.7 % (37.0-47.0); Hemoglobin 8.5 g/dL (12.0-15.0); Immature Granulocyte Absolute 0.03 K/mm3 (0.00-0.031); Immature Granulocyte Percent A 0.4 % (0-0.5); Lymphocytes Absolute Auto 2.24 K/mm3 (0.9-3.2); Lymphocytes Percent Auto 27.8 % (18.3-44.2); Mean Corpuscular HGB Conc 30.7 g/dl (32-36); Mean Corpuscular Hemoglobin 30.6 pg (26-34); Mean Corpuscular Volume 99.6 fl (80-100); Mean Platelet Volume 10.8 fl (7.4-10.4); Monocytes Absolute Auto 0.9 K/mm3 (0.1-0.6); Monocytes Percent Auto 10.7 % (2.6-8.5); Neutrophils Absolute Auto 4.8 K/mm3 (1.3-6.7); Neutrophils Percent Auto 59.7 % (45.5-73.1); Platelet Count Result 187 k/mm3 (150-375); Red Blood Count 2.78 M/mm3 (4.2-5.4); Red Cell Distribution Width 17.2 % (11.5-14.5); White Blood Count 8.1 K/mm3 (4.5-10.0)
[2025-02-23 07:25] VITALS: BP 93/52; PULSE 98; RESP 16; TEMP 36.4; O2SAT 98
--- NOTE | 2025-02-23 07:32 | PM.OBPNVD ---
OB - PN: Subj Subjective Date/time seen: 02/23/25 07:32 Interval history: pp day 1 doing well has not passed gas, urinating without difficulty baby doing well OB - PN: Obj Data Labs 02/23/25 04:38 Labs: Laboratory Results - last 24 hr 02/23/25 04:38 WBC 8.1 RBC 2.78 L Hgb 8.5 L Hct 27.7 L MCV 99.6 MCH 30.6 MCHC 30.7 L RDW 17.2 H Plt Count 187 MPV 10.8 H Immature Gran % (Auto) 0.4 Neut % (Auto) 59.7 Lymph % (Auto) 27.8 [place] % (Auto) 10.7 H Eos % (Auto) 1.0 Baso % (Auto) 0.4 Lymph # (Auto) 2.24 [place] # (Auto) 0.9 H Eos # (Auto) 0.1 Baso # (Auto) 0.0 Abs Immat Gran (auto) 0.03 Absolute Neuts (auto) 4.8 Absolute Nucleated RBC 0.000 Nucleated RBC % 0.0 OB - PN A/P Time Spent With Patient Time: Total time spent is greater than 50% in coordination of care (as documented) at patient's floor/unit and/or counseling patient:
[2025-02-23] MEDS: SIMETHICONE 80 MG TAB.CHEW PO ×3 (07:39→16:22)
[2025-02-23] MEDS: POLYSACCHARIDE IRON COMPLEX 150 MG CAPSULE PO ×2 (07:39→16:23)
[2025-02-23] MEDS: MULTIVIT/MIN/PREN/FOL AC/IRON TABLET 1 TAB PO (07:39)
[2025-02-23] MEDS: DOCUSATE SODIUM 100 MG CAPSULE PO ×2 (07:39→16:23)
[2025-02-23 07:45] VITALS: PULSE 98; RESP 16; O2SAT 98
--- NOTE | 2025-02-23 09:45 | PC.NURSE ---
Met with patient to offer services today. She struggled to feed last night. She states that baby would latch and hold the nipple in his mouth but that he refused to suckle. She fed a bottle of formula this morning and is attempting to bottle feed again now. She asks if placing baby skin to skin may awaken him and encourage him to feed better. Confirmed that skin to skin is a great way to start any feeding, even bottle feeds. She will do skin to skin and then attempt bottle feeding again. She is instructed to call out if she is unable to get baby to eat. She is offered the options of trying a nipple shield to assist with latch and suckle and/or initiating pumping today with a hospital pump or her personal pump. Mom will let us know what she would like to try today when she is ready. RN updated.
[2025-02-23] MEDS: IBUPROFEN 600 MG TABLET PO ×2 (12:38→18:48)
[2025-02-23] MEDS: LIDOCAINE 5% PATCH 1 PATCH TRANSDERM (12:39)
[2025-02-23] MEDS: HYDROcodone/acetaminophen (*CRX) 5-325 MG TABLET 1 TAB PO (13:38)
--- NOTE | 2025-02-23 17:45 | PC.NURSE ---
Breast pump provided due to [infant not suckling at breast]. Instructions given on cleaning, care, usage, that there should be no pain, pumping schedule for milk production, collection, and storage of human milk. Patient is instructed to call when ready to pump for assessment of correct placement and flange size. She just got some visitors and doesn't want to pump yet. She did pump with her last child. Instructed that for adequate milk production she should pump every 3 hours (8 times in 24 hours) just like baby would feed. Mother voiced understanding of the education shared along with mom/baby guide for additional resource information. Reported to the Primary RN.
[2025-02-23 20:00] VITALS: BP 99/56; PULSE 92; RESP 16; TEMP 36.4; O2SAT 96
--- NOTE | 2025-02-23 20:18 | WPDANLDPN2 ---
Anes-Prog Note L&D Date/Time: 02/23/25 20:18 Comfortable throughout: section Neuraxial method: spinal Epidural/Spinal procedure site: clean & non-tender Neuro status: Neuro function grossly intact. Cardiovascular status: normal Respiratory status: normal Airway patency: baseline Mental status: baseline Post-Op hydration status: normal Vital Signs: Last Vital Signs Temp 36.4 C 02/23/25 07:25 Pulse 98 02/23/25 07:45 Resp 16 02/23/25 07:45 BP 93/52 L 02/23/25 07:25 Pulse Ox 98 02/23/25 07:45 O2 Del Method Room Air 02/23/25 07:45 Pain score (VAS): 10/29 I/O: Intake & Output 02/23/25 02/23/25 02/23/25 07:59 15:59 23:59 Intake Total 500 Output Total 1400 350 Balance -1400 150 Post-procedural complaints: none Patient feedback: Patient satisfied with anesthetic care.
--- NOTE | 2025-02-23 20:18 | WPDANLDNPN2 ---
Anes-Prog Note L&D-Neuraxial Date/Time: 02/23/25 20:18 Neuraxial medications: intrathecal PF morphine Opiod-related complaints: none Patient feedback: Patient satisfied with post-operative pain management.
[2025-02-24] MEDS: ACETAMINOPHEN 325 MG TABLET 650 MG PO ×4 (01:00→21:05)
[2025-02-24] MEDS: IBUPROFEN 600 MG TABLET PO ×4 (01:00→21:05)
[2025-02-24] MEDS: SIMETHICONE 80 MG TAB.CHEW PO ×3 (07:59→17:11)
[2025-02-24 08:00] VITALS: PULSE 91; RESP 16; O2SAT 100
[2025-02-24] MEDS: DOCUSATE SODIUM 100 MG CAPSULE PO ×2 (08:00→17:11)
[2025-02-24] MEDS: MULTIVIT/MIN/PREN/FOL AC/IRON TABLET 1 TAB PO (08:00)
[2025-02-24] MEDS: POLYSACCHARIDE IRON COMPLEX 150 MG CAPSULE PO ×2 (08:00→17:11)
[2025-02-24 08:05] VITALS: BP 106/67; PULSE 91; RESP 16; TEMP 37; O2SAT 100
--- NOTE | 2025-02-24 08:24 | PM.OBPNVD ---
OB - PN: Subj Subjective Date/time seen: 02/24/25 08:24 Interval history: pp day 1 doing well has not passed gas, urinating without difficulty baby doing well OB - PN: Obj Data Labs 02/23/25 04:38 OB - PN A/P Time Spent With Patient Time: Total time spent is greater than 50% in coordination of care (as documented) at patient's floor/unit and/or counseling patient:
--- NOTE | 2025-02-24 11:25 | PC.NURSE ---
Introductions were made, then consulted with patient to assess needs related to . Discussed with mother her?plans to feed?her and the?experience so far. Per mom she had issues last night with getting baby to suck, he would latch but then not suckle at the nipple. Her primary RN had talked with mother and puppet master this morning about the 15-15-15 feeding plan due to baby not effectively feeding at the breast. CLC reviewed plan with mother, she is on board but is having pain with pumping on the tip of her nipple. She is going to let CLC know when she is ready for her nipples and breasts to be assessed, right now she is feeding baby a formula bottle. Mother does have her own Medela breast pump at home that she will use. CLC reviewed importance of regular and adequate nipple stimulation for milk production/supply. Resources provided for inpatient and outpatient services with the feeding sheet, mom/baby guide and name written on the communication board. Mother voiced understanding of information and will call if there is a request for assistance. Reported to the Primary RN.
--- NOTE | 2025-02-24 15:38 | PC.NURSE ---
1530. Met with mom to discuss her soreness with pumping. Mom reports she was able to pump, but only on the lowest setting and it hurt the whole time. Used flange measuring tool to remeasure moms nipples and determined the appropriate size flange. Mom's nipples are size 19mm, therefore we concluded the size 21 flange would work the best for her. She was using the 24 before. We attempted to to pump with the 21mm flanges and mom had no pain. Mom immediately started extracting milk and had about 5cc of breastmilk in 2 min. Mom was encouraged to record the pumping schedule on the feeding sheet.?Mother voiced understanding of the education shared along with mom/baby guide and the pump measurement, flange fit handout for additional resource information. Reported to the Primary RN.
[2025-02-24 21:05] VITALS: BP 118/81; PULSE 92; RESP 18; TEMP 36.4; O2SAT 96
[2025-02-25] MEDS: ACETAMINOPHEN 325 MG TABLET 650 MG PO ×2 (03:35→09:15)
[2025-02-25] MEDS: IBUPROFEN 600 MG TABLET PO ×2 (03:35→09:15)
[2025-02-25 07:55] VITALS: BP 116/58; PULSE 88; RESP 16; TEMP 36.4; O2SAT 99
--- NOTE | 2025-02-25 07:55 | PC.NURSE ---
Reviewed with mother engorgement comfort measures. Encouraged regular pumping for 10-15 minutes. She may use heat or ice on her breasts, whichever she prefers. Gentle massage of lymph fluid up to the armpits. She can also continue taking ibuprofen as prescribed. Patient feels that she may decide not to continue with or pumping. Advised she wear a supportive bra without under wire and to pump to comfort or take warm showers to allow milk to flow. She has the mom/baby guide for reference and a discharge feeding plan is included with her discharge packet. She has a breast pump at home and declines a WIC referral. RN updated.
--- NOTE | 2025-02-25 08:28 | P.PNOB_ITS ---
OB - PN: Subj Subjective Date/time seen: 02/25/25 08:28 Interval history: pp day 1 doing well has not passed gas, urinating without difficulty baby doing well Patient comments: no complaints, pain well controlled, incisional pain, tolerating diet and flatus present OB - PN: Obj Data Labs 02/23/25 04:38 OB - PN A/P Plan day: 3 Plan: routine care, discharge home and other Comments: Incision check in one week. Given precautions Time Spent With Patient Time: Total time spent is greater than 50% in coordination of care (as documented) at patient's floor/unit and/or counseling patient: Exam 2 Const: General: comfortable, no acute distress and alert Resp: Effort & Inspection: normal respiratory effort Auscultation: no crackles, no rales and no rhonchi Cardio: Rate: regular rate Heart sounds: no click, no murmurs and no rubs GI: Inspection: non-distended GI Palp: No Tenderness to palpation present (GI) Auscultation: normal bowel sounds Other: Incision - CDI Extrem: General: normal to inspection, no pedal edema and no calf tenderness
--- NOTE | 2025-02-25 08:29 | PM.OBDSVD ---
DS: Admitting Diagnosis Discharge Date 02/25/2025 Admitting Diagnosis Previous , term DS: Discharge Diagnosis Discharge Diagnosis (1) delivery delivered: Code(s): O82 - Encounter for delivery without indication Status: Acute OB - DS: Summary OB Procedures : None OB Procedures Intrapartum: OB Procedures: : None Peripartum Data Procedures: Procedures Operation Date: 02/22/25 07:30 Actual Procedure Side Surgeon p Repeat Section Not Applicable Florentin Enamorado MD Time Spent with Patient Time attestation: Total time spent providing and/or coordinating discharge services: Discharge Plan Discharge Discharging Clinician: Florentin Enamorado Patient Disposition: Home Activity: pelvic rest Diet: regular Discharge Instructions: Education: Mom and Baby Guide Given to: Mother Follow-Up: Call your delivering provider's office for an appointment to be seen in: call for appt Mom and baby should come to the [facility] for the follow-up appointment. Appointment Date/Time: February 26, 2025 at 11:00 am What to expect at your follow-up visit: Blood Pressure Check Physical Assessment Call [phone] if you are unable to keep your appointment time. BREAST CARE: * Wear a snug supportive bra. * For engorgement discomfort: Breast Feeding: * Apply warm moist washcloths * Express milk as needed to relieve engorgement * Wear loose clothing Bottle Feeding: * May apply ice packs * For sore nipples: * Identify correct latch-on * Apply warm moist washcloths before and after nursing * Air dry nipples after nursing * May apply Lansinoh cream to nipples ABDOMINAL INCISION: * Allow incision to air dry * Do NOT use lotions for powders on your incision * When showering, allow soap and water to run over the incision, but do not wash incision * Change your pad frequently throughout the day * No tub baths until seen by your physician - You may shower ACTIVITY: * Rest as much as possible. * Do not exercise or lift anything heavier than your baby (such as laundry or other children.) * Avoid stairs or driving as much as possible. * Do not put anything into the vagina. No douching, tampons, or sexual activity until seen by physician. NOTIFY PHYSICIAN IF YOU HAVE ANY QUESTIONS OR IF ANY OF THE FOLLOWING SYMPTOMS OCCUR: * If your episiotomy or incision becomes red, swollen, or more painful than what you have experienced in the hospital. * If your vaginal bleeding becomes foul smelling. * If your vaginal bleeding becomes more heavy than a period or if your bleeding changes from pink to bright red. However, you may pass an occasional walnut-sized clot once or twice for the first week . * If you experience a sharp, shooting pain in you calves. * If you discover a hard, reddened area on your breast or if you experience flu-like symptoms. DIET: * Eat regular, well-balanced meals. * Drink plenty of fluids daily. If , drink to thirst. Patient Instructions: Antibiotic Form Patient Language: Estonian Stand Alone Forms: General Discharge Information Follow-up/Referrals: Florentin Enamorado MD [Physician] - Discharge Medications: New hydrocodone-acetaminophen 5-325 mg tablet 1 - 2 tablet PO Q6H PRN (Reason: pain) Qty: 25 0RF Continued cholecalciferol (vitamin D3) 50 mcg (2,000 unit) capsule 50 mcg PO DAILY docusate sodium 100 mg Capsule 100 mg PO BID Qty: 60 0RF PNV [id number] fumarate-FA [] 28 mg iron- 800 mcg tablet 1 tablet PO DAILY Date of admission: 02/22/25 05:32 Primary Care Provider: Torres,Rina Paez Admitting Provider: Florentin Enamorado Attending physician on admission: Florentin Enamorado Condition: Stable
[2025-02-25] MEDS: MULTIVIT/MIN/PREN/FOL AC/IRON TABLET 1 TAB PO (09:15)
[2025-02-25] MEDS: POLYSACCHARIDE IRON COMPLEX 150 MG CAPSULE PO (09:15)
[2025-02-25] MEDS: SIMETHICONE 80 MG TAB.CHEW PO (09:15)
[2025-02-25] MEDS: DOCUSATE SODIUM 100 MG CAPSULE PO (09:15)
--- NOTE | 2025-02-25 10:39 | PC.NURSE ---
Patient viewed the discharge video Mother & Baby Care, The First Two Weeks . Patient was given the opportunity and encouraged to ask questions. Patient verbalized understanding of information shared and has been given the mother/baby guide for home reference.
== END 2025-02-25 10:45 | disposition home or self-care (01) | DRG 788 ==
LOC: ANHLDR 05:34 → ANHOB2 11:23
PROVIDERS: Admitting Provider Obstetrics & Gynecology; PCP Nurse Practitioner; Visit Provider Obstetrics & Gynecology
PROC: 10D00Z1 Extraction of Products of Conception, Low, Open Approach (ICD-10-PCS; CPT 59514; principal; 2025-02-22 07:30)
DX: O34.219 Maternal care for unspecified type scar from previous cesarean delivery (principal); Z3A.39 39 weeks gestation of pregnancy; Z37.0 Single live birth; Z87.891 Personal history of nicotine dependence
CPT/HCPCS: 36415; 85025; A9270; J1885; J2274; J2405; J2590; J7120

== ENCOUNTER 2025-08-05 19:16 | Emergency (ER) | payer BC, SELFPAY ==
--- NOTE | ~2025-08-05 | XR_ITS ---
XR chest 2V HOSTORY: Chest pain COMPARISON:[ None] FINDINGS: Frontal and lateral views of the chest were obtained. The lungs are clear. The heart size is normal in size. Pulmonary vasculature is unremarkable. Osseous structures are intact. IMPRESSION: No acute lung findings.] [ ] Reviewed, dictated and finalized at location S.
--- NOTE | ~2025-08-05 | CT_ITS ---
EXAMINATION: CTA chest PE protocol DATE: 08/05/2025 23:12 INDICATION: Chest pain. TECHNIQUE: Computed tomography angiography (CTA) of the chest was performed with 100 mL Omnipaque-350 intravenous contrast timed to evaluate the pulmonary arteries. Coronal maximum intensity projection 3D-reconstructions were created by the technologist. Automated exposure control and iterative reconstruction technique were employed. The dose-length product was 199.04 mGy-cm. COMPARISON: None. FINDINGS: There is a 4 mm nodule in right lung lower lobe, likely benign. No pleural effusion. The heart size is normal. No pericardial effusion. There is no pulmonary embolus. There is a small sliding hiatal hernia. There is mild thoracic spondylosis. IMPRESSION: 1. No pulmonary embolus. Reviewed, dictated and finalized at location E. IMPRESSION: 1. No pulmonary embolus.
--- NOTE | 2025-08-05 19:17 | ECG_ITS ---
Test Date: 2025-08-05 19:20:36 Measurements Intervals Harvest Rate: 80 P: 54 ID: [id number] QRS: 55 QRSD: 83 T: 35 QT: 370 QTc: 429 Interpretive Statements SINUS RHYTHM NONSPECIFIC T-WAVE ABNORMALITY- ANTERIOR LEADS BASELINE ARTIFACT- I, II, III, AVR, AVL, AVF, V4-V5 BORDERLINE ECG No previous ECG available for comparison Electronically Signed On 08-05-2025 19:32:31 CDT by Efrain Moyer D.O.
--- OUTSIDE RECORDS SUMMARY | 2025-08-05 19:18 | XMS_ITS | Clinical Summary ---
Author Organization [facility] Address [address] [place] [address] Care Team Providers Care Leathersmith Name Role Phone Rina Macdonald MD Primary Care Provider [phone]- [phone] Allergies No known active allergies Medications PNV with fubwdse-wncr-IA 27 mg iron- 1 mg tablet Take [...] body fat of patient;Recorded Elsewhere: No Location: [facility] Source: EHR Chronic: N Practice ID: [id number] Billable Time: 05:00:00 PM Female infertility associated with anovulation 1 12/08/2015 Overview (08/29/2024): Infertility, female, associated with anovulation;Recorded Elsewhere: No Location: [facility] Source: EHR Chronic: N Practice ID: [id number] Billable Time: 03:15:00 PM Endometriosis of pelvic peritoneum 05/03/2015 Overview (08/29/2024): Endometriosis of pelvic peritoneum;Recorded Elsewhere: No Location: [facility] Source: EHR Chronic: N Practice ID: [id number] Billable Time: 03:00:00 PM Female infertility of tubal origin 04/26/2015 Overview (08/29/2024): Infertility, female, of tubal origin;Practice ID: [id number] Female pelvic peritoneal adhesions 04/26/2015 Overview (08/29/2024): Pelvic peritoneal adhesions, female (postoperative) (postinfection);Practice ID: [id number] Irregular periods 04/10/2015 Overview (08/29/2024): Irregular menstrual cycle;Recorded Elsewhere: No Location: [facility] Source: EHR Chronic: N Practice ID: [id number] Billable Time: 03:30:00 PM Medical History Medical History Date Comments Tachycardia Gestational diabetes Bleeding hemorrhoids Hypothyroidism Endometriosis Social History Tobacco Use Types Packs/Day Years Used Date Smoking Tobacco: Never Smokeless Tobacco: Never Comments Unknown Sex and [...] Anes PTL [place] A1 A5 Name Clin Last Filed Vital Signs Vital Sign Reading Time Taken Comments Blood Pressure 112/78 01/30/2025 5:49 PM CDT Pulse 113 01/30/2025 5:49 PM CDT Temperature 37.2 C (98.9 F) 01/30/2025 5:49 PM CDT Respiratory Rate 18 01/30/2025 5:49 PM CDT Oxygen Saturation 99% 01/30/2025 5:49 PM CDT Inhaled Oxygen Concentration - - Weight 81.7 kg (180 lb 3.2 oz) 01/30/2025 5:49 P M CDT Height 157.5 cm (5' 2.01) 01/30/2025 5:49 PM CD T Body Mass Index 32.95 01/30/2025 5:49 PM CDT Plan of Treatment Health Maintenance Due Date Last Done Comments Cervical Cancer Screening 1989 Depression Screening 1989 Hepatitis C Screening 1989 Varicella Vaccines (1 of 2 - 13+ 2-dose series) 2002 Hepatitis B Screening 2007 Regular Well Visit/Exam 18-64 2007 HPV Vaccines (1 - 3-dose SCDM series) 2016 Covid-19 Vaccine (3 - season) 2025 02/09/2021, 01/12/2021 Influenza Vaccine (#1) 2025 2, 07/25/2021, 08/09/2020, Additional history exists DTaP/Tdap/Td Vaccine (2 - Td or Tdap) 03/15/2032 03/15/2022 Pneumococcal vaccine <65 Aged Out No longer eligible based on patient's age to complete this topic Insurance [facility] Care Teams Leathersmith Relationship Specialty Start Date End Date Rina Macdonald MD PCP - General Nurse Practitioner 02/18/22
--- OUTSIDE RECORDS SUMMARY | 2025-08-05 19:18 | XMS_ITS | Data Portability ---
Author Organization [facility] [place] Address [address] [place] [address] Care Team Providers Care Government Clerk Name Role Phone DAVID DALE Primary Care Provider [phone] Assessment Encounter Date Assessment Date Assessment LastModified by Organization Details LastModified Time 02/08/2025 02/08/2025 Patient is _37__weeks . Discussed plan. Not available 02/08/2025 11:19:01 02/15/2025 02/15/2025 Patient is __38_weeks . Discussed plan. [email or web address] Not available 02/15/2025 11:49:40 Plan of Treatment Reminders Order Date Submit Date Provider Last Modified By Organization Details Last Modified Time Details Appointments None recorded. Lab None recorded. Referral None recorded. Procedures None recorded. Surgeries None recorded. Imaging None recorded. Medication Orders Loestrin Fe 1.5/30 (28-Day) 1.5 mg-30 mcg (21)/75 mg (7) tablet [address] [facility] [address], [address], [place], [address], 14:39:37 Patient TargetsNo targets recorded. Patient InstructionsNo instructions recorded. Reason for Referral None Reported. Results Created Date Observation Date Name Description Value Unit Range Abnormal Flag Note LastModifiedBy Organization Detail LastModifiedTime 01/12/20 25 01/11/2025 RETIC ULOCY TE COUNT reticulocyte count percent 2.04 % 0.50-2 .50 Not Available [facility] (Lab) [address], [place], [address], 01/12/2025 09:47:25 01/12/2001/11/2025 RETIC ULOCY TE COUNT [...] grady book. nm.or g/gen derx Not Available [facility] (Lab) [address], [place], [address], 01/12/2025 09:47:25 01/12/2001/11/2025 TSH, REFLE X FREE T4 TSH 1.80 uIU/m L 0.30-5 .33 Not Available [facility] (Lab) [address], [place], [address], 01/12/2025 09:47:26 01/12/20 25 01/11/2025 LEO TIN / IRON / TRANS LEO N / TIBC iron 136 ug/dL 40-170 Not Available [facility] (Lab) [address] [place], [address], 01/12/2025 09:47:26 01/12/20 25 01/11/2025 LEO TIN / IRON / TRANS LEO N / TIBC transferrin 421 mg/dL 200-36 0 high Not Available [facility] (Lab) [address], [place], [address], 01/12/2025 09:47:26 01/12/20 25 01/11/2025 LEO TIN / IRON / TRANS LEO N / TIBC ferritin 15.1 NG/mL 8.0-25 2.0 Not Available [facility] (Lab) [address] [place], [address], 01/12/2025 09:47:26 01/12/20 25 01/11/2025 LEO TIN / IRON / TRANS LEO N / TIBC TIBC 589 ug/dL 250-45 0 high Not Available [facility] (Lab) [address], [place], [address], 01/12/2025 09:47:26 01/12/20 25 01/11/2025 LEO TIN / IRON / TRANS LEO N / TIBC iron saturation 23 % 20-55 Not Available [facility] (Lab) [address], [place], [address], 01/12/2025 09:47:26 01/12/20 25 01/11/2025 VITAM IN B12 / FOLAT E PANEL vitamin B12 170 pg/mL 180-91 4 low Claudia l Range : 180-9 14 pg/mL . Indet ermin ate Range : 145-1 80 pg/mL . Defic ient Range : <=145 pg/mL . Not Available [facility] (Lab) [address], [place], [address], 01/12/2025 09:47:27 01/12/20 25 01/11/2025 VITAM IN B12 / FOLAT E PANEL folate, serum >20.0 NG/mL 6.0-20 .0 high Not Available [facility] (Lab) [address], [place], [address], 01/12/2025 09:47:27 01/26/20 25 01/25/2025 CMP(C OMPRE HENSI VE METAB OLIC PANEL ) sodium 134 mmol/ L 133-14 6 Not Available [facility] (Lab) [address] [place], [address], 01/26/2025 04:59:47 01/26/20 25 01/25/2025 CMP(C OMPRE HENSI VE METAB OLIC PANEL ) potassium 4.3 mmol/ L 3.5-5. 1 Not Available [facility] (Lab) [address] [facility], [place], [address], 01/26/2025 04:59:47 01/26/20 25 01/25/2025 CMP(C OMPRE HENSI VE METAB OLIC PANEL ) chloride 98 mmol/ L 98-107 Not Available [facility] (Lab) [address], [place], [address], 01/26/2025 04:59:47 01/26/20 25 01/25/2025 CMP(C OMPRE HENSI VE METAB OLIC PANEL ) carbon dioxide 27 mmol/ L 21-31 Not Available [facility] (Lab) [address], [place], [address], 01/26/2025 04:59:47 01/26/20 25 01/25/2025 CMP(C OMPRE HENSI VE METAB OLIC PANEL ) anion gap 9 mmol/ L 4-13 Not Available [facility] (Lab) [address], [place], [address], 01/26/2025 04:59:47 01/26/20 25 01/25/2025 CMP(C OMPRE HENSI VE METAB OLIC PANEL ) blood urea nitrogen 10 mg/dL 7-25 Not Available [facility] (Lab) [address] [place], [address], 01/26/2025 04:59:47 01/26/20 25 01/25/2025 CMP(C OMPRE HENSI VE METAB OLIC PANEL ) creatinine 0.61 mg/dL 0.60-1 .30 Not Available [facility] (Lab) [address], [place], [address], 01/26/2025 04:59:47 01/26/20 25 01/25/2025 CMP(C OMPRE HENSI VE METAB OLIC PANEL ) egfrcr (CKD-epi 2020) >90 mL/mi n/1.7 3_m2 >=60 Not Available [facility] (Lab) [address] [place], [address], 01/26/2025 04:59:47 01/26/20 25 01/25/2025 CMP(C OMPRE HENSI VE METAB OLIC PANEL ) calcium 8.8 mg/dL 8.3-10 .5 Not Available [facility] (Lab) [address], [place], [address], 01/26/2025 04:59:47 01/26/20 25 01/25/2025 CMP(C OMPRE HENSI VE METAB OLIC PANEL ) glucose 73 mg/dL 70-100 Not Available [facility] (Lab) [address], [place], [address], 01/26/2025 04:59:47 01/26/20 25 01/25/2025 CMP(C OMPRE HENSI VE METAB OLIC PANEL ) protein, total 6.6 g/dL 6.4-8. 3 Not Available [facility] (Lab) [address], [place], [address], 01/26/2025 04:59:47 01/26/20 25 01/25/2025 CMP(C OMPRE HENSI VE METAB OLIC PANEL ) albumin 3.3 g/dL 3.5-5. 0 low Not Available [facility] (Lab) [address], [place], [address], 01/26/2025 04:59:47 01/26/20 25 01/25/2025 CMP(C OMPRE HENSI VE METAB OLIC PANEL ) ALT 26 units /L 9-43 Not Available [facility] (Lab) [address], [place], [address], 01/26/2025 04:59:47 01/26/20 25 01/25/2025 CMP(C OMPRE HENSI VE METAB OLIC PANEL ) alkaline phosphatase 116 units /L 34-104 high Not Available [facility] (Lab) [address], [place], [address], 01/26/2025 04:59:47 01/26/20 25 01/25/2025 CMP(C OMPRE HENSI VE METAB OLIC PANEL ) AST 33 units /L 13-39 Not Available [facility] (Lab) [address], [place], [address], 01/26/2025 04:59:47 01/26/20 25 01/25/2025 CMP(C OMPRE HENSI VE METAB OLIC PANEL ) bilirubin, total 1.0 mg/dL 0.2-1. 2 Not Available [facility] (Lab) [address] [facility], [place], [address], 01/26/2025 04:59:47 01/26/20 25 01/25/2025 CBC W/DIF F WBC 6.7 10'3/ uL 3.5-10 .5 Not Available [facility] (Lab) [address], [place], [address], 01/26/2025 04:59:47 01/26/20 25 01/25/2025 CBC W/DIF F RBC 3.85 10'6/ uL (based on docume nted legal sex) 3.80-5 .20 Not Available [facility] (Lab) [address], [place], [address], 01/26/2025 04:59:47 01/26/20 25 01/25/2025 CBC W/DIF F HGB 11.8 g/dL (based on docume nted legal sex) 11.6-1 5.4 Not Available [facility] (Lab) [address] [facility], [place], [address], 01/26/2025 04:59:47 01/26/20 25 01/25/2025 CBC W/DIF F HCT 35.3 % (based on docume nted legal sex) 34.0-4 5.0 Not Available [facility] (Lab) [address], [place], [address], 01/26/2025 04:59:47 01/26/20 25 01/25/2025 CBC W/DIF F MCV 91.7 fL 80.0-9 9.0 Not Available [facility] (Lab) [address], [place], [address], 01/26/2025 04:59:47 01/26/20 25 01/25/2025 CBC W/DIF F MCH 30.6 pg 27.0-3 4.0 Not Available [facility] (Lab) [address], [place], [address], 01/26/2025 04:59:47 01/26/20 25 01/25/2025 CBC W/DIF F MCHC 33.4 g/dL 32.0-3 5.5 Not Available [facility] (Lab) [address], [place], [address], 01/26/2025 04:59:47 01/26/20 25 01/25/2025 CBC W/DIF F RDW 15.8 % 11.0-1 5.0 high Not Available [facility] (Lab) [address], [place], [address], 01/26/2025 04:59:47 01/26/20 25 01/25/2025 CBC W/DIF F plt 173 10'3/ uL 150-40 0 Not Available [facility] (Lab) [address], [place], [address], 01/26/2025 04:59:47 01/26/20 25 01/25/2025 CBC W/DIF F MPV 11.7 fL 8.8-12 .1 Not Available [facility] (Lab) [address] [facility], [place], [address], 01/26/2025 04:59:47 01/26/20 25 01/25/2025 CBC W/DIF F neutrophils 56.2 % 34.0-7 3.0 Not Available [facility] (Lab) [address] [place], [address], 01/26/2025 04:59:47 04/08/20 25 01/25/2025 CBC W/DIF F lymphocytes 33.0 % 15.0-5 0.0 Not Available [facility] (Lab) [address] [facility], [place], [address], 01/26/2025 04:59:47 01/26/20 25 01/25/2025 CBC W/DIF F monocytes 8.4 % 1.0-15 .0 Not Available [facility] (Lab) [address], [place], [address], 01/26/2025 04:59:47 01/26/20 25 01/25/2025 CBC W/DIF F eosinophils 1.5 % 0.0-8. 0 Not Available [facility] (Lab) [address] [facility], [place], [address], 01/26/2025 04:59:47 01/26/20 25 01/25/2025 CBC W/DIF F basophils 0.6 % 0.0-2. 0 Not Available [facility] (Lab) [address], [place], [address], 01/26/2025 04:59:47 01/26/2001/25/2025 CBC W/DIF F immature granulocytes 0.3 % no define d refere nce range Immat ure Granu locyt es (IG) repre sents autom ated enume ratio n of Metam yeloc ytes, Myelo cytes and Promy elocy scott when IG is < 5%. Blast s are not inclu ded in IG and repor nova separ ately if prese nt. Not Available [facility] (Lab) [address], [place], [address], 01/26/2025 04:59:47 01/26/2001/25/2025 CBC W/DIF F absolute neutrophils 3.8 10'3/ uL 1.5-8. 0 Not Available [facility] (Lab) [address], [place], [address], 01/26/2025 04:59:47 01/26/20 25 01/25/2025 CBC W/DIF F absolute lymphocytes 2.2 10'3/ uL 1.0-4. 0 Not Available [facility] (Lab) [address], [place], [address], 01/26/2025 04:59:47 01/26/20 25 01/25/2025 CBC W/DIF F absolute monocytes 0.6 10'3/ uL 0.2-1. 0 Not Available [facility] (Lab) [address] [facility], [place], [address], 01/26/2025 04:59:47 01/26/20 25 01/25/2025 CBC W/DIF F absolute eosinophils 0.1 10'3/ uL 0.0-0. 6 Not Available [facility] (Lab) [address] [facility], [place], [address], 01/26/2025 04:59:47 01/26/20 25 01/25/2025 CBC W/DIF F absolute basophils 0.0 10'3/ uL 0.0-0. 3 Not Available [facility] (Lab) [address], [place], [address], 01/26/2025 04:59:47 01/26/20 25 01/25/2025 CBC W/DIF [...] d. Pleas e refer to the joan peguero table for range s estab lishe d for cisge nder patie nts and evalu ate in the clini trisha keith xt of the indiv idual patie nt: https ://lala grady book. nm.or g/gen derx 025 3:55 AM: This resul t has been final verif ied. No addit ional or sim ed resul ts are expec nova. Not Available [facility] (Lab) [address], [place], [address], 01/26/2025 04:59:47 01/26/20 25 01/25/2025 BLOOD SMEAR EXAM, RBC MORPH OLOGY RBC morphology Review ed Not Available [facility] (Lab) [address], [place], [address], 01/26/2025 04:59:47 01/26/20 25 01/25/2025 BLOOD SMEAR EXAM, RBC MORPH OLOGY platelet morphology Review ed Not Available [facility] (Lab) [address], [place], [address], 01/26/2025 04:59:47 02/02/2002/01/2025 CULTU RE: GROUP B [...] t Abnor mal: No Resul ting Lab: [facility] [address] [facility] [address] Tel: CULTU RE ----- ----- ----- --- No Group B strep isola nova at 2 days (alida ctive broth enhan cemen t) Not Available [facility] (Lab) [address] [place], [address], 02/04/2025 10:56:18 02/09/2002/08/2025 TSH TSH 1.80 uIU/m L 0.30-5 .33 Not Available [facility] (Lab) [address], [place], [address], 02/09/2025 05:05:08 02/09/20 25 02/08/2025 T4 FREE T4, free 0.62 NG/dL 0.60-1 .40 This assay is susce ptibl e to inter feren ce from high level s of bioti n which may false ly eleva te resul ts. Pleas e corre late with clini trisha findi ngs. Not Available [facility] (Lab) [address], [place], [address], 02/09/2025 05:05:09 01/29/20 25 01/27/2025 non-s tress test No observ ation record ed. [email or web address] [facility], [place], [address], 02/07/2025 10:46:58 01/29/20 25 01/27/2025 US, obste tric, follo w-up No observ ation record ed. [id number] [facility], [place], [address], 02/03/2025 09:22:17 Result Notes None recorded. Problems Name Problem SNOMED Code Status Onset Date Resolution Date Notes Provider Name and Address Organization Details Recorded Time In vitro fertiliz ation Completed No MFM needed. echo WASHU 02/15 WNL. antenata l testing at 36wks Arianna thornton [facility] 2 12:06:05 Recurren t miscarri age 015734760 Completed 7 SAb Arianna thornton [facility] 2 12:06:05 Bleeding hemorrho ids [id number] Completed referral to General surgery Arianna thornton [facility] 2 12:06:05 Hypothyr oidism 54865281 Completed 75mcg. 02/15 TSH wnl. repeat 36w Arianna thornton [facility] 2 12:06:04 Tachycar maksim [id number] Completed 24 hour holter monitor and cardio consult pt cancelle d due to improvin g s/s [facility], [facility] 2 12:06:05 Gestatio nal diabetes mellitus 39341087 Completed diet teach 03/11, NPH 8u HS on 05/06 Arianna [facility], [facility] 2 12:06:05 Hypothyr oidism 34961834 Active 75mcg. 02/15 TSH wnl. repeat 36w Arianna [facility], [facility] 2 12:06:04 Recurren t miscarri age 318815442 Active all first trimeste love OLMOS MD [address], [place], [address], [facility] 4 11:14:10 Deliveri es by [id number] Completed To Repeat MIKE OLMOS MD [address], [place], [address], [facility] 4 11:14:01 Recurren t miscarri age 854519346 Completed all first trimeste love OLMOS MD [address], [place], [address], [facility] 4 11:14:10 Screenin g for malignan t neoplasm of cervix Completed 201211/15/2021 Screenin g for malignan t neoplasm s of the cervix;R ecorded Elsewher e: No Locat ion: Shawn beasley [facility] S ource: EHR [employer] Launch [employer] Recovery Technician christopher: N Practi ce ID: [id number] Velasquez lable Time: 10:30:00 AM Marium [facility], [facility] 2 17:40:12 Speciali zed medical examinat ion Completed 201211/15/2021 Gynecolo gical Examinat ion;Jerry rded Elsewher e: No Locat ion: [facility] S ource: EHR [employer] Launch [employer] Recovery Technician christopher: N Andrea ce ID: [id number] Velasquez lable Time: 10:30:00 AM Marium thornton [facility] 2 17:40:03 Dysmenor marianela [id number] Completed 201311/15/2021 Dysmenor marianela;Rec orded Elsewher e: No Locat ion: [facility] S ource: EHR [employer] Launch [employer] Technician christopher: N Andrea ce ID: [id number] Velasquez lable Time: 02:00:00 PM [facility] 2 17:40:45 Irregula r periods 96547479 Completed 201411/15/2021 Irregula r menstrua l cycle;Re corded Elsewher e: No Locat ion: [facility] S ource: EHR [employer] Launch [employer] Technician christopher: N Andrea ce ID: [id number] Velasquez lable Time: 03:30:00 PM Marium thornton [facility] 2 17:40:22 Pre-surg jo ann evaluati on Completed 201411/15/2021 Other specifie d pre-oper ative examinat ion;Jerry rded Elsewher e: No Locat ion: [facility] S ource: EHR [employer] Launch [employer] Technician christopher: N Andrea ce ID: [id number] Velasquez lable Time: 03:00:00 PM Marium thornton [facility] 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 2 17:40:30 Female infertil ity of tubal origin 85361339 Completed 201411/15/2021 Infertil ity, female, of tubal origin;P ractice ID: [id number] Marium thornton [facility] 2 17:40:35 Endometr iosis of pelvic peritone um 475244725 Completed 201411/15/2021 Endometr iosis of pelvic peritone um;Recor ded Elsewher e: No Locat ion: [facility] S ource: EHR [employer] Launch [employer] Technician christopher: N Andrea ce ID: [id number] Velasquez lable Time: 03:00:00 PM Marium thornton [facility] 2 17:40:43 Postoper ative follow-u p visit Completed 201411/15/2021 Follow-u p examinat ion, followin g unspecif ied surgery; Recorded Elsewher e: No Locat ion: [facility] S ource: EHR [employer] Launch [employer] Technician christopher: Sean Mendez ce ID: [id number] Velasquez lable Time: 03:00:00 PM Marium thornton [facility] 2 17:40:20 Finding of regulari ty of menstrua l cycle Completed 201411/15/2021 Irregula r menstrua tion, unspecif ied;Jerry rded Elsewher e: No Locat ion: [facility] S ource: EHR [employer] Launch [employer] Technician christopher: N Estebanti ce ID: [id number] Velasquez lable Time: 08:30:00 AM Marium thornton [facility] 2 17:40:25 Female infertil ity associat ed with anovulat ion [id number] Completed 201511/15/2021 Infertil ity, female, associat ed with anovulat ion;Jerry rded Elsewher e: No Locat ion: [facility] S ource: EHR [employer] Technician christopher: Sean Orellanati ce ID: [id number] Velasquez lable Time: 03:15:00 PM Marium thornton [facility] 2 17:40:[address] Concept Completed 201711/15/2021 Encntr for cripple chaser exam (general ) (routine ) w/o abn findings ;Recorde d Elsewher e: No [facility] S ource: EHR [employer] Launch [employer] Recovery Technician christopher: N Practi ce ID: [id number] Velasquez lable Time: 09:30:00 AM [facility] 2 17:40:[address] Concept Completed 201711/15/2021 Encntr for general adult medical exam w/o abnormal findings ;Recorde d Elsewher e: No Locat ion: [facility] gale [facility] S ource: EHR [employer] Launch [employer] Recovery Technician christopher: N Practi ce ID: [id number] Velasquez lable Time: 09:30:00 AM [facility] 2 17:40:07 Pregnanc y test negative [id number] Completed 201811/15/2021 Encounte r for pregnanc y test, result negative ;Recorde d Elsewher e: No Locat ion: [facility] gale [facility] S ource: EHR Aircraft Launch [employer] Recovery Technician christopher: N Practi ce ID: [id number] Velasquez lable Time: 01:00:00 PM Marium thornton [facility] 2 17:40:15 Imaging result equivoca l [id number] Completed 201811/15/2021 Dx imaging inconclu sive due to excess body fat of patient; Recorded Elsewher e: No Locat ion: [facility] S ource: EHR [employer] Launch [employer] Recovery Technician christopher: N Practi ce ID: [id number] Velasquez lable Time: 05:00:00 PM [facility] 2 17:40:28 Bleeding Completed 201811/15/2021 Abnormal uterine and vaginal bleeding , unspecif ied;Jerry rded Elsewher e: No Locat ion: [facility] S ource: EHR [employer] Launch [employer] Technician christopher: N Practi ce ID: [email or web address] Velasquez jujuusnday Time: 02:45:00 PM [facility], [facility] 2 17:40:39 Pregnanc y 37069995 Completed 202107/01/2022 Denise Infante [facility] 5 10:20:46 IVF - in-vitro fertiliz ation pregnanc y [id number] 2101 Completed 2021 Leidy Pickard MD [address], [place], [address], [facility] 2 17:27:15 Pruritic urticari al papules and plaques of pregnanc y 37639218 Completed 2021 Arianna ricketts [facility] 2 12:06:05 Pregnanc y 86132246 Completed 202303/03/2025 Denise Infante [facility] 5 10:20:46 Past pregnanc y history of gestatio nal diabetes mellitus 504855135 Completed 2024 Tammy Ingram [facility] 5 13:51:03 Past pregnanc y history of gestatio nal diabetes mellitus 451790258 Active 2024 Tammy Ingram [facility] 5 13:51:03 Problem Notes None recorded. Procedures Surgical History Date Name Laterality Status Provider Name and Address Organization Details Recorded Time 02/23/20 25 SECTION (SURG) completed Denise Infante [facility] 02/22/2025 11:06:36 05/07/20 23 Date of Last Pap Smear completed Denisesupa Infante [facility] 07/30/2024 12:21:52 05/28/20 22 section completed Tammy [facility] 01/06/2025 13:27:22 10/20/19 22 in vitro fertilization completed [facility] 01/06/2025 13:47:53 04/19/20 15 Laparoscopy completed [facility] 01/06/2025 13:25:45 01/19/20 08 Tonsillectomy completed [facility] 01/06/2025 13:26:10 Imaging Results None recorded. Procedure Notes None recorded. Medical Equipment None Reported. Allergies No known drug allergies Medications Name Sig Start Date Stop Date Status Note LastModified by Organization Details LastModified Time fed-ex standard overnight THURS-FR I OV PT HOME NO SIG 12/10 completed Not Available Not Available Not Available relion insulin syringe/u -100/0.3m l/ 31g x 16 31g x /16 0.3 ml misc 06/07 completed Not Available [...] Moore e: No Locat ion: Shawn beasley [facility] Heidi odify By: bill grijalva DateTime : 09/23/20 16 01:31:48 PM Not Available Not Available Not Available hydrocodo ne 5 mg-acetam inophen 325 mg tablet TAKE 1 TO 2 TABLETS BY MOUTH EVERY 6 HOURS NEEDED FOR PAIN 03/30 completed Not Available Not Available Not Available [...] mcg (1,000 unit) tablet 12/10 completed Prescrib kvng Moore e: Yes Locshantel tion: Shawn beasley [facility] M odify By: jeanette ervinuntdeanna DateTime : 04/27/20 18 09:30:00 AM Not Available Not Available Not Available Ovidrel 250 mcg/0.5 mL subcutane ous syringe 12/10 completed Not Available Not Available Not Available Alcohol Prep Pads USE DIRECTED 12/10 completed Not Available Not Available Not Available BD Regular Bevel [place] 25 gauge x 1 1/2 USE DIRECTED [...] completed Not Available Not Available Not Available Renee Fe 1.5/30 (28) 1.5 mg-30 mcg (21)/75 mg (7) tablet TAKE 1 TABLET BY MOUTH ONCE DAILY active Not Available Not Available No t Available Pro[employer] HC 2.5 % topical [...] Body mass index (BMI) Body weight Systolic And Diastolic Provider Name and Address Organization Details Last Updated DateTime 02/08/2025 157.48 cm 32.7 kg/m2 64627.03 g 114/73 mm[Hg] Tammy [facility] 02/08/2025 11:08:53 Date Recorded Body weight Body mass index (BMI) Body height Systolic And Diastolic Provider Name and Address Organization Details Last Updated DateTime 02/15/2025 77904.626 6 g 32.9 kg/m2 157.48 cm 122/83 mm[Hg] Tammyjusten Ingram [facility] 02/15/2025 11:35:18 Date Recorded Body height Body mass index (BMI) Body weight Systolic And Diastolic Provider Name and Address Organization Details Last Updated DateTime 03/03/2025 157.48 cm 29.8 kg/m2 70604.56 g 114/81 mm[Hg] Denise Infante [facility] 03/03/2025 10:19:33 Date Recorded Body height Body mass index (BMI) Body weight Systolic And Diastolic Provider Name and Address Organization Details Last Updated DateTime 03/30/2025 157.48 cm 29.1 kg/m2 96917.19 g 115/73 mm[Hg] Denisesupa Corraler [facility] 03/30/2025 14:33:51 Social History Question Answer Notes LastModified by Organizat ion Details LastModified Time Tobacco Smoking Status Never Smoker Denisesupa [facility]er [facility], [facility] 05/07/2023 17:43:06 Do You Have An Advance Directive? No [email or web address] Information n ot available 02/15/2025 If You Are , What Was Your Level Of Alcohol Consumption Prior To ? Occasional [email or web address] Information not available 02/15/2025 Are You Blind Or Do You Have Difficulty Seeing? No [email or web address] Information n ot available 02/15/2025 What Is Your Level Of Caffeine Consumption? Occasional [email or web address] Information not available 02/15/2025 How Much Tobacco Do You Chew? None Information not available 02/15/2025 In The 14 Days Before Symptom Onset, Have You Had Close Contact With A Laboratory-confirm ed COVID-19 While That Case Was Ill? No [email or web address] Information n ot available 02/15/2025 In The 14 Days Before Symptom Onset, Have You Had Close Contact With A Person Who Is Under Investigation For COVID-19 While That Person Was Ill? No [email or web address] Information not available 02/15/2025 Have You Been To An Area Known To Be High Risk For COVID-19? No [email or web address] Information not available 02/15/2025 Are You Deaf Or Do You Have Serious Difficulty Hearing? No [email or web address] Information not available 02/15/2025 What Type Of Diet Are You Following? REGULAR [email or web address] Information n ot available 02/15/2025 What Is The Highest Grade Or Level Of School You Have Completed Or The Highest Degree You Have Received? [id number] [email or web address] Information not available 02/15/2025 Are There Any Guns Present In Your Home? Yes [email or web address] Information not available 02/15/2025 Do You Use Protection During Sex? No [email or web address] Information not available 02/15/2025 Do You Use Your Seat Belt Or Car Seat Routinely? Yes [email or web address] Information not available 02/15/2025 Are You Sexually Active? Yes [email or web address] Information not available 01/04/2025 Do You Have Smoke And Carbon Monoxide Detectors In Your Home? Yes [email or web address] Information not available 02/15/2025 How Much Tobacco Do You Smoke? No [email or web address] Information not available 02/15/2025 Do You Use Sunscreen Routinely? No [email or web address] Information not available 02/15/2025 Have You Used IV Drugs? No [email or web address] Information not available 02/15/2025 Do You Have Difficulty Walking Or Climbing Stairs? No [email or web address] Information not available 12/21/2024 Sex: Unknown Functional Status Question Answer Note LastModified by Organizat ion Details LastModified Time Do you use any illicit or recreational drugs? No [email or web address] Information not available 02/15/2025 What is your level of alcohol consumption? None Information not available 02/15/2025 Are you currently employed? Yes [email or web address] Information not available 01/04/2025 Are you able to walk independently without assistance or assistive devices? YESWOREST [email or web address] Information not available 02/15/2025 Are you able to care for yourself independently? Yes [email or web address] Information not available 12/21/2024 What is your occupation? [employer] [email or web address] Information not available 02/15/2025 Do you have difficulty dressing, bathing, grooming, or toileting? No [email or web address] Information not available 12/21/2024 What is your exercise level? Occasional [email or web address] Information not available 02/15/2025 Mental Status Question Answer Note LastModified by Organization D etails LastModified Time Do you feel stressed (tense, restless, nervous, or anxious, or unable to sleep at night)? [id number] [email or web address] Information not available 02/15/2025 Family History Relationship Description Onset Age of this Age Resolved Age Notes LastModified by Organization Details LastModified Time Father Diabetes mellitus [email or web address] Not available 2021 17:47:49 Medical History Condition Response Allergies (Food, seasonal, environmental ) N Other Y Blood Transfusion N Drug/Latex Allergies/Reactions N Breast Cancer N Dermatologic Disorders N Lung Disease N [...] N Thrombophilias N Gynecological History Statement/Question Response Flow Moderate Date of Last Mammogram Date of LMP 05/16/2024 N STIs/STDs N Was last menstrual period normal Y Date of Last Colonoscopy Desired Control Method BCPs Abnormal Pap N HPV Vaccine N Duration of Flow (days) 6 Current Control Method None Age at First Child 32 Are cycles usually normal Y Frequency of Cycle (Q days) 44 Sexually Active? Y Menses Monthly Y Date of DEXA bone scan Age of first menstrual cycle 8 Date of Last Pap Smear 05/07/2023 Sexual Problems? N LMP Definite N Obstetrics History GPAL:G 9 P 2 0 7 2 Type Value Full Term 2 Spontaneous 7 Living 2 Total 9 Past Encounters Encounter ID Performer Location Encounter Start Date Encounter Closed Date Diagnosis/Indication Diagnosis SNOMED-CT Code Diagnosis ICD10 Code Diagnosis IMO Codes Diagnosis Note [id number] MD Solomon Myles [address] [address] 11/15/2021 16:44:49 11/15/2021 17:58:30 screening 691719105 Z36.82 [id number] MD Solomon Myles [address],[place] [address] 11/15/2021 16:45:36 11/16/2021 09:30:30 Routine care 164332314 Z34.01 screening 2437 82645 Z36.89 [id number] MD Solomon Myles [address],[place] [address] 12/10/2021 15:44:29 12/10/2021 16:32:12 [id number] MD Solomon Myles [address],[place] [address] 12/10/2021 15:45:00 12/11/2021 14:12:03 Routine care 947578888 Z34.01 screening 2437 82385 Z36.89 [id number] Florentin Enamorado MD [place] [address],[place] [address] 01/07/2022 16:40:50 01/08/2022 13:36:15 Routine care 434715165 Z34.01 [id number] Florentin Enamorado MD [place] [address],[place] [address] 01/07/2022 16:41:09 01/07/2022 17:51:02 screening for malformation 541140414 Z36.3 [id number] Florentin Enamorado MD [place] [address],[place] [address] 02/15/2022 09:29:17 02/15/2022 10:15:50 Routine care 302988279 Z34.01 [id number] Leidy Pickard MD [place] [address],[place] [address] 03/04/2022 15:24:21 03/04/2022 18:04:08 Routine care 817766012 Z34.82 IVF - in-v itro fertilization 2759200729 2102 O09.819 Tachycardia 4333438 R00. 0 [id number] Leidy Pickard MD [place] [address],[place] [address] 03/11/2022 13:56:02 03/11/2022 15:19:25 Gestational diabetes mellitus class A1 02293530 O24.410 [id number] Leidy Pickard MD [place] [address],[place] [address] 03/20/2022 16:05:59 03/20/2022 18:28:40 Gestational diabetes mellitus 00077332 O24.410 IVF - in-v itro fertilization 6760691492 2102 O09.819 Hypothyroidism 35986389 E03.9 [id number] Leidy Pickard MD [place] [address],[place] [address] 04/01/2022 16:34:05 04/01/2022 17:27:17 Gestational diabetes mellitus 43120990 O24.410 Hypothyroidism 02783693 E03.9 IVF - in-v itro fertilization 4724704472 2102 O09.819 [id number] Florentin Enamorado MD [place] [address],[place] [address] 04/04/2022 15:52:05 04/05/2022 14:26:57 Gestational diabetes mellitus class A1 44299515 O24.410 [id number] Leidy Pickard MD [place] [address],[place] [address] 04/04/2022 15:52:22 04/04/2022 17:05:24 Gestational diabetes mellitus class A1 24926698 O24.410 O99.283 O09.813 Z3A.32 [id number] Leidy Pickard MD [place] [address],[place] [address] 04/08/2022 16:58:44 04/09/2022 15:47:40 Gestational diabetes mellitus 86764209 O24.410 [id number] MD Solomon Lawrence [address],[place] [address] 04/08/2022 16:59:04 04/09/2022 15:47:19 Gestational diabetes mellitus 47523037 O24.410 IVF - in-v itro fertilization 5156575528 2102 O09.819 [id number] Florentin Enamorado MD [place] [address],[place] [address] 04/11/2022 16:18:02 04/11/2022 17:27:59 Gestational diabetes mellitus class A1 16127908 O24.410 [id number] Leidy Pickard MD [place] [address],[place] [address] 04/15/2022 16:14:48 04/15/2022 17:53:26 Gestational diabetes mellitus class A1 98408307 O24.410 [id number] Leidy Pickard MD [place] [address],[place] [address] 04/15/2022 16:16:49 04/16/2022 15:19:31 Gestational diabetes mellitus 70766911 O24.410 Hypothyroidism 57781072 E03.9 IVF - in-v itro fertilization 9883893120 2 O09.819 [id number] Florentin Enamorado MD [place] [address],[place] [address] 04/18/2022 16:14:12 04/18/2022 17:01:14 Gestational diabetes mellitus class A1 70723506 O24.410 [id number] Florentin Enamorado MD [place] [address],[place] [address] 04/25/2022 16:19:53 04/25/2022 17:21:28 Gestational diabetes mellitus class A1 40371282 O24.410 [id number] Florentin Enamorado MD [place] [address],[place] [address] 04/25/2022 16:20:53 04/25/2022 17:52:39 Routine care 480463667 Z34.01 [id number] Leidy Pickard MD [place] [address],[place] [address] 04/29/2022 16:21:01 04/29/2022 17:18:38 Gestational diabetes mellitus class A1 87291920 O24.410 [id number] Leidy Pickard MD [place] [address],[place] [address] 04/29/2022 16:21:40 04/30/2022 15:19:24 Gestational diabetes mellitus 31883695 O24.410 IVF - in-v itro fertilization 0172721579 2102 O09.819 Hypothyroidism 47277606 E03.9 [id number] Florentin Enamorado MD [place] [address],[place] [address] 05/02/2022 16:18:37 05/02/2022 17:29:08 Gestational diabetes mellitus class A1 85179754 O24.410 [id number] Leidy Pickard MD [place] [address],[place] [address] 05/02/2022 16:21:30 05/02/2022 17:54:58 Gestational diabetes mellitus class A1 92738724 O24.410 O09.813 Z3A.36 [id number] Leidy Pickard MD [place] [address],[place] [address] 05/06/2022 16:22:32 05/06/2022 17:15:45 Gestational diabetes mellitus class A1 26046733 O24.410 O09.813 Z3A.36 [id number] Leidy Pickard MD [place] [address],[place] [address] 05/06/2022 16:51:26 05/06/2022 17:56:47 Gestational diabetes mellitus class A2 78721696 O24.414 Hypothyroidism 30665994 E03.9 In vitro fertilization 86025197 Z31.83 [id number] Florentin Enamorado MD [place] [address],[place] [address] 05/09/2022 16:23:24 05/09/2022 17:27:21 Gestational diabetes mellitus class A1 55597009 O24.410 [id number] MD Solomon Myles [address],[place] [address] 05/13/2022 16:48:59 05/13/2022 18:08:52 Routine care 520389307 Z34.01 [id number] MD Solomon Myles [address],[place] [address] 05/16/2022 16:20:12 05/16/2022 17:09:09 Gestational diabetes mellitus class A1 43502259 O24.410 [id number] Leidy Pickard MD [place] [address],[place] [address] 05/20/2022 16:22:34 05/20/2022 17:13:37 Gestational diabetes mellitus class A1 27075798 O24.410 O09.813 Z3A.36 [id number] Leidy Pickard MD [place] [address],[place] [address] 05/20/2022 16:23:15 05/21/2022 14:44:44 Gestational diabetes mellitus 44219716 O24.410 In vitro fertilization 84542356 Z31.83 [id number] Florentin Enamorado MD [place] [address],[place] [address] 05/23/2022 16:23:59 05/23/2022 17:21:40 Gestational diabetes mellitus class A1 76131303 O24.410 [id number] Leidy Pickard MD [place] [address],[place] [address] 06/07/2022 14:52:01 06/07/2022 15:53:38 Postoperative visit 406684959 Z09 Pruritic u rticarial papules and plaques of 55291985 O26.86 [id number] Leidy Pickard MD [place] [address],[place] [address] 06/26/2022 10:22:08 07/03/2022 15:17:55 care 520043809 Z39.2 Gestationa l diabetes mellitus 87975951 O24.410 Pruritic u rticarial papules and plaques of 04322373 O26.86 [id number] [facility] [address],[place] [address] 05/07/2023 17:33:56 05/07/2023 17:56:26 Gynecologic examination 18923853 Z01.419 Take Calcium with Vitamin D 1200mg [...] na Dexa Screen na Routine Labs PCP [id number] Florentin Enamorado MD [place] [address],[place] [address] 07/08/2024 12:39:11 07/08/2024 13:06:28 Uterine size for dates discrepancy 950866276 O26.841 Z3A.01 [id number] Florentin Enamorado MD [place] [address],[place] [address] 07/20/2024 13:47:13 07/20/2024 14:41:51 [id number] Florentin Enamorado MD [place] [address],[place] [address] 07/30/2024 11:59:37 07/30/2024 12:57:56 Amenorrhea 04110593 N91.2 this patient is a 34-year-ol d [...] of gestationa l diabetes, delivery for distress, [id number] Florentin Enamorado MD [place] [address],[place] [address] 08/16/2024 14:30:29 08/16/2024 15:04:26 screening 021407081 Z36.82 Z3A.12 [id number] Florentin Enamorado MD [place] [address],[place] [address] 08/16/2024 14:30:43 08/16/2024 16:07:29 Routine care 497509888 Z34.01 [id number] MIKE OLMOS MD [place] [address],[place] [address] 09/14/2024 10:43:16 09/14/2024 11:29:27 Uterine scar from previous surgery affecting 68308143 O34.29 - desires repeat c section Past pregn regan history of gestational diabetes mellitus 947833624 Z86.32 - early 1 hour at 20 weeks Gestation period, 16 weeks 56479492 Z3A.16 [id number] Florentin Enamorado MD [place] [address],[place] [address] 10/14/2024 16:44:29 10/15/2024 02:16:24 screening for malformation 240929618 Z36.3 Z3A.20 [id number] MIKE OLMOS MD [place] [address],[place] [address] 10/15/2024 13:48:46 10/15/2024 14:26:37 Impaired glucose tolerance in 591402759 O99.810 Uterine sc ar from previous surgery affecting 38485361 O34.29 - desires repeat c section Gestation period, 21 weeks 11050081 Z3A.21 [id number] Florentin Enamorado MD [place] [address],[place] [address] 11/09/2024 11:35:07 11/09/2024 12:24:12 screening 816242393 Z36.2 Z3A.24 [id number] MIKE OLMOS MD [place] [address],[place] [address] 11/09/2024 11:35:25 11/09/2024 12:37:27 Uterine scar from previous surgery affecting 53317658 O34.29 - desires repeat c section Past pregn regan history of gestational diabetes mellitus 516954748 Z86.32 - failed early 1 hour at 20 weeks, passed 3h GTT at 22 weeks- repeat at 28 weeks Gestation period, 24 weeks 790541236 Z3A.24 [id number] MIKE OLMOS MD [place] [address],[place] [address] 12/07/2024 10:23:39 12/07/2024 10:57:44 Uterine scar from previous surgery affecting 78490977 O34.29 - desires repeat c section Past pregn regan history of gestational diabetes mellitus 407924333 Z86.32 - failed early 1 hour at 20 weeks, passed 3h GTT at 22 weeks- repeat at 28 weeks Gestation period, 28 weeks 36785914 Z3A.28 - 1h GCT today- continue PNV- discussed tdap [id number] MIKE OLMOS MD [place] [address],[place] [address] 12/21/2024 09:20:46 12/21/2024 09:52:14 Uterine scar from previous surgery affecting 63779902 O34.29 - desires repeat c section Gestation period, 30 weeks 60940658 Z3A.30 - continue PNV [id number] Florentin Enamorado MD [place] [address],[place] [address] 01/04/2025 09:35:03 01/04/2025 10:20:42 Malpresentation of fetus 00678394 O32.9XX0 Z03.74 Z3A.32 [id number] MIKE OLMOS MD [place] [address],[place] [address] 01/04/2025 09:36:05 01/04/2025 10:57:25 Uterine scar from previous surgery affecting 55478501 O34.29 - desires repeat c section Hypothyroidism 05243708 E03.9 - repeat TSH at 36 weeks IVF - in-v itro fertilization 6793750543 2102 O09.819 - will start weekly testing at 36 weeks [id number] MIKE OLMOS MD [place] [address],[place] [address] 01/18/2025 10:17:14 01/18/2025 10:38:44 Routine care 544505618 Z34.83 [id number] Florentin Enamorado MD [place] [address],[place] [address] 02/01/2025 13:54:03 02/01/2025 14:53:20 Routine care 664080481 Z34.01 [id number] Aviva Barragan [facility] [address],[place] [address] 02/08/2025 10:25:59 02/08/2025 11:27:00 Gestation period, 37 weeks 86203917 Z3A.37 4155724 [id number] Aviva Barragan [facility] [address],[place] [address] 02/15/2025 10:57:23 02/15/2025 11:53:25 Gestation period, 38 weeks 06453473 Z3A.38 [id number] MD Solomon Myles [address],[place] [address] 02/22/2025 08:45:57 02/25/2025 11:37:11 [id number] MD Solomon Myles [address],[place] [address] 03/03/2025 10:11:07 03/03/2025 11:04:17 Postoperative visit 813855317 Z48.89 [id number] This patient is a 34-year-ol d female who presents for postop follow-up. She is 1 week postop from a delivery. Her incision is clean dry and intact. She has no complaints . Her bleeding is minimal. She denies any nausea, vomiting, fever, chills. She denies any chest pain or shortness of breath. Her baby is doing well. Her mood is good. [id number] Florentin Enamorado MD [place] [address] [address] 03/30/2025 14:17:35 03/30/2025 15:25:07 state 33053035 Z39.2 [id number] This patient is a 35-year-ol d female presents for follow-up. The patient is doing well. Her mood is good. Her baby is doing well. The baby is bottle feeding. She is not bleeding anymore. She has not had an intercours e. We prescribed oral contracept ilia pills for prevention of . She will return in 3 months for well-woman exam. Health Concerns Section Related Observation LastModified by Organization Detai ls LastModified Time None Recorded Concern Status LastModified by Organization Details LastModified Time None Recorded Advance Directives Directive N: Payers Insurance Date Sequence Insurance Name Policy Number Policy Calhoun Covered Member ID Calhoun Member ID Guarantor Name 03/29/2025 2 [facility] [id number] Tiffanie Lomas [id number] Tiffanie Lomas 03/29/2025 1 [facility] [id number] Tiffanie Lomas [id number] Tiffanie Lomas 03/29/2025 1 [facility] ([place]) [id number] Tiffanie Lomas [id number] Tiffanie Lomas Notes Date Note Type Note Provider Name and Address Organization Details Recorded Time 02/08/2025 text/html Generic HPI TemplateReported by Patient Aviva Barragan CNM [address], [place], [address], [facility] 02/08/2025 11:19:31 02/15/2025 text/html Generic HPI TemplateReported by Patient Aviva Barragan CNM [address], [place], [address], [facility] 02/15/2025 11:49:50 03/03/2025 text/html This patient is a 34-year-old female who presents for postop follow-up. She is 1 week postop from a delivery. Her incision is clean dry and intact. She has no complaints. Her bleeding is minimal. She denies any nausea, vomiting, fever, chills. She denies any chest pain or shortness of breath. Her baby is doing well. Her mood is good. Florentin Enamorado MD [address], [place], [address], [facility] 03/03/2025 11:04:06 03/30/2025 text/html VisitReported by Patient This patient is a 35-year-old female presents for follow-up. The patient is doing well. Her mood is good. Her baby is doing well. The baby is bottle feeding. She is not bleeding anymore. She has not had an intercourse. We prescribed oral contraceptive pills for prevention of . She will return in 3 months for well-woman exam. Florentin Enamorado MD [address], [place], [address], [facility] 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 4/29 TSH wnl. repeat 36w In vitro fertilization 0285606 5 No MFM needed. echo WASHU 02/15 WNL. 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 1 7 SAb Tachycardia 0475341 24 hour holter monitor and cardio consult pt cancelled due to improving s/s Bleeding hemorrhoids 77550862 referral to General surgery Gestational diabetes mellitus 08905899 diet teach 03/11 , NPH 8u HS on 05/06 Pruritic urticarial papules and plaques of 06/07/2022 49525711 Kashif Calculation Initial Kashif Date Initial Exam [...] Weight in lbs Pre/Post Dialysis Refused Weight 153.328717796335 BP Diastolic BP Location Tested BP Systolic [...] Weight in lbs Pre/Post Dialysis Refused Weight 157.347855259595 BP Diastolic BP Location Tested BP Systolic [...] Weight in lbs Pre/Post Dialysis Refused Weight 160.467504574714 BP Diastolic BP Location Tested BP Systolic [...] Weight in lbs Pre/Post Dialysis Refused Weight 165.282064675939 BP Diastolic BP Location Tested BP Systolic [...] Weight in lbs Pre/Post Dialysis Refused Weight 174.26749472426 BP Diastolic BP Location Tested BP Systolic [...] Weight in lbs Pre/Post Dialysis Refused Weight 175.693057304191 BP Diastolic BP Location Tested BP Systolic [...] Weight in lbs Pre/Post Dialysis Refused Weight 174.40831100080 BP Diastolic BP Location Tested BP Systolic [...] Weight in lbs Pre/Post Dialysis Refused Weight 175.276989563854 BP Diastolic BP Location Tested BP Systolic [...] Weight in lbs Pre/Post Dialysis Refused Weight 179.087819363257 BP Diastolic BP Location Tested BP Systolic BP Type 78 123 Fetus Heart Rate Present Fetus Movement Comments Flowsheet Date 04/15/2022 Lam Score Blood Edema Fundus Height Fundus Units Glucose Ketones Leukocytes Nitrite Labor Signs Protein Cervic Dilation Cervic Effacement Cervic Station neg trace 34 none trace Type Weight in lbs Pre/Post Dialysis Refused Weight 179.493307211420 BP Diastolic BP Location Tested BP Systolic [...] Weight in lbs Pre/Post Dialysis Refused Weight 185.699108827355 BP Diastolic BP Location Tested BP Systolic [...] Weight in lbs Pre/Post Dialysis Refused Weight 184.666711439994 BP Diastolic BP Location Tested BP Systolic [...] Weight in lbs Pre/Post Dialysis Refused Weight 183.091285832263 BP Diastolic BP Location Tested BP Systolic [...] Weight in lbs Pre/Post Dialysis Refused Weight 182.594578955729 BP Diastolic BP Location Tested BP Systolic [...] Weight in lbs Pre/Post Dialysis Refused Weight 183.207784798345 BP Diastolic BP Location Tested BP Systolic [...] Weight in lbs Pre/Post Dialysis Refused Weight 154.483878945818 BP Diastolic BP Location Tested BP Systolic BP Type 75 114 Fetus Heart Rate Present Fetus Movement Comments Flowsheet Date 06/26/2022 Lam Score Blood Edema Fundus Height Fundus Units Glucose Ketones Leukocytes Nitrite Labor Signs Protein Cervic Dilation Cervic Effacement Cervic Station Type Weight in lbs Pre/Post Dialysis Refused Weight 157.126794694981 BP Diastolic BP Location Tested BP Systolic [...] Estim ated Date of Delivery false Thalassemia (Niuean, Turkish, Mediterranean, Or Background): MCV < 80 false Neural Tube Defect (Meningomyelocele, Spina Bifi da, Or Anencephaly) false Congenital Heart Defect false Down Syndrome false Alpesh-Sachs (eg, Voodoo, Cajun, Guamanian-[place]view) f alse Oma Disease false Sickle Cell [...] Domestic Partner Domestic Partner Phone Father Name Contact Center Agent Status 01/07/20 25 1 CLOSED Fetus Data First Name Last Name Admitted to NICU Weight (g) Sex Living Outcome Pediatric Complications Fetus ID Race Codes Race Delivery Type , Spontane ous [id number] Kashif Calculation Initial Kashif Date Initial Exam [...] Domestic Partner Domestic Partner Phone Father Name Contact Center Agent Status 01/07/20 25 1 CLOSED Fetus Data First Name Last Name Admitted to NICU Weight (g) Sex Living Outcome Pediatric Complications Fetus ID Race Codes Race Delivery Type , Spontane ous [address] Kashif Calculation Initial Kashif Date Initial Exam [...] Domestic Partner Domestic Partner Phone Father Name Contact Center Agent Status 08/16/20 24 1 A Positive 161 [address] CLOSED Fetus Data First Name Last Name Admitted to NICU Weight (g) Sex Living Outcome Pediatric Complications Fetus ID Race Codes Race Delivery Type Candido false 3373.59 05 M true Full Term [id number] Repeat Problems Problem Notes growth/presentation us at 32 wkshypothyroidism Problem Name Start Date End Date Resolution Snomed Code Not e Deliveries by 04 To Repeat Recurrent miscarriage [id number] 1 all first trimester Past history of gestational diabetes mellitus 01/06/2025 [id number] Kashif Calculation Initial Kashif Date Initial Exam [...] Gestation 0 [email or web address] 08/16/2024 02/26/20 25 0 Pre-dana Flowsheet Flowsheet Date 08/16/2024 Lam Score Blood Edema Fundus Height Fundus Units Glucose Ketones Leukocytes Nitrite Labor Signs Protein Cervic Dilation Cervic Effacement Cervic Station Type Weight in lbs Pre/Post Dialysis Refused Weight 161.782894089282 BP Diastolic BP Location Tested BP Systolic [...] Type Weight in lbs Pre/Post Dialysis Refused 162.789692725780 BP Diastolic BP Location Tested BP Systolic [...] Type Weight in lbs Pre/Post Dialysis Refused 166.176109400716 BP Diastolic BP Location Tested BP Systolic [...] Type Weight in lbs Pre/Post Dialysis Refused 169.638804189786 BP Diastolic BP Location Tested BP Systolic [...] Type Weight in lbs Pre/Post Dialysis Refused 172.484505173139 BP Diastolic BP Location Tested BP Systolic [...] Weight in lbs Pre/Post Dialysis Refused Weight 175.443357109838 BP Diastolic BP Location Tested BP Systolic [...] Weight in lbs Pre/Post Dialysis Refused Weight 177.245972323322 BP Diastolic BP Location Tested BP Systolic [...] Type Weight in lbs Pre/Post Dialysis Refused 180.667175474558 BP Diastolic BP Location Tested BP Systolic [...] Type Weight in lbs Pre/Post Dialysis Refused 179.463810554278 BP Diastolic BP Location Tested BP Systolic [...] Weight in lbs Pre/Post Dialysis Refused Weight 179.383416534056 BP Diastolic BP Location Tested BP Systolic [...] Type Weight in lbs Pre/Post Dialysis Refused 180.332750830338 BP Diastolic BP Location Tested BP Systolic BP Type 83 122 Fetus Heart Rate Present Fetus Movement A Yes Comments Patient is having some swell ing. +FM, vtx, schedule post op and pp, precautions reviewed f/u c/s as scheduled Flowsheet Date 02/22/2025 Lam Score Blood Edema Fundus Height Fundus Units Glucose Ketones Leukocytes Nitrite Labor Signs Protein Cervic Dilation Cervic Effacement Cervic Station Type Weight in lbs Pre/Post Dialysis Refused BP Diastolic BP Location Tested BP Systolic BP Type Fetus Heart Rate Present Fetus Movement Comments Flowsheet Date 03/03/2025 Lam Score Blood Edema Fundus Height Fundus Units Glucose Ketones Leukocytes Nitrite Labor Signs Protein Cervic Dilation Cervic Effacement Cervic Station Type Weight in lbs Pre/Post Dialysis Refused Weight 163.007002619314 BP Diastolic BP Location Tested BP Systolic BP Type 81 L arm 114 sitting Fetus Heart Rate Present Fetus Movement Comments Menstrual History Last Menstrual Date Menses Monthly On Bcp Conception Prior Menses Frequency Hcg Plus Date Menarche Onset Age 0705/16/2024 true Delivery Information Delivery Date Delivery Type Labor Anesthesia Weeks Gestation Incision Type Labor Labor Length Hrs Delivered By Post Complications Tubal Sterilization Discharge Date Comments 5 Induce d 39.4 Low Transvers e false false Discharge Information Feeding Method Contraceptive Method Maternal HG B and HCT Levels Ob Episode Information Episode Created Date Number of Fetuses Patient Bloodtype Patient rh Status Prepregnancy Weight lbs Domestic Partner Domestic Partner Phone Father Name Contact Center Agent Status 01/07/20 25 1 CLOSED Fetus Data First Name Last Name Admitted to NICU Weight (g) Sex Living Outcome Pediatric Complications Fetus ID Race Codes Race Delivery Type , [place] [id number] Kashif Calculation Initial Kashif Date Initial Exam [...] Domestic Partner Domestic Partner Phone Father Name Contact Center Agent Status 01/07/20 1 CLOSED Fetus Data First Name Last Name Admitted to NICU Weight (g) Sex Living Outcome Pediatric Complications Fetus ID Race Codes Race Delivery Type , [place] [address] Kashif Calculation Initial Kashif Date Initial Exam [...] Domestic Partner Domestic Partner Phone Father Name Contact Center Agent Status 01/07/20 1 CLOSED Fetus Data First Name Last Name Admitted to NICU Weight (g) Sex Living Outcome Pediatric Complications Fetus ID Race Codes Race Delivery Type , [place] [address]83 Kashif Calculation Initial Kashif Date Initial Exam [...] Domestic Partner Domestic Partner Phone Father Name Contact Center Agent Status 01/07/20 1 CLOSED Fetus Data First Name Last Name Admitted to NICU Weight (g) Sex Living Outcome Pediatric Complications Fetus ID Race Codes Race Delivery Type , [place] [address] Kashif Calculation Initial Kashif Date Initial Exam [...] Domestic Partner Domestic Partner Phone Father Name Contact Center Agent Status 01/07/20 1 CLOSED Fetus Data First Name Last Name Admitted to NICU Weight (g) Sex Living Outcome Pediatric Complications Fetus ID Race Codes Race Delivery Type , [place] [address] Kashif Calculation Initial Kashif Date Initial Exam Date Initial Exam Provider Initial Ultrasound Date Last Menstrual Period Date Ultra Sound Weeks Gestation 0 Eighteen To Twenty Week Kashif Update Ultra Sound Date Fundal Height At Umbil Quickening Date Ultra Sound Latest Weeks Gestation Final Kashif Confirmed By Final Ksahif Confirmed Date Final Kashif Date Ultra Sound [...]
--- OUTSIDE RECORDS SUMMARY | 2025-08-05 19:18 | XMS_ITS | Encounter Summary ---
Author Organization [facility] Address [address] [place] [address] Care Team Providers Care Aids Nurse Name Role Phone Simon Turner MD Primary Care Provider [phone] Encounter Details Date Type Department Care Team (Late st Contact Info) Description 09/28/2021 Lab Requisition [facility] [address] [place] [address] Debbie Huang MD Social History Tobacco Use Types Packs/Day Years Used Date Smoking Tobacco: Every Day Smokeless Tobacco: Never Comments Unknown Sex and Gender Information Value Date Recorded Sex Assigned at Not on file Legal Sex Female 7:02 AM QUANTITATIVE ANALYST DEVELOPER Gender Identity Not on file Sexual Orientation Not on file documented as of this encounter Plan of Treatment Not on file documented as of this encounter Procedures Procedure Name Priority Date/Time Associated Diagnosis Comments HCG BETA BLOOD QUANTITATIVE STAT 09/28/2021 11:42 AM QUANTITATIVE ANALYST DEVELOPER documented in this encounter Results * HCG BETA BLOOD QUANTITATIVE (09/28/2021 11:42 AM QUANTITATIVE ANALYST DEVELOPER) hCG Quantitative 3,781.48 mIU/mL 09/28/20 4:49 PM QUANTITATIVE ANALYST DEVELOPER [facility] Blood BLOOD SPECIMEN / Unknown Venipuncture / Unknown 09/28/2021 11:42 AM QUANTITATIVE ANALYST DEVELOPER 09/28/2021 3:40 PM QUANTITATIVE ANALYST DEVELOPER Narrative [facility] - 09/28/2021 4:49 PM QUANTITATIVE ANALYST DEVELOPER hCG Reference Range, mIU/mL: Males 0-2.0 Non [...] LAB - CHEMISTRY ORDERABLES Final Result [facility] [address] [place] [address] documented in this encounter Visit Diagnoses Not on filedocumented in this encounter Care Teams Aids Nurse Relationship Specialty Start Date End Date Simon Turner MD [address] [place] [id number] PCP - General 05/30/22 documented as of this encounter
--- OUTSIDE RECORDS SUMMARY | 2025-08-05 19:18 | XMS_ITS | Encounter Summary ---
Author Organization [facility] Address [address] [facility] [place] [address] Care Team Providers Care Switchboard Operator Name Role Phone Simon Turner MD Primary Care Provider [phone] Encounter Details Date Type Department Care Team (Late st Contact Info) Description 09/19/2021 Lab Requisition [facility] [address] [place] [address] Debbie Huang MD Social History Tobacco Use Types Packs/Day Years Used Date Smoking Tobacco: Every Day Smokeless Tobacco: Never Comments Unknown Sex and Gender Information Value Date Recorded Sex Assigned at Not on file Legal Sex Female 7:02 AM STUDENT LIFE COORDINATOR Gender Identity Not on file Sexual Orientation Not on file documented as of this encounter Plan of Treatment Not on file documented as of this encounter Procedures Procedure Name Priority Date/Time Associated Diagnosis Comments HCG BETA BLOOD QUANTITATIVE STAT 09/19/2021 9:36 AM STUDENT LIFE COORDINATOR documented in this encounter Results * HCG BETA BLOOD QUANTITATIVE (09/19/2021 9:36 AM STUDENT LIFE COORDINATOR) hCG Quantitative 71.07 mIU/mL 09/19/20 10:46 AM STUDENT LIFE COORDINATOR [facility] Blood BLOOD SPECIMEN / Unknown Venipuncture / Unknown 09/19/2021 9:36 AM STUDENT LIFE COORDINATOR 09/19/2021 9:43 AM STUDENT LIFE COORDINATOR Narrative [facility] - 09/19/2021 10:46 AM STUDENT LIFE COORDINATOR hCG Reference Range, mIU/mL: Males 0-2.0 Non [...] MD LAB - CHEMISTRY ORDERABLES Final Result [facility] [address] [place] [address] documented in this encounter Visit Diagnoses Not on filedocumented in this encounter Care Teams Switchboard Operator Relationship Specialty Start Date End Date Simon Turner MD [address] [place] [address] PCP - General 05/30/22 documented as of this encounter
--- OUTSIDE RECORDS SUMMARY | 2025-08-05 19:18 | XMS_ITS | Encounter Summary ---
Author Organization [facility] Address [address] [facility] [place] [address] Care Team Providers Care Inspector Name Role Phone Simon Turner MD Primary Care Provider [phone] Encounter Details Date Type Department Care Team (Late st Contact Info) Description 10/02/2018 Lab Requisition [facility] [address] [place] [address] Rajat Burch MD [address] [facility] [address] [place] [address] Social History Tobacco Use Types Packs/Day Years Used Date Smoking Tobacco: Every Day Smokeless Tobacco: Never Comments Unknown Sex and Gender Information Value Date Recorded Sex Assigned at Not on file Legal Sex Female 7:02 AM FUNERAL PLANNING COUNSELOR Gender Identity Not on file Sexual Orientation Not on file documented as of this encounter Plan of Treatment Not on file documented as of this encounter Procedures Procedure Name Priority Date/Time Associated Diagnosis Comments HCG BETA BLOOD QUANTITATIVE STAT 10/02/2018 7:36 AM FUNERAL PLANNING COUNSELOR documented in this encounter Results * HCG BETA BLOOD QUANTITATIVE (10/02/2018 7:36 AM FUNERAL PLANNING COUNSELOR) hCG Quantitative 50 mIU/mL 10/02/20 10:20 AM FUNERAL PLANNING COUNSELOR [facility] Blood BLOOD SPECIMEN / Unknown Venipuncture / Unknown 10/02/2018 7:36 AM FUNERAL PLANNING COUNSELOR 10/02/2018 9:58 AM FUNERAL PLANNING COUNSELOR Narrative [facility] - 10/02/2018 10:20 AM FUNERAL PLANNING COUNSELOR hCG Reference Range, mIU/mL: Males 0-2.0 Non [...] Rajat Burch MD LAB - CHEMISTRY ORDERABLES [facility] al Result [facility] [address] [place], [place] [id number] documented in this encounter Visit Diagnoses Not on filedocumented in this encounter Care Teams Inspector Relationship Specialty Start Date End Date Simon Turner MD [address] [place] [id number] PCP - General 05/30/22 documented as of this encounter
--- OUTSIDE RECORDS SUMMARY | 2025-08-05 19:18 | XMS_ITS | Encounter Summary ---
Author Organization [facility] Address [address] [facility] [place] [address] Care Team Providers Care Security Guards Dispatcher Name Role Phone Simon Turner MD Primary Care Provider [phone] Encounter Details Date Type Department Care Team (Late st Contact Info) Description 09/21/2021 Lab Requisition [facility] [address] [place] [address] Debbie Huang MD Social History Tobacco Use Types Packs/Day Years Used Date Smoking Tobacco: Every Day Smokeless Tobacco: Never Comments Unknown Sex and Gender Information Value Date Recorded Sex Assigned at Not on file Legal Sex Female 7:02 AM PERSONNEL CONSULTANT Gender Identity Not on file Sexual Orientation Not on file documented as of this encounter Plan of Treatment Not on file documented as of this encounter Procedures Procedure Name Priority Date/Time Associated Diagnosis Comments HCG BETA BLOOD QUANTITATIVE STAT 09/21/2021 2:58 PM PERSONNEL CONSULTANT documented in this encounter Results * HCG BETA BLOOD QUANTITATIVE (09/21/2021 2:58 PM PERSONNEL CONSULTANT) hCG Quantitative 217.87 mIU/mL 09/21/20 4:12 PM PERSONNEL CONSULTANT [facility] Blood BLOOD SPECIMEN / Unknown Venipuncture / Unknown 09/21/2021 2:58 PM PERSONNEL CONSULTANT 09/21/2021 3:36 PM PERSONNEL CONSULTANT Narrative [facility] - 09/21/2021 4:12 PM PERSONNEL CONSULTANT hCG Reference Range, mIU/mL: Males 0-2.0 Non [...] MD LAB - CHEMISTRY ORDERABLES Final Result [facility] [address] [place] [address] documented in this encounter Visit Diagnoses Not on filedocumented in this encounter Care Teams Security Guards Dispatcher Relationship Specialty Start Date End Date Simon Turner MD [address] [place] [address] PCP - General 05/30/22 documented as of this encounter
[2025-08-05 19:23] VITALS: BP 115/55; PULSE 78; RESP 16; TEMP 36.6; O2SAT 100
[2025-08-05] MEDS: ASPIRIN 81 MG CHEWABLE TABLET 324 MG PO (19:33)
[2025-08-05 19:38] LABS: Hematocrit 37.8 % (37.0-47.0); Hemoglobin 12.6 g/dL (12.0-15.0); Immature Granulocyte Percent A 0.1 % (0-0.5); Lymphocytes Absolute Auto 2.53 K/mm3 (0.9-3.2); Mean Corpuscular HGB Conc 33.3 g/dl (32-36); Mean Corpuscular Hemoglobin 29.9 pg (26-34); Mean Corpuscular Volume 89.6 fl (80-100); Nucleated Red Blood Cells Absolute Auto 0.000 K/mm3 (0.0-0.012); Nucleated Red Blood Cells Perc 0.0 % (0.0-0.2); Platelet Count Result 291 k/mm3 (150-375); Red Blood Count 4.22 M/mm3 (4.2-5.4); White Blood Count 8.0 K/mm3 (4.5-10.0)
[2025-08-05 19:50] LABS: INR 1.0; Prothrombin Time 13.2 Seconds (11.1-14.7)
[2025-08-05 19:51] LABS: Partial Thromboplastin Time 29.9 Seconds (22.3-36.8)
[2025-08-05 19:53] LABS: Alanine Aminotransferase 27 U/L (6-35); Albumin Level 4.4 g/dL (3.5-5.1); Alkaline Phosphatase 48 U/L (38-126); Anion Gap 10 mmol/L (4-12); Aspartate Amino Transferase 28 U/L (14-36); Bilirubin,Total 0.8 mg/dL (0.2-1.3); Blood Urea Nitrogen 14 mg/dL (7-17); Calcium 9.8 mg/dL (8.4-10.2); Carbon Dioxide 24 mmol/L (22-30); Chloride 104 mmol/L (98-107); Estimated CRCL calculation 89 ml/min; Estimated Glomerular Filt Rate > 60; Glucose 114 mg/dL (65-110); Lipase 129 U/L (23-300); Potassium 3.6 mmol/L (3.4-5.0); Sodium 138 mmol/L (137-145); Total Protein 8.4 g/dL (6.3-8.2)
[2025-08-05 20:03] LABS: Troponin I < 0.012 ng/mL (0.000-0.034)
--- NOTE | 2025-08-05 21:22 | ED.GENADULT ---
HPI - General Adult General Chief complaint: Chest Pain <Tanner Martinez MD - Last Filed: 08/05/25 21:25> Stated complaint: chest pain <Tanner Martinez MD - Last Filed: 08/05/25 21:25> Time Seen by Provider: 08/05/25 21:16 <Tanner Martinez MD - Last Filed: 08/05/25 21:25> History of Present Illness HPI narrative: Patient is a 35-year-old female who presents ER with chest pain. Began this morning after eating breakfast and persisted throughout the day. It then went away and came back after eating dinner. No nausea or vomiting. No abdominal pain. No improvement with Tums. She reports that during her 5 months ago she is having cramping in her right calf and now she has pain and pressure in her chest she is very concerned that she could have a blood clot though she was never diagnosed with plug flap previously. <Tanner Martinez MD - Last Filed: 08/05/25 21:25> Related Data Home medications: Home Medications ?Medication ?Instructions ?Recorded ?Confirmed ?Last Taken ?Type cholecalciferol (vitamin D3) 50 50 mcg PO DAILY 01/23/22 01/31/25 01/31/25 History mcg (2,000 unit) capsule vit no.95-ferrous 1 tablet PO DAILY 01/31/25 01/31/25 01/31/25 History fumarate 28 mg-folic acid 800 mcg tablet () <Tanner Martinez MD - Last Filed: 08/05/25 21:25> Allergies/adverse reactions: Allergies Allergy/AdvReac Type Severity Reaction Status Date / Time ultrasound coupling medium AdvReac Intermediate Rash Verified 02/22/25 06:11 <Tanner Martinez MD - Last Filed: 08/05/25 21:25> Review of Systems Review of Systems: All systems reviewed & are unremarkable except as noted in HPI and below <Tanner Martinez MD - Last Filed: 08/05/25 21:25> Constitutional: Constitutional: Reports no additional constitutional complaints <Tanner Martinez MD - Last Filed: 08/05/25 21:25> ENT: Reports system reviewed and no additional complaints, except as documented <Tanner Martinez MD - Last Filed: 08/05/25 21:25> Cardiovascular: Cardiovascular: Reports no additional cardiovascular complaints <Tanner Martinez MD - Last Filed: 08/05/25 21:25> Respiratory: Respiratory: Reports no additional respiratory complaints <Tanner Martinez MD - Last Filed: 08/05/25 21:25> Gastrointestinal: Gastrointestinal: Reports no additional gastrointestinal complaints <Tanner Martinez MD - Last Filed: 08/05/25 21:25> PMFSH Past Medical History Medical History: Medical History (Updated 08/06/25 @ 00:17 by Marie Rocha PA-C) Leukocytosis Epigastric pain Thickening of wall of gallbladder High cholesterol <Tanner Martinez MD - Last Filed: 08/05/25 21:25> Surgical History Surgical History: Surgical History H/O laparoscopy Hx of tonsillectomy <Tanner Martinez MD - Last Filed: 08/05/25 21:25> Family History Family History: Family History Mother Patient's mother is in good health Father Diabetes type 2, controlled Sibling Diabetes type 2, controlled Hypertension <Tanner Martinez MD - Last Filed: 08/05/25 21:25> Social History Social History: Social History Years smoked: 7 Smoking status: Former smoker Tobacco type: cigarettes Second hand tobacco smoke exposure: No Alcohol intake: former Substance use: never Substance use type: does not use Do You Feel Safe in your Home?: Yes Lack of Transportation: No Lack of Food: Never True Current Housing: I Have Housing Concerned About Future Housing: No Difficulty Paying Gas/Electric Bills: No Difficulty Paying for Meds: No Currently Unemployed: No Education: High School Diploma/GED Difficulty w/ Childcare or Family Care: No Living arrangements: with family Occupation/Education: occupation 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 HEAD: Normocephalic, atraumatic. ENT: Mucous membranes moist. CHEST: Clear to auscultation. No respiratory distress. HEART: Regular rate and rhythm. Normal peripheral pulses. ABDOMEN: Soft, nontender, nondistended. EXTREMITIES: Normal range of motion. No edema. SKIN: Warm, dry, no rash. NEURO: Alert and oriented x3. PSYCH: Normal mood and affect. <Tanner Martinez MD - Last Filed: 08/05/25 21:25> Course Course Emergency Course: Transfer of care to family Bayron PATEL. CTA pending. If negative recommend outpatient follow-up with PCP and likely outpatient ultrasound of the gallbladder. <Tanner Martinez MD - Last Filed: 08/05/25 21:25> Transfer of care to Marie SAMSON CTA pending. If negative recommend outpatient follow-up with PCP and likely outpatient ultrasound of the gallbladder. EH 12:18AM: CTA negative, will discharge to follow up with PCP <Marie Rocha PA-C - Last Filed: 08/06/25 00:21> Vital Signs Vital signs: Vital Signs Temperature 97.9 F 08/05/25 19:23 Pulse Rate 78 08/05/25 19:23 Respiratory Rate 16 08/05/25 19:23 Blood Pressure 115/55 L 08/05/25 19:23 Pulse Oximetry 100 08/05/25 19:23 Oxygen Delivery Room Air 08/05/25 19:23 Temperature 97.9 F 08/05/25 19:23 Pulse Rate 78 08/05/25 19:23 Respiratory Rate 16 08/05/25 19:23 Blood Pressure 115/55 L 08/05/25 19:23 Pulse Oximetry 100 08/05/25 21:45 Oxygen Delivery Room Air 08/05/25 21:45 <Tanner Martinez MD - Last Filed: 08/05/25 21:25> Vital Signs Temperature 97.9 F 08/05/25 19:23 Pulse Rate 78 08/05/25 19:23 Respiratory Rate 16 08/05/25 19:23 Blood Pressure 115/55 L 08/05/25 19:23 Pulse Oximetry 100 08/05/25 19:23 Oxygen Delivery Room Air 08/05/25 19:23 Temperature 97.9 F 08/05/25 19:23 Pulse Rate 78 08/05/25 19:23 Respiratory Rate 16 08/05/25 19:23 Blood Pressure 115/55 L 08/05/25 19:23 Pulse Oximetry 100 08/05/25 21:45 Oxygen Delivery Room Air 08/05/25 21:45 <Marie Rocha PA-C - Last Filed: 08/06/25 00:21> Medical Decision Making MDM Narrative Medical decision making narrative: Care taken over by me at shift change pending CTA results. Patient updated on her workup, resting comfortably. Will follow-up with PCP for further evaluation <Marie Rocha PA-C - Last Filed: 08/06/25 00:21> Vital Signs Vital Signs: Vital Signs Temperature 97.9 F 08/05/25 19:23 Pulse Rate 78 08/05/25 19:23 Respiratory Rate 16 08/05/25 19:23 Blood Pressure 115/55 L 08/05/25 19:23 Pulse Oximetry 100 08/05/25 19:23 Oxygen Delivery Room Air 08/05/25 19:23 Temperature 97.9 F 08/05/25 19:23 Pulse Rate 78 08/05/25 19:23 Respiratory Rate 16 08/05/25 19:23 Blood Pressure 115/55 L 08/05/25 19:23 Pulse Oximetry 100 08/05/25 21:45 Oxygen Delivery Room Air 08/05/25 21:45 <Tanner Martinez MD - Last Filed: 08/05/25 21:25> Vital Signs Temperature 97.9 F 08/05/25 19:23 Pulse Rate 78 08/05/25 19:23 Respiratory Rate 16 08/05/25 19:23 Blood Pressure 115/55 L 08/05/25 19:23 Pulse Oximetry 100 08/05/25 19:23 Oxygen Delivery Room Air 08/05/25 19:23 Temperature 97.9 F 08/05/25 19:23 Pulse Rate 78 08/05/25 19:23 Respiratory Rate 16 08/05/25 19:23 Blood Pressure 115/55 L 08/05/25 19:23 Pulse Oximetry 100 08/05/25 21:45 Oxygen Delivery Room Air 08/05/25 21:45 <Marie Rocha PA-C - Last Filed: 08/06/25 00:21> Lab Data Lab results reviewed: Yes I reviewed the patient's lab results. <Marie Rocha PA-C - Last Filed: 08/06/25 00:21> Result diagrams: 08/05/25 19:30 08/05/25 19:30 <Tanner Martinez MD - Last Filed: 08/05/25 21:25> Labs: Lab Results 08/05/25 08/05/25 08/05/25 Range/Units 19:30 19:30 21:45 WBC 8.0 (4.5-10.0) K/mm3 RBC 4.22 (4.2-5.4) M/mm3 Hgb 12.6 D (12.0-15.0) g/dL Hct 37.8 (37.0-47.0) % MCV 89.6 (80-100) fl MCH 29.9 (26-34) pg MCHC 33.3 (32-36) g/dl RDW 13.4 (11.5-14.5) % Plt Count 291 D (150-375) k/mm3 MPV 10.0 (7.4-10.4) fl Immature Gran % (Auto) 0.1 (0-0.5) % Neut % (Auto) 56.5 (45.5-73.1) % Lymph % (Auto) 31.6 (18.3-44.2) % [place] % (Auto) 7.9 (2.6-8.5) % Eos % (Auto) 3.4 (0-4.4) % Baso % (Auto) 0.5 (0.2-1.2) % Lymph # (Auto) 2.53 (0.9-3.2) K/mm3 [place] # (Auto) 0.6 (0.1-0.6) K/mm3 Eos # (Auto) 0.3 (0-0.3) K/mm3 Baso # (Auto) 0.0 (0.0-0.1) K/mm3 Abs Immat Gran (auto) 0.01 (0.00-0.031) K/mm3 Absolute Neuts (auto) 4.5 (1.3-6.7) K/mm3 Absolute Nucleated RBC 0.000 (0.0-0.012) K/mm3 Nucleated RBC % 0.0 (0.0-0.2) % PT 13.2 (11.1-14.7) Seconds INR 1.0 APTT 29.9 (22.3-36.8) Seconds D-Dimer 0.71 H Cancelled (<0.48) ug/mL Sodium 138 (137-145) mmol/L Potassium 3.6 (3.4-5.0) mmol/L Chloride 104 (98-107) mmol/L Carbon Dioxide 24 (22-30) mmol/L Anion Gap 10 (4-12) mmol/L BUN 14 (7-17) mg/dL Creatinine 0.67 L (0.7-1.0) mg/dL Estim Creat Clear Calc 89 ml/min Estimated GFR > 60 (59 - ) Glucose 114 H (65-110) mg/dL Calcium 9.8 (8.4-10.2) mg/dL Total Bilirubin 0.8 (0.2-1.3) mg/dL AST 28 (14-36) U/L ALT 27 (6-35) U/L Alkaline Phosphatase 48 (38-126) U/L Troponin I < 0.012 (0.000-0.034) ng/mL Total Protein 8.4 H (6.3-8.2) g/dL Albumin 4.4 (3.5-5.1) g/dL Lipase 129 (23-300) U/L POC Urine HCG, Qual Negative (Negative) 08/05/25 Range/Units 22:43 WBC (4.5-10.0) K/mm3 RBC (4.2-5.4) M/mm3 Hgb (12.0-15.0) g/dL Hct (37.0-47.0) % MCV (80-100) fl MCH (26-34) pg MCHC (32-36) g/dl RDW (11.5-14.5) % Plt Count (150-375) k/mm3 MPV (7.4-10.4) fl Immature Gran % (Auto) (0-0.5) % Neut % (Auto) (45.5-73.1) % Lymph % (Auto) (18.3-44.2) % [place] % (Auto) (2.6-8.5) % Eos % (Auto) (0-4.4) % Baso % (Auto) (0.2-1.2) % Lymph # (Auto) (0.9-3.2) K/mm3 [place] # (Auto) (0.1-0.6) K/mm3 Eos # (Auto) (0-0.3) K/mm3 Baso # (Auto) (0.0-0.1) K/mm3 Abs Immat Gran (auto) (0.00-0.031) K/mm3 Absolute Neuts (auto) (1.3-6.7) K/mm3 Absolute Nucleated RBC (0.0-0.012) K/mm3 Nucleated RBC % (0.0-0.2) % PT (11.1-14.7) Seconds INR APTT (22.3-36.8) Seconds D-Dimer (<0.48) ug/mL Sodium (137-145) mmol/L Potassium (3.4-5.0) mmol/L Chloride (98-107) mmol/L Carbon Dioxide (22-30) mmol/L Anion Gap (4-12) mmol/L BUN (7-17) mg/dL Creatinine (0.7-1.0) mg/dL Estim Creat Clear Calc ml/min Estimated GFR (59 - ) Glucose (65-110) mg/dL Calcium (8.4-10.2) mg/dL Total Bilirubin (0.2-1.3) mg/dL AST (14-36) U/L ALT (6-35) U/L Alkaline Phosphatase (38-126) U/L Troponin I < 0.012 (0.000-0.034) ng/mL Total Protein (6.3-8.2) g/dL Albumin (3.5-5.1) g/dL Lipase (23-300) U/L POC Urine HCG, Qual (Negative) <Tanner Martinez MD - Last Filed: 08/05/25 21:25> Lab Results 08/05/25 08/05/25 08/05/25 Range/Units 19:30 19:30 21:45 WBC 8.0 (4.5-10.0) K/mm3 RBC 4.22 (4.2-5.4) M/mm3 Hgb 12.6 D (12.0-15.0) g/dL Hct 37.8 (37.0-47.0) % MCV 89.6 (80-100) fl MCH 29.9 (26-34) pg MCHC 33.3 (32-36) g/dl RDW 13.4 (11.5-14.5) % Plt Count 291 D (150-375) k/mm3 MPV 10.0 (7.4-10.4) fl Immature Gran % (Auto) 0.1 (0-0.5) % Neut % (Auto) 56.5 (45.5-73.1) % Lymph % (Auto) 31.6 (18.3-44.2) % [place] % (Auto) 7.9 (2.6-8.5) % Eos % (Auto) 3.4 (0-4.4) % Baso % (Auto) 0.5 (0.2-1.2) % Lymph # (Auto) 2.53 (0.9-3.2) K/mm3 [place] # (Auto) 0.6 (0.1-0.6) K/mm3 Eos # (Auto) 0.3 (0-0.3) K/mm3 Baso # (Auto) 0.0 (0.0-0.1) K/mm3 Abs Immat Gran (auto) 0.01 (0.00-0.031) K/mm3 Absolute Neuts (auto) 4.5 (1.3-6.7) K/mm3 Absolute Nucleated RBC 0.000 (0.0-0.012) K/mm3 Nucleated RBC % 0.0 (0.0-0.2) % PT 13.2 (11.1-14.7) Seconds INR 1.0 APTT 29.9 (22.3-36.8) Seconds D-Dimer 0.71 H Cancelled (<0.48) ug/mL Sodium 138 (137-145) mmol/L Potassium 3.6 (3.4-5.0) mmol/L Chloride 104 (98-107) mmol/L Carbon Dioxide 24 (22-30) mmol/L Anion Gap 10 (4-12) mmol/L BUN 14 (7-17) mg/dL Creatinine 0.67 L (0.7-1.0) mg/dL Estim Creat Clear Calc 89 ml/min Estimated GFR > 60 (59 - ) Glucose 114 H (65-110) mg/dL Calcium 9.8 (8.4-10.2) mg/dL Total Bilirubin 0.8 (0.2-1.3) mg/dL AST 28 (14-36) U/L ALT 27 (6-35) U/L Alkaline Phosphatase 48 (38-126) U/L Troponin I < 0.012 (0.000-0.034) ng/mL Total Protein 8.4 H (6.3-8.2) g/dL Albumin 4.4 (3.5-5.1) g/dL Lipase 129 (23-300) U/L POC Urine HCG, Qual Negative (Negative) 08/05/25 Range/Units 22:43 WBC (4.5-10.0) K/mm3 RBC (4.2-5.4) M/mm3 Hgb (12.0-15.0) g/dL Hct (37.0-47.0) % MCV (80-100) fl MCH (26-34) pg MCHC (32-36) g/dl RDW (11.5-14.5) % Plt Count (150-375) k/mm3 MPV (7.4-10.4) fl Immature Gran % (Auto) (0-0.5) % Neut % (Auto) (45.5-73.1) % Lymph % (Auto) (18.3-44.2) % [place] % (Auto) (2.6-8.5) % Eos % (Auto) (0-4.4) % Baso % (Auto) (0.2-1.2) % Lymph # (Auto) (0.9-3.2) K/mm3 [place] # (Auto) (0.1-0.6) K/mm3 Eos # (Auto) (0-0.3) K/mm3 Baso # (Auto) (0.0-0.1) K/mm3 Abs Immat Gran (auto) (0.00-0.031) K/mm3 Absolute Neuts (auto) (1.3-6.7) K/mm3 Absolute Nucleated RBC (0.0-0.012) K/mm3 Nucleated RBC % (0.0-0.2) % PT (11.1-14.7) Seconds INR APTT (22.3-36.8) Seconds D-Dimer (<0.48) ug/mL Sodium (137-145) mmol/L Potassium (3.4-5.0) mmol/L Chloride (98-107) mmol/L Carbon Dioxide (22-30) mmol/L Anion Gap (4-12) mmol/L BUN (7-17) mg/dL Creatinine (0.7-1.0) mg/dL Estim Creat Clear Calc ml/min Estimated GFR (59 - ) Glucose (65-110) mg/dL Calcium (8.4-10.2) mg/dL Total Bilirubin (0.2-1.3) mg/dL AST (14-36) U/L ALT (6-35) U/L Alkaline Phosphatase (38-126) U/L Troponin I < 0.012 (0.000-0.034) ng/mL Total Protein (6.3-8.2) g/dL Albumin (3.5-5.1) g/dL Lipase (23-300) U/L POC Urine HCG, Qual (Negative) <Marie Rocha PA-C - Last Filed: 08/06/25 00:21> Imaging Data Radiologist's impression: CTA chest: No acute pulmonary embolism <Marie Rocha PA-C - Last Filed: 08/06/25 00:21> ECG Data EKG #1: ECG completion date: 08/05/25 <Tanner Martinez MD - Last Filed: 08/05/25 21:25> ECG completion time: 19:20 <Tanner Martinez MD - Last Filed: 08/05/25 21:25> EKG Interpretation: normal rate (80), sinus rhythm, non-specific ST changes, normal QRS, normal QT and NL axis <Tanner Martinez MD - Last Filed: 08/05/25 21:25> Critical Care Time Critical Care Time Critical Care Time: No <Marie Rocha PA-C - Last Filed: 08/06/25 00:21> Discharge Plan Discharge Clinical Impression: Chest pain Qualifiers: Chest pain type: unspecified Qualified Code(s): R07.9 - Chest pain, unspecified <Tanner Martinez MD - Last Filed: 08/05/25 21:25> Patient Disposition: Home <Tanner Martinez MD - Last Filed: 08/05/25 21:25> Condition: Stable <Tanner Martinez MD - Last Filed: 08/05/25 21:25> Instructions: Chest Pain (ED) <Tanner Martinez MD - Last Filed: 08/05/25 21:25> Additional Instructions: Return to the Emergency Department if you experience fever, worsening chest pain, shortness of breath, redness and swelling of your leg, or any other symptoms that are concerning to you Follow up with your primary care doctor <Tanner Martinez MD - Last Filed: 08/05/25 21:25> Patient Language: Sami <Tanner Martinez MD - Last Filed: 08/05/25 21:25> Prescriptions: No Action cholecalciferol (vitamin D3) 50 mcg (2,000 unit) capsule 50 mcg PO DAILY docusate sodium 100 mg Capsule 100 mg PO BID Qty: 60 0RF PNV no.95-ferrous fumarate-FA [] 28 mg iron- 800 mcg tablet 1 tablet PO DAILY hydrocodone-acetaminophen 5-325 mg tablet 1 - 2 tablet PO Q6H PRN (Reason: pain) Qty: 25 0RF <Tanner Martinez MD - Last Filed: 08/05/25 21:25> Follow-up/Referrals: Torres,TYLER rPice [Primary Care Provider, Unknown] <Tanner Martinez MD - Last Filed: 08/05/25 21:25> Quality HEART score for chest pain patients History: slightly suspicious <Marie Rocha PA-C - Last Filed: 08/06/25 00:21> ECG: normal <Marie Rocha PA-C - Last Filed: 08/06/25 00:21> Age: < or = to 45 years <Marie Rocha PA-C - Last Filed: 08/06/25 00:21> Risk factors: no risk factors known <Marie Rocha PA-C - Last Filed: 08/06/25 00:21> Troponin: < or = to 1x normal limit <Marie Rocha PA-C - Last Filed: 08/06/25 00:21> Heart score: 0 <Marie Rocha PA-C - Last Filed: 08/06/25 00:21>
[2025-08-05 21:45] VITALS: O2SAT 100
[2025-08-05 21:57] LABS: BEDSIDEPREGUCG Negative (Negative)
--- NOTE | 2025-08-05 22:36 | ECG_ITS ---
Test Date: 2025-08-05 22:50:04 Measurements Intervals [place] Rate: 65 P: 60 UT: 136 QRS: 61 QRSD: 90 T: 48 QT: 404 QTc: 421 Interpretive Statements SINUS RHYTHM BASELINE ARTIFACT- I, II, III, AVR, AVL NORMAL ECG Compared to ECG 08/05/2025 19:20:36 NO SIGNIFICANT CHANGE Electronically Signed On 08-06-2025 07:21:10 CDT by Efrain Moyer D.O.
[2025-08-05 23:10] LABS: Troponin I < 0.012 ng/mL (0.000-0.034)
[2025-08-06 01:28] VITALS: BP 128/55; PULSE 77; RESP 16; O2SAT 99
== END 2025-08-06 01:30 | disposition home or self-care (01) ==
PROVIDERS: Student in an Organized Health Care Education/Training Program; Emergency Provider Emergency Medicine; PCP Nurse Practitioner
DX: R07.89 Other chest pain (principal); Z87.891 Personal history of nicotine dependence; R94.31 Abnormal electrocardiogram [ECG] [EKG]
CPT/HCPCS: 36415; 71046; 71275; 80053; 81025; 83690; 84484; 85025; 85380; 85610; 85730; 93005; 99284; A9270; Q9967